=== PATIENT | male | born 1940 | race Caucasian/White ===

== ENCOUNTER 2017-10-27 19:06 | Emergency (ER) | END 2017-10-27 20:10 | disposition home or self-care (01) ==

== ENCOUNTER 2017-12-13 07:26 | Day surgery (SDC) | END 2017-12-13 11:32 | disposition home or self-care (01) ==

== ENCOUNTER 2018-05-31 22:10 | Emergency (ER) | END 2018-06-01 03:24 | disposition home or self-care (01) ==

== ENCOUNTER 2018-06-08 13:38 | Emergency (ER) | payer MEDICARE, MEDICAID ==
[~2018-06-08] VITALS: Wt 65.3 kg
[~2018-06-08 13:38] MED LIST: AMLO5TAB4 PO; ATEN50TA PO; BENA40TA56 PO; CALC667C PO; FOLI1CAP PO; RISP0.253 PO; SITA25TA3 PO; TERA5CAP3 PO
--- NOTE | 2018-06-08 15:07 | ERD ---
ER Documentation Chief Complaint Chief Complaint palpitation started today HPI 77-year-old male arrives to the emergency department with the paramedics from his dialysis center for evaluation of a tachycardia. According to the patient and the paramedics, patient received a full dialysis run today. After dialysis, he was tachycardic but asymptomatic. I have reviewed the commodity loan clerk pre-hospital care. Pre-hospital vital signs were reviewed. Pre-hospital diagnostic tests were reviewed. Upon arrival, patient reports no chest pain or shortness of breath, no fevers or chills. He states he feels well. He has no complaints at this time. ROS All systems reviewed and are negative except as per history of present illness. Medications Home Meds Reported Medications Folic Acid/Vitamin B Comp W-C (Nephrocaps Capsule) 1 Mg Capsule, 1 MG PO DAILY, CAP 12/13/17 Sitagliptin* (Januvia*) 25 Mg Tablet, 25 MG PO DAILY, #30 TAB 12/13/17 Calcium Acetate* (Calcium Acetate*) 667 Mg Capsule, 667 MG PO WITH MEALS, #30 CAP 12/13/17 Risperidone* (Risperidone*) 0.25 Mg Tablet, 0.25 MG PO DAILY, TAB 12/13/17 Terazosin Hcl* (Terazosin Hcl*) 5 Mg Capsule, 5 MG PO HS, CAP 12/13/17 Benazepril Hcl* (Benazepril Hcl*) 40 Mg Tablet, 40 MG PO DAILY, #30 TAB 12/13/17 Atenolol* (Atenolol*) 50 Mg Tablet, 50 MG PO BID, #60 TAB 12/13/17 Amlodipine Besylate* (Norvasc*) 5 Mg Tablet, 5 MG PO BID, TAB 12/13/17 Allergies Allergies: Coded Allergies: No Known Drug Allergy (Verified Allergy, Unknown, 12/13/17) PMhx/Soc History of Surgery: No Anesthesia Reaction: No Hx Neurological Disorder: No Hx Respiratory Disorders: No Hx Cardiac Disorders: Yes (HTN) Hx Psychiatric Problems: No Hx Miscellaneous Medical Probl: Yes (CKD, DM II) Hx Alcohol Use: No Hx Substance Use: No Hx Tobacco Use: No Smoking Status: Never smoker FmHx Noncontributory for chief complaint Physical Exam Vitals Vital Signs Date Temp Pulse Resp B/P (MAP) Pulse Ox O2 O2 Flow FiO2 Time Delivery Rate 06/08/18 88 18 146/80 99 Room Air 15:50 (102) 06/08/18 121 144/80 15:38 (101) 06/08/18 98.1 124 18 149/75 100 14:22 (99) Physical Exam GENERAL: The patient is well developed and appropriate for usual state of health in no apparent distress HEENT: Pupils equal, round, and reactive to light. EOMI. There is no scleral icterus. NECK: C-spine is soft and supple, there is no meningismus. There is no cervical lymphadenopathy. LUNGS: Clear to auscultation bilaterally. There are no rales, wheezes or rhonchi. HEART: Rapid, regular rate and rhythm, no murmurs, clicks, rubs or gallops.] ABDOMEN: Soft, non-tender, non-distended. There are bowel sounds in all four quadrants. No rebound or guarding. EXTREMITIES: There is no peripheral cyanosis or edema. No focal swelling or erythema. Dialysis graft is appreciated with a normal bruit and thrill. NEURO: The patient moves all four extremities with 5/5 strength. Cranial nerves II - XII are intact. Normal gait. Alert and oriented SKIN: There is no apparent rash or petechiae. HEME/LYMPHATIC: There is no evidence of excessive bruising or lymphedema. PSYCHIATRIC: The patient does not appear anxious or depressed. Result Diagram: 06/08/18 1432 06/08/18 1432 Results 24 hrs Laboratory Tests Test 06/08/18 14:32 White Blood Count 5.6 10^3/ul Red Blood Count 3.40 10^6/ul Hemoglobin 9.9 g/dl Hematocrit 29.9 % Mean Corpuscular Volume 87.9 fl Mean Corpuscular Hemoglobin 29.1 pg Mean Corpuscular Hemoglobin Concent 33.1 g/dl Red Cell Distribution Width 14.3 % Platelet Count 162 10^3/UL Mean Platelet Volume 9.1 fl Immature Granulocytes % 0.200 % Neutrophils % 78.4 % Lymphocytes % 4.9 % Monocytes % 12.4 % Eosinophils % 3.6 % Basophils % 0.5 % Nucleated Red Blood Cells % 0.0 /100WBC Immature Granulocytes # 0.010 10^3/ul Neutrophils # 4.4 10^3/ul Lymphocytes # 0.3 10^3/ul Monocytes # 0.7 10^3/ul Eosinophils # 0.2 10^3/ul Basophils # 0.0 10^3/ul Nucleated Red Blood Cells # 0.0 10^3/ul Sodium Level 138 mmol/L Potassium Level 3.7 mmol/L Chloride Level 96 mmol/L Carbon Dioxide Level 30 mmol/L Anion Gap 12 Blood Urea Nitrogen 29 mg/dl Creatinine 4.48 mg/dl Est Glomerular Filtrat Rate mL/min mL/min Glucose Level 158 mg/dl Calcium Level 9.3 mg/dl Total Bilirubin 0.1 mg/dl Direct Bilirubin 0.00 mg/dl Indirect Bilirubin 0.1 mg/dl Aspartate Amino Transf (AST/SGOT) 18 IU/L Alanine Aminotransferase (ALT/SGPT) 19 IU/L Alkaline Phosphatase 59 IU/L Troponin I 0.020 ng/ml Total Protein 6.4 g/dl Albumin 3.5 g/dl Globulin 2.90 g/dl Albumin/Globulin Ratio 1.20 Lipase 168 U/L Current Medications Medications Dose Sig/Regi Start Time Status Last (Trade) Ordered Route PRN Stop Time Admin Dose Reason Admin Diltiazem 30 mg ONCE ONCE 06/08/18 DC 06/08/18 HCl PO 15:30 06/08/18 15:36 (Cardizem) 15:31 Procedures/MDM Patient was taken to a room, seen and evaluated. Comfort measures were initiated. Diagnostic tests were ordered and reviewed. 3 LEAD RHYTHM STRIP: Sinus tachycardia versus junctional tachycardia EK lead EKG reviewed by myself: Supraventricular tachycardia at 128 bpm [Normal [place] and intervals] Nonspecific ST and T wave changes without ST elevation Impression: Nonspecific EKG RADIOLOGY: [reviewed with the radiologist] REEVALUATION: 1610: Patient remained asymptomatic and his heart rate went back to a normal sinus rhythm at 82 bpm. Repeat EKG demonstrated: Normal sinus rhythm LVH No ST elevation or depression Impression: Now in a normal sinus rhythm without obvious ischemic changes [employer]ISION [employer]KIN-year-old dialysis dependent patient presents with an asymptomatic tachycardia. Initial diagnostic tests no significant anemia, evidence of infection or significant electrolyte concerns. His tachycardia seems to be inherently cardiac related and likely an a flutter with a slow 2-1 block. At this time he is converted back to normal sinus rhythm and is remained asymptomatic with no signs of ischemia. He appears clinically well and seems appropriate for outpatient care. Departure Diagnosis: Primary Impression: Tachycardia Condition: Stable TAN EDMOND 3, 2019 15:07
[2018-06-08] MEDS ORDERED: DILTIAZEM 30 MG TAB PO ONE (15:30)
[2018-06-08 16:35] VITALS: BP 142/79; PULSE 89; RESP 18
== END 2018-06-08 17:02 | disposition home or self-care (01) ==
LOC: E/R 13:38
DX: R00.0 Tachycardia, unspecified (principal); I12.9 Hypertensive chronic kidney disease with stage 1 through stage 4 chronic kidney disease, or unspecified chronic kidney disease; N18.9 Chronic kidney disease, unspecified; E11.22 Type 2 diabetes mellitus with diabetic chronic kidney disease; Z79.84 Long term (current) use of oral hypoglycemic drugs; Z99.2 Dependence on renal dialysis
CPT/HCPCS: 71045; 80053; 83690; 84484; 85025; 93005

== ENCOUNTER 2018-10-29 19:38 | Emergency (ER) | payer MEDICARE, MEDICAID ==
[~2018-10-29] VITALS: Ht 167.6 cm; Wt 62.2 kg
[~2018-10-29 19:38] MED LIST changes: +APIX5TAB PO; -ATEN50TA PO; +CALC0.5C10 PO; +CARV12.579 PO; +CLON-379 PO; +FOLI0.8T2 PO; -FOLI1CAP PO; -SITA25TA3 PO; +SVL800C PO
[2018-10-29 19:47] VITALS: Ht 167.6 cm; Wt 62.2 kg
--- NOTE | 2018-10-29 21:19 | ERD ---
ER Documentation Chief Complaint Chief Complaint CP x 1 hour while at rest, hx: dialysis, HTN HPI This is a 78-year-old man brought in by family members for complaints of sharp nonexertional nonradiating chest pain today beginning early afternoon and posterior scalp contusion after mechanical fall while. Patient was given a walker and a wheelchair and was encouraged to use them but he does not like to use those so he suffered a mechanical fall today and struck the back of his head. The episode was witnessed he had no LOC and he was able to get up and ambulate immediately after without difficulty. He said no changes in mental status, no recent fevers or chills, no cough, no vomiting or diarrhea, no abdominal pain. He had full hemodialysis yesterday ROS All systems reviewed and are negative except as per history of present illness. Medications Home Meds Active Scripts Carvedilol* (Carvedilol*) 12.5 Mg Tablet, 12.5 MG PO BID for 30 Days, TAB Prov:KADI GONZALEZ MD 06/20/18 Apixaban* (Eliquis*) 5 Mg Tablet, 2.5 MG PO BID for 30 Days, TAB Prov:KADI GONZALEZ MD 06/20/18 Reported Medications Folic Acid/Vitamin B Comp W-C (Renal Multivitamin Tablet) 0.8 Mg Tablet, 0.8 MG PO DAILY, TAB 06/15/18 Clonidine Hcl* (Clonidine Hcl*) 0.1 Mg Tab, 0.1 MG PO BID, TAB 06/15/18 Risperidone* (Risperidone*) 0.25 Mg Tablet, 0.25 MG PO DAILY, TAB 06/15/18 Sevelamer Hcl* (Renagel*) 800 Mg Tablet, 800 MG PO WITH MEALS, TAB 06/15/18 Calcitriol* (Calcitriol*) 0.5 Mcg Capsule, 0.5 MCG PO DAILY, CAP 06/15/18 Calcium Acetate* (Calcium Acetate*) 667 Mg Capsule, 667 MG PO WITH MEALS, #30 CAP 12/13/17 Terazosin Hcl* (Terazosin Hcl*) 5 Mg Capsule, 5 MG PO HS, CAP 12/13/17 Benazepril Hcl* (Benazepril Hcl*) 40 Mg Tablet, 40 MG PO DAILY, #30 TAB 12/13/17 Amlodipine Besylate* (Norvasc*) 5 Mg Tablet, 5 MG PO BID, TAB 12/13/17 Allergies Allergies: Coded Allergies: No Known Drug Allergy (Verified Allergy, Unknown, 06/15/18) PMhx/Soc Atrial fibrillation, CHF with LVEF of 40%, history of non-STEMI, 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, hypertension, history of pericardial effusion, dementia, anemia History of Surgery: Yes (right upper arm shunt) Anesthesia Reaction: No Hx Neurological Disorder: No Hx Respiratory Disorders: Yes Hx Cardiac Disorders: Yes (htn, cad) Hx Psychiatric Problems: Yes (PSYCHOSIS) Hx Miscellaneous Medical Probl: Yes (ESRD , ON HD , DM , HTN ) Hx Alcohol Use: No Hx Substance Use: No Hx Tobacco Use: No Smoking Status: Never smoker Physical Exam Vitals Vital Signs Date Temp Pulse Resp B/P (MAP) Pulse Ox O2 O2 Flow FiO2 Time Delivery Rate 10/29/18 59 18 185/64 98 Room Air 20:05 (104) 10/29/18 96.1 63 16 197/81 94 19:47 (119) Physical Exam Const: No acute distress, afebrile HEENT: Mild posterior scalp contusion, no cervical spine tenderness or deformity Resp: Clear to auscultation bilaterally Cardio: Regular rate and rhythm, no murmurs Abd: Soft, non tender, non distended. Skin: No petechiae or rashes. Mild soft tissue contusion to the posterior scalp no hematoma or ecchymosis, no lacerations or abrasions noted Back: No midline or flank tenderness. No ecchymosis or contusions noted Neur: Awake and alert x1, moving all extremities, no focal deficits or facial asymmetry, pupils equal round reactive to light Psych: Normal Mood and Affect Result Diagram: 10/29/18203410/29/182034 Results 24 hrs Laboratory Tests Test 10/29/18 20:35 White Blood Count 6.2 10^3/ul Red Blood Count 3.45 10^6/ul Hemoglobin 9.1 g/dl Hematocrit 29.3 % Mean Corpuscular Volume 84.9 fl Mean Corpuscular Hemoglobin 26.4 pg Mean Corpuscular Hemoglobin Concent 31.1 g/dl Red Cell Distribution Width 18.8 % Platelet Count 141 10^3/UL Mean Platelet Volume 10.2 fl Immature Granulocytes % 0.500 % Neutrophils % 78.2 % Lymphocytes % 6.2 % Monocytes % 12.8 % Eosinophils % 1.8 % Basophils % 0.5 % Nucleated Red Blood Cells % 0.0 /100WBC Immature Granulocytes # 0.030 10^3/ul Neutrophils # 4.8 10^3/ul Lymphocytes # 0.4 10^3/ul Monocytes # 0.8 10^3/ul Eosinophils # 0.1 10^3/ul Basophils # 0.0 10^3/ul Nucleated Red Blood Cells # 0.0 10^3/ul Sodium Level 134 mmol/L Potassium Level 4.5 mmol/L Chloride Level 92 mmol/L Carbon Dioxide Level 30 mmol/L Anion Gap 12 Blood Urea Nitrogen 50 mg/dl Creatinine 5.44 mg/dl Est Glomerular Filtrat Rate mL/min mL/min Glucose Level 157 mg/dl Calcium Level 10.5 mg/dl Total Bilirubin 0.6 mg/dl Direct Bilirubin 0.00 mg/dl Indirect Bilirubin 0.6 mg/dl Aspartate Amino Transf (AST/SGOT) 28 IU/L Alanine Aminotransferase (ALT/SGPT) 24 IU/L Alkaline Phosphatase 52 IU/L Troponin I 0.022 ng/ml Total Protein 6.9 g/dl Albumin 3.7 g/dl Globulin 3.20 g/dl Albumin/Globulin Ratio 1.15 Lipase 129 U/L Current Medications Medications Dose Sig/Regi Start Time Status Last (Trade) Ordered Route PRN Stop Time Admin Dose Reason Admin Ketorolac 15 mg ONCE STAT 10/29/18 DC 10/29/18 Tromethamine IV 21:24 22:03 (Toradol) 10/29/18 21:25 Procedures/MDM IV line was established patient was placed on quality assurance monitor chassis rhythm strip revealed a sinus rhythm at about 60 bpm with upright P and T waves. Patient was afebrile EKG performed, read by me reveals a normal sinus rhythm at 63 bpm, normal axis, right ventricular conduction delay QRS duration 110 ms, no concerning ST elevations or depressions noted. One AP view of the chest performed, read by me reveals no acute infiltrates, no rmal mediastinum, sharp costophrenic and cardiac borders, no air under the diaphragm. Otherwise unremarkable chest x-ray. CT scan of the head was negative for acute bleed mass or shift. Troponin was negative, CBC within normal limits, electrolytes unremarkable Differential diagnoses considered, included but not limited to acute coronary syndrome, pulmonary embolism, aortic dissection, abdominal aortic aneurysm, sepsis, stroke, meningitis, encephalitis, pneumonia, appendicitis, cholecystitis, bowel obstruction, pyelonephritis, nephrolithiasis, cystitis, as well as metabolic, hematologic, and electrolyte abnormalities. As well as abscess, cellulitis, fractures, and dislocations. Patient feels much better at this time, and vital signs are normal, symptoms have improved. I did give strict instructions to return to the ED if symptoms continue or worsen, patient will otherwise follow-up with primary care physician. Patient understood instructions and agreed to plan. Disclaimer: Inadvertent spelling and grammatical errors are likely due to EHR/dictation software use and do not reflect on the overall quality of patient care. Also, please note that the electronic time recorded on this note does not necessarily reflect the actual time of the patient encounter. Departure Diagnosis: Primary Impression: Chest pain Chest pain type: unspecified Qualified Codes: R07.9 - Chest pain, unspecified Additional Impressions: Scalp contusion Encounter type: initial encounter Qualified Codes: S00.03XA - Contusion of scalp, initial encounter Dementia Dementia type: unspecified type Dementia behavioral disturbance: with behavioral disturbance Qualified Codes: F03.91 - Unspecified dementia with behavioral disturbance End stage kidney disease Condition: CARMELLA Farfan MD October 29, 2018 21:19
[2018-10-29] MEDS ORDERED: KETOROLAC 15 MG INJ IV STA (21:24)
[2018-10-29 22:45] VITALS: BP 164/60; PULSE 58; RESP 14
== END 2018-10-29 23:12 | disposition home or self-care (01) ==
LOC: E/R 19:38
DX: R07.9 Chest pain, unspecified (principal); S00.03XA Contusion of scalp, initial encounter; F03.91 Unspecified dementia, unspecified severity, with behavioral disturbance; N18.6 End stage renal disease; I50.9 Heart failure, unspecified; I13.2 Hypertensive heart and chronic kidney disease with heart failure and with stage 5 chronic kidney disease, or end stage renal disease; I25.10 Atherosclerotic heart disease of native coronary artery without angina pectoris; E11.22 Type 2 diabetes mellitus with diabetic chronic kidney disease; W18.39XA Other fall on same level, initial encounter; Y92.9 Unspecified place or not applicable; Z99.2 Dependence on renal dialysis; Z79.01 Long term (current) use of anticoagulants
CPT/HCPCS: 36415; 70450; 71045; 80053; 83690; 84484; 85025; 96374; 99285; J1885

== ENCOUNTER 2018-10-31 17:01 | Inpatient (IN) | payer MEDICARE, OTHER ==
[~2018-10-31] VITALS: Wt 63.1 kg
--- NOTE | 2018-10-31 18:09 | ERD ---
ER Documentation Chief Complaint Chief Complaint confused, seen here last tuesday, more confused today, very weak HPI The patient is a 78-year-old male, presenting to the ER because he has been confused for the last 4 days, fell 2 days ago and was seen in the ER, had a normal CT scan of the brain. He fell again yesterday and become more confused today according to the family. He does not have any fever, headache, neck pain, chest pain, dyspnea, abdominal pain, vomiting, dizzy, diarrhea. He sustained superficial bilateral wrist injury when he fell 2 days ago. He is unable to provide any history, the history is is obtained from the family and the medical record Medical history: History of CVA, chronic kidney disease, hypertension, hemodialysis on Tuesday and Tuesday, paroxysmal atrial fibrillation, history of CHF Past surgical history: Right upper extremity AV fistula ROS All systems reviewed and are negative except as per history of present illness. Medications Home Meds Active Scripts Carvedilol* (Carvedilol*) 12.5 Mg Tablet, 12.5 MG PO BID for 30 Days, TAB Prov:KADI GONZALEZ MD 06/20/18 Apixaban* (Eliquis*) 5 Mg Tablet, 2.5 MG PO BID for 30 Days, TAB Prov:KADI GONZALEZ MD 06/20/18 Reported Medications Folic Acid/Vitamin B Comp W-C (Renal Multivitamin Tablet) 0.8 Mg Tablet, 0.8 MG PO DAILY, TAB 06/15/18 Clonidine Hcl* (Clonidine Hcl*) 0.1 Mg Tab, 0.1 MG PO BID, TAB 06/15/18 Risperidone* (Risperidone*) 0.25 Mg Tablet, 0.25 MG PO DAILY, TAB 06/15/18 Sevelamer Hcl* (Renagel*) 800 Mg Tablet, 800 MG PO WITH MEALS, TAB 06/15/18 Calcitriol* (Calcitriol*) 0.5 Mcg Capsule, 0.5 MCG PO DAILY, CAP 06/15/18 Calcium Acetate* (Calcium Acetate*) 667 Mg Capsule, 667 MG PO WITH MEALS, #30 CAP 12/13/17 Terazosin Hcl* (Terazosin Hcl*) 5 Mg Capsule, 5 MG PO HS, CAP 12/13/17 Benazepril Hcl* (Benazepril Hcl*) 40 Mg Tablet, 40 MG PO DAILY, #30 TAB 12/13/17 Amlodipine Besylate* (Norvasc*) 5 Mg Tablet, 5 MG PO BID, TAB 12/13/17 Allergies Allergies: Coded Allergies: No Known Drug Allergy (Verified Allergy, Unknown, 06/15/18) PMhx/Soc History of Surgery: Yes (right upper arm shunt) Anesthesia Reaction: No Hx Neurological Disorder: No Hx Respiratory Disorders: No Hx Cardiac Disorders: No (htn, cad) Hx Psychiatric Problems: Yes (PSYCHOSIS) Hx Miscellaneous Medical Probl: Yes (ESRD , ON HD (T, TH, SAT)) Hx Alcohol Use: No Hx Substance Use: No Hx Tobacco Use: No Physical Exam Vitals Vital Signs Date Temp Pulse Resp B/P (MAP) Pulse Ox O2 O2 Flow FiO2 Time Delivery Rate 11/01/18 83 16 110/95 99 Room Air 00:16 (100) 10/31/18 24 143/48 99 Room Air 22:39 (79) 10/31/18 79 18 172/97 98 Room Air 22:00 (122) 10/31/18 74 19 189/74 Room Air 19:30 (112) 10/31/18 97.7 62 18 176/74 99 17:09 (108) Physical Exam Const: No acute distress. Head: Atraumatic. Eyes: Normal Conjunctiva. ENT: Normal External Ears, Nose and Mouth. Neck: Full range of motion. No meningismus. Resp: Clear to auscultation bilaterally. Cardio: Regular rate and rhythm. Abd: Soft, non distended, normal bowel sounds, non tender. Skin: Scattered ecchymosis and superficial abrasion and abrasion on bilateral wrist/hand Back: No midline or flank tenderness. small hematoma in upper back Ext: No cyanosis, or edema. Neur: Awake and alert. No focal deficit. Limited exam due to his condition Psych: Unable to perform due to his condition Result Diagram: 10/31/18204310/31/181905 Results 24 hrs Laboratory Tests Test 10/31/18 18:20 10/31/18 19:06 10/31/18 19:13 10/31/18 19:28 Bedside Glucose 141 mg/dL 138 mg/dL Prothrombin Time 16.0 Sec Prothrombin Time 1.3 Ratio INR International 1.27 Normalized Ratio Activated 24.2 Sec Partial Thromboplas t Time Sodium Level 135 mmol/L Potassium Level 3.8 mmol/L Chloride Level 94 mmol/L Carbon Dioxide 30 mmol/L Level Anion Gap 11 Blood Urea Nitrogen 30 mg/dl Creatinine 3.78 mg/dl Est Glomerular mL/min Filtrat Rate mL/min Glucose Level 136 mg/dl Calcium Level 9.0 mg/dl Total Bilirubin 0.9 mg/dl Direct Bilirubin 0.00 mg/dl Indirect Bilirubin 0.9 mg/dl Aspartate Amino 25 IU/L Transf (AST/SGOT) Alanine 20 IU/L Aminotransferase (A LT/SGPT) Alkaline 66 IU/L Phosphatase Ammonia < 9 umol/l Troponin I 0.017 ng/ml Total Protein 7.0 g/dl Albumin 3.8 g/dl Globulin 3.20 g/dl Albumin/Globulin 1.18 Ratio POC Venous Lactate 1.0 mmol/L Test 10/31/18 20:44 10/31/18 21:29 10/31/18 23:36 White Blood Count 5.6 10^3/ul Red Blood Count 2.88 10^6/ul Hemoglobin 7.8 g/dl Hematocrit 24.1 % Mean Corpuscular 83.7 fl Volume Mean Corpuscular 27.1 pg Hemoglobin Mean Corpuscular 32.4 g/dl Hemoglobin Concent Red Cell 18.9 % Distribution Width Platelet Count 105 10^3/UL Mean Platelet 8.4 fl Volume Immature 0.200 % Granulocytes % Neutrophils % 81.7 % Lymphocytes % 3.9 % Monocytes % 12.9 % Eosinophils % 0.9 % Basophils % 0.4 % Nucleated Red Blood 0.0 /100WBC Cells % Immature 0.010 10^3/ul Granulocytes # Neutrophils # 4.6 10^3/ul Lymphocytes # 0.2 10^3/ul Monocytes # 0.7 10^3/ul Eosinophils # 0.1 10^3/ul Basophils # 0.0 10^3/ul Nucleated Red Blood 0.0 10^3/ul Cells # Lactic Acid Level 0.7 mmol/L 1.0 mmol/L Current Medications Medications Dose Sig/Regi Start Time Status Last (Trade) Ordered Route PRN Stop Time Admin Dose Reason Admin Hydralazine 10 mg ONCE ONCE 10/31/18 DC 10/31/18 HCl IV 21:30 21:55 (Apresoline) 10/31/18 21:31 Sodium 1,000 ml @ [id number] IV 10/31/18 Chloride 60 mls/hr 21:26 Ondansetron 4 mg Q6H PRN 10/31/18 HCl (Zofran IV NAUSEA 21:30 Inj) AND/OR VOMITING Albuterol 2.5 mg Q2H RESP 10/31/18 (Proventil THERAPY PRN 21:30 0.083% (Neb)) NEB SHORTNESS OF BREATH 650 mg Q6H PRN 10/31/18 Acetaminophen PO PAIN 21:30 (Tylenol LEVEL 1-3 OR Liquid) FEVER 40 mg DAILY@06 11/01/18 Pantoprazole IV 06:00 (Protonix Iv) Hydralazine 10 mg Q4H PRN 10/31/18 HCl IV ELEVATED 22:00 (Apresoline) BLOOD PRESSURE Amlodipine 5 mg BID PO 10/31/18 Besylate 22:00 (Norvasc) Benazepril 40 mg DAILY PO 11/01/18 HCl 09:00 (Lotensin) Carvedilol 12.5 mg BID PO 10/31/18 (Coreg) 22:00 55.625 ml ONCE ONCE 10/31/18 DC 10/31/18 Desmopressin @ 111.25 IVPB 22:00 22:45 Acetate 22.5 mls/hr 10/31/18 22:29 mcg/ Sodium Chloride Procedures/[place] [id number] Radiology Main Line: [phone] DIAGNOSTIC IMAGING REPORT Patient: CARMELLA ELAINE : 1940 Age: 78 Sex: M MR #: [id number] DOS: 10/31/18 1833 Ordering MD: COLETTE JOHNSON MD Location: E/R Room/Bed: PROCEDURE: CT Brain without contrast. CLINICAL INDICATION: Altered mental status. TECHNIQUE: A CT of the brain without contrast was performed utilizing axial s ections from the skull base through the vertex. The patient was scanned without intravenous contrast enhancement. Sagittal and coronal reformatted images were obtained using the data from the axial images. Total exam DLP is 634.23 mGy-cm. CTDIvol is 38.01 mGy. One or more of the following dose reduction techniques were used: Automated exposure control, adjustment of the mA and/or kV according to patient size, use of iterative reconstruction technique. DICOM images are available. COMPARISON: CT scan of the brain dated 10/29/2018. FINDINGS: There is normal chin-white matter differentiation. There is enlargement of the ventricles and subarachnoid spaces consistent with atrophy. There is decreased attenuation of the periventricular white matter consistent with microangiopathic ischemic change. There is a new acute right subdural hematoma overlying the inferior frontal and temporal regions measuring up to 1.3 cm in thickness and 9 cm in AP dimension. There is mild mass effect with midline shift measuring approximately 2 mm. The left subdural hygroma is unchanged. Acute hemorrhage is noted in the quadrigeminal plate cistern extending superior to the posterior to the pineal gland in a region measuring 1.5 x 1.4 cm. There is no other intracranial hemorrhage or space-occupying lesion. There are vascular calcifications consistent with atherosclerosis. There is no skull fracture or lytic lesion. IMPRESSION: 1. Atrophy. 2. Microangiopathic ischemic change. 3. Atherosclerosis. 4. New acute right subdural hematoma overlying the inferior frontal and temporal regions with mild mass effect and midline shift measuring approximately 2 mm. 5. Acute hemorrhage in the quadrigeminal plate cistern extending superiorly, posterior to the pineal gland. 6. Otherwise unremarkable noncontrast CT scan of the brain. Call report: A call report of the findings was made to Dr. Johnson on 10/31/2018 at 2110 hours. RPTAT: QQ .Paramjit Knight MD, MD Date Time Electronically viewed and signed by .Paramjit Knight MD, on 10/31/2018 21:14 .R/ CC: COLETTE JOHNSON MD [id number] [place] [address] Radiology Main Line: [phone] DIAGNOSTIC IMAGING REPORT Patient: CARMELLA ELAINE : 1940 Age: 78 Sex: M MR #: [id number] DOS: 10/31/181832 Ordering MD: COLETTE JOHNSON MD Location: E/R Room/Bed: PROCEDURE: CT Cervical Spine without contrast. CLINICAL INDICATION: Trauma due to a fall. Neck pain. TECHNIQUE: Helical axial sections were obtained through the cervical spine without intravenous contrast enhancement. Sagittal and coronal reformatted images were accomplished using the data from the axial images. Total exam DLP is 531.27 mGy-cm. CTDIvol is 22.26 mGy. One or more of the following dose reduction techniques were used: Automated exposure control, adjustment of the mA and/or kV according to patient size, use of iterative reconstruction technique. DICOM images are available. COMPARISON: No prior studies are available for comparison. FINDINGS: There is normal stature and alignment of the vertebrae. There is no fracture. There are degenerative changes with hypertrophy of the facet joints on the right side at C4-5 and C5-6 and on the left side at C3-4 C4-5. There is right-sided foraminal stenosis at C4-5. There is no lytic or blastic lesion. The paravertebral soft tissues are normal. IMPRESSION: 1. Degenerative changes as described above. 2. No fracture or malalignment. 3. Otherwise unremarkable CT scan of the cervical spine. RPTAT: QQ .Paramjit Knight MD, MD Date Time Electronically viewed and signed by .Paramjit Knight MD, MD on 10/31/2018 21:17 .R/ CC: COLETTE JOHNSON MD [id number] [place] [address] Radiology Main Line: [phone] DIAGNOSTIC IMAGING REPORT Patient: CARMELLA ELAINE : 1940 Age: 78 Sex: M MR #: [id number] DOS: 10/31/181832 Ordering MD: COLETTE JOHNSON MD Location: E/R Room/Bed: PROCEDURE: XR Chest. CLINICAL INDICATION: Sepsis TECHNIQUE: Portable AP view of the chest was obtained. COMPARISON: CR CHEST 10/28/2015; CR PORT CHEST 06/09/2015; FINDINGS: Bibasilar pulmonary opacities, right greater than left, with small to moderate pleural effusion. No evidence of pneumothorax. Skin folds over the left chest. Stable cardiomegaly. Calcified atherosclerosis of the thoracic aorta. Vascular stent over the left axilla. IMPRESSION: Bibasilar pulmonary opacities, right greater than left, with small to moderate right pleural effusion. Findings are concerning for aspiration or pneumonia in the setting of reported sepsis. Cardiomegaly with calcified atherosclerosis of the thoracic aorta. RPTAT: HRGF Physician Raya Date Time Electronically viewed and signed by Isabella Lewis Physician on 10/31/2018 19:39 RF/ CC: COLETTE JOHNSON MD [id number] [place] [address] Radiology Main Line: [phone] DIAGNOSTIC IMAGING REPORT Patient: CARMELLA ELAINE : 1940 Age: 78 Sex: M MR #: [id number] DOS: 10/31/18 1833 Ordering MD: COLETTE JOHNSON MD Location: E/R Room/Bed: PROCEDURE: CT thoracic spine without contrast. CLINICAL INDICATION: Trauma due to a fall. Back pain. TECHNIQUE: Helical axial sections were obtained through the thoracic spine without intravenous contrast enhancement. Sagittal and coronal reformatted images were accomplished using the data from the axial images. Total exam DLP is 1010.59 mGy-cm. CTDIvol is 23.38 mGy. One or more of the following dose reduction techniques were used: Automated exposure control, adjustment of the mA and/or kV according to patient size, use of iterative reconstruction technique. DICOM images are available. COMPARISON: No prior studies are available for comparison. FINDINGS: There is normal stature and alignment of the vertebrae. There is no fracture. The disk height is normal. There are small osteophytes throughout. There is no lytic or blastic lesion. Vascular calcifications are present consistent with atherosclerosis. There is a moderate right pleural effusion and adjacent atelectatic lung. The heart is enlarged. IMPRESSION: 1. Mild degenerative change. 2. No fracture or malalignment. 3. Atherosclerosis. 4. Moderate right pleural effusion and adjacent atelectatic lung. 5. Cardiomegaly. 6. Otherwise unremarkable CT scan of the thoracic spine. RPTAT: QQ .Paramjit Knight MD, MD Date Time Electronically viewed and signed by .Paramjit Knight MD, MD on 10/31/2018 21:22 .R/ CC: COLETTE JOHNSON MD [id number] EKG: Read by emergency physician Rate/Rhythm: Normal Sinus Rhythm 71 beats/min QRS, ST, T-waves: No ST elevation, no T inversion, RSR' V1, artifacts Impression: Abnormal EKG Consultation: I discussed the patient with the on-call neurosurgeon Dr. Obrien at 9:50 PM, who recommended 1 platelet pheresis and DDAVP 0.3 mcg/kg IV and accepted the consult MEDICAL MAKING DECISION: The patient is a 78-year-old male, presenting with acute subdural hematoma, acute subarachnoid hemorrhage. He was treated with plateletpheresis and DDAVP as recommended by neurosurgeon The differential diagnoses considered include but are not limited to subarachnoid hemorrhage, occult trauma, CVA, meningitis, encephalitis, hypertension, tension, migraine, cluster, narcotic withdrawal, cervical spine disease. Critical Care: Time: 35 minutes excluding all billable procedures. Treatments/Evaluations: Close monitoring and treatment of unstable vital signs, cardiorespiratory, and neurologic status, while maintaining tight balance of fluid, respiratory, and cardiac interventions. Departure Diagnosis: Primary Impression: Subdural hematoma Additional Impressions: Subarachnoid hematoma Anemia Thrombocytopenia Condition: Critical Comments I discussed the findings with the patient. I discussed the patient with Dr Maier at 10 p , who was made aware of the lab, the treatment, the patient condition. The patient is admitted to ICU Disclaimer: Inadvertent spelling and grammatical errors are likely due to EHR/dictation software use and do not reflect on the overall quality of patient care. Also, please note that the electronic time recorded on this note does not necessarily reflect the actual time of the patient encounter. COLETTE JOHNSON MD October 31, 2018 18:09
[2018-10-31] MEDS: SOD CHLORIDE 0.9% 1,000 ML IV SCH (21:26)
[2018-10-31] MEDS ORDERED: ONDANSETRON 4 MG INJ IV PRN (21:30)
[2018-10-31] MEDS ORDERED: hydrALAzine 20 MG INJ IV ONE (21:30)
[2018-10-31] MEDS ORDERED: ACETAMINOPHEN 650MG/20.3ML CUP PO PRN (21:30)
[2018-10-31] MEDS ORDERED: DESMOPRESSIN 22.5 MCG in SOD CHLORIDE 0.9% 50 ML IVPB ONE (22:00)
--- NOTE | 2018-10-31 22:12 | HP ---
Date/Time of Note Date/Time of Note DATE: 10/31/18 TIME: 22:10 Assessment/Plan VTE Prophylaxis SCD applied (from Nsg): Yes Pharmacological prophylaxis: NA/contraindicated Pharm contraindication: low risk/ambulating Lines/Catheters IV Catheter Type (from Nrsg): Saline Lock Assessment/Plan Hospital Course This is a 77-year-old male being admitted to the telemetry floor for: #1 Acute right subdural hematoma: CT the brain shows: New acute right subdural hematoma overlying the inferior frontal and temporal regions with mild mass effect and midline shift measuring approximately 2 mm. Acute hemorrhage in the quadrigeminal plate cistern extending superiorly, posterior to the pineal gland. We will keep the patient n.p.o. except meds, elevate the head of the bed. Blood pressure control with systolic less than 160. DDAVP and platelets were ordered by the neurosurgeon . Repeat CT of the brain without contrast in the a.m. holding Eliquis. We will check CBC, CMP. Monitor platelet count as well as PT/INR PTT #2 end-stage renal disease: Currently not volume overloaded., avoid nephrotoxic agents, avoid NSAIDs. HD Tuesday. Resume home medications. consult nephro dr. hilliard. #3 Diabetes mellitus: check a1c, iss #4 atrial fibrillation: Currently rate controlled we will hold Eliquis given patient's bleeding. #5 hypertension: Resume patient's home medications #6 DVT GI prophylaxis: SCDs, Protonix Further treatment strategy will be implemented as per the clinical course greater than 45 mins of critical care time was spent on the care and management of this patient. Result Diagram: 10/31/18204310/31/18 1906 Results 24hrs Laboratory Tests Test 10/31/18 18:20 10/31/18 19:06 10/31/18 19:13 10/31/18 19:28 Bedside Glucose 141 138 Prothrombin Time 16.0 H Prothrombin Time 1.3 Ratio INR International 1.27 Normalized Ratio Activated 24.2 Partial Thromboplast Time Sodium Level 135 Potassium Level 3.8 Chloride Level 94 L Carbon Dioxide Level 30 Anion Gap 11 Blood Urea Nitrogen 30 #H Creatinine 3.78 #H Est Glomerular Filtrat Rate mL/min Glucose Level 136 Calcium Level 9.0 Total Bilirubin 0.9 Direct Bilirubin 0.00 Indirect Bilirubin 0.9 Aspartate Amino 25 Transf (AST/SGOT) Alanine 20 Aminotransferase (AL T/SGPT) Alkaline Phosphatase 66 Ammonia < 9 L Troponin I 0.017 Total Protein 7.0 Albumin 3.8 Globulin 3.20 Albumin/Globulin 1.18 Ratio POC Venous Lactate 1.0 Test 10/31/18 20:44 White Blood Count 5.6 Red Blood Count 2.88 L Hemoglobin 7.8 L Hematocrit 24.1 L Mean Corpuscular 83.7 Volume Mean Corpuscular 27.1 L Hemoglobin Mean Corpuscular 32.4 Hemoglobin Concent Red Cell 18.9 H Distribution Width Platelet Count 105 #L Mean Platelet Volume 8.4 Immature 0.200 Granulocytes % Neutrophils % 81.7 H Lymphocytes % 3.9 L Monocytes % 12.9 H Eosinophils % 0.9 Basophils % 0.4 Nucleated Red Blood 0.0 Cells % Immature 0.010 Granulocytes # Neutrophils # 4.6 Lymphocytes # 0.2 L Monocytes # 0.7 Eosinophils # 0.1 Basophils # 0.0 Nucleated Red Blood 0.0 Cells # HPI/ROS Admit Date/Time Admit Date/Time Hx of Present Illness Chief complaint: Confused, fall 2 days ago Long history was obtained from the ED physician documentation as well as partially from the patient. The patient is a 78-year-old male, with a past medical history of end-stage renal disease, atrial fibrillation on Eliquis who presented to the ER because he has been confused for the last 4 days, fell 2 days ago. He was seen in the emergency department approximately 2 days ago and had an CT scan done at that time which was negative. He then fell again yesterday and become more confused today according to the family. He does not have any fever, headache, neck pain, chest pain, dyspnea, abdominal pain, vomiting, dizzy, diarrhea. He sustained superficial bilateral wrist injury when he fell 2 days ago. Allergies: NKDA Medications: See AUG ROS Const: As per HPI Eyes : No pain discharge or redness or change in visual acuity ENT: No pain, sore throat, congestion, congestion, dysphagia or discharge Respiratory: No shortness of breath, cough, sputum, wheezing, or pleuritic pain Cardiovascular: No chest pain, palpitation, PND, or edema GI : no change in appetite, abdominal pain, nausea, vomiting, diarrhea, constipation, or change in the color his stool Genitourinary: No dysuria, hematuria, flank pain , discharge or CVA tenderness Musculoskeletal: No joint pain, back pain, neck pain, restricted range of motion in neck or joints Skin: No rash, bruising or hives Neuro: As per HPI Endocrine: No polyuria, polydipsia, temperature intolerance Psych: No hallucination, depression, anxiety or suicidal ideation PMH/Family/Social Past Medical History End-stage renal disease on hemodialysis Tuesday, diabetes lawrence itus, hypertension Medications Current Medications Sodium Chloride 1,000 ml @ 60 mls/hr [id number] IV ; Start 10/31/18 at 21:26 Ondansetron HCl (Zofran Inj) 4 mg Q6H PRN IV NAUSEA AND/OR VOMITING; Start 10/31/18 at 21:30 Albuterol (Proventil 0.083% (Neb)) 2.5 mg Q2H RESP THERAPY PRN NEB SHORTNESS OF BREATH; Start 10/31/18 at 21:30 Acetaminophen (Tylenol Liquid) 650 mg Q6H PRN PO PAIN LEVEL 1-3 OR FEVER; Start 10/31/18 at 21:30 Pantoprazole (Protonix Iv) 40 mg DAILY@06 IV ; Start 11/01/18 at 06:00 Hydralazine HCl (Apresoline) 10 mg Q4H PRN IV ELEVATED BLOOD PRESSURE; Start 10/31/18 at 22:00 Amlodipine Besylate (Norvasc) 5 mg BID PO ; Start 10/31/18 at 22:00 Benazepril HCl (Lotensin) 40 mg DAILY PO ; Start 11/01/18 at 09:00 Carvedilol (Coreg) 12.5 mg BID PO ; Start 10/31/18 at 22:00 Desmopressin Acetate 22.5 mcg/ Sodium Chloride 55.625 ml @ 111.25 mls/hr ONCE ONCE IVPB ; Start 10/31/18 at 22:00; Stop 10/31/18 at 22:29 Coded Allergies: No Known Drug Allergy (Verified Allergy, Unknown, 06/15/18) Past Surgical History Right AV fistula Past Surgical Hx: other Family History Significant Family History: no pertinent family hx Social History Alcohol Use: none Smoking Status: Never smoker Drug Use: none Exam/Review of Systems Vital Signs Vitals Vital Signs Date Temp Pulse Resp B/P (MAP) Pulse Ox O2 O2 Flow FiO2 Time Delivery Rate 10/31/18 97.7 62 18 176/74 99 17:09 (108) Exam Exam General: Patient is well-developed well-nourished The patient is alert oriented -3 lying comfortably in bed. HEENT: Atraumatic, normocephalic. The pupils are equal, round and reactive. Extraocular motor are intact Neck: Supple with full range of motion. No rigidity or meningismus Chest: Nontender Lungs: Clear to auscultation bilaterally no crackles rales or wheezing Heart: Normal S1-S2, Regular rhythm and rate. No murmur, S3, or S4 Abdomen: Soft , nontender, nondistended , bowel sounds are present. No guarding no rebound tenderness , No masses or organomegaly. No costovertebral temporal angle mass Extremities: Normal to inspection, no edema no cyanosis Neurologic: Normal mental status, speech normal, cranial nerves II through XII are intact, motor and sensory are intact, no focal weakness Additional Comments PROCEDURE: CT Brain without contrast. CLINICAL INDICATION: Altered mental status. TECHNIQUE: A CT of the brain without contrast was performed utilizing axial sections from the skull base through the vertex. The patient was scanned without intravenous contrast enhancement. Sagittal and coronal reformatted images were obtained using the data from the axial images. Total exam DLP is 634.23 mGy-cm. CTDIvol is 38.01 mGy. One or more of the following dose reduction techniques were used: Automated exposure control, adjustment of the mA and/or kV according to patient size, use of iterative reconstruction technique. DICOM images are available. COMPARISON: CT scan of the brain dated 10/29/2018. FINDINGS: There is normal chin-white matter differentiation. There is enlargement of the ventricles and subarachnoid spaces consistent with atrophy. There is decreased attenuation of the periventricular white matter consistent with microangiopathic ischemic change. There is a new acute right subdural hematoma overlying the inferior frontal and temporal regions measuring up to 1.3 cm in thickness and 9 cm in AP dimension. There is mild mass effect with midline shift measuring approximately 2 mm. The left subdural hygroma is unchanged. Acute hemorrhage is noted in the quadrigeminal plate cistern extending superior to the posterior to the pineal gland in a region measuring 1.5 x 1.4 cm. There is no other intracranial hemorrhage or space-occupying lesion. There are vascular calcifications consistent with atherosclerosis. There is no skull fracture or lytic lesion. IMPRESSION: 1. Atrophy. 2. Microangiopathic ischemic change. 3. Atherosclerosis. 4. New acute right subdural hematoma overlying the inferior frontal and temporal regions with mild mass effect and midline shift measuring approximately 2 mm. 5. Acute hemorrhage in the quadrigeminal plate cistern extending superiorly, posterior to the pineal gland. 6. Otherwise unremarkable noncontrast CT scan of the brain. Call report: A call report of the findings was made to Dr. Johnson on 10/31/2018 at 2110 hours. RPTAT: QQ .Paramjit Knight MD, MD Date Time Electronically viewed and signed by .Paramjit Knight MD, MD on 10/31/2018 21:14 .R/ CC: COLETTE JOHNSON MD [id number] PROCEDURE: CT Cervical Spine without contrast. CLINICAL INDICATION: Trauma due to a fall. Neck pain. TECHNIQUE: Helical axial sections were obtained through the cervical spine wi thout intravenous contrast enhancement. Sagittal and coronal reformatted images were accomplished using the data from the axial images. Total exam DLP is 531.27 mGy-cm. CTDIvol is 22.26 mGy. One or more of the following dose reduction techniques were used: Automated exposure control, adjustment of the mA and/or kV according to patient size, use of iterative reconstruction technique. DICOM imag es are available. COMPARISON: No prior studies are available for comparison. FINDINGS: There is normal stature and alignment of the vertebrae. There is no fracture. There are degenerative changes with hypertrophy of the facet joints on the right side at C4-5 and C5-6 and on the left side at C3-4 C4-5. There is right-sided foraminal stenosis at C4-5. There is no lytic or blastic lesion. The paravertebral soft tissues are normal. IMPRESSION: 1. Degenerative changes as described above. 2. No fracture or malalignment. 3. Otherwise unremarkable CT scan of the cervical spine. RPTAT: QQ .Paramjit Knight MD, MD Date Time Electronically viewed and signed by .Paramjit Knight MD, MD on 10/31/2018 21:17 .R/ CC: COLETTE JOHNSON MD [id number] PROCEDURE: CT thoracic spine without contrast. CLINICAL INDICATION: Trauma due to a fall. Back pain. TECHNIQUE: Helical axial sections were obtained through the thoracic spine without intravenous contrast enhancement. Sagittal and coronal reformatted images were accomplished using the data from the axial images. Total exam DLP is 1010.59 mGy-cm. CTDIvol is 23.38 mGy. One or more of the following dose reduction techniques were used: Automated exposure control, adjustment of the mA and/or kV according to patient size, use of iterative reconstruction technique. DICOM images are available. COMPARISON: No prior studies are available for comparison. FINDINGS: There is normal stature and alignment of the vertebrae. There is no fracture. The disk height is normal. There are small osteophytes throughout. There is no lytic or blastic lesion. Vascular calcifications are present consistent with atherosclerosis. There is a moderate right pleural effusion and adjacent atelectatic lung. The heart is enlarged. IMPRESSION: 1. Mild degenerative change. 2. No fracture or malalignment. 3. Atherosclerosis. 4. Moderate right pleural effusion and adjacent atelectatic lung. 5. Cardiomegaly. 6. Otherwise unremarkable CT scan of the thoracic spine. RPTAT: QQ .Paramjit Knight MD, MD Date Time Electronically viewed and signed by .Paramjit Knight MD, MD on 10/31/2018 21:22 .R/ CC: COLETTE JOHNSON MD [id number] PROCEDURE: XR Chest. CLINICAL INDICATION: Sepsis TECHNIQUE: Portable AP view of the chest was obtained. COMPARISON: CR CHEST 10/28/2015; CR PORT CHEST 06/09/2015; FINDINGS: Bibasilar pulmonary opacities, right greater than left, with small to moderate pleural effusion. No evidence of pneumothorax. Skin folds over the left chest. Stable cardiomegaly. Calcified atherosclerosis of the thoracic aorta. Vascular stent over the left axilla. IMPRESSION: Bibasilar pulmonary opacities, right greater than left, with small to moderate right pleural effusion. Findings are concerning for aspiration or pneumonia in the setting of reported sepsis. Cardiomegaly with calcified atherosclerosis of the thoracic aorta. RPTAT: HRGF Physician Raya Date Time Electronically viewed and signed by Isabella Lewis Physician on 10/31/2018 19:39 RF/ CC: COLETTE JOHNSON MD [id number] THIEN LUCIO October 31, 2018 22:11
[2018-11-01] VITALS (31 sets, daily range): BP systolic 89–154; BP diastolic 7–124; PULSE 69–82; RESP 15–24
[2018-11-01] MEDS: ALBUTEROL 0.083% (NEB) 2.5 MG/3 ML AMP NEB PRN (05:54)
[2018-11-01] MEDS: hydrALAzine 20 MG INJ IV PRN (05:56)
[2018-11-01] MEDS ORDERED: PANTOPRAZOLE 40 MG INJ IV SCH (06:00)
[2018-11-01] MEDS: CALCIUM ACETATE 667 MG CAP PO SCH ×3 (08:00→17:59)
[2018-11-01] MEDS ORDERED: SEVELAMER 800 MG TAB PO SCH (08:00)
[2018-11-01] MEDS: MULTIVIT/CA CARB/B CMPLX/FA TAB PO SCH (09:00)
[2018-11-01] MEDS: BENAZEPRIL 40 MG TAB PO SCH (09:00)
--- NOTE | 2018-11-01 09:00 | CONS ---
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 Platelets given (1 unit) and DDAVP given in ER. PT mildly elevated and patient has thrombocytopenia (105K). Also anemic with Hgb 7. Pattern of ICH is consistent with stated history of falls, however left quadrigeminal cistern blood merits further investigation. Will check MRI. Surgical intervention is likely to be necessary at some time, however given borderline coagulopathy and recent anti-platelet medication, it would be best to defer surgery for a week if patient will tolerate doing so. We will get follow up imaging studies and if hematoma unstable/ enlarging surgery may be contemplated sooner. In the meantime his laboratory abnormalities may hopefully be worked up. Thank you. Consultation Date/Type/Reason Admit Date/Time Date of Consultation: November 01, 2018 Type of Consult neurosurgery Reason for Consultation right mixed density subdural hematoma s/p fall Date/Time of Note DATE: 11/01/18 TIME: 08:50 Hx of Present Illness 78 year old male with history of fall (reportedly two days ago) brought to ER by family for confusion. CT shows 1) right acute on chronic SDH with minimal MLS and mild mass effect. Maximal thickness ~12mm. 2) left quadrigeminal cistern ICH c/w tSAH. Patient is confused/ disorientated but has no lateralizing deficits. No family is available to provide additional history and the patient is not capable of relating his history himself. patient confused and cannot provide history Past Medical History patient confused and cannot provide history Home Meds Active Scripts Carvedilol* (Carvedilol*) 12.5 Mg Tablet, 12.5 MG PO BID for 30 Days, TAB Prov:KADI GONZALEZ MD 06/20/18 Apixaban* (Eliquis*) 5 Mg Tablet, 2.5 MG PO BID for 30 Days, TAB Prov:KADI GONZALEZ MD 06/20/18 Reported Medications Folic Acid/Vitamin B Comp W-C (Renal Multivitamin Tablet) 0.8 Mg Tablet, 0.8 MG PO DAILY, TAB 06/15/18 Clonidine Hcl* (Clonidine Hcl*) 0.1 Mg Tab, 0.1 MG PO BID, TAB 06/15/18 Risperidone* (Risperidone*) 0.25 Mg Tablet, 0.25 MG PO DAILY, TAB 06/15/18 Sevelamer Hcl* (Renagel*) 800 Mg Tablet, 800 MG PO WITH MEALS, TAB 06/15/18 Calcitriol* (Calcitriol*) 0.5 Mcg Capsule, 0.5 MCG PO DAILY, CAP 06/15/18 Calcium Acetate* (Calcium Acetate*) 667 Mg Capsule, 667 MG PO WITH MEALS, #30 CAP 12/13/17 Terazosin Hcl* (Terazosin Hcl*) 5 Mg Capsule, 5 MG PO HS, CAP 12/13/17 Benazepril Hcl* (Benazepril Hcl*) 40 Mg Tablet, 40 MG PO DAILY, #30 TAB 12/13/17 Amlodipine Besylate* (Norvasc*) 5 Mg Tablet, 5 MG PO BID, TAB 12/13/17 Medications Current Medications Sodium Chloride 1,000 ml @ 60 mls/hr [id number] IV Last administered on 10/31/18at 21:26; Admin Dose 60 MLS/HR; Start 10/31/18 at 21:26 Ondansetron HCl (Zofran Inj) 4 mg Q6H PRN IV NAUSEA AND/OR VOMITING; Start 10/31/18 at 21:30 Albuterol (Proventil 0.083% (Neb)) 2.5 mg Q2H RESP THERAPY PRN NEB SHORTNESS OF BREATH Last administered on 11/01/18at 05:54; Admin Dose 2.5 MG; Start 10/31/18 at 21:30 Acetaminophen (Tylenol Liquid) 650 mg Q6H PRN PO PAIN LEVEL 1-3 OR FEVER; Start 10/31/18 at 21:30 Pantoprazole (Protonix Iv) 40 mg DAILY@06 IV ; Start 11/01/18 at 06:00 Hydralazine HCl (Apresoline) 10 mg Q4H PRN IV ELEVATED BLOOD PRESSURE Last administered on 11/01/18at 05:56; Admin Dose 10 MG; Start 10/31/18 at 22:00 Amlodipine Besylate (Norvasc) 5 mg BID PO ; Start 10/31/18 at 22:00 Benazepril HCl (Lotensin) 40 mg DAILY PO ; Start 11/01/18 at 09:00 Carvedilol (Coreg) 12.5 mg BID PO ; Start 10/31/18 at 22:00 Calcium Acetate (Phoslo) 667 mg WITH MEALS PO ; Start 11/01/18 at 08:00 Multivit/Ca Carb/ B Cmplx/FA/Prenat (Sharron-Ashley) 1 tab DAILY PO ; Start 11/01/18 at 09:00 Sevelamer HCl (Renagel) 800 mg WITH MEALS PO ; Start 11/01/18 at 08:00 Allergies: Coded Allergies: No Known Drug Allergy (Verified Allergy, Unknown, 06/15/18) Past Surgical History patient confused and cannot provide history Past Surgical Hx: other Social History patient confused and cannot provide history Smoking Status: Never smoker Exam/Review of Systems Exam Vitals Vital Signs Date Temp Pulse Resp B/P (MAP) Pulse Ox O2 O2 Flow FiO2 Time Delivery Rate 11/01/18 98 Nasal 4.0 08:10 Cannula 11/01/18 98.8 07:20 11/01/18 85 20 145/98 07:19 (114) Exam Awake, ayes open, follows commands, and tracks Answers simple questions appropriately yes/ no, denies headache, states name is not oriented to place or time, however moves all extremities 10/08 denies anaesthesia/ hypoesthesia cranial nerve exam: EOMI, PERRL, Face= TML palate symmetric Results Result Diagram: 10/31/18204310/31/18 1906 Results 24hrs Laboratory Tests Test 10/31/18 18:20 10/31/18 19:06 10/31/18 19:13 10/31/18 19:28 Bedside Glucose 141 138 Prothrombin Time 16.0 H Prothrombin Time 1.3 Ratio INR International 1.27 Normalized Ratio Activated 24.2 Partial Thromboplast Time Sodium Level 135 Potassium Level 3.8 Chloride Level 94 L Carbon Dioxide Level 30 Anion Gap 11 Blood Urea Nitrogen 30 #H Creatinine 3.78 #H Est Glomerular Filtrat Rate mL/min Glucose Level 136 Calcium Level 9.0 Total Bilirubin 0.9 Direct Bilirubin 0.00 Indirect Bilirubin 0.9 Aspartate Amino 25 Transf (AST/SGOT) Alanine 20 Aminotransferase (AL T/SGPT) Alkaline Phosphatase 66 Ammonia < 9 L Troponin I 0.017 Total Protein 7.0 Albumin 3.8 Globulin 3.20 Albumin/Globulin 1.18 Ratio POC Venous Lactate 1.0 Test 10/31/18 20:44 10/31/18 21:29 10/31/18 23:36 White Blood Count 5.6 Red Blood Count 2.88 L Hemoglobin 7.8 L Hematocrit 24.1 L Mean Corpuscular 83.7 Volume Mean Corpuscular 27.1 L Hemoglobin Mean Corpuscular 32.4 Hemoglobin Concent Red Cell 18.9 H Distribution Width Platelet Count 105 #L Mean Platelet Volume 8.4 Immature 0.200 Granulocytes % Neutrophils % 81.7 H Lymphocytes % 3.9 L Monocytes % 12.9 H Eosinophils % 0.9 Basophils % 0.4 Nucleated Red Blood 0.0 Cells % Immature 0.010 Granulocytes # Neutrophils # 4.6 Lymphocytes # 0.2 L Monocytes # 0.7 Eosinophils # 0.1 Basophils # 0.0 Nucleated Red Blood 0.0 Cells # Lactic Acid Level 0.7 1.0 Medications Medication Current Medications Sodium Chloride 1,000 ml @ 60 mls/hr [id number] IV Last administered on 10/31/18at 21:26; Admin Dose 60 MLS/HR; Start 10/31/18 at 21:26 Ondansetron HCl (Zofran Inj) 4 mg Q6H PRN IV NAUSEA AND/OR VOMITING; Start 10/31/18 at 21:30 Albuterol (Proventil 0.083% (Neb)) 2.5 mg Q2H RESP THERAPY PRN NEB SHORTNESS OF BREATH Last administered on 11/01/18at 05:54; Admin Dose 2.5 MG; Start 10/31/18 at 21:30 Acetaminophen (Tylenol Liquid) 650 mg Q6H PRN PO PAIN LEVEL 1-3 OR FEVER; Start 10/31/18 at 21:30 Pantoprazole (Protonix Iv) 40 mg DAILY@06 IV ; Start 11/01/18 at 06:00 Hydralazine HCl (Apresoline) 10 mg Q4H PRN IV ELEVATED BLOOD PRESSURE Last administered on 11/01/18at 05:56; Admin Dose 10 MG; Start 10/31/18 at 22:00 Amlodipine Besylate (Norvasc) 5 mg BID PO ; Start 10/31/18 at 22:00 Benazepril HCl (Lotensin) 40 mg DAILY PO ; Start 11/01/18 at 09:00 Carvedilol (Coreg) 12.5 mg BID PO ; Start 10/31/18 at 22:00 Calcium Acetate (Phoslo) 667 mg WITH MEALS PO ; Start 11/01/18 at 08:00 Multivit/Ca Carb/ B Cmplx/FA/Prenat (Sharron-Ashley) 1 tab DAILY PO ; Start 11/01/18 at 09:00 Sevelamer HCl (Renagel) 800 mg WITH MEALS PO ; Start 11/01/18 at 08:00 KELLIE JJ MD November 01, 2018 09:00
[2018-11-01] MEDS: INSULIN ASPART [NOVOLOG] 3 ML PEN SC SCH ×3 (13:00→21:35)
--- NOTE | 2018-11-01 14:08 | PN ---
Date/Time of Note Date/Time of Note DATE: 11/01/18 TIME: 14:03 Assessment/Plan VTE Prophylaxis SCD applied (from Nsg): Yes Pharmacological prophylaxis: NA/contraindicated Pharm contraindication: bleeding Lines/Catheters IV Catheter Type (from Nrsg): Saline Lock Assessment/Plan Assessment/Plan 77 yo man with ESRD on HD admitted after fall with acute right subdural hematoma and subarachnoid hemorrhage. # Acute right subdural hematoma: - Cleared by speech therapy for puree diet. - Keep head of bed elevated - SBP <160 - Hold eliquis. - Dr. Garrett following. May need surgery in a week. # end-stage renal disease: - HD Tuesday. Resume home medications - Dr. Stockton following. # Diabetes mellitus - Insulin sliding scale. # atrial fibrillation, paroxysmal. - Currently in normal sinus. - will hold Eliquis given patient's bleeding. # hypertension: Resume patient's home medications # DVT GI prophylaxis: SCDs, Protonix Further treatment strategy will be implemented as per the clinical course greater than 45 mins of critical care time was spent on the care and management of this patient. Result Diagram: 11/01/1890111/01/18901 Subjective 24 Hr Interval Summary Free Text/Dictation No acute overnight events. Patient awake and alert. Still slightly hypoxic, on 4L nasal cannula. Exam/Review of Systems Exam Vitals Vital Signs Date Temp Pulse Resp B/P (MAP) Pulse Ox O2 O2 Flow FiO2 Time Delivery Rate 11/01/18 78 09:03 11/01/18 98 Nasal 4.0 08:10 Cannula 11/01/18 98.8 07:20 11/01/18 20 145/98 07:19 (114) Exam General: Patient is well-developed well-nourished HEENT: Atraumatic, normocephalic. The pupils are equal, round and reactive. Extraocular motor are intact Neck: Supple with full range of motion. No rigidity or meningismus Chest: Nontender Lungs: Clear to auscultation bilaterally no crackles rales or wheezing Heart: Normal S1-S2, Regular rhythm and rate. No murmur, S3, or S4 Abdomen: Soft , nontender, nondistended , bowel sounds are present. No guarding no rebound tenderness , No masses or organomegaly. No costovertebral temporal angle mass Extremities: Normal to inspection, no edema no cyanosis Neurologic: Normal mental status, speech normal. Oriented to self. Disoriented to location, year, month, and day. Results Results 24hrs Laboratory Tests Test 10/31/18 18:20 10/31/18 19:06 10/31/18 19:13 10/31/18 19:28 Bedside Glucose 141 138 Prothrombin Time 16.0 H Prothrombin Time 1.3 Ratio INR International 1.27 Normalized Ratio Activated 24.2 Partial Thromboplast Time Sodium Level 135 Potassium Level 3.8 Chloride Level 94 L Carbon Dioxide Level 30 Anion Gap 11 Blood Urea Nitrogen 30 #H Creatinine 3.78 #H Est Glomerular Filtrat Rate mL/min Glucose Level 136 Calcium Level 9.0 Total Bilirubin 0.9 Direct Bilirubin 0.00 Indirect Bilirubin 0.9 Aspartate Amino 25 Transf (AST/SGOT) Alanine 20 Aminotransferase (AL T/SGPT) Alkaline Phosphatase 66 Ammonia < 9 L Troponin I 0.017 Total Protein 7.0 Albumin 3.8 Globulin 3.20 Albumin/Globulin 1.18 Ratio POC Venous Lactate 1.0 Test 10/31/18 20:44 10/31/18 21:29 10/31/18 23:36 11/01/18 09:02 White Blood Count 5.6 6.1 Red Blood Count 2.88 L 2.76 L Hemoglobin 7.8 L 7.5 L Hematocrit 24.1 L 23.8 L Mean Corpuscular 83.7 86.2 Volume Mean Corpuscular 27.1 L 27.2 L Hemoglobin Mean Corpuscular 32.4 31.5 L Hemoglobin Concent Red Cell 18.9 H 19.7 H Distribution Width Platelet Count 105 #L 109 L Mean Platelet Volume 8.4 8.7 Immature 0.200 0.300 Granulocytes % Neutrophils % 81.7 H 86.0 H Lymphocytes % 3.9 L 3.3 L Monocytes % 12.9 H 9.7 Eosinophils % 0.9 0.5 Basophils % 0.4 0.2 Nucleated Red Blood 0.0 0.0 Cells % Immature 0.010 0.020 Granulocytes # Neutrophils # 4.6 5.3 Lymphocytes # 0.2 L 0.2 L Monocytes # 0.7 0.6 Eosinophils # 0.1 0.0 Basophils # 0.0 0.0 Nucleated Red Blood 0.0 0.0 Cells # Lactic Acid Level 0.7 1.0 Sodium Level 135 Potassium Level 4.1 Chloride Level 97 Carbon Dioxide Level 28 Anion Gap 10 Blood Urea Nitrogen 33 H Creatinine 4.74 H Est Glomerular Filtrat Rate mL/min Glucose Level 127 Calcium Level 9.3 Total Bilirubin 0.9 Direct Bilirubin 0.00 Indirect Bilirubin 0.9 Aspartate Amino 25 Transf (AST/SGOT) Alanine 22 Aminotransferase (AL T/SGPT) Alkaline Phosphatase 65 Total Protein 7.0 Albumin 3.7 Globulin 3.30 H Albumin/Globulin 1.12 Ratio Medications Medication Current Medications Sodium Chloride 1,000 ml @ 60 mls/hr [id number] IV Last administered on 10/31/18at 21:26; Admin Dose 60 MLS/HR; Start 10/31/18 at 21:26 Ondansetron HCl (Zofran Inj) 4 mg Q6H PRN IV NAUSEA AND/OR VOMITING; Start 10/31/18 at 21:30 Albuterol (Proventil 0.083% (Neb)) 2.5 mg Q2H RESP THERAPY PRN NEB SHORTNESS OF BREATH Last administered on 11/01/18at 05:54; Admin Dose 2.5 MG; Start 10/31/18 at 21:30 Acetaminophen (Tylenol Liquid) 650 mg Q6H PRN PO PAIN LEVEL 1-3 OR FEVER; Start 10/31/18 at 21:30 Pantoprazole (Protonix Iv) 40 mg DAILY@06 IV ; Start 11/01/18 at 06:00 Hydralazine HCl (Apresoline) 10 mg Q4H PRN IV ELEVATED BLOOD PRESSURE Last administered on 11/01/18at 05:56; Admin Dose 10 MG; Start 10/31/18 at 22:00 Amlodipine Besylate (Norvasc) 5 mg BID PO ; Start 10/31/18 at 22:00 Benazepril HCl (Lotensin) 40 mg DAILY PO ; Start 11/01/18 at 09:00 Carvedilol (Coreg) 12.5 mg BID PO ; Start 10/31/18 at 22:00 Calcium Acetate (Phoslo) 667 mg WITH MEALS PO ; Start 11/01/18 at 08:00 Multivit/Ca Carb/ B Cmplx/FA/Prenat (Sharron-Ashley) 1 tab DAILY PO ; Start 11/01/18 at 09:00 Diagnostic Test (Pha) (Accu-Chek) XX ; Start 11/02/18 at 02:00 Insulin Aspart (Novolog Insulin Pen) NOVOLOG *MILD* ALGORI... Q4 SC ; Start 11/01/18 at 13:00 Sevelamer Carbonate (Renvela) 800 mg WITH MEALS PO ; Start 11/01/18 at 17:35 CORBIN TAY MD November 01, 2018 14:08
--- NOTE | 2018-11-01 17:09 | CONS ---
DATE OF ADMISSION: 10/31/2018 DATE OF CONSULTATION: 11/01/2018 TYPE OF CONSULTATION: Nephrology. REASON FOR CONSULTATION: End-stage renal disease. HISTORY OF PRESENT ILLNESS: This is a 78-year-old male with a past medical history of end-stage kishore l disease, history of AFib, history of hypertension, history of anemia, who presents to [facility] for confusion in the last 4 days. The patient was seen 2 days ago in the emergency r oom, had a CT scan of the brain which was negative. The patient according family was more confused. As a result, he came back to the emergency room. Upon arrival, the patient had repeat CT scan which showed evidence of new acute right subdural hematoma with 2 mm midline shift. The patient was evalu ated by neurosurgery with no plan for intervention and admitted to the intensive care unit for [facility]. In terms of patient's renal history, the patient is currently confused, unable to give adequate histo ry. The patient is on dialysis currently on Tuesday, and Tuesday. Last hemodialysis was . The patient's primary coater helper is unknown. I attempted to contact family and left a m essage. The patient's access is AV fistula. No reports of any hemoptysis, hematemesis or hematochez ia. PAST MEDICAL HISTORY: History of end-stage renal disease, history of anemia, history of hypertension . PAST SURGICAL HISTORY: Status post AV fistula. FAMILY HISTORY: No family history of kidney disease. SOCIAL HISTORY: Does not drink, smoke or do drugs. MEDICATIONS: Have been reviewed. REVIEW OF SYSTEMS: A 14-point review of systems conducted. Pertinent positives stated in HPI, other brennan negative. PHYSICAL EXAMINATION: VITAL SIGNS: Blood pressure is 145/98, respiratory rate 20, pulse 85, temperature 98.6. HEENT: Head is normocephalic. NECK: Supple. HEART: Regular rate. LUNGS: Show diminished breath sounds at the base. ABDOMEN: Soft, nontender to palpation without rebound or guarding. EXTREMITIES: Negative for clubbing, cyanosis. No edema. DERMATOLOGIC: No rashes. MUSCULOSKELETAL: No joint effusions. NEUROLOGIC: Limited exam due to lack of patient cooperation. LABORATORY DATA: Have been reviewed. ASSESSMENT AND PLAN: This is a 78-year-old male who presents with: 1. End-stage renal disease. The patient is on dialysis Tuesday, , Tuesday. Last hemodialy sis was reported to be Tuesday. Plan is for hemodialysis tomorrow if clinically stable. 2. Access. The patient has AV fistula. Continue local access care. 3. Hypertension. Continue current blood pressure regimen. 4. Anemia. Monitor hemoglobin and hematocrit levels. We will give Epogen as needed. 5. Mineral bone disorder. Monitor calcium and phosphorus level. 6. Subdural hematoma. Continue to monitor closely. Continue . Follow up repeat CT scan. Fol low up with neurosurgery. Hold anticoagulation. Monitor blood pressures closely. 7. Diabetes. Continue current insulin regimen. 8. Paroxysmal atrial fibrillation. Continue current medical management. 9. Gastrointestinal and deep venous thrombosis. Thank you, Dr. Lucio, for this very interesting consult. It will be a pleasure to follow patient w jeremias meneses throughout the hospital course. Dictated By: TYLER KIM DO NR/NTS Conf#: [id number] DID#: [id number] CC: CORBIN TAY MD; THIEN LUCIO MD;*EndCC*
[2018-11-01] MEDS ORDERED: SEVELAMER CARBONATE 800 MG TABLET PO SCH (17:35)
[2018-11-01] MEDS: SEVELAMER CARBONATE 0.8 GM PKT PO SCH (19:16)
[2018-11-01] MEDS: SOD CHLORIDE 0.9% 1,000 ML IV SCH (21:36)
[2018-11-01] MEDS ORDERED: LORAZEPAM 2 MG INJ IV ONE (22:00)
[2018-11-02] VITALS (57 sets, daily range): BP systolic 59–188; BP diastolic 48–127; PULSE 73–99; RESP 17–29
[2018-11-02] MEDS: INSULIN ASPART [NOVOLOG] 3 ML PEN SC SCH ×6 (01:13→20:48)
[2018-11-02] MEDS: ACCU-CHEK XX SCH (02:00)
[2018-11-02] MEDS: hydrALAzine 20 MG INJ IV PRN ×2 (02:32→05:38)
[2018-11-02] MEDS: CALCIUM ACETATE 667 MG CAP PO SCH ×3 (08:30→17:35)
[2018-11-02] MEDS: SEVELAMER CARBONATE 0.8 GM PKT PO SCH ×3 (08:30→17:35)
[2018-11-02] MEDS: AMLODIPINE 5 MG TAB PO SCH ×2 (08:35→21:00)
[2018-11-02] MEDS: BENAZEPRIL 40 MG TAB PO SCH (08:35)
[2018-11-02] MEDS: MULTIVIT/CA CARB/B CMPLX/FA TAB PO SCH (08:35)
--- NOTE | 2018-11-02 09:02 | PN ---
DATE: 11/02/2018 SUBJECTIVE: The patient remains confused. No other events noted. No hemoptysis, hematemesis or hem atochezia. OBJECTIVE: VITAL SIGNS: Blood pressure is 95/80, respirations 29, pulse 86, temperature 98.6. HEENT: Head is normocephalic. NECK: Supple. HEART: Regular rate. LUNGS: Show diminished breath sounds at the base. ABDOMEN: Soft, nontender to palpation without rebound or guarding. EXTREMITIES: Negative for clubbing, cyanosis, no edema. DERMATOLOGIC: No rashes. MUSCULOSKELETAL: No joint effusion. NEUROLOGIC: No change in exam. MEDICATIONS: Reviewed. LABORATORY DATA: Reviewed. ASSESSMENT AND PLAN: 1. End-stage renal disease. Plan is for hemodialysis today. We will dialyze for 3 hours 2k bath, c alcium 2.5. We will use low blood flow rates to minimize hemodynamic fluctuations. 2. Access. The patient has AV fistula. Continue local access care. 3. Hypertension. Continue current blood pressure regimen. Continue ultrafiltration with dialysis. 4. Anemia. Continue to monitor hemoglobin and hematocrit levels. We will continue Epogen. 5. Mineral bone disorder. Monitor calcium and phosphorus levels. 6. Subdural hematoma. Continue to monitor. Follow up repeat CT scans. Follow up with neurosurgery . 7. Diabetes. Continue current insulin regimen. 8. Paroxysmal atrial fibrillation. Continue medical management. 9. Gastrointestinal and deep vein thrombosis prophylaxis. Dictated By: TYLER KIM DO NR/NTS Conf#: [id number] DID#: [id number] CC: THIEN LUCIO MD; CORBIN TAY MD;*EndCC*
--- NOTE | 2018-11-02 09:39 | PN ---
Date/Time of Note Date/Time of Note DATE: 11/02/18 TIME: 09:34 Assessment/Plan VTE Prophylaxis Risk score (from Ns)>0 risk: 4 SCD applied (from Ns): Yes Pharmacological prophylaxis: NA/contraindicated Pharm contraindication: bleeding Lines/Catheters IV [facility]from [facility] Saline Lock Urinary Cath still in place: No (DIALYSIS PT.) Assessment/Plan Assessment/Plan 77 yo man with ESRD on HD admitted after fall with acute right subdural hematoma and subarachnoid hemorrhage. # Acute right subdural hematoma: - Cleared by speech therapy for puree diet. - Keep head of bed elevated - SBP <160 - Hold eliquis. - Dr. Garrett following. May need surgery in a week. - Unfortunately patient has severe decline in mental status after getting benzos last night. Will repeat CT head, cannot rule out worsening bleed. # end-stage renal disease: - HD Tuesday. Resume home medications - Dr. Stockton following. # Diabetes mellitus - Insulin sliding scale. # atrial fibrillation, paroxysmal. - Currently in normal sinus. - will hold Eliquis given patient's bleeding. # hypertension: Resume patient's home medications # DVT GI prophylaxis: SCDs, Protonix greater than 45 mins of critical care time was spent on the care and management of this patient. Result Diagram: 11/02/18 0434 11/02/18 0434 Subjective 24 Hr Interval Summary Free Text/Dictation Patient taken for MRI last night, required Ativan for sedation, and they still could not complete the study. This morning the patient still sedated, unresponsive, just moaning and with spontaneous movement of right hand. Exam/Review of Systems Exam Vitals Vital Signs Date Temp Pulse Resp B/P (MAP) Pulse Ox O2 O2 Flow FiO2 Time Delivery Rate 11/02/18 87 29 95/80 (85) 92 Nasal 07:00 Cannula 11/02/18 97.4 04:00 11/02/18 4.0 03:54 Intake and Output 11/01/18 11/01/18 11/02/18 1515:00 23:00 07:00 IntakeIntake Total 30 ml BalanceBalance 30 ml Exam General: Patient is well-developed well-nourished HEENT: Atraumatic, normocephalic. The pupils are equal, round and reactive. Extraocular motor are intact Neck: Supple with full range of motion. No rigidity or meningismus Chest: Nontender Lungs: Clear to auscultation bilaterally no crackles rales or wheezing Heart: Normal S1-S2, Regular rhythm and rate. No murmur, S3, or S4 Abdomen: Soft , nontender, nondistended , bowel sounds are present. No guarding no rebound tenderness , No masses or organomegaly. No costovertebral temporal angle mass Extremities: Normal to inspection, no edema no cyanosis Neurologic: Minimally responsive. Moaning. Moving R arm spontaneously and local izes pain with it. Not opening eyes to pain or command. Results Results 24hrs Laboratory Tests Test 11/01/18 17:06 11/01/18 21:30 11/02/18 01:10 11/02/18 04:34 Bedside Glucose 150 154 141 White Blood Count 8.2 # Red Blood Count 2.68 L Hemoglobin 7.2 L Hematocrit 23.2 L Mean Corpuscular 86.6 Volume Mean Corpuscular 26.9 L Hemoglobin Mean Corpuscular 31.0 L Hemoglobin Concen t Red Cell 19.7 H Distribution Width Platelet Count 127 L Mean Platelet 10.0 Volume Immature 0.600 H Granulocytes % Neutrophils % 86.7 H Lymphocytes % 1.6 L Monocytes % 11.0 Eosinophils % 0.0 Basophils % 0.1 Nucleated Red 0.0 Blood Cells % Immature 0.050 H Granulocytes # Neutrophils # 7.1 Lymphocytes # 0.1 L Monocytes # 0.9 Eosinophils # 0.0 Basophils # 0.0 Nucleated Red 0.0 Blood Cells # Prothrombin Time 17.9 H Prothrombin Time 1.4 Ratio INR International 1.47 Normalized Ratio Activated 33.7 Partial Thrombopl ast Time Sodium Level 137 Potassium Level 4.5 Chloride Level 97 Carbon Dioxide 25 Level Anion Gap 15 H Blood Urea 46 #H Nitrogen Creatinine 5.59 H Est Glomerular Filtrat Rate mL/min Glucose Level 90 Calcium Level 10.0 Total Bilirubin 1.0 Direct Bilirubin 0.00 Indirect 1.0 Bilirubin Aspartate Amino 33 Transf (AST/SGOT) Alanine 18 Aminotransferase (ALT/SGPT) Alkaline 65 Phosphatase Total Protein 7.2 Albumin 3.9 Globulin 3.30 H Albumin/Globulin 1.18 Ratio Hepatitis B NEGATIVE Surface Antigen Test 11/02/18 05:02 11/02/18 05:24 11/02/18 08:28 Bedside Glucose 93 101 Lab Scanned BLOOD TRANSFUSIO Report N Medications Medication Current Medications Sodium Chloride 1,000 ml @ 60 mls/hr [id number] IV Last administered on 11/01/18at 21:36; Admin Dose 60 MLS/HR; Start 10/31/18 at 21:26 Ondansetron HCl (Zofran Inj) 4 mg Q6H PRN IV NAUSEA AND/OR VOMITING; Start 10/31/18 at 21:30 Albuterol (Proventil 0.083% (Neb)) 2.5 mg Q2H RESP THERAPY PRN NEB SHORTNESS OF BREATH Last administered on 11/01/18at 05:54; Admin Dose 2.5 MG; Start 10/31/18 at 21:30 Acetaminophen (Tylenol Liquid) 650 mg Q6H PRN PO PAIN LEVEL 1-3 OR FEVER; S tart 10/31/18 at 21:30 Hydralazine HCl (Apresoline) 10 mg Q4H PRN IV ELEVATED BLOOD PRESSURE Last ad ministered on 11/02/18at 05:38; Admin Dose 10 MG; Start 10/31/18 at 22:00 Amlodipine Besylate (Norvasc) 5 mg BID PO ; Start 10/31/18 at 22:00 Benazepril HCl (Lotensin) 40 mg DAILY PO ; Start 11/01/18 at 09:00 Carvedilol (Coreg) 12.5 mg BID PO ; Start 10/31/18 at 22:00 Calcium Acetate (Phoslo) 667 mg WITH MEALS PO Last administered on 11/01/18at 17:59; Admin Dose 667 MG; Start 11/01/18 at 08:00 Multivit/Ca Carb/ B Cmplx/FA/Prenat (Sharron-Ashley) 1 tab DAILY PO ; Start 11/01/18 at 09:00 Diagnostic Test (Pha) (Accu-Chek) 1 ea 02 XX ; Start 11/02/18 at 02:00 Insulin Aspart (Novolog Insulin Pen) NOVOLOG *MILD* ALGORI... Q4 SC Last administered on 11/02/18at 01:13; Admin Dose 1 UNIT; Start 11/01/18 at 13:00 Sevelamer Carbonate (Renvela) 0.8 gm WITH MEALS PO Last administered on 11/01/18at 19:16; Admin Dose 0.8 GM; Start 11/01/18 at 18:00 Epoetin Virgil-epbx (Retacrit (Non-Esrd)) 10,000 unit TuThSa@1700 SC ; Start 11/02/18 at 17:00 Famotidine (Pepcid Iv) 20 mg DAILY IV ; Start 11/03/18 at 09:00 CORBIN TAY MD November 02, 2018 09:39
--- NOTE | 2018-11-02 14:27 | CONS ---
Assessment/Plan Assessment/Plan Assessment/Plan (Daily) 1. End-stage renal disease. HD today , will continue p ton TTS schedule . We will use low blood flow rates to minimize hemodynamic fluctuations. 2. Access. The patient has AV fistula. Continue local access care. 3. Hypertension. Continue current blood pressure regimen. Continue ultrafiltration with dialysis. 4. Anemia. Continue to monitor hemoglobin and hematocrit levels. We will continue Epogen. 5. Mineral bone disorder. Monitor calcium and phosphorus levels. 6. Subdural hematoma. Continue to monitor. Follow up repeat CT scans. Follow up with neurosurgery. 7. Diabetes. Continue current insulin regimen. 8. Paroxysmal atrial fibrillation. Continue medical management. 9. Gastrointestinal and deep vein thrombosis prophylaxis. Consultation Date/Type/Reason Admit Date/Time October 31, 2018 at 21:18 Initial Consult Date 11/01/18 Date/Time of Note DATE: 11/02/18 TIME: 14:27 24 HR Interval Summary Free Text/Dictation pt remains confused , Bp stable, Plan for HD Exam/Review of Systems Exam Vitals Vital Signs Date Temp Pulse Resp B/P (MAP) Pulse Ox O2 O2 Flow FiO2 Time Delivery Rate 11/02/18 91 12:00 11/02/18 25 165/103 97 Nasal 4.0 11:00 (123) Cannula 11/02/18 98.2 08:30 Intake and Output 11/01/18 11/01/18 11/02/18 1515:00 23:00 07:00 IntakeIntake Total 30 ml BalanceBalance 30 ml Results Result Diagram: 11/02/18 0434 11/02/18 0434 Results 24hrs Laboratory Tests Test 11/01/18 17:06 11/01/18 21:30 11/02/18 01:10 11/02/18 04:34 Bedside Glucose 150 154 141 White Blood Count 8.2 # Red Blood Count 2.68 L Hemoglobin 7.2 L Hematocrit 23.2 L Mean Corpuscular 86.6 Volume Mean Corpuscular 26.9 L Hemoglobin Mean Corpuscular 31.0 L Hemoglobin Concen t Red Cell 19.7 H Distribution Width Platelet Count 127 L Mean Platelet 10.0 Volume Immature 0.600 H Granulocytes % Neutrophils % 86.7 H Lymphocytes % 1.6 L Monocytes % 11.0 Eosinophils % 0.0 Basophils % 0.1 Nucleated Red 0.0 Blood Cells % Immature 0.050 H Granulocytes # Neutrophils # 7.1 Lymphocytes # 0.1 L Monocytes # 0.9 Eosinophils # 0.0 Basophils # 0.0 Nucleated Red 0.0 Blood Cells # Prothrombin Time 17.9 H Prothrombin Time 1.4 Ratio INR International 1.47 Normalized Ratio Activated 33.7 Partial Thrombopl ast Time Sodium Level 137 Potassium Level 4.5 Chloride Level 97 Carbon Dioxide 25 Level Anion Gap 15 H Blood Urea 46 #H Nitrogen Creatinine 5.59 H Est Glomerular Filtrat Rate mL/min Glucose Level 90 Calcium Level 10.0 Total Bilirubin 1.0 Direct Bilirubin 0.00 Indirect 1.0 Bilirubin Aspartate Amino 33 Transf (AST/SGOT) Alanine 18 Aminotransferase (ALT/SGPT) Alkaline 65 Phosphatase Total Protein 7.2 Albumin 3.9 Globulin 3.30 H Albumin/Globulin 1.18 Ratio Hepatitis B NEGATIVE Surface Antigen Test 11/02/18 05:02 11/02/18 05:24 11/02/18 08:28 11/02/18 13:59 Bedside Glucose 93 101 120 Lab Scanned BLOOD TRANSFUSIO Report N Medications Medication Current Medications Ondansetron HCl (Zofran Inj) 4 mg Q6H PRN IV NAUSEA AND/OR VOMITING; Start 10/31/18 at 21:30 Albuterol (Proventil 0.083% (Neb)) 2.5 mg Q2H RESP THERAPY PRN NEB SHORTNESS OF BREATH Last administered on 11/01/18at 05:54; Admin Dose 2.5 MG; Start 10/31/18 at 21:30 Acetaminophen (Tylenol Liquid) 650 mg Q6H PRN PO PAIN LEVEL 1-3 OR FEVER; Start 10/31/18 at 21:30 Hydralazine HCl (Apresoline) 10 mg Q4H PRN IV ELEVATED BLOOD PRESSURE Last administered on 11/02/18at 05:38; Admin Dose 10 MG; Start 10/31/18 at 22:00 Amlodipine Besylate (Norvasc) 5 mg BID PO ; Start 10/31/18 at 22:00 Benazepril HCl (Lotensin) 40 mg DAILY PO Last administered on 11/02/18at 08:35; Admin Dose 40 MG; Start 11/01/18 at 09:00 Carvedilol (Coreg) 12.5 mg BID PO ; Start 10/31/18 at 22:00 Calcium Acetate (Phoslo) 667 mg WITH MEALS PO Last administered on 11/01/18at 17:59; Admin Dose 667 MG; Start 11/01/18 at 08:00 Multivit/Ca Carb/ B Cmplx/FA/Prenat (Sharron-Ashley) 1 tab DAILY PO ; Start 11/01/18 at 09:00 Diagnostic Test (Pha) (Accu-Chek) 1 ea 02 XX ; Start 11/02/18 at 02:00 Insulin Aspart (Novolog Insulin Pen) NOVOLOG *MILD* ALGORI... Q4 SC Last administered on 11/02/18at 01:13; Admin Dose 1 UNIT; Start 11/01/18 at 13:00 Sevelamer Carbonate (Renvela) 0.8 gm WITH MEALS PO Last administered on 11/01/18at 19:16; Admin Dose 0.8 GM; Start 11/01/18 at 18:00 Epoetin Virgil-epbx (Retacrit (Non-Esrd)) 10,000 unit TuThSa@1700 SC ; Start 11/02/18 at 17:00 Famotidine (Pepcid Iv) 20 mg DAILY IV ; Start 11/03/18 at 09:00 SAUD CHANDLER MD November 02, 2018 14:27
[2018-11-02] MEDS ORDERED: GLUCAGON 1 MG INJ IM PRN (17:00)
[2018-11-02] MEDS ORDERED: DEXTROSE 50% 50 ML SYRINGE IV PRN ×2 (17:00)
[2018-11-02] MEDS ORDERED: GLUCOSE GEL 15 GRAM TUBE BUCCAL PRN (17:00)
[2018-11-02] MEDS ORDERED: GLUCOSE GEL 15 GRAM TUBE PO PRN ×2 (17:00)
[2018-11-02] MEDS ORDERED: EPOETIN ALFA-EPBX (NON-ESRD 10,000 UNIT/ML VIAL SC SCH (17:00)
[2018-11-03] VITALS (30 sets, daily range): BP systolic 123–166; BP diastolic 53–108; PULSE 89–106; RESP 15–30
[2018-11-03] MEDS: INSULIN ASPART [NOVOLOG] 3 ML PEN SC SCH ×6 (00:58→20:18)
[2018-11-03] MEDS: hydrALAzine 20 MG INJ IV PRN (01:04)
[2018-11-03] MEDS: ACCU-CHEK XX SCH (02:00)
[2018-11-03] MEDS: AMLODIPINE 5 MG TAB PO SCH ×2 (07:33→20:19)
[2018-11-03] MEDS: CALCIUM ACETATE 667 MG CAP PO SCH ×3 (07:33→16:46)
[2018-11-03] MEDS: SEVELAMER CARBONATE 0.8 GM PKT PO SCH ×3 (07:33→16:46)
[2018-11-03] MEDS: BENAZEPRIL 40 MG TAB PO SCH (07:33)
[2018-11-03] MEDS: MULTIVIT/CA CARB/B CMPLX/FA TAB PO SCH (07:34)
--- NOTE | 2018-11-03 08:24 | CONS ---
Assessment/Plan Assessment/Plan Assessment/Plan (Daily) 1. End-stage renal disease. HD ordered for tomorrow with 1 U PRBC tomorrow , pt regular schedule for HD is TTS 2. Access. The patient has AV fistula. Continue local access care. 3. Hypertension. Continue current blood pressure regimen. Continue ultrafiltration with dialysis. 4. Anemia of ESRD, Hb dropped to 6.8 with Possible SDH- will give one unit PRBC today and 1 unit PRBC tomorrow with HD . 5. Mineral bone disorder. Monitor calcium and phosphorus levels. 6. Subdural hematoma. Continue to monitor. Follow up repeat CT scans. Follow up with neurosurgery. 7. Diabetes. Continue current insulin regimen. 8. Paroxysmal atrial fibrillation. Continue medical management. 9. Gastrointestinal and deep vein thrombosis prophylaxis. Consultation Date/Type/Reason Admit Date/Time October 31, 2018 at 21:18 Initial Consult Date 11/01/18 Date/Time of Note DATE: 11/03/18 TIME: 08:24 24 HR Interval Summary Free Text/Dictation Hb dropped to 6.8- pt remains confused, lethargic, Bp stable, plan for HD tomorrow Exam/Review of Systems Exam Vitals Vital Signs Date Temp Pulse Resp B/P (MAP) Pulse Ox O2 O2 Flow FiO2 Time Delivery Rate 11/03/18 Nasal 3.0 07:46 Cannula 11/03/18 96 28 133/79 95 07:00 (97) 11/03/18 98.4 04:00 Intake and Output 11/02/18 11/02/18 11/03/18 1515:00 23:00 07:00 OutputOutput Total 200 ml 1400 ml BalanceBalance -200 ml -1400 ml Constitutional: other (confused lethargic, moderate distress ) Head: normocephalic ENMT: nl external ears & nose Neck: supple Respiratory: crackles/rales, diminished breath sounds Cardiovascular: regular rate and rhythm, nl pulses Gastrointestinal: soft, non-tender, other (non distended ) Musculoskeletal: nl extremities to inspection Extremities: normal pulses Neurological: other (confused, uncooperative for neuro exam ) Skin: nl turgor Results Result Diagram: 11/03/18 0634 11/03/18 0528 Results 24hrs Laboratory Tests Test 11/02/18 08:28 11/02/18 13:59 11/02/18 17:01 11/02/18 20:47 Bedside Glucose 101 120 111 96 Test 11/03/18 00:51 11/03/18 02:12 11/03/18 04:37 11/03/18 05:02 Bedside Glucose 90 90 93 Prothrombin Time 17.2 H Prothrombin Time 1.3 Ratio INR International 1.39 Normalized Ratio Activated 23.4 Partial Thromboplast Time Test 11/03/18 05:28 11/03/18 06:34 White Blood Count 10.7 # 10.5 Red Blood Count 2.57 L 2.58 L Hemoglobin 6.8 *L 6.8 *L Hematocrit 22.3 L 22.4 L Mean Corpuscular 86.8 86.8 Volume Mean Corpuscular 26.5 L 26.4 L Hemoglobin Mean Corpuscular 30.5 L 30.4 L Hemoglobin Concent Red Cell 20.9 H 21.0 H Distribution Width Platelet Count 125 L 106 L Mean Platelet Volume 9.6 9.8 Immature 0.900 H 0.900 H Granulocytes % Neutrophils % 88.5 H 87.8 H Lymphocytes % 1.9 L 2.0 L Monocytes % 8.6 9.2 Eosinophils % 0.0 0.0 Basophils % 0.1 0.1 Nucleated Red Blood 0.0 0.0 Cells % Immature 0.100 H 0.090 H Granulocytes # Neutrophils # 9.5 H 9.2 H Lymphocytes # 0.2 L 0.2 L Monocytes # 0.9 1.0 H Eosinophils # 0.0 0.0 Basophils # 0.0 0.0 Nucleated Red Blood 0.0 0.0 Cells # Sodium Level 141 Potassium Level 4.3 Chloride Level 100 Carbon Dioxide Level 25 Anion Gap 16 H Blood Urea Nitrogen 33 #H Creatinine 4.32 #H Est Glomerular Filtrat Rate mL/min Glucose Level 91 Calcium Level 9.9 Total Bilirubin 1.4 H Direct Bilirubin 0.00 Indirect Bilirubin 1.4 H Aspartate Amino 29 Transf (AST/SGOT) Alanine 31 Aminotransferase (AL T/SGPT) Alkaline Phosphatase 58 Total Protein 7.2 Albumin 3.8 Globulin 3.40 H Albumin/Globulin 1.11 Ratio Medications Medication Current Medications Ondansetron HCl (Zofran Inj) 4 mg Q6H PRN IV NAUSEA AND/OR VOMITING; Start 10/31/18 at 21:30 Albuterol (Proventil 0.083% (Neb)) 2.5 mg Q2H RESP THERAPY PRN NEB SHORTNESS OF BREATH Last administered on 11/01/18at 05:54; Admin Dose 2.5 MG; Start 10/31/18 at 21:30 Acetaminophen (Tylenol Liquid) 650 mg Q6H PRN PO PAIN LEVEL 1-3 OR FEVER; Start 10/31/18 at 21:30 Hydralazine HCl (Apresoline) 10 mg Q4H PRN IV ELEVATED BLOOD PRESSURE Last administered on 11/03/18at 01:04; Admin Dose 10 MG; Start 10/31/18 at 22:00 Amlodipine Besylate (Norvasc) 5 mg BID PO ; Start 10/31/18 at 22:00 Benazepril HCl (Lotensin) 40 mg DAILY PO Last administered on 11/02/18at 08:35; Admin Dose 40 MG; Start 11/01/18 at 09:00 Carvedilol (Coreg) 12.5 mg BID PO ; Start 10/31/18 at 22:00 Calcium Acetate (Phoslo) 667 mg WITH MEALS PO Last administered on 11/01/18at 17:59; Admin Dose 667 MG; Start 11/01/18 at 08:00 Multivit/Ca Carb/ B Cmplx/FA/Prenat (Sharron-Ashley) 1 tab DAILY PO ; Start 11/01/18 at 09:00 Diagnostic Test (Pha) (Accu-Chek) 1 ea 02 XX ; Start 11/02/18 at 02:00 Insulin Aspart (Novolog Insulin Pen) NOVOLOG *MILD* ALGORI... Q4 SC Last administered on 11/02/18at 01:13; Admin Dose 1 UNIT; Start 11/01/18 at 13:00 Sevelamer Carbonate (Renvela) 0.8 gm WITH MEALS PO Last administered on 11/01/18at 19:16; Admin Dose 0.8 GM; Start 11/01/18 at 18:00 Epoetin Virgil-epbx (Retacrit (Non-Esrd)) 10,000 unit TuThSa@1700 SC Last administered on 11/02/18at 18:54; Admin Dose 10,000 UNIT; Start 11/02/18 at 17:00 Famotidine (Pepcid Iv) 20 mg DAILY IV ; Start 11/03/18 at 09:00 Miscellaneous Information 1 ea NOTE XX ; Start 11/02/18 at 17:00 Glucose (Glutose) 15 gm Q15M PRN PO DECREASED GLUCOSE; Start 11/02/18 at 17:00 Glucose (Glutose) 22.5 gm Q15M PRN PO DECREASED GLUCOSE; Start 11/02/18 at 17:00 Dextrose (D50w Syringe) 25 ml Q15M PRN IV DECREASED GLUCOSE; Start 11/02/18 at 17:00 Dextrose (D50w Syringe) 50 ml Q15M PRN IV DECREASED GLUCOSE; Start 11/02/18 at 17:00 Glucagon (Glucagen) 1 mg Q15M PRN IM DECREASED GLUCOSE; Start 11/02/18 at 17:00 Glucose (Glutose) 15 gm Q15M PRN BUCCAL DECREASED GLUCOSE; Start 11/02/18 at 17:00 SAUD CHANDLER MD November 03, 2018 08:24
[2018-11-03] MEDS ORDERED: SOD CHLORIDE 0.9% 250 ML IV* ONE (08:28)
[2018-11-03] MEDS ORDERED: FUROSEMIDE 40 MG INJ IV SCH (08:30)
[2018-11-03] MEDS ORDERED: ALBUMIN HUMAN 25% 100 ML IV PRN (08:30)
[2018-11-03] MEDS ORDERED: ACETAMINOPHEN 325 MG TAB PO SCH (08:30)
[2018-11-03] MEDS ORDERED: DIPHENHYDRAMINE 50 MG INJ IV SCH (08:30)
[2018-11-03] MEDS ORDERED: SODIUM CHLORIDE 0.9% 1L BAG IV PRN (08:30)
[2018-11-03] MEDS: FAMOTIDINE 20 MG INJ IV SCH (08:46)
[2018-11-03] MEDS ORDERED: EPOETIN ALFA-EPBX (ESRD) 3,000 UNIT/ML VIAL SC ONE (09:30)
--- NOTE | 2018-11-03 10:20 | CONS ---
Consultation Date/Type/Reason Admit Date/Time October 31, 2018 at 21:18 Initial Consult Date 11/01/18 Type of Consult neurosurgery Date/Time of Note DATE: 11/03/18 TIME: 10:18 24 HR Interval Summary Free Text/Dictation Stable right mixed density SDH, will need evacuation ext wek (after eliquis wears off). His exam is stable: confused but non-focal. I prefer he stay in ICU until surgery, but telemetry with a sitter would also be OK. Exam/Review of Systems Exam Vitals Vital Signs Date Temp Pulse Resp B/P (MAP) Pulse Ox O2 O2 Flow FiO2 Time Delivery Rate 11/03/18 98.3 94 23 154/59 92 Nasal 3.0 08:00 (90) Cannula Intake and Output 11/02/18 11/02/18 11/03/18 1515:00 23:00 07:00 OutputOutput Total 200 ml 1400 ml BalanceBalance -200 ml -1400 ml Results Result Diagram: 11/03/18 0634 11/03/18 0528 Results 24hrs Laboratory Tests Test 11/02/18 13:59 11/02/18 17:01 11/02/18 20:47 11/03/18 00:51 Bedside Glucose 120 111 96 90 Test 11/03/18 02:12 11/03/18 04:37 11/03/18 05:02 11/03/18 05:28 Bedside Glucose 90 93 Prothrombin Time 17.2 H Prothrombin Time 1.3 Ratio INR International 1.39 Normalized Ratio Activated 23.4 Partial Thromboplast Time White Blood Count 10.7 # Red Blood Count 2.57 L Hemoglobin 6.8 *L Hematocrit 22.3 L Mean Corpuscular 86.8 Volume Mean Corpuscular 26.5 L Hemoglobin Mean Corpuscular 30.5 L Hemoglobin Concent Red Cell 20.9 H Distribution Width Platelet Count 125 L Mean Platelet Volume 9.6 Immature 0.900 H Granulocytes % Neutrophils % 88.5 H Segmented 90 H Neutrophils % (Manual) Lymphocytes % 1.9 L Lymphocytes % 2 L (Manual) Monocytes % 8.6 Monocytes % (Manual) 7 Eosinophils % 0.0 Eosinophils % 1 (Manual) Basophils % 0.1 Nucleated Red Blood 0.0 Cells % Immature 0.100 H Granulocytes # Neutrophils # 9.5 H Lymphocytes (Manual) 0.2 L Lymphocytes # 0.2 L Monocytes # 0.9 Monocytes # (Manual) 0.7 Eosinophils # 0.0 Basophils # 0.0 Nucleated Red Blood 0.0 Cells # Platelet Estimate DECREASED Polychromasia 2+ Poikilocytosis 1+ Anisocytosis 1+ Macrocytosis 1+ Sodium Level 141 Potassium Level 4.3 Chloride Level 100 Carbon Dioxide Level 25 Anion Gap 16 H Blood Urea Nitrogen 33 #H Creatinine 4.32 #H Est Glomerular Filtrat Rate mL/min Glucose Level 91 Calcium Level 9.9 Total Bilirubin 1.4 H Direct Bilirubin 0.00 Indirect Bilirubin 1.4 H Aspartate Amino 29 Transf (AST/SGOT) Alanine 31 Aminotransferase (AL T/SGPT) Alkaline Phosphatase 58 Total Protein 7.2 Albumin 3.8 Globulin 3.40 H Albumin/Globulin 1.11 Ratio Test 11/03/18 06:34 11/03/18 08:52 White Blood Count 10.5 Red Blood Count 2.58 L Hemoglobin 6.8 *L Hematocrit 22.4 L Mean Corpuscular 86.8 Volume Mean Corpuscular 26.4 L Hemoglobin Mean Corpuscular 30.4 L Hemoglobin Concent Red Cell 21.0 H Distribution Width Platelet Count 106 L Mean Platelet Volume 9.8 Immature 0.900 H Granulocytes % Neutrophils % 87.8 H Lymphocytes % 2.0 L Monocytes % 9.2 Eosinophils % 0.0 Basophils % 0.1 Nucleated Red Blood 0.0 Cells % Immature 0.090 H Granulocytes # Neutrophils # 9.2 H Lymphocytes # 0.2 L Monocytes # 1.0 H Eosinophils # 0.0 Basophils # 0.0 Nucleated Red Blood 0.0 Cells # Bedside Glucose 101 Medications Medication Current Medications Ondansetron HCl (Zofran Inj) 4 mg Q6H PRN IV NAUSEA AND/OR VOMITING; Start 10/31/18 at 21:30 Albuterol (Proventil 0.083% (Neb)) 2.5 mg Q2H RESP THERAPY PRN NEB SHORTNESS OF BREATH Last administered on 11/01/18at 05:54; Admin Dose 2.5 MG; Start 10/31/18 at 21:30 Acetaminophen (Tylenol Liquid) 650 mg Q6H PRN PO PAIN LEVEL 1-3 OR FEVER; Start 10/31/18 at 21:30 Hydralazine HCl (Apresoline) 10 mg Q4H PRN IV ELEVATED BLOOD PRESSURE Last administered on 11/03/18at 01:04; Admin Dose 10 MG; Start 10/31/18 at 22:00 Amlodipine Besylate (Norvasc) 5 mg BID PO ; Start 10/31/18 at 22:00 Benazepril HCl (Lotensin) 40 mg DAILY PO Last administered on 11/02/18at 08:35; Admin Dose 40 MG; Start 11/01/18 at 09:00 Carvedilol (Coreg) 12.5 mg BID PO ; Start 10/31/18 at 22:00 Calcium Acetate (Phoslo) 667 mg WITH MEALS PO Last administered on 11/01/18at 17:59; Admin Dose 667 MG; Start 11/01/18 at 08:00 Multivit/Ca Carb/ B Cmplx/FA/Prenat (Sharron-Ashley) 1 tab DAILY PO ; Start 11/01/18 at 09:00 Diagnostic Test (Pha) (Accu-Chek) 1 ea 02 XX ; Start 11/02/18 at 02:00 Insulin Aspart (Novolog Insulin Pen) NOVOLOG *MILD* ALGORI... Q4 SC Last administered on 11/02/18at 01:13; Admin Dose 1 UNIT; Start 11/01/18 at 13:00 Sevelamer Carbonate (Renvela) 0.8 gm WITH MEALS PO Last administered on 11/01/18at 19:16; Admin Dose 0.8 GM; Start 11/01/18 at 18:00 Epoetin Virgil-epbx (Retacrit (Non-Esrd)) 10,000 unit TuThSa@1700 SC Last administered on 11/02/18at 18:54; Admin Dose 10,000 UNIT; Start 11/02/18 at 17:00 Famotidine (Pepcid Iv) 20 mg DAILY IV Last administered on 11/03/18at 08:46; Admin Dose 20 MG; Start 11/03/18 at 09:00 Miscellaneous Information 1 ea NOTE XX ; Start 11/02/18 at 17:00 Glucose (Glutose) 15 gm Q15M PRN PO DECREASED GLUCOSE; Start 11/02/18 at 17:00 Glucose (Glutose) 22.5 gm Q15M PRN PO DECREASED GLUCOSE; Start 11/02/18 at 17:00 Dextrose (D50w Syringe) 25 ml Q15M PRN IV DECREASED GLUCOSE; Start 11/02/18 at 17:00 Dextrose (D50w Syringe) 50 ml Q15M PRN IV DECREASED GLUCOSE; Start 11/02/18 at 17:00 Glucagon (Glucagen) 1 mg Q15M PRN IM DECREASED GLUCOSE; Start 11/02/18 at 17:00 Glucose (Glutose) 15 gm Q15M PRN BUCCAL DECREASED GLUCOSE; Start 11/02/18 at 17:00 Albumin Human 100 ml @ 100 mls/hr WITH DIALYSIS PRN IV SBP <90 DURING DIALYSIS; Start 11/03/18 at 08:30 Sodium Chloride (NS) -To prime the dialy... DIRECTED FOR HD PRN IV HD; Start 11/03/18 at 08:30 Epoetin Virgil-epbx (Retacrit (Esrd)) 6,000 unit TuThSa@1700 SC ; Start 11/04/18 at 17:00 Furosemide (Lasix) 20 mg ONCE IV ; Start 11/03/18 at 08:30; Stop 11/04/18 at 08:29 Diphenhydramine HCl (Benadryl) 25 mg ONCE IV Last administered on 11/03/18at 09:13; Admin Dose 25 MG; Start 11/03/18 at 08:30; Stop 11/04/18 at 08:29 KELLIE JJ MD November 03, 2018 10:20
--- NOTE | 2018-11-03 14:49 | PN ---
Date/Time of Note Date/Time of Note DATE: 11/03/18 TIME: 14:45 Assessment/Plan VTE Prophylaxis Risk score (from Ns)>0 risk: 7 SCD applied (from Ns): Yes Pharmacological prophylaxis: NA/contraindicated Pharm contraindication: bleeding Lines/Catheters IV Catheter Type (from Nrsg): Peripheral IV Urinary Cath still in place: No (HD pt) Assessment/Plan Hospital Course 77 yo man with ESRD on HD admitted after fall with acute right subdural hematoma and subarachnoid hemorrhage. # Acute right subdural hematoma: - Cleared by speech therapy for puree diet. - Keep head of bed elevated - SBP <160 - Hold eliquis. - Dr. Obrien following, plan is for evacuation next week once Eliquis wears off, neurosurgery prefers to keep the patient in the ICU for now - Unfortunately patient had severe decline in mental status after getting benzos, repeat CT head was done and showed a stable bleed # end-stage renal disease: - HD Tuesday. Resume home medications -HD per renal # Diabetes mellitus - Insulin sliding scale. # atrial fibrillation, paroxysmal. - Currently in normal sinus. - will hold Eliquis given patient's bleeding. # hypertension: Resume patient's home medications # DVT GI prophylaxis: SCDs, Protonix Result Diagram: 11/03/18 1407 11/03/18 0528 Results 24hrs Laboratory Tests Test 11/02/18 17:01 11/02/18 20:47 11/03/18 00:51 11/03/18 02:12 Bedside Glucose 111 96 90 90 Test 11/03/18 04:37 11/03/18 05:02 11/03/18 05:28 11/03/18 06:34 Prothrombin Time 17.2 H Prothrombin Time 1.3 Ratio INR International 1.39 Normalized Ratio Activated 23.4 Partial Thromboplast Time Bedside Glucose 93 White Blood Count 10.7 # 10.5 Red Blood Count 2.57 L 2.58 L Hemoglobin 6.8 *L 6.8 *L Hematocrit 22.3 L 22.4 L Mean Corpuscular 86.8 86.8 Volume Mean Corpuscular 26.5 L 26.4 L Hemoglobin Mean Corpuscular 30.5 L 30.4 L Hemoglobin Concent Red Cell 20.9 H 21.0 H Distribution Width Platelet Count 125 L 106 L Mean Platelet Volume 9.6 9.8 Immature 0.900 H 0.900 H Granulocytes % Neutrophils % 88.5 H 87.8 H Segmented 90 H Neutrophils % (Manual) Lymphocytes % 1.9 L 2.0 L Lymphocytes % 2 L (Manual) Monocytes % 8.6 9.2 Monocytes % (Manual) 7 Eosinophils % 0.0 0.0 Eosinophils % 1 (Manual) Basophils % 0.1 0.1 Nucleated Red Blood 0.0 0.0 Cells % Immature 0.100 H 0.090 H Granulocytes # Neutrophils # 9.5 H 9.2 H Lymphocytes (Manual) 0.2 L Lymphocytes # 0.2 L 0.2 L Monocytes # 0.9 1.0 H Monocytes # (Manual) 0.7 Eosinophils # 0.0 0.0 Basophils # 0.0 0.0 Nucleated Red Blood 0.0 0.0 Cells # Platelet Estimate DECREASED Polychromasia 2+ Poikilocytosis 1+ Anisocytosis 1+ Macrocytosis 1+ Sodium Level 141 Potassium Level 4.3 Chloride Level 100 Carbon Dioxide Level 25 Anion Gap 16 H Blood Urea Nitrogen 33 #H Creatinine 4.32 #H Est Glomerular Filtrat Rate mL/min Glucose Level 91 Calcium Level 9.9 Total Bilirubin 1.4 H Direct Bilirubin 0.00 Indirect Bilirubin 1.4 H Aspartate Amino 29 Transf (AST/SGOT) Alanine 31 Aminotransferase (AL T/SGPT) Alkaline Phosphatase 58 Total Protein 7.2 Albumin 3.8 Globulin 3.40 H Albumin/Globulin 1.11 Ratio Test 11/03/18 08:52 11/03/18 12:44 11/03/18 14:07 Bedside Glucose 101 114 White Blood Count 10.9 H Red Blood Count 2.94 L Hemoglobin 7.9 L Hematocrit 25.5 L Mean Corpuscular 86.7 Volume Mean Corpuscular 26.9 L Hemoglobin Mean Corpuscular 31.0 L Hemoglobin Concent Red Cell 19.7 H Distribution Width Platelet Count 105 L Mean Platelet Volume 9.8 Immature 0.800 H Granulocytes % Neutrophils % 87.9 H Lymphocytes % 1.6 L Monocytes % 9.6 Eosinophils % 0.0 Basophils % 0.1 Nucleated Red Blood 0.0 Cells % Immature 0.090 H Granulocytes # Neutrophils # 9.5 H Lymphocytes # 0.2 L Monocytes # 1.0 H Eosinophils # 0.0 Basophils # 0.0 Nucleated Red Blood 0.0 Cells # Subjective 24 Hr Interval Summary Subjective hx not possible: pt non-verbal Exam/Review of Systems Exam Vitals Vital Signs Date Temp Pulse Resp B/P (MAP) Pulse Ox O2 O2 Flow FiO2 Time Delivery Rate 11/03/18 3.0 12:19 11/03/18 97.5 93 20 149/69 99 Nasal 12:00 (95) Cannula Intake and Output 11/02/18 11/02/18 11/03/18 1515:00 23:00 07:00 OutputOutput Total 200 ml 1400 ml BalanceBalance -200 ml -1400 ml Constitutional: non-verbal Respiratory: clear to auscultation Cardiovascular: regular rate and rhythm Gastrointestinal: soft; No distended Musculoskeletal: nl extremities to inspection Results Results 24hrs Laboratory Tests Test 11/02/18 17:01 11/02/18 20:47 11/03/18 00:51 11/03/18 02:12 Bedside Glucose 111 96 90 90 Test 11/03/18 04:37 11/03/18 05:02 11/03/18 05:28 11/03/18 06:34 Prothrombin Time 17.2 H Prothrombin Time 1.3 Ratio INR International 1.39 Normalized Ratio Activated 23.4 Partial Thromboplast Time Bedside Glucose 93 White Blood Count 10.7 # 10.5 Red Blood Count 2.57 L 2.58 L Hemoglobin 6.8 *L 6.8 *L Hematocrit 22.3 L 22.4 L Mean Corpuscular 86.8 86.8 Volume Mean Corpuscular 26.5 L 26.4 L Hemoglobin Mean Corpuscular 30.5 L 30.4 L Hemoglobin Concent Red Cell 20.9 H 21.0 H Distribution Width Platelet Count 125 L 106 L Mean Platelet Volume 9.6 9.8 Immature 0.900 H 0.900 H Granulocytes % Neutrophils % 88.5 H 87.8 H Segmented 90 H Neutrophils % (Manual) Lymphocytes % 1.9 L 2.0 L Lymphocytes % 2 L (Manual) Monocytes % 8.6 9.2 Monocytes % (Manual) 7 Eosinophils % 0.0 0.0 Eosinophils % 1 (Manual) Basophils % 0.1 0.1 Nucleated Red Blood 0.0 0.0 Cells % Immature 0.100 H 0.090 H Granulocytes # Neutrophils # 9.5 H 9.2 H Lymphocytes (Manual) 0.2 L Lymphocytes # 0.2 L 0.2 L Monocytes # 0.9 1.0 H Monocytes # (Manual) 0.7 Eosinophils # 0.0 0.0 Basophils # 0.0 0.0 Nucleated Red Blood 0.0 0.0 Cells # Platelet Estimate DECREASED Polychromasia 2+ Poikilocytosis 1+ Anisocytosis 1+ Macrocytosis 1+ Sodium Level 141 Potassium Level 4.3 Chloride Level 100 Carbon Dioxide Level 25 Anion Gap 16 H Blood Urea Nitrogen 33 #H Creatinine 4.32 #H Est Glomerular Filtrat Rate mL/min Glucose Level 91 Calcium Level 9.9 Total Bilirubin 1.4 H Direct Bilirubin 0.00 Indirect Bilirubin 1.4 H Aspartate Amino 29 Transf (AST/SGOT) Alanine 31 Aminotransferase (AL T/SGPT) Alkaline Phosphatase 58 Total Protein 7.2 Albumin 3.8 Globulin 3.40 H Albumin/Globulin 1.11 Ratio Test 11/03/18 08:52 11/03/18 12:44 11/03/18 14:07 Bedside Glucose 101 114 White Blood Count 10.9 H Red Blood Count 2.94 L Hemoglobin 7.9 L Hematocrit 25.5 L Mean Corpuscular 86.7 Volume Mean Corpuscular 26.9 L Hemoglobin Mean Corpuscular 31.0 L Hemoglobin Concent Red Cell 19.7 H Distribution Width Platelet Count 105 L Mean Platelet Volume 9.8 Immature 0.800 H Granulocytes % Neutrophils % 87.9 H Lymphocytes % 1.6 L Monocytes % 9.6 Eosinophils % 0.0 Basophils % 0.1 Nucleated Red Blood 0.0 Cells % Immature 0.090 H Granulocytes # Neutrophils # 9.5 H Lymphocytes # 0.2 L Monocytes # 1.0 H Eosinophils # 0.0 Basophils # 0.0 Nucleated Red Blood 0.0 Cells # Medications Medication Current Medications Ondansetron HCl (Zofran Inj) 4 mg Q6H PRN IV NAUSEA AND/OR VOMITING; Start 10/31/18 at 21:30 Albuterol (Proventil 0.083% (Neb)) 2.5 mg Q2H RESP THERAPY PRN NEB SHORTNESS OF BREATH Last administered on 11/01/18at 05:54; Admin Dose 2.5 MG; Start 10/31/18 at 21:30 Acetaminophen (Tylenol Liquid) 650 mg Q6H PRN PO PAIN LEVEL 1-3 OR FEVER; Start 10/31/18 at 21:30 Hydralazine HCl (Apresoline) 10 mg Q4H PRN IV ELEVATED BLOOD PRESSURE Last administered on 11/03/18at 01:04; Admin Dose 10 MG; Start 10/31/18 at 22:00 Amlodipine Besylate (Norvasc) 5 mg BID PO ; Start 10/31/18 at 22:00 Benazepril HCl (Lotensin) 40 mg DAILY PO Last administered on 11/02/18at 08:35; Admin Dose 40 MG; Start 11/01/18 at 09:00 Carvedilol (Coreg) 12.5 mg BID PO ; Start 10/31/18 at 22:00 Calcium Acetate (Phoslo) 667 mg WITH MEALS PO Last administered on 11/01/18at 17:59; Admin Dose 667 MG; Start 11/01/18 at 08:00 Multivit/Ca Carb/ B Cmplx/FA/Prenat (Sharron-Ashley) 1 tab DAILY PO ; Start 11/01/18 at 09:00 Diagnostic Test (Pha) (Accu-Chek) 1 ea 02 XX ; Start 11/02/18 at 02:00 Insulin Aspart (Novolog Insulin Pen) NOVOLOG *MILD* ALGORI... Q4 SC Last administered on 11/02/18at 01:13; Admin Dose 1 UNIT; Start 11/01/18 at 13:00 Sevelamer Carbonate (Renvela) 0.8 gm WITH MEALS PO Last administered on 11/01/18at 19:16; Admin Dose 0.8 GM; Start 11/01/18 at 18:00 Epoetin Virgil-epbx (Retacrit (Non-Esrd)) 10,000 unit TuThSa@1700 SC Last administered on 11/02/18at 18:54; Admin Dose 10,000 UNIT; Start 11/02/18 at 17:00 Famotidine (Pepcid Iv) 20 mg DAILY IV Last administered on 11/03/18at 08:46; Admin Dose 20 MG; Start 11/03/18 at 09:00 Miscellaneous Information 1 ea NOTE XX ; Start 11/02/18 at 17:00 Glucose (Glutose) 15 gm Q15M PRN PO DECREASED GLUCOSE; Start 11/02/18 at 17:00 Glucose (Glutose) 22.5 gm Q15M PRN PO DECREASED GLUCOSE; Start 11/02/18 at 17:00 Dextrose (D50w Syringe) 25 ml Q15M PRN IV DECREASED GLUCOSE; Start 11/02/18 at 17:00 Dextrose (D50w Syringe) 50 ml Q15M PRN IV DECREASED GLUCOSE; Start 11/02/18 at 17:00 Glucagon (Glucagen) 1 mg Q15M PRN IM DECREASED GLUCOSE; Start 11/02/18 at 17:00 Glucose (Glutose) 15 gm Q15M PRN BUCCAL DECREASED GLUCOSE; Start 11/02/18 at 17:00 Albumin Human 100 ml @ 100 mls/hr WITH DIALYSIS PRN IV SBP <90 DURING DIALYSIS; Start 11/03/18 at 08:30 Sodium Chloride (NS) -To prime the dialy... DIRECTED FOR HD PRN IV HD; Start 11/03/18 at 08:30 Epoetin Virgil-epbx (Retacrit (Esrd)) 6,000 unit TuThSa@1700 SC ; Start 11/04/18 at 17:00 Furosemide (Lasix) 20 mg ONCE IV Last administered on 11/03/18at 12:38; Admin Dose 20 MG; Start 11/03/18 at 08:30; Stop 11/04/18 at 08:29 Diphenhydramine HCl (Benadryl) 25 mg ONCE IV Last administered on 11/03/18at 09:13; Admin Dose 25 MG; Start 11/03/18 at 08:30; Stop 11/04/18 at 08:29 ZAK MARTÍNEZ November 03, 2018 14:49
[2018-11-04] VITALS (39 sets, daily range): BP systolic 93–159; BP diastolic 42–110; PULSE 87–119; RESP 17–35
[2018-11-04] MEDS: ALBUTEROL 0.083% (NEB) 2.5 MG/3 ML AMP NEB PRN (00:44)
[2018-11-04] MEDS: INSULIN ASPART [NOVOLOG] 3 ML PEN SC SCH ×6 (01:00→20:28)
[2018-11-04] MEDS: LEVETIRACETAM 500 MG (PMX) 100 ML IVPB SCH ×3 (01:38→20:24)
[2018-11-04] MEDS: ACCU-CHEK XX SCH (02:00)
[2018-11-04] MEDS: SEVELAMER CARBONATE 0.8 GM PKT PO SCH ×3 (08:08→18:13)
[2018-11-04] MEDS: CALCIUM ACETATE 667 MG CAP PO SCH ×3 (08:08→18:13)
[2018-11-04] MEDS: MULTIVIT/CA CARB/B CMPLX/FA TAB PO SCH (09:07)
[2018-11-04] MEDS: FAMOTIDINE 20 MG INJ IV SCH (09:13)
--- NOTE | 2018-11-04 09:47 | PN ---
Date/Time of Note Date/Time of Note DATE: 11/04/18 TIME: 09:41 Assessment/Plan VTE Prophylaxis [place] [facility] [place] risk: 8 [place] [facility] [place] Yes Pharmacological prophylaxis: NA/contraindicated Pharm contraindication: other (subdural hematoma ) Lines/Catheters IV Catheter Type (from [facility]): Peripheral IV Urinary Cath still in place: No (anuric ) Assessment/Plan Hospital Course Assessment and plan 1. Acute right subdural hematoma. - Patient seen by speech therapy. Continue diet per recommendations. - Maintain systolic blood pressure less than 160 - Neurosurgery and following. Off of Eliquis for now for tentative plan for evacuation of bleed - Monitor for improvement in neuro status. 2. End-stage renal disease. - Receives dialysis on Tuesday, , Tuesday. - Monitor electrolytes - Dialysis per plant tech. 3. Diabetes. - Continue insulin regimen. - Will adjust regimen as needed. 4. Atrial fibrillation, paroxysmal - Monitor on telemetry. - Eliquis on hold for recent brain bleed 5. Hypertension. - Continue antihypertensives. Will adjust as needed. Disposition and plan. Neurosurgeon following. Tentative plan for brain bleed evacuation. Will monitor in ICU for now. Discussed plan of care with Dr. Knutson Result Diagram: 11/04/187 11/04/18 0427 Results 24hrs Laboratory Tests Test 11/03/18 12:44 11/03/18 14:07 11/03/18 20:18 11/04/18 00:00 Bedside Glucose 114 106 White Blood 10.9 H Count Red Blood Count 2.94 L Hemoglobin 7.9 L Hematocrit 25.5 L Mean Corpuscular 86.7 Volume Mean Corpuscular 26.9 L Hemoglobin Mean Corpuscular 31.0 L Hemoglobin Sandi nt Red Cell 19.7 H Distribution Width Platelet Count 105 L Mean Platelet 9.8 Volume Immature 0.800 H Granulocytes % Neutrophils % 87.9 H Lymphocytes % 1.6 L Monocytes % 9.6 Eosinophils % 0.0 Basophils % 0.1 Nucleated Red 0.0 Blood Cells % Immature 0.090 H Granulocytes # Neutrophils # 9.5 H Lymphocytes # 0.2 L Monocytes # 1.0 H Eosinophils # 0.0 Basophils # 0.0 Nucleated Red 0.0 Blood Cells # Blood Gas Blood arterial Specimen Source Arterial Blood 11/04/2018 12:15: Date Drawn 32 AM Arterial Blood 7.464 H pH (Temp corrected) Arterial Blood 38.2 pCO2 (Temp correct) Arterial Blood 56.0 L pO2 (Temp corrected) Arterial Blood 26.8 H HCO3 Arterial Blood 2.9 Base Excess Arterial Blood 88.1 L Oxygen Saturatio n Rogerio Test ACCEPTAB Arterial Blood LB Gas Puncture Site Arterial 1.3 Blood Carboxyhem oglobin Arterial Blood 0.4 Methemoglobin Blood Gas A-a O2 178.0 H Differential Oxyhemoglobin 86.6 L Percent Blood Gas 37.0 Temperature Blood Gas Actual 24 Respiration Rate Blood Gas NASAL CANNULA Modality FiO2 39.0 Blood Gas L.ADELAIDA Notified Whom Blood Gas 11/04/2018 12:27: Notified Time 35 AM Test 11/04/18 01:38 11/04/18 04:27 11/04/18 05:00 11/04/18 05:17 Bedside Glucose 125 157 White Blood 11.0 H Count Red Blood Count 2.78 L Hemoglobin 7.4 L Hematocrit 24.0 L Mean Corpuscular 86.3 Volume Mean Corpuscular 26.6 L Hemoglobin Mean Corpuscular 30.8 L Hemoglobin Sandi nt Red Cell 19.9 H Distribution Width Platelet Count 105 L Mean Platelet 10.3 Volume Immature 0.600 H Granulocytes % Neutrophils % 84.3 H Lymphocytes % 2.4 L Monocytes % 12.5 H Eosinophils % 0.0 Basophils % 0.2 Nucleated Red 0.0 Blood Cells % Immature 0.070 H Granulocytes # Neutrophils # 9.3 H Lymphocytes # 0.3 L Monocytes # 1.4 H Eosinophils # 0.0 Basophils # 0.0 Nucleated Red 0.0 Blood Cells # Prothrombin Time 19.0 H Prothrombin Time 1.5 Ratio INR 1.58 International Normalized Ratio Activated 40.4 H Partial Thrombop last Time Sodium Level 140 Potassium Level 4.1 Chloride Level 100 Carbon Dioxide 27 Level Anion Gap 13 Blood Urea 58 H Nitrogen Creatinine 5.75 H Est Glomerular Filtrat Rate mL/min Glucose Level 134 # Calcium Level 9.8 Magnesium Level 2.2 Total Bilirubin 1.6 H Direct Bilirubin 0.00 Indirect 1.6 H Bilirubin Aspartate Amino 26 Transf (AST/SGOT ) Alanine 23 Aminotransferase (ALT/SGPT) Alkaline 49 Phosphatase Total Protein 6.5 Albumin 3.4 Globulin 3.10 Albumin/Globulin 1.09 Ratio Blood Gas Blood arterial Specimen Source Arterial Blood 11/04/2018 5:20:0 Date Drawn 0 AM Arterial Blood 7.511 H pH (Temp corrected) Arterial Blood 34.3 L pCO2 (Temp correct) Arterial Blood 108.8 H pO2 (Temp corrected) Arterial Blood 26.8 H HCO3 Arterial Blood 3.7 H Base Excess Arterial Blood 97.7 Oxygen Saturatio n Rogerio Test N/A Arterial Blood LB Gas Puncture Site Arterial 0.7 Blood Carboxyhem oglobin Arterial Blood 0.4 Methemoglobin Blood Gas A-a O2 281.3 H Differential Oxyhemoglobin 96.6 Percent Blood Gas 37.0 Temperature Blood Gas Actual 23 Respiration Rate Blood Gas HFNC Modality FiO2 60.0 Blood Gas MG Notified Whom Blood Gas 11/04/2018 5:32:0 Notified Time 0 AM Lab Scanned BLOOD TRANSFUSI Report ON Subjective 24 Hr Interval Summary Free Text/Dictation patient seen on hi-b[facility]. RN at bedside. No obvious signs of distressing at this time. Exam/Review of Systems Exam Vitals Vital Signs Date Temp Pulse Resp B/P (MAP) Pulse Ox O2 O2 Flow FiO2 Time Delivery Rate 11/04/18 98 08:00 11/04/18 22 144/60 98 High Flow 06:00 (88) 11/04/18 50 05:50 11/04/18 99.8 04:00 11/04/18 6.0 00:47 Intake and Output 11/03/18 11/03/18 11/04/18 1515:00 23:00 07:00 IntakeIntake Total 350 ml 270 ml 620 ml BalanceBalance 350 ml 270 ml 620 ml Constitutional: No alert, No oriented Head: normocephalic Respiratory: diminished breath sounds Cardiovascular: other (regular rate to tachycardic ) Gastrointestinal: soft, non-tender Neurological: No nl speech Skin: No rash or lesions Results Results 24hrs Laboratory Tests Test 11/03/18 12:44 11/03/18 14:07 11/03/18 20:18 11/04/18 00:00 Bedside Glucose 114 106 White Blood 10.9 H Count Red Blood Count 2.94 L Hemoglobin 7.9 L Hematocrit 25.5 L Mean Corpuscular 86.7 Volume Mean Corpuscular 26.9 L Hemoglobin Mean Corpuscular 31.0 L Hemoglobin Sandi nt Red Cell 19.7 H Distribution Width Platelet Count 105 L Mean Platelet 9.8 Volume Immature 0.800 H Granulocytes % Neutrophils % 87.9 H Lymphocytes % 1.6 L Monocytes % 9.6 Eosinophils % 0.0 Basophils % 0.1 Nucleated Red 0.0 Blood Cells % Immature 0.090 H Granulocytes # Neutrophils # 9.5 H Lymphocytes # 0.2 L Monocytes # 1.0 H Eosinophils # 0.0 Basophils # 0.0 Nucleated Red 0.0 Blood Cells # Blood Gas Blood arterial Specimen Source Arterial Blood 11/04/2018 12:15: Date Drawn 32 AM Arterial Blood 7.464 H pH (Temp corrected) Arterial Blood 38.2 pCO2 (Temp correct) Arterial Blood 56.0 L pO2 (Temp corrected) Arterial Blood 26.8 H HCO3 Arterial Blood 2.9 Base Excess Arterial Blood 88.1 L Oxygen Saturatio n Rogerio Test ACCEPTAB Arterial Blood LB Gas Puncture Site Arterial 1.3 Blood Carboxyhem oglobin Arterial Blood 0.4 Methemoglobin Blood Gas A-a O2 178.0 H Differential Oxyhemoglobin 86.6 L Percent Blood Gas 37.0 Temperature Blood Gas Actual 24 Respiration Rate Blood Gas NASAL CANNULA Modality FiO2 39.0 Blood Gas LLIBRADO Notified Whom Blood Gas 11/04/2018 12:27: Notified Time 35 AM Test 11/04/18 01:38 11/04/18 04:27 11/04/18 05:00 11/04/18 05:17 Bedside Glucose 125 157 White Blood 11.0 H Count Red Blood Count 2.78 L Hemoglobin 7.4 L Hematocrit 24.0 L Mean Corpuscular 86.3 Volume Mean Corpuscular 26.6 L Hemoglobin Mean Corpuscular 30.8 L Hemoglobin Sandi nt Red Cell 19.9 H Distribution Width Platelet Count 105 L Mean Platelet 10.3 Volume Immature 0.600 H Granulocytes % Neutrophils % 84.3 H Lymphocytes % 2.4 L Monocytes % 12.5 H Eosinophils % 0.0 Basophils % 0.2 Nucleated Red 0.0 Blood Cells % Immature 0.070 H Granulocytes # Neutrophils # 9.3 H Lymphocytes # 0.3 L Monocytes # 1.4 H Eosinophils # 0.0 Basophils # 0.0 Nucleated Red 0.0 Blood Cells # Prothrombin Time 19.0 H Prothrombin Time 1.5 Ratio INR 1.58 International Normalized Ratio Activated 40.4 H Partial Thrombop last Time Sodium Level 140 Potassium Level 4.1 Chloride Level 100 Carbon Dioxide 27 Level Anion Gap 13 Blood Urea 58 H Nitrogen Creatinine 5.75 H Est Glomerular Filtrat Rate mL/min Glucose Level 134 # Calcium Level 9.8 Magnesium Level 2.2 Total Bilirubin 1.6 H Direct Bilirubin 0.00 Indirect 1.6 H Bilirubin Aspartate Amino 26 Transf (AST/SGOT ) Alanine 23 Aminotransferase (ALT/SGPT) Alkaline 49 Phosphatase Total Protein 6.5 Albumin 3.4 Globulin 3.10 Albumin/Globulin 1.09 Ratio Blood Gas Blood arterial Specimen Source Arterial Blood 11/04/2018 5:20:0 Date Drawn 0 AM Arterial Blood 7.511 H pH (Temp corrected) Arterial Blood 34.3 L pCO2 (Temp correct) Arterial Blood 108.8 H pO2 (Temp corrected) Arterial Blood 26.8 H HCO3 Arterial Blood 3.7 H Base Excess Arterial Blood 97.7 Oxygen Saturatio n Rogerio Test N/A Arterial Blood LB Gas Puncture Site Arterial 0.7 Blood Carboxyhem oglobin Arterial Blood 0.4 Methemoglobin Blood Gas A-a O2 281.3 H Differential Oxyhemoglobin 96.6 Percent Blood Gas 37.0 Temperature Blood Gas Actual 23 Respiration Rate Blood Gas HFNC Modality FiO2 60.0 Blood Gas MG Notified Whom Blood Gas 11/04/2018 5:32:0 Notified Time 0 AM Lab Scanned BLOOD TRANSFUSI Report ON Medications Medication Current Medications Ondansetron HCl (Zofran Inj) 4 mg Q6H PRN IV NAUSEA AND/OR VOMITING; Start 10/31/18 at 21:30 Albuterol (Proventil 0.083% (Neb)) 2.5 mg Q2H RESP THERAPY PRN NEB SHORTNESS OF BREATH Last administered on 11/04/18at 00:44; Admin Dose 2.5 MG; Start 10/31/18 at 21:30 Acetaminophen (Tylenol Liquid) 650 mg Q6H PRN PO PAIN LEVEL 1-3 OR FEVER; Start 10/31/18 at 21:30 Hydralazine HCl (Apresoline) 10 mg Q4H PRN IV ELEVATED BLOOD PRESSURE Last administered on 11/03/18at 01:04; Admin Dose 10 MG; Start 10/31/18 at 22:00 Amlodipine Besylate (Norvasc) 5 mg BID PO Last administered on 11/03/18at 20:19; Admin Dose 5 MG; Start 10/31/18 at 22:00 Benazepril HCl (Lotensin) 40 mg DAILY PO Last administered on 11/02/18at 08:35; Admin Dose 40 MG; Start 11/01/18 at 09:00 Carvedilol (Coreg) 12.5 mg BID PO Last administered on 11/04/18 09:08; Admin Dose 12.5 MG; Start 10/31/18 at 22:00 Calcium Acetate (Phoslo) 667 mg WITH MEALS PO Last administered on 11/04/18at 08:08; Admin Dose 667 MG; Start 11/01/18 at 08:00 Multivit/Ca Carb/ B Cmplx/FA/Prenat (Sharron-Ashley) 1 tab DAILY PO Last administered on 11/04/18 09:07; Admin Dose 1 TAB; Start 11/01/18 at 09:00 Diagnostic Test (Pha) (Accu-Chek) 1 ea 02 XX ; Start 11/02/18 at 02:00 Insulin Aspart (Novolog Insulin Pen) NOVOLOG *MILD* ALGORI... Q4 SC Last ad ministered on 11/04/18at 05:07; Admin Dose 1 UNIT; Start 11/01/18 at 13:00 Sevelamer Carbonate (Renvela) 0.8 gm WITH MEALS PO Last administered on 11/04/18 08:08; Admin Dose 0.8 GM; Start 11/01/18 at 18:00 Epoetin Virgil-epbx (Retacrit (Non-Esrd)) 10,000 unit TuThSa@1700 SC Last administered on 11/02/18at 18:54; Admin Dose 10,000 UNIT; Start 11/02/18 at 17:00 Famotidine (Pepcid Iv) 20 mg DAILY IV Last administered on 11/04/18at 09:13; Admin Dose 20 MG; Start 11/03/18 at 09:00 Miscellaneous Information 1 ea NOTE XX ; Start 11/02/18 at 17:00 Glucose (Glutose) 15 gm Q15M PRN PO DECREASED GLUCOSE; Start 11/02/18 at 17:00 Glucose (Glutose) 22.5 gm Q15M PRN PO DECREASED GLUCOSE; Start 11/02/18 at 1 7:00 Dextrose (D50w Syringe) 25 ml Q15M PRN IV DECREASED GLUCOSE; Start 11/02/18 at 17:00 Dextrose (D50w Syringe) 50 ml Q15M PRN IV DECREASED GLUCOSE; Start 11/02/18 at 17:00 Glucagon (Glucagen) 1 mg Q15M PRN IM DECREASED GLUCOSE; Start 11/02/18 at 17:00 Glucose (Glutose) 15 gm Q15M PRN BUCCAL DECREASED GLUCOSE; Start 11/02/18 at 17:00 Albumin Human 100 ml @ 100 mls/hr WITH DIALYSIS PRN IV SBP <90 DURING DIALYSIS; Start 11/03/18 at 08:30 Sodium Chloride (NS) -To prime the dialy... DIRECTED FOR HD PRN IV HD; Start 11/03/18 at 08:30 Epoetin Virgil-epbx (Retacrit (Esrd)) 6,000 unit TuThSa@1700 SC ; Start 11/04/18 at 17:00 Levetiracetam 100 ml @ 400 mls/hr Q12 IVPB Last administered on 11/04/18at 09:08; Admin Dose 400 MLS/HR; Start 11/04/18 at 01:30 URSZULA VERGARA NP Nov 04, 2018 09:47
--- NOTE | 2018-11-04 13:03 | CONS ---
Assessment/Plan Assessment/Plan Assessment/Plan (Daily) 1. End-stage renal disease. HD ordered for tomorrow with 1 U PRBC tomorrow , pt regular schedule for HD is TTS 2. Access. The patient has AV fistula. Continue local access care. 3. Hypertension. Continue current blood pressure regimen. Continue ultrafiltration with dialysis. 4. Anemia of ESRD, - Hb trended up to 7.4 - Possible SDH - will got one unit PRBC yesterday and 1 unit PRBC today with HD . 5. Mineral bone disorder. Monitor calcium and phosphorus levels. 6. Subdural hematoma. Continue to monitor. Follow up repeat CT scans. Follow up with neurosurgery. 7. Diabetes. Continue current insulin regimen. 8. Paroxysmal atrial fibrillation. Continue medical management. 9. Gastrointestinal and deep vein thrombosis prophylaxis. Patien seen in collaboration with Dr Lila Verduzco. Dw staff Consultation Date/Type/Reason Admit Date/Time October 31, 2018 at 21:18 Initial Consult Date 11/01/18 Type of Consult NEPHROLOGY Reason for Consultation End-stage renal disease. Date/Time of Note DATE: 11/04/18 TIME: 12:59 24 HR Interval Summary Free Text/Dictation - remains comfortable on supplemental oxygen - Anemia of ESRD, Hb trended up to 7.4 ; got one unit PRBC yesterday and 1 uni t PRBC today with HD . - dw staff Subjective hx not possible: pt non-verbal Constitutional: requiring IVF, requiring O2 Exam/Review of Systems Exam Vitals Vital Signs Date Temp Pulse Resp B/P (MAP) Pulse Ox O2 O2 Flow FiO2 Time Delivery Rate 11/04/18 95 24 145/70 99 High Flow 10:00 (95) 11/04/18 99.2 08:00 11/04/18 50 05:50 11/04/18 6.0 00:47 Intake and Output 11/03/18 11/03/18 11/04/18 1515:00 23:00 07:00 IntakeIntake Total 350 ml 270 ml 620 ml BalanceBalance 350 ml 270 ml 620 ml Constitutional: non-verbal, frail Psych: nl mood/affect Eyes: nl sclera ENMT: nl external ears & nose Respiratory: diminished breath sounds Cardiovascular: nl pulses, other Gastrointestinal: soft Musculoskeletal: nl extremities to inspection Extremities: normal pulses Neurological: confused, lethargic Results Result Diagram: 11/04/18 0427 11/04/18 0427 Results 24hrs Laboratory Tests Test 11/03/18 14:07 11/03/18 20:18 11/04/18 00:00 11/04/18 01:38 White Blood 10.9 H Count Red Blood Count 2.94 L Hemoglobin 7.9 L Hematocrit 25.5 L Mean Corpuscular 86.7 Volume Mean Corpuscular 26.9 L Hemoglobin Mean Corpuscular 31.0 L Hemoglobin Sandi nt Red Cell 19.7 H Distribution Width Platelet Count 105 L Mean Platelet 9.8 Volume Immature 0.800 H Granulocytes % Neutrophils % 87.9 H Lymphocytes % 1.6 L Monocytes % 9.6 Eosinophils % 0.0 Basophils % 0.1 Nucleated Red 0.0 Blood Cells % Immature 0.090 H Granulocytes # Neutrophils # 9.5 H Lymphocytes # 0.2 L Monocytes # 1.0 H Eosinophils # 0.0 Basophils # 0.0 Nucleated Red 0.0 Blood Cells # Bedside Glucose 106 125 Blood Gas Blood arterial Specimen Source Arterial Blood 11/04/2018 12:15: Date Drawn 32 AM Arterial Blood 7.464 H pH (Temp corrected) Arterial Blood 38.2 pCO2 (Temp correct) Arterial Blood 56.0 L pO2 (Temp corrected) Arterial Blood 26.8 H HCO3 Arterial Blood 2.9 Base Excess Arterial Blood 88.1 L Oxygen Saturatio n Rogerio Test ACCEPTAB Arterial Blood LB Gas Puncture Site Arterial 1.3 Blood Carboxyhem oglobin Arterial Blood 0.4 Methemoglobin Blood Gas A-a O2 178.0 H Differential Oxyhemoglobin 86.6 L Percent Blood Gas 37.0 Temperature Blood Gas Actual 24 Respiration Rate Blood Gas NASAL CANNULA Modality FiO2 39.0 Blood Gas LLIBRADO Notified Whom Blood Gas 11/04/2018 12:27: Notified Time 35 AM Test 11/04/18 04:27 11/04/18 05:00 11/04/18 05:17 11/04/18 09:36 White Blood 11.0 H Count Red Blood Count 2.78 L Hemoglobin 7.4 L Hematocrit 24.0 L Mean Corpuscular 86.3 Volume Mean Corpuscular 26.6 L Hemoglobin Mean Corpuscular 30.8 L Hemoglobin Sandi nt Red Cell 19.9 H Distribution Width Platelet Count 105 L Mean Platelet 10.3 Volume Immature 0.600 H Granulocytes % Neutrophils % 84.3 H Lymphocytes % 2.4 L Monocytes % 12.5 H Eosinophils % 0.0 Basophils % 0.2 Nucleated Red 0.0 Blood Cells % Immature 0.070 H Granulocytes # Neutrophils # 9.3 H Lymphocytes # 0.3 L Monocytes # 1.4 H Eosinophils # 0.0 Basophils # 0.0 Nucleated Red 0.0 Blood Cells # Prothrombin Time 19.0 H Prothrombin Time 1.5 Ratio INR 1.58 International Normalized Ratio Activated 40.4 H Partial Thrombop last Time Sodium Level 140 Potassium Level 4.1 Chloride Level 100 Carbon Dioxide 27 Level Anion Gap 13 Blood Urea 58 H Nitrogen Creatinine 5.75 H Est Glomerular Filtrat Rate mL/min Glucose Level 134 # Calcium Level 9.8 Magnesium Level 2.2 Total Bilirubin 1.6 H Direct Bilirubin 0.00 Indirect 1.6 H Bilirubin Aspartate Amino 26 Transf (AST/SGOT ) Alanine 23 Aminotransferase (ALT/SGPT) Alkaline 49 Phosphatase Total Protein 6.5 Albumin 3.4 Globulin 3.10 Albumin/Globulin 1.09 Ratio Blood Gas Blood arterial Specimen Source Arterial Blood 11/04/2018 5:20:00 Date Drawn AM Arterial Blood 7.511 H pH (Temp corrected) Arterial Blood 34.3 L pCO2 (Temp correct) Arterial Blood 108.8 H pO2 (Temp corrected) Arterial Blood 26.8 H HCO3 Arterial Blood 3.7 H Base Excess Arterial Blood 97.7 Oxygen Saturatio n Rogerio Test N/A Arterial Blood LB Gas Puncture Site Arterial 0.7 Blood Carboxyhem oglobin Arterial Blood 0.4 Methemoglobin Blood Gas A-a O2 281.3 H Differential Oxyhemoglobin 96.6 Percent Blood Gas 37.0 Temperature Blood Gas Actual 23 Respiration Rate Blood Gas HFNC Modality FiO2 60.0 Blood Gas MG Notified Whom Blood Gas 11/04/2018 5:32:00 Notified Time AM Bedside Glucose 157 182 Lab Scanned BLOOD TRANSFUSI Report ON Medications Medication Current Medications Ondansetron HCl (Zofran Inj) 4 mg Q6H PRN IV NAUSEA AND/OR VOMITING; Start 10/31/18 at 21:30 Albuterol (Proventil 0.083% (Neb)) 2.5 mg Q2H RESP THERAPY PRN NEB SHORTNESS OF BREATH Last administered on 11/04/18at 00:44; Admin Dose 2.5 MG; Start 10/31/18 at 21:30 Acetaminophen (Tylenol Liquid) 650 mg Q6H PRN PO PAIN LEVEL 1-3 OR FEVER; Start 10/31/18 at 21:30 Hydralazine HCl (Apresoline) 10 mg Q4H PRN IV ELEVATED BLOOD PRESSURE Last administered on 11/03/18 01:04; Admin Dose 10 MG; Start 10/31/18 at 22:00 Amlodipine Besylate (Norvasc) 5 mg BID PO Last administered on 11/03/18 20:19; Admin Dose 5 MG; Start 10/31/18 at 22:00 Benazepril HCl (Lotensin) 40 mg DAILY PO Last administered on 11/02/18 08:35; Admin Dose 40 MG; Start 11/01/18 at 09:00 Carvedilol (Coreg) 12.5 mg BID PO Last administered on 11/04/18 09:08; Admin Dose 12.5 MG; Start 10/31/18 at 22:00 Calcium Acetate (Phoslo) 667 mg WITH MEALS PO Last administered on 11/04/18 12:22; Admin Dose 667 MG; Start 11/01/18 at 08:00 Multivit/Ca Carb/ B Cmplx/FA/Prenat (Sharron-Ashley) 1 tab DAILY PO Last administered on 11/04/18 09:07; Admin Dose 1 TAB; Start 11/01/18 at 09:00 Diagnostic Test (Pha) (Accu-Chek) 1 ea 02 XX ; Start 11/02/18 at 02:00 Insulin Aspart (Novolog Insulin Pen) NOVOLOG *MILD* ALGORI... Q4 SC Last administered on 11/04/18 09:42; Admin Dose 2 UNIT; Start 11/01/18 at 13:00 Sevelamer Carbonate (Renvela) 0.8 gm WITH MEALS PO Last administered on 11/04/18 12:22; Admin Dose 0.8 GM; Start 11/01/18 at 18:00 Epoetin Virgil-epbx (Retacrit (Non-Esrd)) 10,000 unit TuThSa@1700 SC Last administered on 11/02/18 18:54; Admin Dose 10,000 UNIT; Start 11/02/18 at 17:00 Famotidine (Pepcid Iv) 20 mg DAILY IV Last administered on 6/1/19at 09:13; Admin Dose 20 MG; Start 11/03/18 at 09:00 Miscellaneous Information 1 ea NOTE XX ; Start 11/02/18 at 17:00 Glucose (Glutose) 15 gm Q15M PRN PO DECREASED GLUCOSE; Start 11/02/18 at 17:00 Glucose (Glutose) 22.5 gm Q15M PRN PO DECREASED GLUCOSE; Start 11/02/18 at 17:00 Dextrose (D50w Syringe) 25 ml Q15M PRN IV DECREASED GLUCOSE; Start 11/02/18 at 17:00 Dextrose (D50w Syringe) 50 ml Q15M PRN IV DECREASED GLUCOSE; Start 11/02/18 at 17:00 Glucagon (Glucagen) 1 mg Q15M PRN IM DECREASED GLUCOSE; Start 11/02/18 at 17:00 Glucose (Glutose) 15 gm Q15M PRN BUCCAL DECREASED GLUCOSE; Start 11/02/18 at 17:00 Albumin Human 100 ml @ 100 mls/hr WITH DIALYSIS PRN IV SBP <90 DURING DIALYSIS; Start 11/03/18 at 08:30 Sodium Chloride (NS) -To prime the dialy... DIRECTED FOR HD PRN IV HD; Start 11/03/18 at 08:30 Epoetin Virgil-epbx (Retacrit (Esrd)) 6,000 unit TuThSa@1700 SC ; Start 11/04/18 at 17:00 Levetiracetam 100 ml @ 400 mls/hr Q12 IVPB Last administered on 11/04/18at 09:08; Admin Dose 400 MLS/HR; Start 11/04/18 at 01:30 ROBERT BURCH Nov 04, 2018 13:03
--- NOTE | 2018-11-04 17:33 | CONS ---
Assessment/Plan Assessment/Plan Assessment/Plan (Daily) IMP: 1. Hypoxemic Resp Failure--in a patient with a SDH who presented 4 days prior with AMS. Chest imaging notable for bilateral airspace opacities and effusions. Findings concerning for aspiration pneumonitis and co-existing volume overload. 2. ESRD on HD 3. SDH 4. P-Afib RECS: 1. Strict aspiration precautions 2. Maintain HOB > 30 3. HD with aggressive UF to keep 2-3 liters negative 4. Abx 5. Obtain cultures 6. ECHO 7. Titrate O2 as tolerated. Consultation Date/Type/Reason Admit Date/Time October 31, 2018 at 21:18 Date of Consultation: Nov 04, 2018 Type of Consult Pulm/CCM Date/Time of Note DATE: 11/04/18 TIME: 17:20 Hx of Present Illness Briefly, this is a 78-year-old man with a past medical history of end-stage renal disease on HD via AVF, paroxysmal AFib, hypertension, anemia, who presented 4 days ago to [facility] for confusion. Upon arrival, the patient had repeat CT scan which showed evidence of new acute right subdural hematoma with 2 mm midline shift. The patient was evaluated by neurosurgery with no plan for intervention and admitted to the intensive care unit for observation, allowing effects of Elloquis to wear off. His course in the ICU has been notable for hypoxemic respiratory insufficiency requiring high- flow NC. Subjective hx not possible: pt non-verbal Past Medical History as per [facility] Home Meds Active Scripts Carvedilol* (Carvedilol*) 12.5 Mg Tablet, 12.5 MG PO BID for 30 Days, TAB Prov:KADI GONZALEZ MD 06/20/18 Apixaban* (Eliquis*) 5 Mg Tablet, 2.5 MG PO BID for 30 Days, TAB Prov:KADI GONZALEZ MD 06/20/18 Reported Medications Folic Acid/Vitamin B Comp W-C (Renal Multivitamin Tablet) 0.8 Mg Tablet, 0.8 MG PO DAILY, TAB 06/15/18 Clonidine Hcl* (Clonidine Hcl*) 0.1 Mg Tab, 0.1 MG PO BID, TAB 06/15/18 Risperidone* (Risperidone*) 0.25 Mg Tablet, 0.25 MG PO DAILY, TAB 06/15/18 Sevelamer Hcl* (Renagel*) 800 Mg Tablet, 800 MG PO WITH MEALS, TAB 06/15/18 Calcitriol* (Calcitriol*) 0.5 Mcg Capsule, 0.5 MCG PO DAILY, CAP 06/15/18 Calcium Acetate* (Calcium Acetate*) 667 Mg Capsule, 667 MG PO WITH MEALS, #30 C AP 12/13/17 Terazosin Hcl* (Terazosin Hcl*) 5 Mg Capsule, 5 MG PO HS, CAP 12/13/17 Benazepril Hcl* (Benazepril Hcl*) 40 Mg Tablet, 40 MG PO DAILY, #30 TAB 12/13/17 Amlodipine Besylate* (Norvasc*) 5 Mg Tablet, 5 MG PO BID, TAB 12/13/17 Medications Current Medications Ondansetron HCl (Zofran Inj) 4 mg Q6H PRN IV NAUSEA AND/OR VOMITING; Start 10/31/18 at 21:30 Albuterol (Proventil 0.083% (Neb)) 2.5 mg Q2H RESP THERAPY PRN NEB SHORTNESS OF BREATH Last administered on 11/04/18at 00:44; Admin Dose 2.5 MG; Start 10/31/18 at 21:30 Acetaminophen (Tylenol Liquid) 650 mg Q6H PRN PO PAIN LEVEL 1-3 OR FEVER; Start 10/31/18 at 21:30 Hydralazine HCl (Apresoline) 10 mg Q4H PRN IV ELEVATED BLOOD PRESSURE Last administered on 11/03/18at 01:04; Admin Dose 10 MG; Start 10/31/18 at 22:00 Amlodipine Besylate (Norvasc) 5 mg BID PO Last administered on 11/03/18at 20:19; Admin Dose 5 MG; Start 10/31/18 at 22:00 Benazepril HCl (Lotensin) 40 mg DAILY PO Last administered on 11/02/18at 08:35; Admin Dose 40 MG; Start 11/01/18 at 09:00 Carvedilol (Coreg) 12.5 mg BID PO Last administered on 11/04/18at 09:08; Admin Dose 12.5 MG; Start 10/31/18 at 22:00 Calcium Acetate (Phoslo) 667 mg WITH MEALS PO Last administered on 11/04/18at 12:22; Admin Dose 667 MG; Start 11/01/18 at 08:00 Multivit/Ca Carb/ B Cmplx/FA/Prenat (Sharron-Ashley) 1 tab DAILY PO Last administered on 11/04/18at 09:07; Admin Dose 1 TAB; Start 11/01/18 at 09:00 Diagnostic Test (Pha) (Accu-Chek) 1 ea 02 XX ; Start 11/02/18 at 02:00 Insulin Aspart (Novolog Insulin Pen) NOVOLOG *MILD* ALGORI... Q4 SC Last administered on 11/04/18at 13:23; Admin Dose 1 UNIT; Start 11/01/18 at 13:00 Sevelamer Carbonate (Renvela) 0.8 gm WITH MEALS PO Last administered on 11/04/18at 12:22; Admin Dose 0.8 GM; Start 11/01/18 at 18:00 Famotidine (Pepcid Iv) 20 mg DAILY IV Last administered on 11/04/18at 09:13; Admin Dose 20 MG; Start 11/03/18 at 09:00 Miscellaneous Information 1 ea NOTE XX ; Start 11/02/18 at 17:00 Glucose (Glutose) 15 gm Q15M PRN PO DECREASED GLUCOSE; Start 11/02/18 at 17:00 Glucose (Glutose) 22.5 gm Q15M PRN PO DECREASED GLUCOSE; Start 11/02/18 at 17:00 Dextrose (D50w Syringe) 25 ml Q15M PRN IV DECREASED GLUCOSE; Start 11/02/18 at 17:00 Dextrose (D50w Syringe) 50 ml Q15M PRN IV DECREASED GLUCOSE; Start 11/02/18 at 17:00 Glucagon (Glucagen) 1 mg Q15M PRN IM DECREASED GLUCOSE; Start 11/02/18 at 17:00 Glucose (Glutose) 15 gm Q15M PRN BUCCAL DECREASED GLUCOSE; Start 11/02/18 at 17:00 Albumin Human 100 ml @ 100 mls/hr WITH DIALYSIS PRN IV SBP <90 DURING DIALYSIS; Start 11/03/18 at 08:30 Sodium Chloride (NS) -To prime the dialy... DIRECTED FOR HD PRN IV HD; Start 11/03/18 at 08:30 Epoetin Virgil-epbx (Retacrit (Esrd)) 6,000 unit TuThSa@1700 SC ; Start 11/04/18 at 17:00 Levetiracetam 100 ml @ 400 mls/hr Q12 IVPB Last administered on 11/04/18at 09:08; Admin Dose 400 MLS/HR; Start 11/04/18 at 01:30 Lorazepam (Ativan) 1 mg PRN PRN IV SEIZURES; Start 11/04/18 at 17:30; Status UNV Allergies: Coded Allergies: No Known Drug Allergy (Verified Allergy, Unknown, 06/15/18) Past Surgical History Past Surgical Hx: other Social History Alcohol Use: none Smoking Status: Never smoker Drug Use: none Exam/Review of Systems Exam Vitals Vital Signs Date Temp Pulse Resp B/P (MAP) Pulse Ox O2 O2 Flow FiO2 Time Delivery Rate 11/04/18 107 17:17 11/04/18 96 50 15:45 11/04/18 26 93/47 (62) 15:00 11/04/18 Nasal 14:40 Cannula 11/04/18 98.3 14:00 11/04/18 6.0 00:47 Intake and Output 11/03/18 11/03/18 11/04/18 1515:00 23:00 07:00 IntakeIntake Total 350 ml 270 ml 650 ml BalanceBalance 350 ml 270 ml 650 ml Constitutional: non-verbal Head: normocephalic, atraumatic Eyes: nl conjunctiva, EOMI, nl lids, nl sclera ENMT: nl external ears & nose, nl lips & teeth, mucosa pink and moist Neck: supple, non-tender Respiratory: crackles/rales, diminished breath sounds Cardiovascular: regular rate and rhythm, systolic murmur Gastrointestinal: soft, nl liver, spleen, non-tender Musculoskeletal: nl extremities to inspection Extremities: normal pulses Neurological: confused Results Result Diagram: 11/04/18 0427 11/04/18 0427 Results 24hrs Laboratory Tests Test 11/03/18 20:18 11/04/18 00:00 11/04/18 01:38 11/04/18 04:27 Bedside Glucose 106 125 Blood Gas Blood arterial Specimen Source Arterial Blood 11/04/2018 12:15:3 Date Drawn 2 AM Arterial Blood 7.464 H pH (Temp corrected) Arterial Blood 38.2 pCO2 (Temp correct) Arterial Blood 56.0 L pO2 (Temp corrected) Arterial Blood 26.8 H HCO3 Arterial Blood 2.9 Base Excess Arterial Blood 88.1 L Oxygen Saturatio n Rogerio Test ACCEPTAB Arterial Blood LB Gas Puncture Site Arterial 1.3 Blood Carboxyhem oglobin Arterial Blood 0.4 Methemoglobin Blood Gas A-a O2 178.0 H Differential Oxyhemoglobin 86.6 L Percent Blood Gas 37.0 Temperature Blood Gas Actual 24 Respiration Rate Blood Gas NASAL CANNULA Modality FiO2 39.0 Blood Gas L.SON Notified Whom Blood Gas 11/04/2018 12:27:3 Notified Time 5 AM White Blood 11.0 H Count Red Blood Count 2.78 L Hemoglobin 7.4 L Hematocrit 24.0 L Mean Corpuscular 86.3 Volume Mean Corpuscular 26.6 L Hemoglobin Mean Corpuscular 30.8 L Hemoglobin Sandi nt Red Cell 19.9 H Distribution Width Platelet Count 105 L Mean Platelet 10.3 Volume Immature 0.600 H Granulocytes % Neutrophils % 84.3 H Lymphocytes % 2.4 L Monocytes % 12.5 H Eosinophils % 0.0 Basophils % 0.2 Nucleated Red 0.0 Blood Cells % Immature 0.070 H Granulocytes # Neutrophils # 9.3 H Lymphocytes # 0.3 L Monocytes # 1.4 H Eosinophils # 0.0 Basophils # 0.0 Nucleated Red 0.0 Blood Cells # Prothrombin Time 19.0 H Prothrombin Time 1.5 Ratio INR 1.58 International Normalized Ratio Activated 40.4 H Partial Thrombop last Time Sodium Level 140 Potassium Level 4.1 Chloride Level 100 Carbon Dioxide 27 Level Anion Gap 13 Blood Urea 58 H Nitrogen Creatinine 5.75 H Est Glomerular Filtrat Rate mL/min Glucose Level 134 # Calcium Level 9.8 Magnesium Level 2.2 Total Bilirubin 1.6 H Direct Bilirubin 0.00 Indirect 1.6 H Bilirubin Aspartate Amino 26 Transf (AST/SGOT ) Alanine 23 Aminotransferase (ALT/SGPT) Alkaline 49 Phosphatase Total Protein 6.5 Albumin 3.4 Globulin 3.10 Albumin/Globulin 1.09 Ratio Test 11/04/18 05:00 11/04/18 05:17 11/04/18 09:36 11/04/18 13:10 Blood Gas Blood arterial Specimen Source Arterial Blood 11/04/2018 5:20:00 Date Drawn AM Arterial Blood 7.511 H pH (Temp corrected) Arterial Blood 34.3 L pCO2 (Temp correct) Arterial Blood 108.8 H pO2 (Temp corrected) Arterial Blood 26.8 H HCO3 Arterial Blood 3.7 H Base Excess Arterial Blood 97.7 Oxygen Saturatio n Rogerio Test N/A Arterial Blood LB Gas Puncture Site Arterial 0.7 Blood Carboxyhem oglobin Arterial Blood 0.4 Methemoglobin Blood Gas A-a O2 281.3 H Differential Oxyhemoglobin 96.6 Percent Blood Gas 37.0 Temperature Blood Gas Actual 23 Respiration Rate Blood Gas HFNC Modality FiO2 60.0 Blood Gas MG Notified Whom Blood Gas 11/04/2018 5:32:00 Notified Time AM Bedside Glucose 157 182 154 Lab Scanned BLOOD TRANSFUSIO Report N Medications Medication Current Medications Ondansetron HCl (Zofran Inj) 4 mg Q6H PRN IV NAUSEA AND/OR VOMITING; Start 10/31/18 at 21:30 Albuterol (Proventil 0.083% (Neb)) 2.5 mg Q2H RESP THERAPY PRN NEB SHORTNESS OF BREATH Last administered on 11/04/18at 00:44; Admin Dose 2.5 MG; Start 10/31/18 at 21:30 Acetaminophen (Tylenol Liquid) 650 mg Q6H PRN PO PAIN LEVEL 1-3 OR FEVER; Start 10/31/18 at 21:30 Hydralazine HCl (Apresoline) 10 mg Q4H PRN IV ELEVATED BLOOD PRESSURE Last administered on 11/03/18at 01:04; Admin Dose 10 MG; Start 10/31/18 at 22:00 Amlodipine Besylate (Norvasc) 5 mg BID PO Last administered on 11/03/18at 20:19; Admin Dose 5 MG; Start 10/31/18 at 22:00 Benazepril HCl (Lotensin) 40 mg DAILY PO Last administered on 11/02/18at 08:35; Admin Dose 40 MG; Start 11/01/18 at 09:00 Carvedilol (Coreg) 12.5 mg BID PO Last administered on 11/04/18at 09:08; Admin Dose 12.5 MG; Start 10/31/18 at 22:00 Calcium Acetate (Phoslo) 667 mg WITH MEALS PO Last administered on 11/04/18at 12:22; Admin Dose 667 MG; Start 11/01/18 at 08:00 Multivit/Ca Carb/ B Cmplx/FA/Prenat (Sharron-Ashley) 1 tab DAILY PO Last administered on 11/04/18at 09:07; Admin Dose 1 TAB; Start 11/01/18 at 09:00 Diagnostic Test (Pha) (Accu-Chek) 1 ea 02 XX ; Start 11/02/18 at 02:00 Insulin Aspart (Novolog Insulin Pen) NOVOLOG *MILD* ALGORI... Q4 SC Last administered on 11/04/18at 13:23; Admin Dose 1 UNIT; Start 11/01/18 at 13:00 Sevelamer Carbonate (Renvela) 0.8 gm WITH MEALS PO Last administered on 11/04/18at 12:22; Admin Dose 0.8 GM; Start 11/01/18 at 18:00 Famotidine (Pepcid Iv) 20 mg DAILY IV Last administered on 11/04/18at 09:13; Admin Dose 20 MG; Start 11/03/18 at 09:00 Miscellaneous Information 1 ea NOTE XX ; Start 11/02/18 at 17:00 Glucose (Glutose) 15 gm Q15M PRN PO DECREASED GLUCOSE; Start 11/02/18 at 17:00 Glucose (Glutose) 22.5 gm Q15M PRN PO DECREASED GLUCOSE; Start 11/02/18 at 17:00 Dextrose (D50w Syringe) 25 ml Q15M PRN IV DECREASED GLUCOSE; Start 11/02/18 at 17:00 Dextrose (D50w Syringe) 50 ml Q15M PRN IV DECREASED GLUCOSE; Start 11/02/18 at 17:00 Glucagon (Glucagen) 1 mg Q15M PRN IM DECREASED GLUCOSE; Start 11/02/18 at 17:00 Glucose (Glutose) 15 gm Q15M PRN BUCCAL DECREASED GLUCOSE; Start 11/02/18 at 17:00 Albumin Human 100 ml @ 100 mls/hr WITH DIALYSIS PRN IV SBP <90 DURING DIALYSIS; Start 11/03/18 at 08:30 Sodium Chloride (NS) -To prime the dialy... DIRECTED FOR HD PRN IV HD; Start 11/03/18 at 08:30 Epoetin Virgil-epbx (Retacrit (Esrd)) 6,000 unit TuThSa@1700 SC ; Start 11/04/18 at 17:00 Levetiracetam 100 ml @ 400 mls/hr Q12 IVPB Last administered on 11/04/18at 09: 08; Admin Dose 400 MLS/HR; Start 11/04/18 at 01:30 Lorazepam (Ativan) 1 mg PRN PRN IV SEIZURES; Start 11/04/18 at 17:30; Status UNV WHITNEY CATALAN MD Nov 04, 2018 17:33
[2018-11-04] MEDS ORDERED: LORAZEPAM 2 MG INJ IV PRN ×2 (17:39→20:19)
[2018-11-04] MEDS: BENAZEPRIL 40 MG TAB PO SCH (18:03)
[2018-11-04] MEDS: AMLODIPINE 5 MG TAB PO SCH ×2 (18:04→20:20)
[2018-11-04] MEDS: PIPER-TAZO 2.25 GM (PMX) 50 ML IVPB SCH (18:13)
[2018-11-04] MEDS: EPOETIN ALFA-EPBX (ESRD) 3,000 UNIT/ML VIAL SC SCH (18:32)
[2018-11-05] VITALS (24 sets, daily range): BP systolic 118–158; BP diastolic 47–87; PULSE 67–114; RESP 18–28
[2018-11-05] MEDS: PIPER-TAZO 2.25 GM (PMX) 50 ML IVPB SCH ×4 (00:32→22:13)
[2018-11-05] MEDS: INSULIN ASPART [NOVOLOG] 3 ML PEN SC SCH ×6 (00:48→20:33)
[2018-11-05] MEDS: ACCU-CHEK XX SCH (02:00)
--- NOTE | 2018-11-05 08:05 | CONS ---
Assessment/Plan Assessment/Plan Assessment/Plan (Daily) LUE swelling- will get venous dop[pler to r/o any DVT 1. End-stage renal disease. - HD yesterday- 2.7 L removed , pt regular schedule for HD is TTS 2. Access. The patient has AV fistula. Continue local access care. 3. Hypertension. Continue current blood pressure regimen. Continue ultrafil tration with dialysis. 4. Anemia of ESRD, - Hb trended up to 9.2 - Possible SDH - sp one unit PRBC yesterday with HD and 1 unit PRBC with HD day before yesterday 5. Mineral bone disorder. Monitor calcium and phosphorus levels. 6. Subdural hematoma. Continue to monitor. Follow up repeat CT scans. Follow up with neurosurgery. 7. Diabetes. Continue current insulin regimen. 8. Paroxysmal atrial fibrillation. Continue medical management. 9. Gastrointestinal and deep vein thrombosis prophylaxis. Patient seen in collaboration with Dr Lila Verduzco. Dw staff Consultation Date/Type/Reason Admit Date/Time October 31, 2018 at 21:18 Initial Consult Date 11/01/18 Type of Consult NEPHROLOGY Reason for Consultation - Anemia of ESRD, Date/Time of Note DATE: 11/05/18 TIME: 07:59 24 HR Interval Summary Free Text/Dictation - remains comfortable on supplemental oxygen- remains comfortable on supplemental oxygen -SP HD yesterday- 2.7 L removed - Plan for evacuation sx on Tuesday - no new events reported last night Hb trended up to 7.4 ; got one unit PRBC yesterday and 1 unit PRBC today with HD . - dw staff Subjective hx not possible: pt non-verbal, pt critical Constitutional: requiring O2 Exam/Review of Systems Exam Vitals Vital Signs Date Temp Pulse Resp B/P (MAP) Pulse Ox O2 O2 Flow FiO2 Time Delivery Rate 11/05/18 113 136/58 100 High Flow 06:00 (84) 11/05/18 26 05:00 11/05/18 98.9 04:00 11/05/18 40 00:42 11/04/18 6.0 00:47 Intake and Output 11/04/18 11/04/18 11/05/18 1515:00 23:00 07:00 IntakeIntake Total 515 ml 440 ml 100 ml OutputOutput Total 3500 ml BalanceBalance 515 ml -3060 ml 100 ml Constitutional: non-verbal, frail Psych: nl mood/affect Eyes: nl lids, nl sclera ENMT: nl external ears & nose Respiratory: diminished breath sounds Cardiovascular: nl pulses, other (s1s2) Gastrointestinal: soft Musculoskeletal: muscle weakness Extremities: edema Neurological: unresponsive Results Result Diagram: 11/05/18 0434 11/05/18 0434 Results 24hrs Laboratory Tests Test 11/04/18 09:36 11/04/18 13:10 11/04/18 18:00 11/04/18 20:18 Bedside Glucose 182 154 184 179 Test 11/05/18 00:45 11/05/18 04:34 11/05/18 04:51 11/05/18 05:00 Bedside Glucose 149 122 White Blood Count 11.6 H Red Blood Count 3.43 #L Hemoglobin 9.2 #L Hematocrit 29.4 #L Mean Corpuscular 85.7 Volume Mean Corpuscular 26.8 L Hemoglobin Mean Corpuscular 31.3 L Hemoglobin Concent Red Cell 18.6 H Distribution Width Platelet Count 106 L Mean Platelet 9.5 Volume Immature 0.800 H Granulocytes % Neutrophils % 84.9 H Lymphocytes % 2.8 L Monocytes % 11.3 H Eosinophils % 0.1 Basophils % 0.1 Nucleated Red 0.0 Blood Cells % Immature 0.090 H Granulocytes # Neutrophils # 9.9 H Lymphocytes # 0.3 L Monocytes # 1.3 H Eosinophils # 0.0 Basophils # 0.0 Nucleated Red 0.0 Blood Cells # Prothrombin Time 18.0 H Prothrombin Time 1.4 Ratio INR International 1.48 Normalized Ratio Activated 38.[address] Time Sodium Level 141 Potassium Level 4.3 Chloride Level 104 Carbon Dioxide 28 Level Anion Gap 9 Blood Urea 47 #H Nitrogen Creatinine 4.39 #H Est Glomerular Filtrat Rate mL/min Glucose Level 116 Lactic Acid Level 1.0 Calcium Level 10.0 Total Bilirubin 1.2 Direct Bilirubin 0.00 Indirect Bilirubin 1.2 H Aspartate Amino 21 Transf (AST/SGOT) Alanine 23 Aminotransferase ( ALT/SGPT) Alkaline 54 Phosphatase Total Protein 6.7 Albumin 3.5 Globulin 3.20 Albumin/Globulin 1.09 Ratio Blood Gas Specimen Blood arterial Source Arterial Blood 11/05/2018 5:20:23 Date Drawn AM Arterial Blood pH 7.428 (Temp corrected) Arterial Blood 36.0 pCO2 (Temp correct) Arterial Blood pO2 261.5 H (Temp corrected) Arterial Blood 23.3 HCO3 Arterial Blood -0.8 Base Excess Arterial Blood 99.6 Oxygen Saturation Rogerio Test N/A Arterial Blood Gas LB Puncture Site Arterial 0.7 Blood Carboxyhemog lobin Arterial Blood 0.4 Methemoglobin Blood Gas A-a O2 415.5 H Differential Oxyhemoglobin 98.5 Percent Blood Gas 37.0 Temperature Blood Gas Actual 24 Respiration Rate Blood Gas Modality HFNC FiO2 100.0 Blood Gas Notified MA Whom Blood Gas Notified 11/05/2018 5:47:12 Time AM Medications Medication Current Medications Ondansetron HCl (Zofran Inj) 4 mg Q6H PRN IV NAUSEA AND/OR VOMITING; Start 10/31/18 at 21:30 Albuterol (Proventil 0.083% (Neb)) 2.5 mg Q2H RESP THERAPY PRN NEB SHORTNESS OF BREATH Last administered on 11/04/18 00:44; Admin Dose 2.5 MG; Start 10/31/18 at 21:30 Acetaminophen (Tylenol Liquid) 650 mg Q6H PRN PO PAIN LEVEL 1-3 OR FEVER; Start 10/31/18 at 21:30 Hydralazine HCl (Apresoline) 10 mg Q4H PRN IV ELEVATED BLOOD PRESSURE Last administered on 11/03/18 01:04; Admin Dose 10 MG; Start 10/31/18 at 22:00 Amlodipine Besylate (Norvasc) 5 mg BID PO Last administered on 11/04/18 18:04; Admin Dose 5 MG; Start 10/31/18 at 22:00 Benazepril HCl (Lotensin) 40 mg DAILY PO Last administered on 11/04/18 18:03; Admin Dose 40 MG; Start 11/01/18 at 09:00 Carvedilol (Coreg) 12.5 mg BID PO Last administered on 11/04/18 20:26; Admin Dose 12.5 MG; Start 10/31/18 at 22:00 Calcium Acetate (Phoslo) 667 mg WITH MEALS PO Last administered on 11/04/18 18:13; Admin Dose 667 MG; Start 11/01/18 at 08:00 Multivit/Ca Carb/ B Cmplx/FA/Prenat (Sharron-Ashley) 1 tab DAILY PO Last administered on 6/1/19at 09:07; Admin Dose 1 TAB; Start 11/01/18 at 09:00 Diagnostic Test (Pha) (Accu-Chek) 1 ea 02 XX ; Start 11/02/18 at 02:00 Insulin Aspart (Novolog Insulin Pen) NOVOLOG *MILD* ALGORI... Q4 SC Last administered on 11/05/18at 00:48; Admin Dose 1 UNIT; Start 11/01/18 at 13:00 Sevelamer Carbonate (Renvela) 0.8 gm WITH MEALS PO Last administered on 11/04/18at 18:13; Admin Dose 0.8 GM; Start 11/01/18 at 18:00 Famotidine (Pepcid Iv) 20 mg DAILY IV Last administered on 11/04/18at 09:13; Admin Dose 20 MG; Start 11/03/18 at 09:00 Miscellaneous Information 1 ea NOTE XX ; Start 11/02/18 at 17:00 Glucose (Glutose) 15 gm Q15M PRN PO DECREASED GLUCOSE; Start 11/02/18 at 17:00 Glucose (Glutose) 22.5 gm Q15M PRN PO DECREASED GLUCOSE; Start 11/02/18 at 17:00 Dextrose (D50w Syringe) 25 ml Q15M PRN IV DECREASED GLUCOSE; Start 11/02/18 at 17:00 Dextrose (D50w Syringe) 50 ml Q15M PRN IV DECREASED GLUCOSE; Start 11/02/18 at 17:00 Glucagon (Glucagen) 1 mg Q15M PRN IM DECREASED GLUCOSE; Start 11/02/18 at 17:00 Glucose (Glutose) 15 gm Q15M PRN BUCCAL DECREASED GLUCOSE; Start 11/02/18 at 17:00 Albumin Human 100 ml @ 100 mls/hr WITH DIALYSIS PRN IV SBP <90 DURING DIALYSIS; Start 11/03/18 at 08:30 Sodium Chloride (NS) -To prime the dialy... DIRECTED FOR HD PRN IV HD; Start 11/03/18 at 08:30 Epoetin Virgil-epbx (Retacrit (Esrd)) 6,000 unit TuThSa@1700 SC Last administered on 11/04/18at 18:32; Admin Dose 6,000 UNIT; Start 11/04/18 at 17:00 Levetiracetam 100 ml @ 400 mls/hr Q12 IVPB Last administered on 11/04/18at 20:24; Admin Dose 400 MLS/HR; Start 11/04/18 at 01:30 Piperacillin Sod/ Tazobactam Sod 50 ml @ 200 mls/hr Q8 IVPB Last administered on 11/05/18at 05:34; Admin Dose 200 MLS/HR; Start 11/04/18 at 17:45 Lorazepam (Ativan) 1 mg Q5M PRN IV SEIZURES; Start 11/04/18 at 20:19 ROBERT BURCH Nov 05, 2018 08:05
--- NOTE | 2018-11-05 08:33 | PN ---
Date/Time of Note Date/Time of Note DATE: 11/05/18 TIME: 08:27 Assessment/Plan VTE Prophylaxis Risk score (from Ns)>0 risk: 7 SCD applied (from [facility] [place]): Yes Pharmacological prophylaxis: NA/contraindicated Pharm contraindication: other (subdural hematoma ) Lines/Catheters IV Catheter Type (from [facility]): Peripheral IV Urinary Cath still in place: No (anuric ) Assessment/Plan Hospital Course Assessment and plan 1. Acute right subdural hematoma. - Patient seen by speech therapy. - Maintain systolic blood pressure less than 160 - Neurosurgery and following. Off of Eliquis for now for tentative plan for evacuation of bleed - Monitor for improvement in neuro status. 2. End-stage renal disease. - Receives dialysis on Tuesday, , Tuesday. - Monitor electrolytes. Correct as needed - Dialysis per hardwood faller. 3. Diabetes. - Continue insulin regimen. - Will adjust regimen as needed. 4. Atrial fibrillation, paroxysmal - Monitor on telemetry. - Eliquis on hold for recent brain bleed 5. Hypertension. - Continue antihypertensives. Will adjust as needed. 6. Respiratory Failure - has increased pulmonary vascular congestion - pleural effusion per CXR - continue HD - livestock slaughterer was consulted - continue o2 - continue abx Disposition and plan. titrate o2 down as tolerated. Aspiration precautions.Breathing tx prn. continue HD.Monitor in ICU Discussed plan of care with Dr. Knutson Result Diagram: 11/05/18 0434 11/05/18 0434 Results 24hrs Laboratory Tests Test 11/04/18 09:36 11/04/18 13:10 11/04/18 18:00 11/04/18 20:18 Bedside Glucose 182 154 184 179 Test 11/05/18 00:45 11/05/18 04:34 11/05/18 04:51 11/05/18 05:00 Bedside Glucose 149 122 White Blood Count 11.6 H Red Blood Count 3.43 #L Hemoglobin 9.2 #L Hematocrit 29.4 #L Mean Corpuscular 85.7 Volume Mean Corpuscular 26.8 L Hemoglobin Mean Corpuscular 31.3 L Hemoglobin Concent Red Cell 18.6 H Distribution Width Platelet Count 106 L Mean Platelet 9.5 Volume Immature 0.800 H Granulocytes % Neutrophils % 84.9 H Lymphocytes % 2.8 L Monocytes % 11.3 H Eosinophils % 0.1 Basophils % 0.1 Nucleated Red 0.0 Blood Cells % Immature 0.090 H Granulocytes # Neutrophils # 9.9 H Lymphocytes # 0.3 L Monocytes # 1.3 H Eosinophils # 0.0 Basophils # 0.0 Nucleated Red 0.0 Blood Cells # Prothrombin Time 18.0 H Prothrombin Time 1.4 Ratio INR International 1.48 Normalized Ratio Activated 38.[address] Time Sodium Level 141 Potassium Level 4.3 Chloride Level 104 Carbon Dioxide 28 Level Anion Gap 9 Blood Urea 47 #H Nitrogen Creatinine 4.39 #H Est Glomerular Filtrat Rate mL/min Glucose Level 116 Lactic Acid Level 1.0 Calcium Level 10.0 Total Bilirubin 1.2 Direct Bilirubin 0.00 Indirect Bilirubin 1.2 H Aspartate Amino 21 Transf (AST/SGOT) Alanine 23 Aminotransferase ( ALT/SGPT) Alkaline 54 Phosphatase Total Protein 6.7 Albumin 3.5 Globulin 3.20 Albumin/Globulin 1.09 Ratio Blood Gas Specimen Blood arterial Source Arterial Blood 11/05/2018 5:20:23 Date Drawn AM Arterial Blood pH 7.428 (Temp corrected) Arterial Blood 36.0 pCO2 (Temp correct) Arterial Blood pO2 261.5 H (Temp corrected) Arterial Blood 23.3 HCO3 Arterial Blood -0.8 Base Excess Arterial Blood 99.6 Oxygen Saturation Rogerio Test N/A Arterial Blood Gas LB Puncture Site Arterial 0.7 Blood Carboxyhemog lobin Arterial Blood 0.4 Methemoglobin Blood Gas A-a O2 415.5 H Differential Oxyhemoglobin 98.5 Percent Blood Gas 37.0 Temperature Blood Gas Actual 24 Respiration Rate Blood Gas Modality HFNC FiO2 100.0 Blood Gas Notified LA Whom Blood Gas Notified 11/05/2018 5:47:12 Time AM Subjective 24 Hr Interval Summary Free Text/Dictation remains on mechanical ventilation. no s/s of distress. does withdraw to painful stimulus during visit. No purposeful response. Exam/Review of Systems Exam Vitals Vital Signs Date Temp Pulse Resp B/P (MAP) Pulse Ox O2 O2 Flow FiO2 Time Delivery Rate 11/05/18 113 136/58 100 High Flow 06:00 (84) 11/05/18 26 05:00 11/05/18 98.9 04:00 11/05/18 40 00:42 11/04/18 6.0 00:47 Intake and Output 611/04/18 11/05/18 1515:00 23:00 07:00 IntakeIntake Total 515 ml 440 ml 100 ml OutputOutput Total 3500 ml BalanceBalance 515 ml -3060 ml 100 ml Exam Constitutional: No alert, No oriented Head: normocephalic Respiratory: diminished breath sounds Cardiovascular: other (regular rate to tachycardic ) Gastrointestinal: soft, non-tender Neurological: No nl speech Skin: No rash, minimal swelling BLE Results Results 24hrs Laboratory Tests Test 11/04/18 09:36 11/04/18 13:10 11/04/18 18:00 11/04/18 20:18 Bedside Glucose 182 154 184 179 Test 11/05/18 00:45 11/05/18 04:34 11/05/18 04:51 11/05/18 05:00 Bedside Glucose 149 122 White Blood Count 11.6 H Red Blood Count 3.43 #L Hemoglobin 9.2 #L Hematocrit 29.4 #L Mean Corpuscular 85.7 Volume Mean Corpuscular 26.8 L Hemoglobin Mean Corpuscular 31.3 L Hemoglobin Concent Red Cell 18.6 H Distribution Width Platelet Count 106 L Mean Platelet 9.5 Volume Immature 0.800 H Granulocytes % Neutrophils % 84.9 H Lymphocytes % 2.8 L Monocytes % 11.3 H Eosinophils % 0.1 Basophils % 0.1 Nucleated Red 0.0 Blood Cells % Immature 0.090 H Granulocytes # Neutrophils # 9.9 H Lymphocytes # 0.3 L Monocytes # 1.3 H Eosinophils # 0.0 Basophils # 0.0 Nucleated Red 0.0 Blood Cells # Prothrombin Time 18.0 H Prothrombin Time 1.4 Ratio INR International 1.48 Normalized Ratio Activated 38.[address] Time Sodium Level 141 Potassium Level 4.3 Chloride Level 104 Carbon Dioxide 28 Level Anion Gap 9 Blood Urea 47 #H Nitrogen Creatinine 4.39 #H Est Glomerular Filtrat Rate mL/min Glucose Level 116 Lactic Acid Level 1.0 Calcium Level 10.0 Total Bilirubin 1.2 Direct Bilirubin 0.00 Indirect Bilirubin 1.2 H Aspartate Amino 21 Transf (AST/SGOT) Alanine 23 Aminotransferase ( ALT/SGPT) Alkaline 54 Phosphatase Total Protein 6.7 Albumin 3.5 Globulin 3.20 Albumin/Globulin 1.09 Ratio Blood Gas Specimen Blood arterial Source Arterial Blood 11/05/2018 5:20:23 Date Drawn AM Arterial Blood pH 7.428 (Temp corrected) Arterial Blood 36.0 pCO2 (Temp correct) Arterial Blood pO2 261.5 H (Temp corrected) Arterial Blood 23.3 HCO3 Arterial Blood -0.8 Base Excess Arterial Blood 99.6 Oxygen Saturation Rogerio Test N/A Arterial Blood Gas LB Puncture Site Arterial 0.7 Blood Carboxyhemog lobin Arterial Blood 0.4 Methemoglobin Blood Gas A-a O2 415.5 H Differential Oxyhemoglobin 98.5 Percent Blood Gas 37.0 Temperature Blood Gas Actual 24 Respiration Rate Blood Gas Modality HFNC FiO2 100.0 Blood Gas Notified MA Whom Blood Gas Notified 11/05/2018 5:47:12 Time AM Medications Medication Current Medications Ondansetron HCl (Zofran Inj) 4 mg Q6H PRN IV NAUSEA AND/OR VOMITING; Start 10/31/18 at 21:30 Albuterol (Proventil 0.083% (Neb)) 2.5 mg Q2H RESP THERAPY PRN NEB SHORTNESS OF BREATH Last administered on 11/04/18at 00:44; Admin Dose 2.5 MG; Start 10/31/18 at 21:30 Acetaminophen (Tylenol Liquid) 650 mg Q6H PRN PO PAIN LEVEL 1-3 OR FEVER; Start 10/31/18 at 21:30 Hydralazine HCl (Apresoline) 10 mg Q4H PRN IV ELEVATED BLOOD PRESSURE Last administered on 11/03/18 01:04; Admin Dose 10 MG; Start 10/31/18 at 22:00 Amlodipine Besylate (Norvasc) 5 mg BID PO Last administered on 11/04/18 18:04; Admin Dose 5 MG; Start 10/31/18 at 22:00 Benazepril HCl (Lotensin) 40 mg DAILY PO Last administered on 11/04/18 18:03; Admin Dose 40 MG; Start 11/01/18 at 09:00 Carvedilol (Coreg) 12.5 mg BID PO Last administered on 11/04/18 20:26; Admin Dose 12.5 MG; Start 10/31/18 at 22:00 Calcium Acetate (Phoslo) 667 mg WITH MEALS PO Last administered on 11/04/18 18:13; Admin Dose 667 MG; Start 11/01/18 at 08:00 Multivit/Ca Carb/ B Cmplx/FA/Prenat (Sharron-Ashley) 1 tab DAILY PO Last administered on 11/04/18at 09:07; Admin Dose 1 TAB; Start 11/01/18 at 09:00 Diagnostic Test (Pha) (Accu-Chek) 1 ea 02 XX ; Start 11/02/18 at 02:00 Insulin Aspart (Novolog Insulin Pen) NOVOLOG *MILD* ALGORI... Q4 SC Last administered on 11/05/18at 00:48; Admin Dose 1 UNIT; Start 11/01/18 at 13:00 Sevelamer Carbonate (Renvela) 0.8 gm WITH MEALS PO Last administered on 11/04/18at 18:13; Admin Dose 0.8 GM; Start 11/01/18 at 18:00 Famotidine (Pepcid Iv) 20 mg DAILY IV Last administered on 11/04/18at 09:13; Admin Dose 20 MG; Start 11/03/18 at 09:00 Miscellaneous Information 1 ea NOTE XX ; Start 11/02/18 at 17:00 Glucose (Glutose) 15 gm Q15M PRN PO DECREASED GLUCOSE; Start 11/02/18 at 17:00 Glucose (Glutose) 22.5 gm Q15M PRN PO DECREASED GLUCOSE; Start 11/02/18 at 17:00 Dextrose (D50w Syringe) 25 ml Q15M PRN IV DECREASED GLUCOSE; Start 11/02/18 at 17:00 Dextrose (D50w Syringe) 50 ml Q15M PRN IV DECREASED GLUCOSE; Start 11/02/18 at 17:00 Glucagon (Glucagen) 1 mg Q15M PRN IM DECREASED GLUCOSE; Start 11/02/18 at 17:00 Glucose (Glutose) 15 gm Q15M PRN BUCCAL DECREASED GLUCOSE; Start 11/02/18 at 17:00 Albumin Human 100 ml @ 100 mls/hr WITH DIALYSIS PRN IV SBP <90 DURING DIALYSIS; Start 11/03/18 at 08:30 Sodium Chloride (NS) -To prime the dialy... DIRECTED FOR HD PRN IV HD; Start 11/03/18 at 08:30 Epoetin Virgil-epbx (Retacrit (Esrd)) 6,000 unit TuThSa@1700 SC Last administered on 11/04/18at 18:32; Admin Dose 6,000 UNIT; Start 11/04/18 at 17:00 Levetiracetam 100 ml @ 400 mls/hr Q12 IVPB Last administered on 11/04/18at 20:24; Admin Dose 400 MLS/HR; Start 11/04/18 at 01:30 Piperacillin Sod/ Tazobactam Sod 50 ml @ 200 mls/hr Q8 IVPB Last administered on 11/05/18at 05:34; Admin Dose 200 MLS/HR; Start 11/04/18 at 17:45 Lorazepam (Ativan) 1 mg Q5M PRN IV SEIZURES; Start 11/04/18 at 20:19 URSZULA VERGARA NP Nov 05, 2018 08:33
--- NOTE | 2018-11-05 08:52 | CONSI ---
Assessment/Plan Assessment/Plan Assessment/Plan (Recall) 78 yo M w/ afib on eliquis, and other comorbidities...who presented with progressive following repeated falls. Head CT revealed a R convexity SDH (and scattered SAH and IVH), for which he is under the care of neurosurgery. He was noted to have a several clinical spells concerning for seizure in the days following admission, for which neurology is now consulted.. P: Agree w/ Keppra as ordered for seizure ppx for now Ativan iv prn prolonged seizure (> 5 min) or cluster Hemorrhage management per neurosurgery Limit sedating medications where possible Other management and supportive care per primary Will follow clinically Consultation Date/Type/Reason Admit Date/Time October 31, 2018 at 21:18 Type of Consult Neurology Reason for Consultation seizures Requesting Provider: URSZULA VERGARA NP Date/Time of Note DATE: 11/05/18 TIME: 08:46 Hx of Present Illness Patient is unable to contribute a Hx. It is elsewhere noted: Chief complaint: Confused, fall 2 days ago Long history was obtained from the ED physician documentation as well as partially from the patient. The patient is a 78-year-old male, with a past medical history of end-stage renal disease, atrial fibrillation on Eliquis who presented to the ER because he has been confused for the last 4 days, fell 2 days ago. He was seen in the emergency department approximately 2 days ago and had an CT scan done at that time which was negative. He then fell again yesterday and become more confused today according to the family. He does not have any fever, headache, neck pain, chest pain, dyspnea, abdominal pain, vomiting, dizzy, diarrhea. He sustained superficial bilateral wrist injury when he fell 2 days ago. Allergies: NKDA He had multiple seizures while admitted, for which neurology is consulted. Subjective hx not possible: pt non-verbal Objective Exam Vitals Vital Signs Date Temp Pulse Resp B/P (MAP) Pulse Ox O2 O2 Flow FiO2 Time Delivery Rate 11/05/18 113 136/58 100 High Flow 06:00 (84) 11/05/18 26 05:00 11/05/18 98.9 04:00 11/05/18 40 00:42 11/04/18 6.0 00:47 Intake and Output 11/04/18 11/04/18 11/05/18 1515:00 23:00 07:00 IntakeIntake Total 515 ml 440 ml 100 ml OutputOutput Total 3500 ml BalanceBalance 515 ml -3060 ml 100 ml Exam PE: Gen Appearance: No Apparent Distress HEENT: Normocephalic Cardiovascular: Tachycardic Abdomen: Soft Extremities: Dry NE: The patient was obtunded and nonverbal. Cranial nerve examination was limited by mental status. Pupils were slightly unequal (L > R) though reactive to light. There was no afferent pupillary defect. Funduscopic examination was limited. Face was grossly symmetric, w/ present corneal and cough reflexes. Tone was normal. Muscle bulk was normal. I did not see fasciculations. The patient opened his eyes and withdrew to noxious stimulation x 4. Coordination and gait testing was limited by mental status. Arm and leg reflexes were within normal limits and symmetric. Santana's sign was absent. Plantar responses were flexor. Results Result Diagram: 11/05/18 0434 11/05/18 0434 Results 24hrs Laboratory Tests Test 11/04/18 09:36 11/04/18 13:10 11/04/18 18:00 11/04/18 20:18 Bedside Glucose 182 154 184 179 Test 11/05/18 00:45 11/05/18 04:34 11/05/18 04:51 11/05/18 05:00 Bedside Glucose 149 122 White Blood Count 11.6 H Red Blood Count 3.43 #L Hemoglobin 9.2 #L Hematocrit 29.4 #L Mean Corpuscular 85.7 Volume Mean Corpuscular 26.8 L Hemoglobin Mean Corpuscular 31.3 L Hemoglobin Concent Red Cell 18.6 H Distribution Width Platelet Count 106 L Mean Platelet 9.5 Volume Immature 0.800 H Granulocytes % Neutrophils % 84.9 H Lymphocytes % 2.8 L Monocytes % 11.3 H Eosinophils % 0.1 Basophils % 0.1 Nucleated Red 0.0 Blood Cells % Immature 0.090 H Granulocytes # Neutrophils # 9.9 H Lymphocytes # 0.3 L Monocytes # 1.3 H Eosinophils # 0.0 Basophils # 0.0 Nucleated Red 0.0 Blood Cells # Prothrombin Time 18.0 H Prothrombin Time 1.4 Ratio INR International 1.48 Normalized Ratio Activated 38.[address] Time Sodium Level 141 Potassium Level 4.3 Chloride Level 104 Carbon Dioxide 28 Level Anion Gap 9 Blood Urea 47 #H Nitrogen Creatinine 4.39 #H Est Glomerular Filtrat Rate mL/min Glucose Level 116 Lactic Acid Level 1.0 Calcium Level 10.0 Total Bilirubin 1.2 Direct Bilirubin 0.00 Indirect Bilirubin 1.2 H Aspartate Amino 21 Transf (AST/SGOT) Alanine 23 Aminotransferase ( ALT/SGPT) Alkaline 54 Phosphatase Total Protein 6.7 Albumin 3.5 Globulin 3.20 Albumin/Globulin 1.09 Ratio Blood Gas Specimen Blood arterial Source Arterial Blood 11/05/2018 5:20:23 Date Drawn AM Arterial Blood pH 7.428 (Temp corrected) Arterial Blood 36.0 pCO2 (Temp correct) Arterial Blood pO2 261.5 H (Temp corrected) Arterial Blood 23.3 HCO3 Arterial Blood -0.8 Base Excess Arterial Blood 99.6 Oxygen Saturation Rogerio Test N/A Arterial Blood Gas LB Puncture Site Arterial 0.7 Blood Carboxyhemog lobin Arterial Blood 0.4 Methemoglobin Blood Gas A-a O2 415.5 H Differential Oxyhemoglobin 98.5 Percent Blood Gas 37.0 Temperature Blood Gas Actual 24 Respiration Rate Blood Gas Modality HFNC FiO2 100.0 Blood Gas Notified [place] Whom Blood Gas Notified 11/05/2018 5:47:12 Time AM Past Medical History reviewed Home Meds Active Scripts Carvedilol* (Carvedilol*) 12.5 Mg Tablet, 12.5 MG PO BID for 30 Days, TAB Prov:KADI GONZALEZ MD 06/20/18 Apixaban* (Eliquis*) 5 Mg Tablet, 2.5 MG PO BID for 30 Days, TAB Prov:KADI GONZALEZ MD 06/20/18 Reported Medications Folic Acid/Vitamin B Comp W-C (Renal Multivitamin Tablet) 0.8 Mg Tablet, 0.8 MG PO DAILY, TAB 06/15/18 Clonidine Hcl* (Clonidine Hcl*) 0.1 Mg Tab, 0.1 MG PO BID, TAB 06/15/18 Risperidone* (Risperidone*) 0.25 Mg Tablet, 0.25 MG PO DAILY, TAB 06/15/18 Sevelamer Hcl* (Renagel*) 800 Mg Tablet, 800 MG PO WITH MEALS, TAB 06/15/18 Calcitriol* (Calcitriol*) 0.5 Mcg Capsule, 0.5 MCG PO DAILY, CAP 06/15/18 Calcium Acetate* (Calcium Acetate*) 667 Mg Capsule, 667 MG PO WITH MEALS, #30 CAP 12/13/17 Terazosin Hcl* (Terazosin Hcl*) 5 Mg Capsule, 5 MG PO HS, CAP 12/13/17 Benazepril Hcl* (Benazepril Hcl*) 40 Mg Tablet, 40 MG PO DAILY, #30 TAB 12/13/17 Amlodipine Besylate* (Norvasc*) 5 Mg Tablet, 5 MG PO BID, TAB 12/13/17 Medications Current Medications Ondansetron HCl (Zofran Inj) 4 mg Q6H PRN IV NAUSEA AND/OR VOMITING; Start 10/31/18 at 21:30 Albuterol (Proventil 0.083% (Neb)) 2.5 mg Q2H RESP THERAPY PRN NEB SHORTNESS OF BREATH Last administered on 11/04/18at 00:44; Admin Dose 2.5 MG; Start 10/31/18 at 21:30 Acetaminophen (Tylenol Liquid) 650 mg Q6H PRN PO PAIN LEVEL 1-3 OR FEVER; Start 10/31/18 at 21:30 Hydralazine HCl (Apresoline) 10 mg Q4H PRN IV ELEVATED BLOOD PRESSURE Last administered on 11/03/18at 01:04; Admin Dose 10 MG; Start 10/31/18 at 22:00 Amlodipine Besylate (Norvasc) 5 mg BID PO Last administered on 11/04/18at 18:04; Admin Dose 5 MG; Start 10/31/18 at 22:00 Benazepril HCl (Lotensin) 40 mg DAILY PO Last administered on 11/04/18at 18:03; Admin Dose 40 MG; Start 11/01/18 at 09:00 Carvedilol (Coreg) 12.5 mg BID PO Last administered on 11/04/18at 20:26; Admin Dose 12.5 MG; Start 10/31/18 at 22:00 Calcium Acetate (Phoslo) 667 mg WITH MEALS PO Last administered on 11/04/18at 18:13; Admin Dose 667 MG; Start 11/01/18 at 08:00 Multivit/Ca Carb/ B Cmplx/FA/Prenat (Sharron-Ashley) 1 tab DAILY PO Last administered on 11/04/18at 09:07; Admin Dose 1 TAB; Start 11/01/18 at 09:00 Diagnostic Test (Pha) (Accu-Chek) 1 ea 02 XX ; Start 11/02/18 at 02:00 Insulin Aspart (Novolog Insulin Pen) NOVOLOG *MILD* ALGORI... Q4 SC Last administered on 11/05/18at 00:48; Admin Dose 1 UNIT; Start 11/01/18 at 13:00 Sevelamer Carbonate (Renvela) 0.8 gm WITH MEALS PO Last administered on 11/04/18at 18:13; Admin Dose 0.8 GM; Start 11/01/18 at 18:00 Famotidine (Pepcid Iv) 20 mg DAILY IV Last administered on 11/04/18at 09:13; Admin Dose 20 MG; Start 11/03/18 at 09:00 Miscellaneous Information 1 ea NOTE XX ; Start 11/02/18 at 17:00 Glucose (Glutose) 15 gm Q15M PRN PO DECREASED GLUCOSE; Start 11/02/18 at 17:00 Glucose (Glutose) 22.5 gm Q15M PRN PO DECREASED GLUCOSE; Start 11/02/18 at 17:00 Dextrose (D50w Syringe) 25 ml Q15M PRN IV DECREASED GLUCOSE; Start 11/02/18 at 17:00 Dextrose (D50w Syringe) 50 ml Q15M PRN IV DECREASED GLUCOSE; Start 11/02/18 at 17:00 Glucagon (Glucagen) 1 mg Q15M PRN IM DECREASED GLUCOSE; Start 11/02/18 at 17:00 Glucose (Glutose) 15 gm Q15M PRN BUCCAL DECREASED GLUCOSE; Start 11/02/18 at 17:00 Albumin Human 100 ml @ 100 mls/hr WITH DIALYSIS PRN IV SBP <90 DURING DIALYSI S; Start 11/03/18 at 08:30 Sodium Chloride (NS) -To prime the dialy... DIRECTED FOR HD PRN IV HD; Start 11/03/18 at 08:30 Epoetin Virgil-epbx (Retacrit (Esrd)) 6,000 unit TuThSa@1700 SC Last administered on 11/04/18at 18:32; Admin Dose 6,000 UNIT; Start 11/04/18 at 17:00 Levetiracetam 100 ml @ 400 mls/hr Q12 IVPB Last administered on 11/04/18at 20:24; Admin Dose 400 MLS/HR; Start 11/04/18 at 01:30 Piperacillin Sod/ Tazobactam Sod 50 ml @ 200 mls/hr Q8 IVPB Last administered on 11/05/18at 05:34; Admin Dose 200 MLS/HR; Start 11/04/18 at 17:45 Lorazepam (Ativan) 1 mg Q5M PRN IV SEIZURES; Start 11/04/18 at 20:19 Allergies: Coded Allergies: No Known Drug Allergy (Verified Allergy, Unknown, 06/15/18) Past Surgical History Past Surgical Hx: other Social History Alcohol Use: none Smoking Status: Never smoker Drug Use: none VALDEMAR VIEIRA Nov 05, 2018 08:52
[2018-11-05] MEDS: AMLODIPINE 5 MG TAB PO SCH ×2 (09:35→20:10)
[2018-11-05] MEDS: MULTIVIT/CA CARB/B CMPLX/FA TAB PO SCH (09:36)
[2018-11-05] MEDS: BENAZEPRIL 40 MG TAB PO SCH (09:36)
[2018-11-05] MEDS: SEVELAMER CARBONATE 0.8 GM PKT PO SCH ×3 (09:36→17:39)
[2018-11-05] MEDS: CALCIUM ACETATE 667 MG CAP PO SCH ×3 (09:37→17:39)
[2018-11-05] MEDS: LEVETIRACETAM 500 MG (PMX) 100 ML IVPB SCH ×2 (09:37→20:10)
[2018-11-05] MEDS: FAMOTIDINE 20 MG INJ IV SCH (09:55)
--- NOTE | 2018-11-05 15:45 | CONS ---
Consult Date/Type/Reason Admit Date/Time October 31, 2018 at 21:18 Initial Consult Date 11/04/18 Type of Consultation: Pulm/CCM Requesting Provider: URSZULA VERGARA NP Date/Time of Note DATE: 11/05/18 TIME: 15:42 Subjective Events noted. Possible seizure. No lethargic. On high-flow. Objective Vitals Vital Signs Date Temp Pulse Resp B/P (MAP) Pulse Ox O2 O2 Flow FiO2 Time Delivery Rate 11/05/18 94 18 127/87 100 13:00 (100) 11/05/18 98.0 12:00 11/05/18 30 10:20 11/05/18 High Flow 07:00 11/04/18 6.0 00:47 Intake and Output 11/04/18 11/04/18 11/05/18 1515:00 23:00 07:00 IntakeIntake Total 515 ml 440 ml 100 ml OutputOutput Total 3500 ml BalanceBalance 515 ml -3060 ml 100 ml Exam HEENT: Neck supple; no JVD; no LAD CVS: RRR, S1 and S2 CHEST: Clear ABD: Soft, NT, + BS EXT: No c/c/e NEURO: Somnolent. Difficult to examine. Results/Medications Result Diagram: 11/05/18 0434 11/05/18 0434 Results 24 hrs Laboratory Tests Test 11/04/18 18:00 11/04/18 20:18 11/05/18 00:45 11/05/18 04:34 Bedside Glucose 184 179 149 White Blood Count 11.6 H Red Blood Count 3.43 #L Hemoglobin 9.2 #L Hematocrit 29.4 #L Mean Corpuscular 85.7 Volume Mean Corpuscular 26.8 L Hemoglobin Mean Corpuscular 31.3 L Hemoglobin Concent Red Cell 18.6 H Distribution Width Platelet Count 106 L Mean Platelet 9.5 Volume Immature 0.800 H Granulocytes % Neutrophils % 84.9 H Lymphocytes % 2.8 L Monocytes % 11.3 H Eosinophils % 0.1 Basophils % 0.1 Nucleated Red 0.0 Blood Cells % Immature 0.090 H Granulocytes # Neutrophils # 9.9 H Lymphocytes # 0.3 L Monocytes # 1.3 H Eosinophils # 0.0 Basophils # 0.0 Nucleated Red 0.0 Blood Cells # Prothrombin Time 18.0 H Prothrombin Time 1.4 Ratio INR International 1.48 Normalized Ratio Activated 38.[address] Time Sodium Level 141 Potassium Level 4.3 Chloride Level 104 Carbon Dioxide 28 Level Anion Gap 9 Blood Urea 47 #H Nitrogen Creatinine 4.39 #H Est Glomerular Filtrat Rate mL/min Glucose Level 116 Lactic Acid Level 1.0 Calcium Level 10.0 Total Bilirubin 1.2 Direct Bilirubin 0.00 Indirect Bilirubin 1.2 H Aspartate Amino 21 Transf (AST/SGOT) Alanine 23 Aminotransferase ( ALT/SGPT) Alkaline 54 Phosphatase Total Protein 6.7 Albumin 3.5 Globulin 3.20 Albumin/Globulin 1.09 Ratio Test 11/05/18 04:51 11/05/18 05:00 11/05/18 09:41 11/05/18 13:05 Bedside Glucose 122 112 146 Blood Gas Specimen Blood arterial Source Arterial Blood 11/05/2018 5:20:23 Date Drawn AM Arterial Blood pH 7.428 (Temp corrected) Arterial Blood 36.0 pCO2 (Temp correct) Arterial Blood pO2 261.5 H (Temp corrected) Arterial Blood 23.3 HCO3 Arterial Blood -0.8 Base Excess Arterial Blood 99.6 Oxygen Saturation Rogerio Test N/A Arterial Blood Gas LB Puncture Site Arterial 0.7 Blood Carboxyhemog lobin Arterial Blood 0.4 Methemoglobin Blood Gas A-a O2 415.5 H Differential Oxyhemoglobin 98.5 Percent Blood Gas 37.0 Temperature Blood Gas Actual 24 Respiration Rate Blood Gas Modality HFNC FiO2 100.0 Blood Gas Notified [place] Whom Blood Gas Notified 11/05/2018 5:47:12 Time AM Home Meds Active Scripts Carvedilol* (Carvedilol*) 12.5 Mg Tablet, 12.5 MG PO BID for 30 Days, TAB Prov:KADI GONZALEZ MD 06/20/18 Apixaban* (Eliquis*) 5 Mg Tablet, 2.5 MG PO BID for 30 Days, TAB Prov:KADI GONZALEZ MD 06/20/18 Reported Medications Folic Acid/Vitamin B Comp W-C (Renal Multivitamin Tablet) 0.8 Mg Tablet, 0.8 MG PO DAILY, TAB 06/15/18 Clonidine Hcl* (Clonidine Hcl*) 0.1 Mg Tab, 0.1 MG PO BID, TAB 06/15/18 Risperidone* (Risperidone*) 0.25 Mg Tablet, 0.25 MG PO DAILY, TAB 06/15/18 Sevelamer Hcl* (Renagel*) 800 Mg Tablet, 800 MG PO WITH MEALS, TAB 06/15/18 Calcitriol* (Calcitriol*) 0.5 Mcg Capsule, 0.5 MCG PO DAILY, CAP 06/15/18 Calcium Acetate* (Calcium Acetate*) 667 Mg Capsule, 667 MG PO WITH MEALS, #30 CAP 12/13/17 Terazosin Hcl* (Terazosin Hcl*) 5 Mg Capsule, 5 MG PO HS, CAP 12/13/17 Benazepril Hcl* (Benazepril Hcl*) 40 Mg Tablet, 40 MG PO DAILY, #30 TAB 12/13/17 Amlodipine Besylate* (Norvasc*) 5 Mg Tablet, 5 MG PO BID, TAB 12/13/17 Medications Current Medications Ondansetron HCl (Zofran Inj) 4 mg Q6H PRN IV NAUSEA AND/OR VOMITING; Start 10/31/18 at 21:30 Albuterol (Proventil 0.083% (Neb)) 2.5 mg Q2H RESP THERAPY PRN NEB SHORTNESS OF BREATH Last administered on 11/04/18at 00:44; Admin Dose 2.5 MG; Start 10/31/18 at 21:30 Acetaminophen (Tylenol Liquid) 650 mg Q6H PRN PO PAIN LEVEL 1-3 OR FEVER; Start 10/31/18 at 21:30 Hydralazine HCl (Apresoline) 10 mg Q4H PRN IV ELEVATED BLOOD PRESSURE Last administered on 11/03/18at 01:04; Admin Dose 10 MG; Start 10/31/18 at 22:00 Amlodipine Besylate (Norvasc) 5 mg BID PO Last administered on 11/05/18at 09:35; Admin Dose 5 MG; Start 10/31/18 at 22:00 Benazepril HCl (Lotensin) 40 mg DAILY PO Last administered on 11/05/18 09:36; Admin Dose 40 MG; Start 11/01/18 at 09:00 Carvedilol (Coreg) 12.5 mg BID PO Last administered on 11/05/18 09:36; Admin Dose 12.5 MG; Start 10/31/18 at 22:00 Calcium Acetate (Phoslo) 667 mg WITH MEALS PO Last administered on 11/05/18at 13:06; Admin Dose 667 MG; Start 11/01/18 at 08:00 Multivit/Ca Carb/ B Cmplx/FA/Prenat (Sharron-Ashley) 1 tab DAILY PO Last administered on 11/05/18at 09:36; Admin Dose 1 TAB; Start 11/01/18 at 09:00 Diagnostic Test (Pha) (Accu-Chek) 1 ea 02 XX ; Start 11/02/18 at 02:00 Insulin Aspart (Novolog Insulin Pen) NOVOLOG *MILD* ALGORI... Q4 SC Last administered on 11/05/18at 13:15; Admin Dose 1 UNIT; Start 11/01/18 at 13:00 Sevelamer Carbonate (Renvela) 0.8 gm WITH MEALS PO Last administered on 11/05/18 13:06; Admin Dose 0.8 GM; Start 11/01/18 at 18:00 Famotidine (Pepcid Iv) 20 mg DAILY IV Last administered on 11/05/18at 09:55; Admin Dose 20 MG; Start 11/03/18 at 09:00 Miscellaneous Information 1 ea NOTE XX ; Start 11/02/18 at 17:00 Glucose (Glutose) 15 gm Q15M PRN PO DECREASED GLUCOSE; Start 11/02/18 at 17:00 Glucose (Glutose) 22.5 gm Q15M PRN PO DECREASED GLUCOSE; Start 11/02/18 at 17:00 Dextrose (D50w Syringe) 25 ml Q15M PRN IV DECREASED GLUCOSE; Start 11/02/18 at 17:00 Dextrose (D50w Syringe) 50 ml Q15M PRN IV DECREASED GLUCOSE; Start 11/02/18 at 17:00 Glucagon (Glucagen) 1 mg Q15M PRN IM DECREASED GLUCOSE; Start 11/02/18 at 17:00 Glucose (Glutose) 15 gm Q15M PRN BUCCAL DECREASED GLUCOSE; Start 11/02/18 at 17:00 Albumin Human 100 ml @ 100 mls/hr WITH DIALYSIS PRN IV SBP <90 DURING DIALYSIS; Start 11/03/18 at 08:30 Sodium Chloride (NS) -To prime the dialy... DIRECTED FOR HD PRN IV HD; Start 11/03/18 at 08:30 Epoetin Virgil-epbx (Retacrit (Esrd)) 6,000 unit TuThSa@1700 SC Last administered on 11/04/18at 18:32; Admin Dose 6,000 UNIT; Start 11/04/18 at 17:00 Levetiracetam 100 ml @ 400 mls/hr Q12 IVPB Last administered on 11/05/18at 09:37; Admin Dose 400 MLS/HR; Start 11/04/18 at 01:30 Piperacillin Sod/ Tazobactam Sod 50 ml @ 200 mls/hr Q8 IVPB Last administered on 11/05/18at 13:37; Admin Dose 200 MLS/HR; Start 11/04/18 at 17:45 Lorazepam (Ativan) 1 mg Q5M PRN IV SEIZURES; Start 11/04/18 at 20:19 Assessment/Plan Assessment/Plan (Daily) IMP: 1. Hypoxemic Resp Failure--in a patient with a SDH who presented 5 days prior with AMS. Chest imaging notable for bilateral airspace opacities and effusions. Findings concerning for aspiration pneumonitis and co-existing volume overload. 2. ESRD on HD 3. SDH 4. P-Afib RECS: 1. Strict aspiration precautions 2. Maintain HOB > 30 3. Continue intermittent HD with aggressive UF to keep 2-3 liters negative 4. Abx--de-escalate 5. F/U cultures 6. ECHO 7. Titrate O2 as tolerated. 8. To OR in am 40 min cc time WHITNEY CATALAN MD Nov 05, 2018 15:45
[2018-11-06] VITALS (43 sets, daily range): BP systolic 93–164; BP diastolic 35–63; PULSE 59–91; RESP 11–25
[2018-11-06] MEDS: INSULIN ASPART [NOVOLOG] 3 ML PEN SC SCH ×6 (00:44→21:15)
[2018-11-06] MEDS: ACCU-CHEK XX SCH (01:49)
[2018-11-06] MEDS: PIPER-TAZO 2.25 GM (PMX) 50 ML IVPB SCH ×3 (06:23→22:37)
[2018-11-06] MEDS ORDERED: BACITRACIN 50000 UNITS INJ ONE (07:05)
[2018-11-06] MEDS ORDERED: POLYMYXIN B 500000 UNIT INJ ONE (07:08)
[2018-11-06] MEDS ORDERED: GELATIN SIZE 100 SPONGE ONE (07:08)
[2018-11-06] MEDS ORDERED: THROMBIN 5000 UNIT VIAL ONE (07:08)
[2018-11-06] MEDS ORDERED: LIDOCAINE 1%/EPI (1:100,000) (MDV) 20 ML ONE (07:09)
[2018-11-06] MEDS: CALCIUM ACETATE 667 MG CAP PO SCH ×3 (07:35→17:35)
[2018-11-06] MEDS: SEVELAMER CARBONATE 0.8 GM PKT PO SCH ×3 (07:35→17:35)
--- NOTE | 2018-11-06 07:38 | PREAC ---
Date/Time of Note Date/Time of Note DATE: 11/06/18 TIME: 07:34 Anesthesia Eval and Record Evaluation Time Pre-Procedure Interview DATE: 11/06/18 TIME: 07:34 Age 78 Sex male NPO: 8 hrs Preoperative diagnosis Subdural hematoma Planned procedure Craniotomy and burhole placement Past Medical History Past Medical History: Includes Pulm: COPD Neuro: CVA Surgery & Anesthesia Issues No known issue Meds Anticoagulation: No Beta Nahun within 24 hr: No Reason Beta Nahun not given: Pt. not on B-Nahun Active Scripts Carvedilol* (Carvedilol*) 12.5 Mg Tablet, 12.5 MG PO BID for 30 Days, TAB Prov:KADI GONZALEZ MD 06/20/18 Apixaban* (Eliquis*) 5 Mg Tablet, 2.5 MG PO BID for 30 Days, TAB Prov:KADI GONZALEZ MD 06/20/18 Reported Medications Folic Acid/Vitamin B Comp W-C (Renal Multivitamin Tablet) 0.8 Mg Tablet, 0.8 MG PO DAILY, TAB 06/15/18 Clonidine Hcl* (Clonidine Hcl*) 0.1 Mg Tab, 0.1 MG PO BID, TAB 06/15/18 Risperidone* (Risperidone*) 0.25 Mg Tablet, 0.25 MG PO DAILY, TAB 06/15/18 Sevelamer Hcl* (Renagel*) 800 Mg Tablet, 800 MG PO WITH MEALS, TAB 06/15/18 Calcitriol* (Calcitriol*) 0.5 Mcg Capsule, 0.5 MCG PO DAILY, CAP 06/15/18 Calcium Acetate* (Calcium Acetate*) 667 Mg Capsule, 667 MG PO WITH MEALS, #30 CAP 12/13/17 Terazosin Hcl* (Terazosin Hcl*) 5 Mg Capsule, 5 MG PO HS, CAP 12/13/17 Benazepril Hcl* (Benazepril Hcl*) 40 Mg Tablet, 40 MG PO DAILY, #30 TAB 12/13/17 Amlodipine Besylate* (Norvasc*) 5 Mg Tablet, 5 MG PO BID, TAB 12/13/17 Current Medications Ondansetron HCl (Zofran Inj) 4 mg Q6H PRN IV NAUSEA AND/OR VOMITING; Start 10/31/18 at 21:30 Albuterol (Proventil 0.083% (Neb)) 2.5 mg Q2H RESP THERAPY PRN NEB SHORTNESS OF BREATH Last administered on 11/04/18 00:44; Admin Dose 2.5 MG; Start 10/31/18 at 21:30 Acetaminophen (Tylenol Liquid) 650 mg Q6H PRN PO PAIN LEVEL 1-3 OR FEVER; Start 10/31/18 at 21:30 Hydralazine HCl (Apresoline) 10 mg Q4H PRN IV ELEVATED BLOOD PRESSURE Last administered on 11/03/18 01:04; Admin Dose 10 MG; Start 10/31/18 at 22:00 Amlodipine Besylate (Norvasc) 5 mg BID PO Last administered on 11/05/18 20:10; Admin Dose 5 MG; Start 10/31/18 at 22:00 Benazepril HCl (Lotensin) 40 mg DAILY PO Last administered on 11/05/18 09:36; Admin Dose 40 MG; Start 11/01/18 at 09:00 Carvedilol (Coreg) 12.5 mg BID PO Last administered on 11/05/18 20:10; Admin Dose 12.5 MG; Start 10/31/18 at 22:00 Calcium Acetate (Phoslo) 667 mg WITH MEALS PO Last administered on 11/05/18 17:39; Admin Dose 667 MG; Start 11/01/18 at 08:00 Multivit/Ca Carb/ B Cmplx/FA/Prenat (Sharron-Ashley) 1 tab DAILY PO Last administered on 11/05/18 09:36; Admin Dose 1 TAB; Start 11/01/18 at 09:00 Diagnostic Test (Pha) (Accu-Chek) 1 ea 02 XX ; Start 11/02/18 at 02:00 Insulin Aspart (Novolog Insulin Pen) NOVOLOG *MILD* ALGORI... Q4 SC Last administered on 11/06/18 05:34; Admin Dose 1 UNIT; Start 11/01/18 at 13:00 Sevelamer Carbonate (Renvela) 0.8 gm WITH MEALS PO Last administered on 11/05/18 17:39; Admin Dose 0.8 GM; Start 11/01/18 at 18:00 Famotidine (Pepcid Iv) 20 mg DAILY IV Last administered on 11/05/18 09:55; Admin Dose 20 MG; Start 11/03/18 at 09:00 Miscellaneous Information 1 ea NOTE XX ; Start 11/02/18 at 17:00 Glucose (Glutose) 15 gm Q15M PRN PO DECREASED GLUCOSE; Start 11/02/18 at 17:00 Glucose (Glutose) 22.5 gm Q15M PRN PO DECREASED GLUCOSE; Start 11/02/18 at 17:00 Dextrose (D50w Syringe) 25 ml Q15M PRN IV DECREASED GLUCOSE; Start 11/02/18 at 17:00 Dextrose (D50w Syringe) 50 ml Q15M PRN IV DECREASED GLUCOSE; Start 11/02/18 at 17:00 Glucagon (Glucagen) 1 mg Q15M PRN IM DECREASED GLUCOSE; Start 11/02/18 at 17:00 Glucose (Glutose) 15 gm Q15M PRN BUCCAL DECREASED GLUCOSE; Start 11/02/18 at 17:00 Albumin Human 100 ml @ 100 mls/hr WITH DIALYSIS PRN IV SBP <90 DURING DIALYSIS; Start 11/03/18 at 08:30 Sodium Chloride (NS) -To prime the dialy... DIRECTED FOR HD PRN IV HD; Start 11/03/18 at 08:30 Epoetin Virgil-epbx (Retacrit (Esrd)) 6,000 unit TuThSa@1700 SC Last administered on 11/04/18at 18:32; Admin Dose 6,000 UNIT; Start 11/04/18 at 17:00 Levetiracetam 100 ml @ 400 mls/hr Q12 IVPB Last administered on 11/05/18at 20:10; Admin Dose 400 MLS/HR; Start 11/04/18 at 01:30 Piperacillin Sod/ Tazobactam Sod 50 ml @ 200 mls/hr Q8 IVPB Last administered on 11/06/18at 06:23; Admin Dose 200 MLS/HR; Start 11/04/18 at 17:45 Lorazepam (Ativan) 1 mg Q5M PRN IV SEIZURES; Start 11/04/18 at 20:19 Meds reviewed: Yes Allergies Coded Allergies: No Known Drug Allergy (Verified Allergy, Unknown, 06/15/18) Allergies Reviewed: Yes Labs/Studies Labs Reviewed: Reviewed by anesthesiologist Result Diagram: 11/06/18 0443 11/06/18 0443 Laboratory Tests 11/06/18 04:43 test: N/A Studies: ECG Pre-procedure Exam Last vitals Vital Signs Date Temp Pulse Resp B/P (MAP) Pulse Ox O2 O2 Flow FiO2 Time Delivery Rate 11/06/18 100 35 07:28 11/06/18 88 21 136/49 High Flow 06:00 (78) Nasal Cannula 11/06/18 98.3 04:00 11/04/18 6.0 00:47 Airway: Adequate mouth opening, Adequate thyromental dist Mallampati: Mallampati II Teeth: Normal Lung: Normal Heart: Normal ASA Physical Status ASA physical status: 4 Emergency: None Planned Anesthetic General/MAC: ETT Planned Pain Management Parenteral pain med Pre-operative Attestations Prior to commencing anesthesia and surgery, the patient was re-evaluated, there was verification of: *The patient's identity *The results of appropriate recent lab work and preoperative vital signs *The above evaluation not changing prior to induction *Anesthetic plan, risk benefits, alternative and complications discussed with patient/family; questions answered; patient/family understands, accepts and wishes to proceed. MIREILLE DIAL MD Nov 06, 2018 07:38
[2018-11-06] MEDS ORDERED: MIDAZOLAM 1 MG/ML 2 ML INJ ONE (08:02)
[2018-11-06] MEDS: LEVETIRACETAM 500 MG (PMX) 100 ML IVPB SCH ×2 (08:19→21:04)
[2018-11-06] MEDS: FAMOTIDINE 20 MG INJ IV SCH (08:19)
[2018-11-06] MEDS: AMLODIPINE 5 MG TAB PO SCH ×2 (09:00→21:05)
[2018-11-06] MEDS ORDERED: SEVOFLURANE 15 MIN ONE (09:00)
[2018-11-06] MEDS: MULTIVIT/CA CARB/B CMPLX/FA TAB PO SCH (09:00)
[2018-11-06] MEDS: BENAZEPRIL 40 MG TAB PO SCH (09:00)
--- NOTE | 2018-11-06 09:46 | CONS ---
Consult Date/Type/Reason Admit Date/Time October 31, 2018 at 21:18 Initial Consult Date 11/04/18 Type of Consult Pulmonary Requesting Provider: URSZULA VERGARA NP Date/Time of Note DATE: 11/06/18 TIME: 09:44 Subjective Remains somnolent this morning. Pending OR. Chest x-ray shows moderate to large right pleural effusion. Objective Vital Signs Date Temp Pulse Resp B/P (MAP) Pulse Ox O2 O2 Flow FiO2 Time Delivery Rate 11/06/18 90 08:00 11/06/18 100 35 07:28 11/06/18 21 136/49 High Flow 06:00 (78) Nasal Cannula 11/06/18 98.3 04:00 11/04/18 6.0 00:47 Intake and Output 11/05/18 11/05/18 11/06/18 1515:00 23:00 07:00 IntakeIntake Total 330 ml 580 ml 0 ml OutputOutput Total 0 ml 0 ml 0 ml BalanceBalance 330 ml 580 ml 0 ml Exam GENERAL: Elderly gentleman nasal cannula O2 VITAL SIGNS: per chart NECK: Supple. No JVD or lymphadenopathy. CARDIAC EXAM: S1, S2. No added sounds or murmurs. CHEST: Diminished air entry right base greater than left ABDOMEN: Soft, nontender. No guarding or rebound. EXTREMITIES: No cyanosis, clubbing or edema. NEUROLOGIC: Generalized weakness. Vent Setting Fraction of Inspired Oxygen pe: 35 Results/Medications Result Diagram: 11/06/18 0443 11/06/18 0443 Results 24 hrs Laboratory Tests Test 11/05/18 13:05 11/05/18 17:38 11/05/18 20:27 11/06/18 00:42 Bedside Glucose 146 170 184 195 Test 11/06/18 04:43 11/06/18 05:00 11/06/18 05:32 11/06/18 08:20 White Blood Count 9.4 Red Blood Count 3.52 L Hemoglobin 9.4 L Hematocrit 30.0 L Mean Corpuscular 85.2 Volume Mean Corpuscular 26.7 L Hemoglobin Mean Corpuscular 31.3 L Hemoglobin Concent Red Cell 18.0 H Distribution Width Platelet Count 119 L Mean Platelet 9.8 Volume Immature 0.600 H Granulocytes % Neutrophils % 83.3 H Lymphocytes % 3.3 L Monocytes % 11.7 H Eosinophils % 0.9 Basophils % 0.2 Nucleated Red 0.0 Blood Cells % Immature 0.060 H Granulocytes # Neutrophils # 7.8 H Lymphocytes # 0.3 L Monocytes # 1.1 H Eosinophils # 0.1 Basophils # 0.0 Nucleated Red 0.0 Blood Cells # Prothrombin Time 17.8 H Prothrombin Time 1.4 Ratio INR International 1.46 Normalized Ratio Activated 27.[address] Time Sodium Level 140 Potassium Level 4.5 Chloride Level 104 Carbon Dioxide 26 Level Anion Gap 10 Blood Urea 76 H Nitrogen Creatinine 5.64 H Est Glomerular Filtrat Rate mL/min Glucose Level 162 Lactic Acid Level 0.8 Calcium Level 10.3 H Total Bilirubin 1.0 Direct Bilirubin 0.00 Indirect Bilirubin 1.0 Aspartate Amino 16 Transf (AST/SGOT) Alanine 32 Aminotransferase ( ALT/SGPT) Alkaline 49 Phosphatase Total Protein 6.3 Albumin 3.1 L Globulin 3.20 Albumin/Globulin 0.96 Ratio Blood Gas Specimen Blood arterial Source Arterial Blood 11/06/2018 4:30:26 Date Drawn AM Arterial Blood pH 7.438 (Temp corrected) Arterial Blood 36.8 pCO2 (Temp correct) Arterial Blood pO2 90.1 H (Temp corrected) Arterial Blood 24.3 HCO3 Arterial Blood 0.4 Base Excess Arterial Blood 97.2 Oxygen Saturation Rogerio Test N/A Arterial Blood Gas LB Puncture Site Arterial 1.3 Blood Carboxyhemog lobin Arterial Blood 0.3 Methemoglobin Blood Gas A-a O2 116.7 H Differential Oxyhemoglobin 95.6 Percent Blood Gas 37.0 Temperature Blood Gas Actual 20 Respiration Rate Blood Gas Modality HFNC FiO2 35.0 Blood Gas Notified [place] Whom Blood Gas Notified 11/06/2018 4:44:29 Time AM Bedside Glucose 164 138 Medications Current Medications Ondansetron HCl (Zofran Inj) 4 mg Q6H PRN IV NAUSEA AND/OR VOMITING; Start 10/31/18 at 21:30 Albuterol (Proventil 0.083% (Neb)) 2.5 mg Q2H RESP THERAPY PRN NEB SHORTNESS OF BREATH Last administered on 11/04/18at 00:44; Admin Dose 2.5 MG; Start 10/31/18 at 21:30 Acetaminophen (Tylenol Liquid) 650 mg Q6H PRN PO PAIN LEVEL 1-3 OR FEVER; Start 10/31/18 at 21:30 Hydralazine HCl (Apresoline) 10 mg Q4H PRN IV ELEVATED BLOOD PRESSURE Last administered on 11/03/18 01:04; Admin Dose 10 MG; Start 10/31/18 at 22:00 Amlodipine Besylate (Norvasc) 5 mg BID PO Last administered on 11/05/18 20:10; Admin Dose 5 MG; Start 10/31/18 at 22:00 Benazepril HCl (Lotensin) 40 mg DAILY PO Last administered on 11/05/18 09:36; Admin Dose 40 MG; Start 11/01/18 at 09:00 Carvedilol (Coreg) 12.5 mg BID PO Last administered on 11/05/18 20:10; Admin Dose 12.5 MG; Start 10/31/18 at 22:00 Calcium Acetate (Phoslo) 667 mg WITH MEALS PO Last administered on 11/05/18 17:39; Admin Dose 667 MG; Start 11/01/18 at 08:00 Multivit/Ca Carb/ B Cmplx/FA/Prenat (Sharron-Ashley) 1 tab DAILY PO Last administered on 11/05/18 09:36; Admin Dose 1 TAB; Start 11/01/18 at 09:00 Diagnostic Test (Pha) (Accu-Chek) 1 ea 02 XX ; Start 11/02/18 at 02:00 Insulin Aspart (Novolog Insulin Pen) NOVOLOG *MILD* ALGORI... Q4 SC Last administered on 11/06/18 05:34; Admin Dose 1 UNIT; Start 11/01/18 at 13:00 Sevelamer Carbonate (Renvela) 0.8 gm WITH MEALS PO Last administered on 11/05/18 17:39; Admin Dose 0.8 GM; Start 11/01/18 at 18:00 Famotidine (Pepcid Iv) 20 mg DAILY IV Last administered on 11/06/18 08:19; Admin Dose 20 MG; Start 11/03/18 at 09:00 Miscellaneous Information 1 ea NOTE XX ; Start 11/02/18 at 17:00 Glucose (Glutose) 15 gm Q15M PRN PO DECREASED GLUCOSE; Start 11/02/18 at 17:00 Glucose (Glutose) 22.5 gm Q15M PRN PO DECREASED GLUCOSE; Start 11/02/18 at 17:00 Dextrose (D50w Syringe) 25 ml Q15M PRN IV DECREASED GLUCOSE; Start 11/02/18 at 17:00 Dextrose (D50w Syringe) 50 ml Q15M PRN IV DECREASED GLUCOSE; Start 11/02/18 at 17:00 Glucagon (Glucagen) 1 mg Q15M PRN IM DECREASED GLUCOSE; Start 11/02/18 at 17:00 Glucose (Glutose) 15 gm Q15M PRN BUCCAL DECREASED GLUCOSE; Start 11/02/18 at 17:00 Albumin Human 100 ml @ 100 mls/hr WITH DIALYSIS PRN IV SBP <90 DURING DIALYSIS; Start 11/03/18 at 08:30 Epoetin Virgil-epbx (Retacrit (Esrd)) 6,000 unit TuThSa@1700 SC Last administered on 11/04/18at 18:32; Admin Dose 6,000 UNIT; Start 11/04/18 at 17:00 Levetiracetam 100 ml @ 400 mls/hr Q12 IVPB Last administered on 11/06/18at 08:19; Admin Dose 400 MLS/HR; Start 11/04/18 at 01:30 Piperacillin Sod/ Tazobactam Sod 50 ml @ 200 mls/hr Q8 IVPB Last administered on 11/06/18at 06:23; Admin Dose 200 MLS/HR; Start 11/04/18 at 17:45 Lorazepam (Ativan) 1 mg Q5M PRN IV SEIZURES; Start 11/04/18 at 20:19 Assessment/Plan Hospital Course (Demo Recall) MP: 1. Hypoxemic Resp Failure--in a patient with a SDH who presented 6 days prior with AMS. Chest imaging notable for bilateral airspace opacities and effusions. Findings concerning for aspiration pneumonitis and co-existing volume overload. 2. ESRD on HD 3. SDH, with now seizures and change in mentation 4. P-Afib RECS: 1. Strict aspiration precautions 2. Maintain HOB > 30 3. Continue intermittent HD with aggressive UF to keep 2-3 liters negative 4. Abx--de-escalate 5. Patient to go to the OR today. 6. Anticipate patient require mechanical ventilation postoperatively will likely need right thoracentesis also. Long discussion with family at bedside explained that patient will likely require mechanical ventilation for several days prior to attempts to extubate. Critical care time 40 minutes. REYES ROLON MD, [facility] Nov 06, 2018 09:46
[2018-11-06] MEDS ORDERED: HUMAN PROTHROMBIN COMPLX IV STA (10:09)
[2018-11-06] MEDS ORDERED: EVAC CONTAINER IV STA (10:09)
[2018-11-06] MEDS ORDERED: HUMAN PROTHROMBIN COMPLX(PCC) 1,500 UNITS in EVAC CONTAINER 1 BOTTLE IV ONE (10:30)
[2018-11-06] MEDS ORDERED: BACITRACIN/POLYMYXIN 28.35 GM OINT TOP ONE (11:56)
[2018-11-06] MEDS ORDERED: ETOMIDATE 20 MG INJ ONE (11:59)
[2018-11-06] MEDS ORDERED: DEXAMETHASONE 4 MG/ML 5 ML INJ ONE (11:59)
[2018-11-06] MEDS ORDERED: ROCURONIUM 50 MG INJ ONE (11:59)
[2018-11-06] MEDS ORDERED: CEFAZOLIN 1 GM INJ ONE (11:59)
[2018-11-06] MEDS ORDERED: LIDOCAINE 2% (SDV) 5 ML INJ ONE (11:59)
--- NOTE | 2018-11-06 12:05 | SIPON ---
Date/Time of Note Date/Time of Note DATE: 11/06/18 TIME: 12:04 Operative Report Preoperative Diagnosis SDH Postoperative Diagnosis hanna Operation/Procedure Performed right subdural craniotomy for evacuation of subdural hematoma Surgeon see signature line instructional assistant Dave Summers MD Anesthesia: general Estimated blood loss: minimal Transfusion Required none Specimen none Grafts/Implants none Complications none KELLIE JJ MD Nov 06, 2018 12:05
--- NOTE | 2018-11-06 12:29 | PAC ---
Date/Time of Note Date/Time of Note DATE: 11/06/18 TIME: 12:27 Post-Anesthesia Notes Post-Anesthesia Note Last documented vital signs Vital Signs Date Temp Pulse Resp B/P (MAP) Pulse Ox O2 O2 Flow FiO2 Time Delivery Rate 11/06/18 20 127/51 100 Mask 6.0 09:00 (76) 11/06/18 98.5 91 08:00 11/06/18 35 07:28 Activity: WNL Respiratory function: Other (on Vent ) Cardiovascular function: WNL Mental status: Other (kept intubated and sedated) Pain reasonably controlled: Yes Hydration appropriate: Yes Nausea/Vomiting absent: Yes Comments BP:110/52, P:68, Spo2:100%, T:98,8 MIREILLE DIAL MD Nov 06, 2018 12:29
[2018-11-06] MEDS ORDERED: MIDAZOLAM 1 MG/ML 2 ML INJ IV PRN (12:30)
[2018-11-06] MEDS ORDERED: morphine 2 MG INJ IV PRN (12:30)
[2018-11-06] MEDS ORDERED: FENTAnyl 50 MCG/ML VIAL IV PRN ×2 (12:30)
[2018-11-06] MEDS ORDERED: LORAZEPAM 2 MG INJ IV PRN (12:30)
[2018-11-06] MEDS ORDERED: DIPHENHYDRAMINE 50 MG INJ IV PRN (12:30)
--- NOTE | 2018-11-06 12:41 | PN ---
Date/Time of Note Date/Time of Note DATE: 11/06/18 TIME: 12:35 Assessment/Plan VTE Prophylaxis Risk score (from Ns)>0 risk: 7 SCD applied (from Ns): Yes Pharmacological prophylaxis: NA/contraindicated Pharm contraindication: other (sdh) Lines/Catheters IV C[facility]ter Type (from [facility]): Peripheral IV Urinary Cath still in place: No Assessment/Plan Hospital Course 78 yo M with a history of fall a few days prior to presentation who was brought in for confusion and is currently managed as follows: 1. Acute right subdural hematoma -Status post craniotomy and bur hole placement 11/06/18 2. Severe anemia, likely acute on chronic, exacerbated by acute blood loss from #1 -Patient received 2 units of packed red cells upon arrival, hemoglobin has been stable since off anticoagulation and antiplatelet 3. Altered mentation/acute encephalopathy secondary to #1 4. End-stage renal disease on hemodialysis Tuesday, , Tuesday 5. Diabetes mellitus 6. Paroxysmal atrial fibrillation 7. Hypertension 8. Resp failure now vent dependent -CXR also showing R sided effusion 9. Aspiration pneumonitis 10. New-onset seizure secondary to #1 10. Chronic thrombocytopenia rule out iron deficiency, rule out thrombocytopenia associated with end-stage renal disease -Status post 1 unit of platelet transfusion upon arrival - 12. Recurrent falls status post recent fall 2 days ago Plan: -Appreciate neurosurgical input and management of this patient, appreciate all the consultants -Continue ICU monitoring and vent weaning -Patient plan for thoracentesis as soon as is stable, appreciate pulmonary input -Continue to hold all anticoagulants on hold antiplatelets for now until cleared by neurosurgery -Continue routine ICU monitoring and care -Plan to commence feeds as soon as possible depending on how patient does -Continue anti-biotics, hypoglycemics as indicated -Further interventions per clinical course -Critical care time greater than half an hour Result Diagram: 11/06/18 0443 11/06/18 0443 Results 24hrs Laboratory Tests Test 11/05/18 13:05 11/05/18 17:38 11/05/18 20:27 11/06/18 00:42 Bedside Glucose 146 170 184 195 Test 11/06/18 04:43 11/06/18 04:45 11/06/18 05:00 11/06/18 05:32 White Blood Count 9.4 Red Blood Count 3.52 L Hemoglobin 9.4 L Hematocrit 30.0 L Mean Corpuscular 85.2 Volume Mean Corpuscular 26.7 L Hemoglobin Mean Corpuscular 31.3 L Hemoglobin Concent Red Cell 18.0 H Distribution Width Platelet Count 119 L Mean Platelet 9.8 Volume Immature 0.600 H Granulocytes % Neutrophils % 83.3 H Lymphocytes % 3.3 L Monocytes % 11.7 H Eosinophils % 0.9 Basophils % 0.2 Nucleated Red 0.0 Blood Cells % Immature 0.060 H Granulocytes # Neutrophils # 7.8 H Lymphocytes # 0.3 L Monocytes # 1.1 H Eosinophils # 0.1 Basophils # 0.0 Nucleated Red 0.0 Blood Cells # Prothrombin Time 17.8 H Prothrombin Time 1.4 Ratio INR International 1.46 Normalized Ratio Activated 27.[address] Time Sodium Level 140 Potassium Level 4.5 Chloride Level 104 Carbon Dioxide 26 Level Anion Gap 10 Blood Urea 76 H Nitrogen Creatinine 5.64 H Est Glomerular Filtrat Rate mL/min Glucose Level 162 Lactic Acid Level 0.8 Calcium Level 10.3 H Total Bilirubin 1.0 0.8 Direct Bilirubin 0.00 0.00 Indirect Bilirubin 1.0 0.8 Aspartate Amino 16 15 Transf (AST/SGOT) Alanine 32 26 Aminotransferase ( ALT/SGPT) Alkaline 49 47 Phosphatase Total Protein 6.3 6.3 Albumin 3.1 L 3.1 L Globulin 3.20 Albumin/Globulin 0.96 Ratio Blood Gas Specimen Blood arterial Source Arterial Blood 11/06/2018 4:30:26 Date Drawn AM Arterial Blood pH 7.438 (Temp corrected) Arterial Blood 36.8 pCO2 (Temp correct) Arterial Blood pO2 90.1 H (Temp corrected) Arterial Blood 24.3 HCO3 Arterial Blood 0.4 Base Excess Arterial Blood 97.2 Oxygen Saturation Rogerio Test N/A Arterial Blood Gas LB Puncture Site Arterial 1.3 Blood Carboxyhemog lobin Arterial Blood 0.3 Methemoglobin Blood Gas A-a O2 116.7 H Differential Oxyhemoglobin 95.6 Percent Blood Gas 37.0 Temperature Blood Gas Actual 20 Respiration Rate Blood Gas Modality HFNC FiO2 35.0 Blood Gas Notified MA Whom Blood Gas Notified 11/06/2018 4:44:29 Time AM Bedside Glucose 164 Test 11/06/18 08:20 Bedside Glucose 138 Subjective 24 Hr Interval Summary Free Text/Dictation post op craniotomy, intubated Exam/Review of Systems Exam Vitals Vital Signs Date Temp Pulse Resp B/P (MAP) Pulse Ox O2 O2 Flow FiO2 Time Delivery Rate 11/06/18 59 12:27 11/06/18 20 127/51 100 Mask 6.0 09:00 (76) 11/06/18 98.5 08:00 11/06/18 35 07:28 Intake and Output 11/05/18 11/05/18 11/06/18 1515:00 23:00 07:00 IntakeIntake Total 330 ml 580 ml 550 ml OutputOutput Total 0 ml 0 ml 150 ml BalanceBalance 330 ml 580 ml 400 ml Exam Constitutional: sleeping, comfortably intubated Head: dressing, drains Respiratory: clear, diminished Cardiovascular: regular rate and rhythm Gastrointestinal: S/ NT / ND / +BS Extremities: no edema, good radial pulses Results Results 24hrs Laboratory Tests Test 11/05/18 13:05 11/05/18 17:38 11/05/18 20:27 11/06/18 00:42 Bedside Glucose 146 170 184 195 Test 11/06/18 04:43 11/06/18 04:45 11/06/18 05:00 11/06/18 05:32 White Blood Count 9.4 Red Blood Count 3.52 L Hemoglobin 9.4 L Hematocrit 30.0 L Mean Corpuscular 85.2 Volume Mean Corpuscular 26.7 L Hemoglobin Mean Corpuscular 31.3 L Hemoglobin Concent Red Cell 18.0 H Distribution Width Platelet Count 119 L Mean Platelet 9.8 Volume Immature 0.600 H Granulocytes % Neutrophils % 83.3 H Lymphocytes % 3.3 L Monocytes % 11.7 H Eosinophils % 0.9 Basophils % 0.2 Nucleated Red 0.0 Blood Cells % Immature 0.060 H Granulocytes # Neutrophils # 7.8 H Lymphocytes # 0.3 L Monocytes # 1.1 H Eosinophils # 0.1 Basophils # 0.0 Nucleated Red 0.0 Blood Cells # Prothrombin Time 17.8 H Prothrombin Time 1.4 Ratio INR International 1.46 Normalized Ratio Activated 27.[address] Time Sodium Level 140 Potassium Level 4.5 Chloride Level 104 Carbon Dioxide 26 Level Anion Gap 10 Blood Urea 76 H Nitrogen Creatinine 5.64 H Est Glomerular Filtrat Rate mL/min Glucose Level 162 Lactic Acid Level 0.8 Calcium Level 10.3 H Total Bilirubin 1.0 0.8 Direct Bilirubin 0.00 0.00 Indirect Bilirubin 1.0 0.8 Aspartate Amino 16 15 Transf (AST/SGOT) Alanine 32 26 Aminotransferase ( ALT/SGPT) Alkaline 49 47 Phosphatase Total Protein 6.3 6.3 Albumin 3.1 L 3.1 L Globulin 3.20 Albumin/Globulin 0.96 Ratio Blood Gas Specimen Blood arterial Source Arterial Blood 11/06/2018 4:30:26 Date Drawn AM Arterial Blood pH 7.438 (Temp corrected) Arterial Blood 36.8 pCO2 (Temp correct) Arterial Blood pO2 90.1 H (Temp corrected) Arterial Blood 24.3 HCO3 Arterial Blood 0.4 Base Excess Arterial Blood 97.2 Oxygen Saturation Rogerio Test N/A Arterial Blood Gas LB Puncture Site Arterial 1.3 Blood Carboxyhemog lobin Arterial Blood 0.3 Methemoglobin Blood Gas A-a O2 116.7 H Differential Oxyhemoglobin 95.6 Percent Blood Gas 37.0 Temperature Blood Gas Actual 20 Respiration Rate Blood Gas Modality HFNC FiO2 35.0 Blood Gas Notified SD Whom Blood Gas Notified 11/06/2018 4:44:29 Time AM Bedside Glucose 164 Test 11/06/18 08:20 Bedside Glucose 138 Medications Medication Current Medications Ondansetron HCl (Zofran Inj) 4 mg Q6H PRN IV NAUSEA AND/OR VOMITING; Start 10/31/18 at 21:30 Albuterol (Proventil 0.083% (Neb)) 2.5 mg Q2H RESP THERAPY PRN NEB SHORTNESS OF BREATH Last administered on 11/04/18at 00:44; Admin Dose 2.5 MG; Start 10/31/18 at 21:30 Acetaminophen (Tylenol Liquid) 650 mg Q6H PRN PO PAIN LEVEL 1-3 OR FEVER; Start 10/31/18 at 21:30 Hydralazine HCl (Apresoline) 10 mg Q4H PRN IV ELEVATED BLOOD PRESSURE Last administered on 11/03/18at 01:04; Admin Dose 10 MG; Start 10/31/18 at 22:00 Amlodipine Besylate (Norvasc) 5 mg BID PO Last administered on 11/05/18 20:10; Admin Dose 5 MG; Start 10/31/18 at 22:00 Benazepril HCl (Lotensin) 40 mg DAILY PO Last administered on 11/05/18at 09:36; Admin Dose 40 MG; Start 11/01/18 at 09:00 Carvedilol (Coreg) 12.5 mg BID PO Last administered on 11/05/18at 20:10; Admin Dose 12.5 MG; Start 10/31/18 at 22:00 Calcium Acetate (Phoslo) 667 mg WITH MEALS PO Last administered on 11/05/18 17:39; Admin Dose 667 MG; Start 11/01/18 at 08:00 Multivit/Ca Carb/ B Cmplx/FA/Prenat (Sharron-Ashley) 1 tab DAILY PO Last adminis tered on 11/05/18 09:36; Admin Dose 1 TAB; Start 11/01/18 at 09:00 Diagnostic Test (Pha) (Accu-Chek) 1 ea 02 XX ; Start 11/02/18 at 02:00 Insulin Aspart (Novolog Insulin Pen) NOVOLOG *MILD* ALGORI... Q4 SC Last administered on 11/06/18 05:34; Admin Dose 1 UNIT; Start 11/01/18 at 13:00 Sevelamer Carbonate (Renvela) 0.8 gm WITH MEALS PO Last administered on 11/05/18 17:39; Admin Dose 0.8 GM; Start 11/01/18 at 18:00 Famotidine (Pepcid Iv) 20 mg DAILY IV Last administered on 11/06/18 08:19; Admi n Dose 20 MG; Start 11/03/18 at 09:00 Miscellaneous Information 1 ea NOTE XX ; Start 11/02/18 at 17:00 Glucose (Glutose) 15 gm Q15M PRN PO DECREASED GLUCOSE; Start 11/02/18 at 17:00 Glucose (Glutose) 22.5 gm Q15M PRN PO DECREASED GLUCOSE; Start 11/02/18 at 17:00 Dextrose (D50w Syringe) 25 ml Q15M PRN IV DECREASED GLUCOSE; Start 11/02/18 at 17:00 Dextrose (D50w Syringe) 50 ml Q15M PRN IV DECREASED GLUCOSE; Start 11/02/18 at 17:00 Glucagon (Glucagen) 1 mg Q15M PRN IM DECREASED GLUCOSE; Start 11/02/18 at 17:00 Glucose (Glutose) 15 gm Q15M PRN BUCCAL DECREASED GLUCOSE; Start 11/02/18 at 17:00 Albumin Human 100 ml @ 100 mls/hr WITH DIALYSIS PRN IV SBP <90 DURING DIALYSIS; Start 11/03/18 at 08:30 Epoetin Virgil-epbx (Retacrit (Esrd)) 6,000 unit TuThSa@1700 SC Last administered on 11/04/18at 18:32; Admin Dose 6,000 UNIT; Start 11/04/18 at 17:00 Levetiracetam 100 ml @ 400 mls/hr Q12 IVPB Last administered on 11/06/18at 08:19; Admin Dose 400 MLS/HR; Start 11/04/18 at 01:30 Piperacillin Sod/ Tazobactam Sod 50 ml @ 200 mls/hr Q8 IVPB Last administered on 11/06/18at 06:23; Admin Dose 200 MLS/HR; Start 11/04/18 at 17:45 Lorazepam (Ativan) 1 mg Q5M PRN IV SEIZURES; Start 11/04/18 at 20:19 Morphine Sulfate (morphine) 2 mg PACU PRN IV PAIN LEVEL 1-3; Start 11/06/18 at 12:30; Status UNV Fentanyl (Sublimaze) 25 mcg PACU ORDER PRN IV MILD PAIN 1-3; Start 11/06/18 at 12:30; Status UNV Fentanyl (Sublimaze) 50 mcg PACU ORDER PRN IV MOD PAIN 4-6; Start 11/06/18 at 12:30; Status UNV Diphenhydramine HCl (Benadryl) 25 mg PACU ORDER PRN IV .PRURITUS; Start 11/06/18 at 12:30; Status UNV Lorazepam (Ativan) 1 mg PACU ORDER PRN IV .ANXIETY; Start 11/06/18 at 12:30; Status UNV Midazolam HCl (Versed) 0.5 mg PACU ORDER PRN IV .ANXIETY; Start 11/06/18 at 12:30; Status UNV GERMAIN VASQUES Nov 06, 2018 12:41
[2018-11-06] MEDS ORDERED: hydrALAzine 20 MG INJ IV PRN (13:30)
--- NOTE | 2018-11-06 14:05 | CONS ---
Assessment/Plan Assessment/Plan Assessment/Plan (Daily) 1. End-stage renal disease on HD - HD ordered for Tuesday , regular schedule for HD is TTS , AVF for HD access . 3. Hypertension. Continue current blood pressure regimen. Continue ultrafiltr ation with dialysis. 4. Anemia of ESRD, s/p 2 unit PRBC tansfusion during this admission 5. Mineral bone disorder. Monitor calcium and phosphorus levels. 6. Subdural hematoma. follow up CT scan showed stable hematorma 7. Diabetes. Continue current insulin regimen. 8. Paroxysmal atrial fibrillation. Continue medical management. 9. Gastrointestinal and deep vein thrombosis prophylaxis. Consultation Date/Type/Reason Admit Date/Time October 31, 2018 at 21:18 Initial Consult Date 11/01/18 Requesting Provider: URSZULA VERGARA NP Date/Time of Note DATE: 11/06/18 TIME: 14:05 Exam/Review of Systems Exam Vitals Vital Signs Date Temp Pulse Resp B/P (MAP) Pulse Ox O2 O2 Flow FiO2 Time Delivery Rate 11/06/18 59 12 100 50 12:28 11/06/18 127/51 Mask 6.0 09:00 (76) 11/06/18 98.5 08:00 Intake and Output 11/05/18 11/05/18 11/06/18 1515:00 23:00 07:00 IntakeIntake Total 330 ml 580 ml 550 ml OutputOutput Total 0 ml 0 ml 150 ml BalanceBalance 330 ml 580 ml 400 ml Exam Constitutional: other (confused lethargic, moderate distress ) Respiratory: crackles/rales, diminished breath sounds Cardiovascular: regular rate and rhythm, nl pulses Gastrointestinal: soft, non-tender, other (non distended ) Musculoskeletal: nl extremities to inspection Extremities: normal pulses Neurological: other (confused, uncooperative for neuro exam ) Results Result Diagram: 11/06/18 0443 11/06/18 0443 Results 24hrs Laboratory Tests Test 11/05/18 17:38 11/05/18 20:27 11/06/18 00:42 11/06/18 04:43 Bedside Glucose 170 184 195 White Blood Count 9.4 Red Blood Count 3.52 L Hemoglobin 9.4 L Hematocrit 30.0 L Mean Corpuscular 85.2 Volume Mean Corpuscular 26.7 L Hemoglobin Mean Corpuscular 31.3 L Hemoglobin Concent Red Cell 18.0 H Distribution Width Platelet Count 119 L Mean Platelet 9.8 Volume Immature 0.600 H Granulocytes % Neutrophils % 83.3 H Lymphocytes % 3.3 L Monocytes % 11.7 H Eosinophils % 0.9 Basophils % 0.2 Nucleated Red 0.0 Blood Cells % Immature 0.060 H Granulocytes # Neutrophils # 7.8 H Lymphocytes # 0.3 L Monocytes # 1.1 H Eosinophils # 0.1 Basophils # 0.0 Nucleated Red 0.0 Blood Cells # Prothrombin Time 17.8 H Prothrombin Time 1.4 Ratio INR International 1.46 Normalized Ratio Activated 27.[address] Time Sodium Level 140 Potassium Level 4.5 Chloride Level 104 Carbon Dioxide 26 Level Anion Gap 10 Blood Urea 76 H Nitrogen Creatinine 5.64 H Est Glomerular Filtrat Rate mL/min Glucose Level 162 Lactic Acid Level 0.8 Calcium Level 10.3 H Total Bilirubin 1.0 Direct Bilirubin 0.00 Indirect Bilirubin 1.0 Aspartate Amino 16 Transf (AST/SGOT) Alanine 32 Aminotransferase ( ALT/SGPT) Alkaline 49 Phosphatase Total Protein 6.3 Albumin 3.1 L Globulin 3.20 Albumin/Globulin 0.96 Ratio Test 11/06/18 04:45 11/06/18 05:00 11/06/18 05:32 11/06/18 08:20 Total Bilirubin 0.8 Direct Bilirubin 0.00 Indirect Bilirubin 0.8 Aspartate Amino 15 Transf (AST/SGOT) Alanine 26 Aminotransferase ( ALT/SGPT) Alkaline 47 Phosphatase Total Protein 6.3 Albumin 3.1 L Blood Gas Specimen Blood arterial Source Arterial Blood 11/06/2018 4:30:26 Date Drawn AM Arterial Blood pH 7.438 (Temp corrected) Arterial Blood 36.8 pCO2 (Temp correct) Arterial Blood pO2 90.1 H (Temp corrected) Arterial Blood 24.3 HCO3 Arterial Blood 0.4 Base Excess Arterial Blood 97.2 Oxygen Saturation Rogerio Test N/A Arterial Blood Gas LB Puncture Site Arterial 1.3 Blood Carboxyhemog lobin Arterial Blood 0.3 Methemoglobin Blood Gas A-a O2 116.7 H Differential Oxyhemoglobin 95.6 Percent Blood Gas 37.0 Temperature Blood Gas Actual 20 Respiration Rate Blood Gas Modality HFNC FiO2 35.0 Blood Gas Notified ID Whom Blood Gas Notified 11/06/2018 4:44:29 Time AM Bedside Glucose 164 138 Test 11/06/18 13:19 Bedside Glucose 170 Medications Medication Current Medications Ondansetron HCl (Zofran Inj) 4 mg Q6H PRN IV NAUSEA AND/OR VOMITING; Start 10/31/18 at 21:30 Albuterol (Proventil 0.083% (Neb)) 2.5 mg Q2H RESP THERAPY PRN NEB SHORTNESS OF BREATH Last administered on 11/04/18 00:44; Admin Dose 2.5 MG; Start 10/31/18 at 21:30 Acetaminophen (Tylenol Liquid) 650 mg Q6H PRN PO PAIN LEVEL 1-3 OR FEVER; Start 10/31/18 at 21:30 Hydralazine HCl (Apresoline) 10 mg Q4H PRN IV ELEVATED BLOOD PRESSURE Last administered on 11/03/18 01:04; Admin Dose 10 MG; Start 10/31/18 at 22:00 Amlodipine Besylate (Norvasc) 5 mg BID PO Last administered on 11/05/18 20:10; Admin Dose 5 MG; Start 10/31/18 at 22:00 Benazepril HCl (Lotensin) 40 mg DAILY PO Last administered on 11/05/18 09:36; Admin Dose 40 MG; Start 11/01/18 at 09:00 Carvedilol (Coreg) 12.5 mg BID PO Last administered on 11/05/18 20:10; Admin Dose 12.5 MG; Start 10/31/18 at 22:00 Calcium Acetate (Phoslo) 667 mg WITH MEALS PO Last administered on 11/05/18 17:39; Admin Dose 667 MG; Start 11/01/18 at 08:00 Multivit/Ca Carb/ B Cmplx/FA/Prenat (Sharron-Ashley) 1 tab DAILY PO Last administered on 11/05/18 09:36; Admin Dose 1 TAB; Start 11/01/18 at 09:00 Diagnostic Test (Pha) (Accu-Chek) 1 ea 02 XX ; Start 11/02/18 at 02:00 Insulin Aspart (Novolog Insulin Pen) NOVOLOG *MILD* ALGORI... Q4 SC Last administered on 11/06/18 13:24; Admin Dose 1 UNIT; Start 11/01/18 at 13:00 Sevelamer Carbonate (Renvela) 0.8 gm WITH MEALS PO Last administered on 6/2/19at 17:39; Admin Dose 0.8 GM; Start 11/01/18 at 18:00 Famotidine (Pepcid Iv) 20 mg DAILY IV Last administered on 11/06/18at 08:19; Admin Dose 20 MG; Start 11/03/18 at 09:00 Miscellaneous Information 1 ea NOTE XX ; Start 11/02/18 at 17:00 Glucose (Glutose) 15 gm Q15M PRN PO DECREASED GLUCOSE; Start 11/02/18 at 17:00 Glucose (Glutose) 22.5 gm Q15M PRN PO DECREASED GLUCOSE; Start 11/02/18 at 17:00 Dextrose (D50w Syringe) 25 ml Q15M PRN IV DECREASED GLUCOSE; Start 11/02/18 at 17:00 Dextrose (D50w Syringe) 50 ml Q15M PRN IV DECREASED GLUCOSE; Start 11/02/18 at 17:00 Glucagon (Glucagen) 1 mg Q15M PRN IM DECREASED GLUCOSE; Start 11/02/18 at 17:00 Glucose (Glutose) 15 gm Q15M PRN BUCCAL DECREASED GLUCOSE; Start 11/02/18 at 17:00 Albumin Human 100 ml @ 100 mls/hr WITH DIALYSIS PRN IV SBP <90 DURING DIALYSIS; Start 11/03/18 at 08:30 Epoetin Virgil-epbx (Retacrit (Esrd)) 6,000 unit TuThSa@1700 SC Last administered on 11/04/18at 18:32; Admin Dose 6,000 UNIT; Start 11/04/18 at 17:00 Levetiracetam 100 ml @ 400 mls/hr Q12 IVPB Last administered on 11/06/18at 08:19; Admin Dose 400 MLS/HR; Start 11/04/18 at 01:30 Piperacillin Sod/ Tazobactam Sod 50 ml @ 200 mls/hr Q8 IVPB Last administered on 11/06/18at 06:23; Admin Dose 200 MLS/HR; Start 11/04/18 at 17:45 Lorazepam (Ativan) 1 mg Q5M PRN IV SEIZURES; Start 11/04/18 at 20:19 Morphine Sulfate (morphine) 2 mg PACU PRN IV PAIN LEVEL 1-3; Start 11/06/18 at 12:30; Stop 11/06/18 at 20:00 Fentanyl (Sublimaze) 25 mcg PACU ORDER PRN IV MILD PAIN 1-3 Last administered on 11/06/18at 13:23; Admin Dose 25 MCG; Start 11/06/18 at 12:30; Stop 11/06/18 at 20:00 Fentanyl (Sublimaze) 50 mcg PACU ORDER PRN IV MOD PAIN 4-6; Start 11/06/18 at 12:30; Stop 11/06/18 at 20:00 Diphenhydramine HCl (Benadryl) 25 mg PACU ORDER PRN IV .PRURITUS; Start 11/06/18 at 12:30; Stop 11/06/18 at 20:00 Lorazepam (Ativan) 1 mg PACU ORDER PRN IV .ANXIETY; Start 11/06/18 at 12:30; Stop 11/06/18 at 20:00 Midazolam HCl (Versed) 0.5 mg PACU ORDER PRN IV .ANXIETY; Start 11/06/18 at 12:30; Stop 11/06/18 at 20:00 Morphine Sulfate (morphine) 2 mg Q4H PRN IV SEVERE PAIN LEVEL 7-10; Start 11/06/18 at 13:30 Hydralazine HCl (Apresoline) 10 mg Q6H PRN IV For SBP >160; Start 11/06/18 at 13:30 SAUD CHANDLER MD Nov 06, 2018 14:05
--- NOTE | 2018-11-06 14:38 | CONS ---
Assessment/Plan Assessment/Plan Assessment/Plan (Recall) 78 yo M w/ afib on eliquis, and other comorbidities...who presented with progressive following repeated falls. Head CT revealed a R convexity SDH (and scattered SAH and IVH), for which he is under the care of neurosurgery. He was noted to have a several clinical spells concerning for seizure in the days following admission, for which neurology is now consulted.. P: Agree w/ Keppra as ordered for seizure ppx for now Ativan iv prn prolonged seizure (> 5 min) or cluster Hemorrhage management per neurosurgery Limit sedating medications where possible Other management and supportive care per primary Will follow clinically Consultation Date/Type/Reason Admit Date/Time October 31, 2018 at 21:18 Type of Consult Neurology Reason for Consultation seizures Requesting Provider: URSZULA VERGARA NP Date/Time of Note DATE: 11/06/18 TIME: 14:38 24 HR Interval Summary Free Text/Dictation Continues critical care. S/p EVD placement. Subjective hx not possible: pt non-verbal, pt critical Exam/Review of Systems Exam Vitals Vital Signs Date Temp Pulse Resp B/P (MAP) Pulse Ox O2 O2 Flow FiO2 Time Delivery Rate 11/06/18 59 12 100 50 12:28 11/06/18 127/51 Mask 6.0 09:00 (76) 11/06/18 98.5 08:00 Intake and Output 11/05/18 11/05/18 11/06/18 1515:00 23:00 07:00 IntakeIntake Total 330 ml 580 ml 50 ml OutputOutput Total 0 ml 0 ml 0 ml BalanceBalance 330 ml 580 ml 50 ml Exam PE: Gen Appearance: No Apparent Distress HEENT: Normocephalic Cardiovascular: Regular rate Abdomen: Soft Extremities: Dry NE: The patient was sedated and nonverbal. Cranial nerve examination was limited by mental status. Pupils were slightly unequal (L > R) though reactive to light. There was no afferent pupillary defect. Funduscopic examination was limited. Face was grossly symmetric, w/ present corneal and cough reflexes. Tone was normal. Muscle bulk was normal. I did not see fasciculations. The patient withdrew his LLE to noxious stimulation. Coordination and gait testing was limited by mental status. Arm and leg reflexes were within normal limits and symmetric. Santana's sign was absent. Plantar responses were flexor. Results Result Diagram: 11/06/18 0443 11/06/18 0443 Results 24hrs Laboratory Tests Test 11/05/18 17:38 11/05/18 20:27 11/06/18 00:42 11/06/18 04:43 Bedside Glucose 170 184 195 White Blood Count 9.4 Red Blood Count 3.52 L Hemoglobin 9.4 L Hematocrit 30.0 L Mean Corpuscular 85.2 Volume Mean Corpuscular 26.7 L Hemoglobin Mean Corpuscular 31.3 L Hemoglobin Concent Red Cell 18.0 H Distribution Width Platelet Count 119 L Mean Platelet 9.8 Volume Immature 0.600 H Granulocytes % Neutrophils % 83.3 H Lymphocytes % 3.3 L Monocytes % 11.7 H Eosinophils % 0.9 Basophils % 0.2 Nucleated Red 0.0 Blood Cells % Immature 0.060 H Granulocytes # Neutrophils # 7.8 H Lymphocytes # 0.3 L Monocytes # 1.1 H Eosinophils # 0.1 Basophils # 0.0 Nucleated Red 0.0 Blood Cells # Prothrombin Time 17.8 H Prothrombin Time 1.4 Ratio INR International 1.46 Normalized Ratio Activated 27.[address] Time Sodium Level 140 Potassium Level 4.5 Chloride Level 104 Carbon Dioxide 26 Level Anion Gap 10 Blood Urea 76 H Nitrogen Creatinine 5.64 H Est Glomerular Filtrat Rate mL/min Glucose Level 162 Lactic Acid Level 0.8 Calcium Level 10.3 H Total Bilirubin 1.0 Direct Bilirubin 0.00 Indirect Bilirubin 1.0 Aspartate Amino 16 Transf (AST/SGOT) Alanine 32 Aminotransferase ( ALT/SGPT) Alkaline 49 Phosphatase Total Protein 6.3 Albumin 3.1 L Globulin 3.20 Albumin/Globulin 0.96 Ratio Test 11/06/18 04:45 11/06/18 05:00 11/06/18 05:32 11/06/18 08:20 Total Bilirubin 0.8 Direct Bilirubin 0.00 Indirect Bilirubin 0.8 Aspartate Amino 15 Transf (AST/SGOT) Alanine 26 Aminotransferase ( ALT/SGPT) Alkaline 47 Phosphatase Total Protein 6.3 Albumin 3.1 L Blood Gas Specimen Blood arterial Source Arterial Blood 11/06/2018 4:30:26 Date Drawn AM Arterial Blood pH 7.438 (Temp corrected) Arterial Blood 36.8 pCO2 (Temp correct) Arterial Blood pO2 90.1 H (Temp corrected) Arterial Blood 24.3 HCO3 Arterial Blood 0.4 Base Excess Arterial Blood 97.2 Oxygen Saturation Rogerio Test N/A Arterial Blood Gas LB Puncture Site Arterial 1.3 Blood Carboxyhemog lobin Arterial Blood 0.3 Methemoglobin Blood Gas A-a O2 116.7 H Differential Oxyhemoglobin 95.6 Percent Blood Gas 37.0 Temperature Blood Gas Actual 20 Respiration Rate Blood Gas Modality HFNC FiO2 35.0 Blood Gas Notified MA Whom Blood Gas Notified 11/06/2018 4:44:29 Time AM Bedside Glucose 164 138 Test 11/06/18 13:19 Bedside Glucose 170 Medications Medication Current Medications Ondansetron HCl (Zofran Inj) 4 mg Q6H PRN IV NAUSEA AND/OR VOMITING; Start 10/31/18 at 21:30 Albuterol (Proventil 0.083% (Neb)) 2.5 mg Q2H RESP THERAPY PRN NEB SHORTNESS OF BREATH Last administered on 11/04/18at 00:44; Admin Dose 2.5 MG; Start 10/31/18 at 21:30 Acetaminophen (Tylenol Liquid) 650 mg Q6H PRN PO PAIN LEVEL 1-3 OR FEVER; Start 10/31/18 at 21:30 Hydralazine HCl (Apresoline) 10 mg Q4H PRN IV ELEVATED BLOOD PRESSURE Last administered on 11/03/18at 01:04; Admin Dose 10 MG; Start 10/31/18 at 22:00 Amlodipine Besylate (Norvasc) 5 mg BID PO Last administered on 11/05/18at 20:10; Admin Dose 5 MG; Start 10/31/18 at 22:00 Benazepril HCl (Lotensin) 40 mg DAILY PO Last administered on 11/05/18at 09:36; Admin Dose 40 MG; Start 11/01/18 at 09:00 Carvedilol (Coreg) 12.5 mg BID PO Last administered on 11/05/18 20:10; Admin Dose 12.5 MG; Start 10/31/18 at 22:00 Calcium Acetate (Phoslo) 667 mg WITH MEALS PO Last administered on 11/05/18 17:39; Admin Dose 667 MG; Start 11/01/18 at 08:00 Multivit/Ca Carb/ B Cmplx/FA/Prenat (Sharron-Ashley) 1 tab DAILY PO Last administered on 11/05/18at 09:36; Admin Dose 1 TAB; Start 11/01/18 at 09:00 Diagnostic Test (Pha) (Accu-Chek) 1 ea 02 XX ; Start 11/02/18 at 02:00 Insulin Aspart (Novolog Insulin Pen) NOVOLOG *MILD* ALGORI... Q4 SC Last administered on 11/06/18at 13:24; Admin Dose 1 UNIT; Start 11/01/18 at 13:00 Sevelamer Carbonate (Renvela) 0.8 gm WITH MEALS PO Last administered on 11/05/18at 17:39; Admin Dose 0.8 GM; Start 11/01/18 at 18:00 Famotidine (Pepcid Iv) 20 mg DAILY IV Last administered on 11/06/18at 08:19; Admin Dose 20 MG; Start 11/03/18 at 09:00 Miscellaneous Information 1 ea NOTE XX ; Start 11/02/18 at 17:00 Glucose (Glutose) 15 gm Q15M PRN PO DECREASED GLUCOSE; Start 11/02/18 at 17:00 Glucose (Glutose) 22.5 gm Q15M PRN PO DECREASED GLUCOSE; Start 11/02/18 at 17:00 Dextrose (D50w Syringe) 25 ml Q15M PRN IV DECREASED GLUCOSE; Start 11/02/18 at 17:00 Dextrose (D50w Syringe) 50 ml Q15M PRN IV DECREASED GLUCOSE; Start 11/02/18 at 17:00 Glucagon (Glucagen) 1 mg Q15M PRN IM DECREASED GLUCOSE; Start 11/02/18 at 17:00 Glucose (Glutose) 15 gm Q15M PRN BUCCAL DECREASED GLUCOSE; Start 11/02/18 at 17:00 Albumin Human 100 ml @ 100 mls/hr WITH DIALYSIS PRN IV SBP <90 DURING DIALYSIS; Start 11/03/18 at 08:30 Epoetin Virgil-epbx (Retacrit (Esrd)) 6,000 unit TuThSa@1700 SC Last administered on 11/04/18at 18:32; Admin Dose 6,000 UNIT; Start 11/04/18 at 17:00 Levetiracetam 100 ml @ 400 mls/hr Q12 IVPB Last administered on 11/06/18at 08:19; Admin Dose 400 MLS/HR; Start 11/04/18 at 01:30 Piperacillin Sod/ Tazobactam Sod 50 ml @ 200 mls/hr Q8 IVPB Last administered on 11/06/18at 06:23; Admin Dose 200 MLS/HR; Start 11/04/18 at 17:45 Lorazepam (Ativan) 1 mg Q5M PRN IV SEIZURES; Start 11/04/18 at 20:19 Morphine Sulfate (morphine) 2 mg PACU PRN IV PAIN LEVEL 1-3; Start 11/06/18 at 12:30; Stop 11/06/18 at 20:00 Fentanyl (Sublimaze) 25 mcg PACU ORDER PRN IV MILD PAIN 1-3 Last administered on 11/06/18at 13:23; Admin Dose 25 MCG; Start 11/06/18 at 12:30; Stop 11/06/18 at 20:00 Fentanyl (Sublimaze) 50 mcg PACU ORDER PRN IV MOD PAIN 4-6; Start 11/06/18 at 12:30; Stop 11/06/18 at 20:00 Diphenhydramine HCl (Benadryl) 25 mg PACU ORDER PRN IV .PRURITUS; Start 11/06/18 at 12:30; Stop 11/06/18 at 20:00 Lorazepam (Ativan) 1 mg PACU ORDER PRN IV .ANXIETY; Start 11/06/18 at 12:30; Stop 11/06/18 at 20:00 Midazolam HCl (Versed) 0.5 mg PACU ORDER PRN IV .ANXIETY; Start 11/06/18 at 12:30; Stop 11/06/18 at 20:00 Morphine Sulfate (morphine) 2 mg Q4H PRN IV SEVERE PAIN LEVEL 7-10; Start 11/06/18 at 13:30 Hydralazine HCl (Apresoline) 10 mg Q6H PRN IV For SBP >160; Start 11/06/18 at 13:30 FLORENTIN COLUNGA NP Nov 06, 2018 14:38
--- NOTE | 2018-11-06 15:03 | RADRPT ---
Echocardiogram Report Patient Name: CARMELLA ELAINEPatient ID: [id number] : 1940 (78y 4m)Study Date: 11/01/2018 10:55:01 AM Gender: MAccession #: [id number] Tech: Pretty Mensah RDCS Location: 118 Ref.Physician: THIEN LUCIO Height(Cm): BSA: Weight(Kg): Quality: AdequateOrder Physician: THIEN LUCIO Account #: Procedures: Echocardiographic Report: Transthoracic echocardiogram with complete 2D, M-Mode, and doppler examination. Indications: Hx of pericardial Effusion. Measurements: 2D/M Mode Doppler Measurement Value Normal Range Measurement Value Normal Range LVIDd 2D 4.6 [ 4.2 - 5.8 ] cm AV Peak Eugenio 1.5 [ 100.0 - 170.0 ] cm/sec LVIDs 2D 2.7 [ 2.5 - 4.0 ] cm AV Peak PG 10.0 [ 2.0 - 9.0 ] mmHg LVPWd 2D 1.2 [ 0.6 - 1.0 ] cm LVOT Peak Eugenio 1.0 [ 70.0 - 110.0 ] cm/sec IVSd 2D 1.3 [ 0.6 - 1.0 ] cm LVOT Peak PG 4.0 [ 2.0 - 6.0 ] mmHg AoR Diam 2D 2.9 [ 2.6 - 3.4 ] cm MV E Peak Eugenio 1.3 [ 60.0 - 130.0 ] cm/sec EDV 2D 96.8 [ 62.0 - 150.0 ] ml MV A Peak Eugenio 1.2 [ 100.0 - 120.0 ] cm/sec ESV 2D 26.8 [ 21.0 - 61.0 ] ml MV E/A 1.1 [ 0.8 - 1.5 ] ratio EF 2D 72.3 [ 52.0 - 72.0 ] percent MV Decel Time 120 [ 104 - 258 ] msec LA Dimen 2D 4.3 [ 3.0 - 4.0 ] cm Lat E` Eugenio 0.1 [ 10.0 - 15.0 ] cm/sec Lateral E/E` 22.8 [ 1.0 - 2.0 ] ratio MV E/A 1.1 [ 0.8 - 1.5 ] ratio TR Peak Eugenio 3.2 [ 100.0 - 280.0 ] cm/sec TR Peak PG 42.0 mmHg RVSP 50.0 [ 10.0 - 36.0 ] mmHg RA Pressure 8.0 mmHg Findings: Left Ventricle: Normal left ventricular systolic function. Normal left ventricular cavity size. Mild concentric left ventricular hypertrophy. Ejection fraction is visually estimated at 55-60 %. Tissue Doppler/Mitral Doppler indices are consistent with impaired relaxation (Stage I diastolic dysfunction). Right Ventricle: Normal right ventricular size. Normal right ventricular systolic function. Left Atrium: There is moderate enlargement of left atrium. Right Atrium: There is moderate enlargement of right atrium. Atrial Septum: Atrial septum color Doppler interrogation consistent with a PFO vs small ASD. Mitral Valve: Mild mitral leaflet calcification. Moderate mitral annular calcification. Mild mitral valve regurgitation. Aortic Valve: Aortic sclerosis without significant stenosis. Aortic cusps appear moderately calcified. Trace to mild aortic valve regurgitation. Tricuspid Valve: Normal appearance of the tricuspid valve. The estimated Peak RVSP is 45 mmHg. There is mild tricuspid regurgitation. Pulmonic Valve: Normal pulmonic valve appearance. There is trace pulmonic regurgitation. Pericardium: Normal pericardium with no significant pericardial effusion. Pleural effusion seen. Aorta: Normal aortic root. IVC: Normal size and normal respiratory collapse consistent with normal right atrial pressure. Conclusions: Normal left ventricular systolic function. Normal left ventricular cavity size. Mild concentric left ventricular hypertrophy. Ejection fraction is visually estimated at 55-60 %. Tissue Doppler/Mitral Doppler indices are consistent with impaired relaxation (Stage I diastolic dysfunction). Aortic sclerosis without significant stenosis. Aortic cusps appear moderately calcified. Trace to mild aortic valve regurgitation. Atrial septum color Doppler interrogation consistent with a PFO vs small ASD. There is moderate enlargement of left atrium.There is moderate enlargement of right atrium. Normal appearance of the tricuspid valve. The estimated Peak RVSP is 45 mmHg. There is mild tricuspid regurgitation. Normal size and normal respiratory collapse consistent with normal right atrial pressure. Electronically Signed By: Arden Chew 2018-11-06 15:03:13 PDT
--- NOTE | 2018-11-06 15:26 | CONS ---
Assessment/Plan Assessment/Plan Hospital Course (Demo Recall) Traumatic SDH: in setting of Eliquis. 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 Now both resolved and normal EF Paroxysmal atrial flutter/fibrillation: CHADSVASC 5 and was on Eliquis outpt but now s/p fall with ICH as above so on hold Aspiration PNA Pleural effusion Thrombocytopenia Anemia: ?from ICH. s/p 2 units ESRD on HD HTN -hold anticoagulation/antiplatelets -coreg 12.5 mg BID -amlodipine 5mg BID -benazepril 40mg -antibiotics Consultation Date/Type/Reason Admit Date/Time October 31, 2018 at 21:18 Date of Consultation: Nov 06, 2018 Type of Consult Cardiology Reason for Consultation Clinic patient. Anticoagulation management Requesting Provider: GERMAIN VASQUES Date/Time of Note DATE: 11/06/18 TIME: 15:15 Hx of Present Illness 78 yo M well known to me from clinic with a h/o paroxysmal afib/flutter on Eliquis, recent perimyocarditis 06/2018 with EF 40% and moderate pericardial effusion both of which resolved with therapy as outpt, HTN, ESRD on HD, who had a mechanical fall and was initially seen in the ER 10/[address] Then he had worsening confusion and was seen in the ER again with CT showing SDH. He was admitted to the ICU and is now s/p cuong hole evacuation today. He remains intubated post op. No family at bedside at this time unable to obtain Past Medical History per HPI Home Meds Active Scripts Carvedilol* (Carvedilol*) 12.5 Mg Tablet, 12.5 MG PO BID for 30 Days, TAB Prov:KADI GONZALEZ MD 06/20/18 Apixaban* (Eliquis*) 5 Mg Tablet, 2.5 MG PO BID for 30 Days, TAB Prov:KADI GONZALEZ MD 06/20/18 Reported Medications Folic Acid/Vitamin B Comp W-C (Renal Multivitamin Tablet) 0.8 Mg Tablet, 0.8 MG PO DAILY, TAB 06/15/18 Clonidine Hcl* (Clonidine Hcl*) 0.1 Mg Tab, 0.1 MG PO BID, TAB 06/15/18 Risperidone* (Risperidone*) 0.25 Mg Tablet, 0.25 MG PO DAILY, TAB 06/15/18 Sevelamer Hcl* (Renagel*) 800 Mg Tablet, 800 MG PO WITH MEALS, TAB 06/15/18 Calcitriol* (Calcitriol*) 0.5 Mcg Capsule, 0.5 MCG PO DAILY, CAP 06/15/18 Calcium Acetate* (Calcium Acetate*) 667 Mg Capsule, 667 MG PO WITH MEALS, #30 CAP 12/13/17 Terazosin Hcl* (Terazosin Hcl*) 5 Mg Capsule, 5 MG PO HS, CAP 12/13/17 Benazepril Hcl* (Benazepril Hcl*) 40 Mg Tablet, 40 MG PO DAILY, #30 TAB 12/13/17 Amlodipine Besylate* (Norvasc*) 5 Mg Tablet, 5 MG PO BID, TAB 12/13/17 Medications Current Medications Ondansetron HCl (Zofran Inj) 4 mg Q6H PRN IV NAUSEA AND/OR VOMITING; Start 10/31/18 at 21:30 Albuterol (Proventil 0.083% (Neb)) 2.5 mg Q2H RESP THERAPY PRN NEB SHORTNESS OF BREATH Last administered on 11/04/18at 00:44; Admin Dose 2.5 MG; Start 10/31/18 at 21:30 Acetaminophen (Tylenol Liquid) 650 mg Q6H PRN PO PAIN LEVEL 1-3 OR FEVER; Start 10/31/18 at 21:30 Hydralazine HCl (Apresoline) 10 mg Q4H PRN IV ELEVATED BLOOD PRESSURE Last administered on 11/03/18at 01:04; Admin Dose 10 MG; Start 10/31/18 at 22:00 Amlodipine Besylate (Norvasc) 5 mg BID PO Last administered on 11/05/18at 20:10; Admin Dose 5 MG; Start 10/31/18 at 22:00 Benazepril HCl (Lotensin) 40 mg DAILY PO Last administered on 11/05/18at 09:36; Admin Dose 40 MG; Start 11/01/18 at 09:00 Carvedilol (Coreg) 12.5 mg BID PO Last administered on 11/05/18at 20:10; Admin Dose 12.5 MG; Start 10/31/18 at 22:00 Calcium Acetate (Phoslo) 667 mg WITH MEALS PO Last administered on 11/05/18at 17:39; Admin Dose 667 MG; Start 11/01/18 at 08:00 Multivit/Ca Carb/ B Cmplx/FA/Prenat (Sharron-Ashley) 1 tab DAILY PO Last administered on 11/05/18at 09:36; Admin Dose 1 TAB; Start 11/01/18 at 09:00 Diagnostic Test (Pha) (Accu-Chek) 1 ea 02 XX ; Start 11/02/18 at 02:00 Insulin Aspart (Novolog Insulin Pen) NOVOLOG *MILD* ALGORI... Q4 SC Last administered on 11/06/18at 13:24; Admin Dose 1 UNIT; Start 11/01/18 at 13:00 Sevelamer Carbonate (Renvela) 0.8 gm WITH MEALS PO Last administered on 11/05/18at 17:39; Admin Dose 0.8 GM; Start 11/01/18 at 18:00 Famotidine (Pepcid Iv) 20 mg DAILY IV Last administered on 11/06/18at 08:19; Admin Dose 20 MG; Start 11/03/18 at 09:00 Miscellaneous Information 1 ea NOTE XX ; Start 11/02/18 at 17:00 Glucose (Glutose) 15 gm Q15M PRN PO DECREASED GLUCOSE; Start 11/02/18 at 17:00 Glucose (Glutose) 22.5 gm Q15M PRN PO DECREASED GLUCOSE; Start 11/02/18 at 17:00 Dextrose (D50w Syringe) 25 ml Q15M PRN IV DECREASED GLUCOSE; Start 11/02/18 at 17:00 Dextrose (D50w Syringe) 50 ml Q15M PRN IV DECREASED GLUCOSE; Start 11/02/18 at 17:00 Glucagon (Glucagen) 1 mg Q15M PRN IM DECREASED GLUCOSE; Start 11/02/18 at 17:00 Glucose (Glutose) 15 gm Q15M PRN BUCCAL DECREASED GLUCOSE; Start 11/02/18 at 17:00 Albumin Human 100 ml @ 100 mls/hr WITH DIALYSIS PRN IV SBP <90 DURING DIALYSIS; Start 11/03/18 at 08:30 Epoetin Virgil-epbx (Retacrit (Esrd)) 6,000 unit TuThSa@1700 SC Last administered on 11/04/18at 18:32; Admin Dose 6,000 UNIT; Start 11/04/18 at 17:00 Levetiracetam 100 ml @ 400 mls/hr Q12 IVPB Last administered on 11/06/18at 08:19; Admin Dose 400 MLS/HR; Start 11/04/18 at 01:30 Piperacillin Sod/ Tazobactam Sod 50 ml @ 200 mls/hr Q8 IVPB Last administered on 11/06/18at 14:55; Admin Dose 200 MLS/HR; Start 11/04/18 at 17:45 Lorazepam (Ativan) 1 mg Q5M PRN IV SEIZURES; Start 11/04/18 at 20:19 Morphine Sulfate (morphine) 2 mg PACU PRN IV PAIN LEVEL 1-3; Start 11/06/18 at 12:30; Stop 11/06/18 at 20:00 Fentanyl (Sublimaze) 25 mcg PACU ORDER PRN IV MILD PAIN 1-3 Last administered on 11/06/18at 13:23; Admin Dose 25 MCG; Start 11/06/18 at 12:30; Stop 11/06/18 at 20:00 Fentanyl (Sublimaze) 50 mcg PACU ORDER PRN IV MOD PAIN 4-6; Start 11/06/18 at 12:30; Stop 11/06/18 at 20:00 Diphenhydramine HCl (Benadryl) 25 mg PACU ORDER PRN IV .PRURITUS; Start 11/06/18 at 12:30; Stop 11/06/18 at 20:00 Lorazepam (Ativan) 1 mg PACU ORDER PRN IV .ANXIETY; Start 11/06/18 at 12:30; Stop 11/06/18 at 20:00 Midazolam HCl (Versed) 0.5 mg PACU ORDER PRN IV .ANXIETY; Start 11/06/18 at 12:30; Stop 11/06/18 at 20:00 Morphine Sulfate (morphine) 2 mg Q4H PRN IV SEVERE PAIN LEVEL 7-10; Start 11/06/18 at 13:30 Hydralazine HCl (Apresoline) 10 mg Q6H PRN IV For SBP >160; Start 11/06/18 at 13:30 Allergies: Coded Allergies: No Known Drug Allergy (Verified Allergy, Unknown, 06/15/18) Past Surgical History Past Surgical Hx: other Social History Alcohol Use: none Smoking Status: Never smoker Drug Use: none Exam/Review of Systems Vital Signs Vitals Vital Signs Date Temp Pulse Resp B/P (MAP) Pulse Ox O2 O2 Flow FiO2 Time Delivery Rate 11/06/18 61 11 150/44 100 Mechanical 13:15 (79) Ventilator 11/06/18 50 12:28 11/06/18 97.5 12:22 11/06/18 6.0 09:00 Intake and Output 11/05/18 11/05/18 11/06/18 1515:00 23:00 07:00 IntakeIntake Total 330 ml 580 ml 50 ml OutputOutput Total 0 ml 0 ml 0 ml BalanceBalance 330 ml 580 ml 50 ml Exam Constitutional: No alert, No oriented ENMT: intubated Neck: supple; No jvd Respiratory: diminished breath sounds; No clear to auscultation Cardiovascular: regular rate and rhythm; No edema, No systolic murmur Gastrointestinal: soft, non-tender; No distended Extremities: normal pulses; No edema Neurological: No nl mental status, No nl speech Labs Result Diagram: 11/06/18 0443 11/06/18 0443 Results 24hrs Laboratory Tests Test 11/05/18 17:38 11/05/18 20:27 11/06/18 00:42 11/06/18 04:43 Bedside Glucose 170 184 195 White Blood Count 9.4 Red Blood Count 3.52 L Hemoglobin 9.4 L Hematocrit 30.0 L Mean Corpuscular 85.2 Volume Mean Corpuscular 26.7 L Hemoglobin Mean Corpuscular 31.3 L Hemoglobin Concent Red Cell 18.0 H Distribution Width Platelet Count 119 L Mean Platelet 9.8 Volume Immature 0.600 H Granulocytes % Neutrophils % 83.3 H Lymphocytes % 3.3 L Monocytes % 11.7 H Eosinophils % 0.9 Basophils % 0.2 Nucleated Red 0.0 Blood Cells % Immature 0.060 H Granulocytes # Neutrophils # 7.8 H Lymphocytes # 0.3 L Monocytes # 1.1 H Eosinophils # 0.1 Basophils # 0.0 Nucleated Red 0.0 Blood Cells # Prothrombin Time 17.8 H Prothrombin Time 1.4 Ratio INR International 1.46 Normalized Ratio Activated 27.[address] Time Sodium Level 140 Potassium Level 4.5 Chloride Level 104 Carbon Dioxide 26 Level Anion Gap 10 Blood Urea 76 H Nitrogen Creatinine 5.64 H Est Glomerular Filtrat Rate mL/min Glucose Level 162 Lactic Acid Level 0.8 Calcium Level 10.3 H Total Bilirubin 1.0 Direct Bilirubin 0.00 Indirect Bilirubin 1.0 Aspartate Amino 16 Transf (AST/SGOT) Alanine 32 Aminotransferase ( ALT/SGPT) Alkaline 49 Phosphatase Total Protein 6.3 Albumin 3.1 L Globulin 3.20 Albumin/Globulin 0.96 Ratio Test 11/06/18 04:45 11/06/18 05:00 11/06/18 05:32 11/06/18 08:20 Total Bilirubin 0.8 Direct Bilirubin 0.00 Indirect Bilirubin 0.8 Aspartate Amino 15 Transf (AST/SGOT) Alanine 26 Aminotransferase ( ALT/SGPT) Alkaline 47 Phosphatase Total Protein 6.3 Albumin 3.1 L Blood Gas Specimen Blood arterial Source Arterial Blood 11/06/2018 4:30:26 Date Drawn AM Arterial Blood pH 7.438 (Temp corrected) Arterial Blood 36.8 pCO2 (Temp correct) Arterial Blood pO2 90.1 H (Temp corrected) Arterial Blood 24.3 HCO3 Arterial Blood 0.4 Base Excess Arterial Blood 97.2 Oxygen Saturation Rogerio Test N/A Arterial Blood Gas LB Puncture Site Arterial 1.3 Blood Carboxyhemog lobin Arterial Blood 0.3 Methemoglobin Blood Gas A-a O2 116.7 H Differential Oxyhemoglobin 95.6 Percent Blood Gas 37.0 Temperature Blood Gas Actual 20 Respiration Rate Blood Gas Modality HFNC FiO2 35.0 Blood Gas Notified NM Whom Blood Gas Notified 11/06/2018 4:44:29 Time AM Bedside Glucose 164 138 Test 11/06/18 13:19 Bedside Glucose 170 Medications Medications Current Medications Ondansetron HCl (Zofran Inj) 4 mg Q6H PRN IV NAUSEA AND/OR VOMITING; Start 10/31/18 at 21:30 Albuterol (Proventil 0.083% (Neb)) 2.5 mg Q2H RESP THERAPY PRN NEB SHORTNESS OF BREATH Last administered on 11/04/18at 00:44; Admin Dose 2.5 MG; Start 10/31/18 at 21:30 Acetaminophen (Tylenol Liquid) 650 mg Q6H PRN PO PAIN LEVEL 1-3 OR FEVER; Start 10/31/18 at 21:30 Hydralazine HCl (Apresoline) 10 mg Q4H PRN IV ELEVATED BLOOD PRESSURE Last administered on 11/03/18 01:04; Admin Dose 10 MG; Start 10/31/18 at 22:00 Amlodipine Besylate (Norvasc) 5 mg BID PO Last administered on 11/05/18 20:10; Admin Dose 5 MG; Start 10/31/18 at 22:00 Benazepril HCl (Lotensin) 40 mg DAILY PO Last administered on 11/05/18 09:36; Admin Dose 40 MG; Start 11/01/18 at 09:00 Carvedilol (Coreg) 12.5 mg BID PO Last administered on 11/05/18 20:10; Admin Dose 12.5 MG; Start 10/31/18 at 22:00 Calcium Acetate (Phoslo) 667 mg WITH MEALS PO Last administered on 11/05/18 17:39; Admin Dose 667 MG; Start 11/01/18 at 08:00 Multivit/Ca Carb/ B Cmplx/FA/Prenat (Sharron-Ashley) 1 tab DAILY PO Last administered on 11/05/18 09:36; Admin Dose 1 TAB; Start 11/01/18 at 09:00 Diagnostic Test (Pha) (Accu-Chek) 1 ea 02 XX ; Start 11/02/18 at 02:00 Insulin Aspart (Novolog Insulin Pen) NOVOLOG *MILD* ALGORI... Q4 SC Last administered on 11/06/18 13:24; Admin Dose 1 UNIT; Start 11/01/18 at 13:00 Sevelamer Carbonate (Renvela) 0.8 gm WITH MEALS PO Last administered on 11/05/18 17:39; Admin Dose 0.8 GM; Start 11/01/18 at 18:00 Famotidine (Pepcid Iv) 20 mg DAILY IV Last administered on 11/06/18 08:19; Admin Dose 20 MG; Start 11/03/18 at 09:00 Miscellaneous Information 1 ea NOTE XX ; Start 11/02/18 at 17:00 Glucose (Glutose) 15 gm Q15M PRN PO DECREASED GLUCOSE; Start 11/02/18 at 17:00 Glucose (Glutose) 22.5 gm Q15M PRN PO DECREASED GLUCOSE; Start 11/02/18 at 17:00 Dextrose (D50w Syringe) 25 ml Q15M PRN IV DECREASED GLUCOSE; Start 11/02/18 at 17:00 Dextrose (D50w Syringe) 50 ml Q15M PRN IV DECREASED GLUCOSE; Start 11/02/18 at 17:00 Glucagon (Glucagen) 1 mg Q15M PRN IM DECREASED GLUCOSE; Start 11/02/18 at 17:00 Glucose (Glutose) 15 gm Q15M PRN BUCCAL DECREASED GLUCOSE; Start 11/02/18 at 17:00 Albumin Human 100 ml @ 100 mls/hr WITH DIALYSIS PRN IV SBP <90 DURING DIALYSIS; Start 11/03/18 at 08:30 Epoetin Virgil-epbx (Retacrit (Esrd)) 6,000 unit TuThSa@1700 SC Last administered on 11/04/18at 18:32; Admin Dose 6,000 UNIT; Start 11/04/18 at 17:00 Levetiracetam 100 ml @ 400 mls/hr Q12 IVPB Last administered on 11/06/18at 08:19; Admin Dose 400 MLS/HR; Start 11/04/18 at 01:30 Piperacillin Sod/ Tazobactam Sod 50 ml @ 200 mls/hr Q8 IVPB Last administered on 11/06/18at 14:55; Admin Dose 200 MLS/HR; Start 11/04/18 at 17:45 Lorazepam (Ativan) 1 mg Q5M PRN IV SEIZURES; Start 11/04/18 at 20:19 Morphine Sulfate (morphine) 2 mg PACU PRN IV PAIN LEVEL 1-3; Start 11/06/18 at 12:30; Stop 11/06/18 at 20:00 Fentanyl (Sublimaze) 25 mcg PACU ORDER PRN IV MILD PAIN 1-3 Last administered on 11/06/18at 13:23; Admin Dose 25 MCG; Start 11/06/18 at 12:30; Stop 11/06/18 at 20:00 Fentanyl (Sublimaze) 50 mcg PACU ORDER PRN IV MOD PAIN 4-6; Start 11/06/18 at 12:30; Stop 11/06/18 at 20:00 Diphenhydramine HCl (Benadryl) 25 mg PACU ORDER PRN IV .PRURITUS; Start 11/06/18 at 12:30; Stop 11/06/18 at 20:00 Lorazepam (Ativan) 1 mg PACU ORDER PRN IV .ANXIETY; Start 11/06/18 at 12:30; Stop 11/06/18 at 20:00 Midazolam HCl (Versed) 0.5 mg PACU ORDER PRN IV .ANXIETY; Start 11/06/18 at 12:30; Stop 11/06/18 at 20:00 Morphine Sulfate (morphine) 2 mg Q4H PRN IV SEVERE PAIN LEVEL 7-10; Start 11/06/18 at 13:30 Hydralazine HCl (Apresoline) 10 mg Q6H PRN IV For SBP >160; Start 11/06/18 at 13:30 WAYNE CARUSO Nov 06, 2018 15:25
--- NOTE | 2018-11-06 17:31 | RADRPT ---
Vent Rate: 111 bpm RR Interval: 540 msec TX Interval: 199 msec QRS Duration: 99 msec QT Interval: 330 msec QTC Interval: 449 msec P-R-T [place]: -33 - -35 - 85 degrees Sinus tachycardia with first degree AV block Left ventricular hypertrophy...multiple voltage criteria Nonspecific T abnormalities, lateral leads...T <-0.10mV, I aVL V5 V6 Electronically Signed By: Rey Garibay
[2018-11-07] VITALS (79 sets, daily range): BP systolic 112–180; BP diastolic 40–74; PULSE 64–94; RESP 10–21
[2018-11-07] MEDS: INSULIN ASPART [NOVOLOG] 3 ML PEN SC SCH ×6 (01:09→21:16)
[2018-11-07] MEDS: ACCU-CHEK XX SCH (02:00)
[2018-11-07] MEDS: PIPER-TAZO 2.25 GM (PMX) 50 ML IVPB SCH ×3 (05:19→22:23)
--- NOTE | 2018-11-07 08:53 | CONS ---
Assessment/Plan Assessment/Plan Assessment/Plan (Daily) 1. End-stage renal disease on HD - s/p HD today 2 L removed , BP remained stable during HD , pt regular schedule for HD is TTS , AVF for HD access . 3. Hypertension. Continue current blood pressure regimen. Continue ultrafiltration with dialysis. 3. subdural hematoma, S/p Craniotomy and burhole placement by dr. Shrestha on 10/06/18- Post op care as per Neurosurgery, Drainage tube in place 4. Post op pulmonary insufficiency INtubated on ventilator 4. Anemia of ESRD, s/p 2 unit PRBC tansfusion during this admission 5. Mineral bone disorder. Monitor calcium and phosphorus levels. 6. Subdural hematoma. follow up CT scan showed stable hematorma 7. Diabetes. Continue current insulin regimen. 8. Paroxysmal atrial fibrillation. Continue medical management. 9. Gastrointestinal and deep vein thrombosis prophylaxis. Consultation Date/Type/Reason Admit Date/Time October 31, 2018 at 21:18 Initial Consult Date 11/01/18 Requesting Provider: GERMAIN VASQUES Date/Time of Note DATE: 11/07/18 TIME: 08:53 Exam/Review of Systems Exam Vitals Vital Signs Date Temp Pulse Resp B/P (MAP) Pulse Ox O2 O2 Flow FiO2 Time Delivery Rate 11/07/18 76 16 143/50 100 06:30 (81) 11/07/18 30 06:14 11/07/18 Mechanical 06:00 Ventilator 11/07/18 97.6 04:00 11/06/18 6.0 09:00 Intake and Output 11/06/18 11/06/18 11/07/18 1515:00 23:00 07:00 IntakeIntake Total 720 ml 390 ml 100 ml OutputOutput Total 150 ml 195 ml 127 ml BalanceBalance 570 ml 195 ml -27 ml Results Result Diagram: 11/07/18 0455 11/07/18 0455 Results 24hrs Laboratory Tests Test 11/06/18 13:19 11/06/18 17:28 11/06/18 21:06 11/07/18 01:03 Bedside Glucose 170 181 182 169 Test 11/07/18 04:55 11/07/18 05:10 11/07/18 05:17 11/07/18 07:00 White Blood 7.5 # Count Red Blood Count 3.61 L Hemoglobin 9.6 L Hematocrit 30.6 L Mean Corpuscular 84.8 Volume Mean Corpuscular 26.6 L Hemoglobin Mean Corpuscular 31.4 L Hemoglobin Sandi nt Red Cell 17.4 H Distribution Width Platelet Count 128 L Mean Platelet 9.6 Volume Immature 0.700 H Granulocytes % Neutrophils % 93.8 H Lymphocytes % 1.5 L Monocytes % 3.9 Eosinophils % 0.0 Basophils % 0.1 Nucleated Red 0.0 Blood Cells % Immature 0.050 H Granulocytes # Neutrophils # 7.1 Lymphocytes # 0.1 L Monocytes # 0.3 Eosinophils # 0.0 Basophils # 0.0 Nucleated Red 0.0 Blood Cells # Sodium Level 141 Potassium Level 4.7 Chloride Level 106 Carbon Dioxide 21 Level Anion Gap 14 H Blood Urea 87 H Nitrogen Creatinine 6.68 H Est Glomerular Filtrat Rate mL/min Glucose Level 174 Calcium Level 10.1 Phosphorus Level 5.3 H Magnesium Level 2.2 Iron Level 16 L Total Iron 144 L Binding Capacity Percent Iron 11 L Saturation Lab Scanned BLOOD TRANSFUSIO Report N Bedside Glucose 193 Blood Gas Blood arterial Specimen Source Arterial Blood 11/07/2018 7:55:46 Date Drawn AM Arterial Blood 7.419 pH (Temp corrected) Arterial Blood 31.3 L pCO2 (Temp correct) Arterial Blood 132.6 H pO2 (Temp corrected) Arterial Blood 19.8 L HCO3 Arterial Blood -3.9 L Base Excess Arterial Blood 98.7 Oxygen Saturatio n Rogerio Test N/A Arterial Blood A-Line Gas Puncture Site Arterial 0.8 Blood Carboxyhem oglobin Arterial Blood 0.4 Methemoglobin Blood Gas A-a O2 44.5 H Differential Oxyhemoglobin 97.5 Percent Blood Gas 37.0 Temperature Blood Gas 8.0 Respiration Rate Blood Gas Actual 16 Respiration Rate Blood Gas VENT - AC Modality FiO2 30.0 Blood Gas Tidal 500.0 Volume Blood Gas Low 5.0 PEEP Setting Blood Gas TM Notified Whom Blood Gas 11/07/2018 8:14:36 Notified Time AM Medications Medication Current Medications Ondansetron HCl (Zofran Inj) 4 mg Q6H PRN IV NAUSEA AND/OR VOMITING; Start 10/31/18 at 21:30 Albuterol (Proventil 0.083% (Neb)) 2.5 mg Q2H RESP THERAPY PRN NEB SHORTNESS OF BREATH Last administered on 11/04/18at 00:44; Admin Dose 2.5 MG; Start 10/31/18 at 21:30 Acetaminophen (Tylenol Liquid) 650 mg Q6H PRN PO PAIN LEVEL 1-3 OR FEVER; Start 10/31/18 at 21:30 Hydralazine HCl (Apresoline) 10 mg Q4H PRN IV ELEVATED BLOOD PRESSURE Last administered on 11/03/18 01:04; Admin Dose 10 MG; Start 10/31/18 at 22:00 Amlodipine Besylate (Norvasc) 5 mg BID PO Last administered on 11/06/18 21:05; Admin Dose 5 MG; Start 10/31/18 at 22:00 Benazepril HCl (Lotensin) 40 mg DAILY PO Last administered on 11/05/18 09:36; Admin Dose 40 MG; Start 11/01/18 at 09:00 Carvedilol (Coreg) 12.5 mg BID PO Last administered on 11/06/18 21:05; Admin Dose 12.5 MG; Start 10/31/18 at 22:00 Calcium Acetate (Phoslo) 667 mg WITH MEALS PO Last administered on 11/05/18 17:39; Admin Dose 667 MG; Start 11/01/18 at 08:00 Multivit/Ca Carb/ B Cmplx/FA/Prenat (Sharron-Ashley) 1 tab DAILY PO Last administered on 11/05/18 09:36; Admin Dose 1 TAB; Start 11/01/18 at 09:00 Diagnostic Test (Pha) (Accu-Chek) 1 ea 02 XX ; Start 11/02/18 at 02:00 Insulin Aspart (Novolog Insulin Pen) NOVOLOG *MILD* ALGORI... Q4 SC Last administered on 11/07/18 05:23; Admin Dose 2 UNIT; Start 11/01/18 at 13:00 Sevelamer Carbonate (Renvela) 0.8 gm WITH MEALS PO Last administered on 11/05/18 17:39; Admin Dose 0.8 GM; Start 11/01/18 at 18:00 Famotidine (Pepcid Iv) 20 mg DAILY IV Last administered on 11/06/18 08:19; Admin Dose 20 MG; Start 11/03/18 at 09:00 Miscellaneous Information 1 ea NOTE XX ; Start 11/02/18 at 17:00 Glucose (Glutose) 15 gm Q15M PRN PO DECREASED GLUCOSE; Start 11/02/18 at 17:00 Glucose (Glutose) 22.5 gm Q15M PRN PO DECREASED GLUCOSE; Start 11/02/18 at 17:00 Dextrose (D50w Syringe) 25 ml Q15M PRN IV DECREASED GLUCOSE; Start 11/02/18 at 17:00 Dextrose (D50w Syringe) 50 ml Q15M PRN IV DECREASED GLUCOSE; Start 11/02/18 at 17:00 Glucagon (Glucagen) 1 mg Q15M PRN IM DECREASED GLUCOSE; Start 11/02/18 at 17:00 Glucose (Glutose) 15 gm Q15M PRN BUCCAL DECREASED GLUCOSE; Start 11/02/18 at 17:00 Albumin Human 100 ml @ 100 mls/hr WITH DIALYSIS PRN IV SBP <90 DURING DIALYSIS; Start 11/03/18 at 08:30 Epoetin Virgil-epbx (Retacrit (Esrd)) 6,000 unit TuThSa@1700 SC Last administered on 11/04/18at 18:32; Admin Dose 6,000 UNIT; Start 11/04/18 at 17:00 Levetiracetam 100 ml @ 400 mls/hr Q12 IVPB Last administered on 11/06/18at 21:04; Admin Dose 400 MLS/HR; Start 11/04/18 at 01:30 Piperacillin Sod/ Tazobactam Sod 50 ml @ 200 mls/hr Q8 IVPB Last administered on 11/07/18at 05:19; Admin Dose 200 MLS/HR; Start 11/04/18 at 17:45 Lorazepam (Ativan) 1 mg Q5M PRN IV SEIZURES; Start 11/04/18 at 20:19 Morphine Sulfate (morphine) 2 mg Q4H PRN IV SEVERE PAIN LEVEL 7-10; Start 11/06/18 at 13:30 Hydralazine HCl (Apresoline) 10 mg Q6H PRN IV For SBP >160 Last administered on 11/06/18at 15:48; Admin Dose 10 MG; Start 11/06/18 at 13:30 SAUD CHANDLER MD Nov 07, 2018 08:53
[2018-11-07] MEDS: LEVETIRACETAM 500 MG (PMX) 100 ML IVPB SCH ×2 (09:13→20:43)
[2018-11-07] MEDS: AMLODIPINE 5 MG TAB PO SCH ×2 (09:18→20:43)
[2018-11-07] MEDS: SEVELAMER CARBONATE 0.8 GM PKT PO SCH ×3 (09:18→18:18)
[2018-11-07] MEDS: BENAZEPRIL 40 MG TAB PO SCH (09:18)
[2018-11-07] MEDS: MULTIVIT/CA CARB/B CMPLX/FA TAB PO SCH (09:18)
[2018-11-07] MEDS: CALCIUM ACETATE 667 MG CAP PO SCH ×3 (09:18→18:18)
[2018-11-07] MEDS: FAMOTIDINE 20 MG INJ IV SCH (09:24)
--- NOTE | 2018-11-07 10:54 | CONS ---
Consult Date/Type/Reason Admit Date/Time October 31, 2018 at 21:18 Initial Consult Date 11/04/18 Type of Consult Pulmonary Requesting Provider: GERMAIN VASQUES Date/Time of Note DATE: 11/07/18 TIME: 10:52 Subjective Patient and evacuation of subdural hematoma with ventriculostomy placed yesterday. Continues mechanical ventilation is more alert this morning with no evidence of respiratory distress. Objective Vital Signs Date Temp Pulse Resp B/P (MAP) Pulse Ox O2 O2 Flow FiO2 Time Delivery Rate 11/07/18 79 16 150/55 100 09:30 (86) 11/07/18 Mechanical 09:00 Ventilator 11/07/18 98.1 08:00 11/07/18 30 06:14 11/06/18 6.0 09:00 Intake and Output 11/06/18 11/06/18 11/07/18 1515:00 23:00 07:00 IntakeIntake Total 720 ml 390 ml 100 ml OutputOutput Total 150 ml 195 ml 127 ml BalanceBalance 570 ml 195 ml -27 ml Exam GENERAL: Elderly gentleman orally intubated with ventriculostomy in place. VITAL SIGNS: per chart NECK: Supple. No JVD or lymphadenopathy. CARDIAC EXAM: S1, S2. No added sounds or murmurs. CHEST: Diminished air entry right base greater than left ABDOMEN: Soft, nontender. No guarding or rebound. EXTREMITIES: No cyanosis, clubbing or edema. NEUROLOGIC: Generalized weakness. Vent Setting Ventilator Support Mode: AC Fraction of Inspired Oxygen pe: 30 Positive End Expiratory Pressu: 5.0 Results/Medications Result Diagram: 11/07/18 0455 11/07/18 0455 Results 24 hrs Laboratory Tests Test 11/06/18 13:19 11/06/18 17:28 11/06/18 21:06 11/07/18 01:03 Bedside Glucose 170 181 182 169 Test 11/07/18 04:55 11/07/18 05:10 11/07/18 05:17 11/07/18 07:00 White Blood 7.5 # Count Red Blood Count 3.61 L Hemoglobin 9.6 L Hematocrit 30.6 L Mean Corpuscular 84.8 Volume Mean Corpuscular 26.6 L Hemoglobin Mean Corpuscular 31.4 L Hemoglobin Sandi nt Red Cell 17.4 H Distribution Width Platelet Count 128 L Mean Platelet 9.6 Volume Immature 0.700 H Granulocytes % Neutrophils % 93.8 H Lymphocytes % 1.5 L Monocytes % 3.9 Eosinophils % 0.0 Basophils % 0.1 Nucleated Red 0.0 Blood Cells % Immature 0.050 H Granulocytes # Neutrophils # 7.1 Lymphocytes # 0.1 L Monocytes # 0.3 Eosinophils # 0.0 Basophils # 0.0 Nucleated Red 0.0 Blood Cells # Sodium Level 141 Potassium Level 4.7 Chloride Level 106 Carbon Dioxide 21 Level Anion Gap 14 H Blood Urea 87 H Nitrogen Creatinine 6.68 H Est Glomerular Filtrat Rate mL/min Glucose Level 174 Calcium Level 10.1 Phosphorus Level 5.3 H Magnesium Level 2.2 Iron Level 16 L Total Iron 144 L Binding Capacity Percent Iron 11 L Saturation Lab Scanned BLOOD TRANSFUSIO Report N Bedside Glucose 193 Blood Gas Blood arterial Specimen Source Arterial Blood 11/07/2018 7:55:46 Date Drawn AM Arterial Blood 7.419 pH (Temp corrected) Arterial Blood 31.3 L pCO2 (Temp correct) Arterial Blood 132.6 H pO2 (Temp corrected) Arterial Blood 19.8 L HCO3 Arterial Blood -3.9 L Base Excess Arterial Blood 98.7 Oxygen Saturatio n Rogerio Test N/A Arterial Blood A-Line Gas Puncture Site Arterial 0.8 Blood Carboxyhem oglobin Arterial Blood 0.4 Methemoglobin Blood Gas A-a O2 44.5 H Differential Oxyhemoglobin 97.5 Percent Blood Gas 37.0 Temperature Blood Gas 8.0 Respiration Rate Blood Gas Actual 16 Respiration Rate Blood Gas VENT - AC Modality FiO2 30.0 Blood Gas Tidal 500.0 Volume Blood Gas Low 5.0 PEEP Setting Blood Gas TM Notified Whom Blood Gas 11/07/2018 8:14:36 Notified Time AM Test 11/07/18 09:05 Bedside Glucose 161 Medications Current Medications Ondansetron HCl (Zofran Inj) 4 mg Q6H PRN IV NAUSEA AND/OR VOMITING; Start 10/31/18 at 21:30 Albuterol (Proventil 0.083% (Neb)) 2.5 mg Q2H RESP THERAPY PRN NEB SHORTNESS OF BREATH Last administered on 11/04/18at 00:44; Admin Dose 2.5 MG; Start 10/31/18 at 21:30 Acetaminophen (Tylenol Liquid) 650 mg Q6H PRN PO PAIN LEVEL 1-3 OR FEVER; Start 10/31/18 at 21:30 Hydralazine HCl (Apresoline) 10 mg Q4H PRN IV ELEVATED BLOOD PRESSURE Last administered on 11/03/18 01:04; Admin Dose 10 MG; Start 10/31/18 at 22:00 Amlodipine Besylate (Norvasc) 5 mg BID PO Last administered on 11/07/18 09:18; Admin Dose 5 MG; Start 10/31/18 at 22:00 Benazepril HCl (Lotensin) 40 mg DAILY PO Last administered on 11/07/18 09:18; Admin Dose 40 MG; Start 11/01/18 at 09:00 Carvedilol (Coreg) 12.5 mg BID PO Last administered on 11/07/18 09:17; Admin Dose 12.5 MG; Start 10/31/18 at 22:00 Calcium Acetate (Phoslo) 667 mg WITH MEALS PO Last administered on 11/07/18 09:18; Admin Dose 667 MG; Start 11/01/18 at 08:00 Multivit/Ca Carb/ B Cmplx/FA/Prenat (Sharron-Ashley) 1 tab DAILY PO Last administered on 11/07/18 09:18; Admin Dose 1 TAB; Start 11/01/18 at 09:00 Diagnostic Test (Pha) (Accu-Chek) 1 ea 02 XX ; Start 11/02/18 at 02:00 Insulin Aspart (Novolog Insulin Pen) NOVOLOG *MILD* ALGORI... Q4 SC Last administered on 11/07/18 09:12; Admin Dose 1 UNIT; Start 11/01/18 at 13:00 Sevelamer Carbonate (Renvela) 0.8 gm WITH MEALS PO Last administered on 11/07/18 09:18; Admin Dose 0.8 GM; Start 11/01/18 at 18:00 Famotidine (Pepcid Iv) 20 mg DAILY IV Last administered on 11/07/18 09:24; Admin Dose 20 MG; Start 11/03/18 at 09:00 Miscellaneous Information 1 ea NOTE XX ; Start 11/02/18 at 17:00 Glucose (Glutose) 15 gm Q15M PRN PO DECREASED GLUCOSE; Start 11/02/18 at 17:00 Glucose (Glutose) 22.5 gm Q15M PRN PO DECREASED GLUCOSE; Start 11/02/18 at 17:00 Dextrose (D50w Syringe) 25 ml Q15M PRN IV DECREASED GLUCOSE; Start 11/02/18 at 17:00 Dextrose (D50w Syringe) 50 ml Q15M PRN IV DECREASED GLUCOSE; Start 11/02/18 at 17:00 Glucagon (Glucagen) 1 mg Q15M PRN IM DECREASED GLUCOSE; Start 11/02/18 at 17:00 Glucose (Glutose) 15 gm Q15M PRN BUCCAL DECREASED GLUCOSE; Start 11/02/18 at 17:00 Albumin Human 100 ml @ 100 mls/hr WITH DIALYSIS PRN IV SBP <90 DURING DIALYSIS; Start 11/03/18 at 08:30 Epoetin Virgil-epbx (Retacrit (Esrd)) 6,000 unit TuThSa@1700 SC Last administered on 11/04/18at 18:32; Admin Dose 6,000 UNIT; Start 11/04/18 at 17:00 Levetiracetam 100 ml @ 400 mls/hr Q12 IVPB Last administered on 11/07/18at 09:13 ; Admin Dose 400 MLS/HR; Start 11/04/18 at 01:30 Piperacillin Sod/ Tazobactam Sod 50 ml @ 200 mls/hr Q8 IVPB Last administered on 11/07/18at 05:19; Admin Dose 200 MLS/HR; Start 11/04/18 at 17:45 Lorazepam (Ativan) 1 mg Q5M PRN IV SEIZURES; Start 11/04/18 at 20:19 Morphine Sulfate (morphine) 2 mg Q4H PRN IV SEVERE PAIN LEVEL 7-10; Start 11/06/18 at 13:30 Hydralazine HCl (Apresoline) 10 mg Q6H PRN IV For SBP >160 Last administered on 11/06/18at 15:48; Admin Dose 10 MG; Start 11/06/18 at 13:30 Ferric Sodium Gluconate Complex 125 mg/Sodium Chloride 110 ml @ 110 mls/hr DAILY@1300 IVPB ; Start 11/07/18 at 13:00; Stop 11/11/18 at 13:59 Assessment/Plan Hospital Course (Demo Recall) MP: 1. Hypoxemic Resp Failure--in a patient with a SDH who presented 6 days prior with AMS. Chest imaging notable for bilateral airspace opacities and effusions. Findings concerning for aspiration pneumonitis and co-existing volume overload. 2. ESRD on HD 3. SDH, with now seizures and change in mentation, status post evacuation and ventriculostomy placement 4. P-Afib, previously on anticoagulation RECS: 1. Continue mechanical ventilation 2. Thoracentesis right pleural effusion 3. Continue neurosurgical recommendations with ventriculostomy drainage 4. Check procalcitonin de-escalate antibiotics if possible 5. Continue hemodialysis as tolerated Critical care time 40 minutes. REYES ROLON MD, [facility] Nov 07, 2018 10:54
[2018-11-07] MEDS: SOD FERRIC GLUC COMPLX 125 MG in SOD CHLORIDE 0.9% 100 ML IVPB SCH (12:05)
[2018-11-07] MEDS: morphine 2 MG INJ IV PRN ×2 (12:36→16:31)
--- NOTE | 2018-11-07 13:45 | PN ---
DATE: 11/07/2018 SUBJECTIVE: The patient remains off any form of pressors of sedation, but remains intubated. The patient however will open his eyes, does not track or follow commands but is able to move his extremities with left-sided hemiparesis. Nurses are concerned of possible multiple PACs versus bigeminy. OBJECTIVE: VITAL SIGNS: Temperature 98.1, pulse 79, respirations 18, blood pressure 150/55, saturations 100% on mechanical ventilator at FiO2 of 30%. GENERAL: Eyes are open. There is random movement of his pupils without purposeful tracking. The patient is able to follow commands. NEUROLOGIC: There is evidence of left-sided hemiparesis. HEENT: Otherwise, pupils remain unequal and reactive though the left larger than the right. He continues to have a drain draining the left frontotemporal, is still having good output. Surgical myrna are clean and dry with large frontotemporal incision extending on the right side posteriorly. CHEST: With faint air entry with ventilator support without crackles or wheezes. CARDIOVASCULAR: The patient is sinus on the monitor. S1, S2. No murmurs. ABDOMEN: Soft, does not seem tender. The patient with hypoactive bowel sounds. EXTREMITIES: There is no lower extremity edema. LABORATORY VALUES: Today, WBC count 7.5, which is normal, hemoglobin is 9.6 and platelet count is still low but better than prior at 128. Chemistry: His profile was consistent with iron deficiency. Phosphorus is 5.3. BUN and creatinine are consistent with chronic renal insufficiency. IMAGING STUDIES: The patient had a CT scan done postoperatively yesterday that showed postsurgical changes with subdural drain, pneumocephalus and stable appearance to all what is left of the subdural hematoma. Chest x-ray this morning showed moderate to large right-sided effusion that has been stable. ASSESSMENT: A 78-year-old male with history of fall 2 days prior to presentation, who was brought in for confusion and is managed as follows: 1. Acute encephalopathy secondary to acute subdural hematoma on the right side. - The patient is status post craniotomy and bur hole and drain placement in 11/06/2018. - The patient remains monitored in intensive care unit. - The patient is now with residual left-sided hemiparesis. 2. Severe anemia, likely acute on chronic, exacerbated by acute blood loss from #1. - Status post 2 units of packed red cells upon arrival. Hemoglobin has been stable since. The patient remains off anticoagulation and antiplatelet therapy. 3. End-stage renal disease on hemodialysis Tuesday, and Tuesday. 4. Iron deficiency contributing to anemia. Commence iron replacement. 5. Diabetes mellitus. The patient is to be started on tube feeds today and we will plan to resume hypoglycemics as indicated. 6. Paroxysmal atrial fibrillation, off anticoagulation. The patient remains at sinus rhythm, but evidence of multiple premature atrial contractions. 7. Hypertension: Now with good control. 8. Acute respiratory failure, ventilator dependent. Chest x-ray is showing right-sided effusion. The plan is for paracentesis after which we will begin ventilator weaning. 9. Aspiration pneumonitis on antibiotics. 10. New onset seizures secondary to #1, now controlled with antiepileptic drugs. 11. Chronic thrombocytopenia also likely related to iron deficiency with complaints of end-stage renal disease related thrombocytopenia. - The patient required 1 unit of platelet transfusion on arrival. The patient's levels are improving now, though still low. 12. Chronic debility with history of recurrent falls, status post recent fall that began this process. - The patient will likely require nursing facility placement and will be discharged if he does well. DISPOSITION: Continue ICU monitoring. The patient is planned for thoracentesis today. The patient also continues to have significant output from subdural drain. Mentation also is not quite improved. The patient will be started on tube feeds and further interventions depend on clinical course. We will continue ICU close monitoring and medical management. Care time today has been greater than 40 minutes. DID#: [id number] CC: WHITNEY CATALAN MD; THIEN LUCIO MD;*EndCC* MTDD
--- NOTE | 2018-11-07 14:22 | CONS ---
Assessment/Plan Assessment/Plan Assessment/Plan (Recall) 78 yo M w/ afib on eliquis, and other comorbidities...who presented with progressive following repeated falls. Head CT revealed a R convexity SDH (and scattered SAH and IVH), for which he is under the care of neurosurgery. He was noted to have several clinical spells concerning for seizure in the days following admission, for which neurology is now consulted.. P: Agree w/ Keppra as ordered for seizure ppx for now Ativan iv prn prolonged seizure (> 5 min) or cluster Hemorrhage management per neurosurgery Limit sedating medications where possible Other management and supportive care per primary Will follow clinically Consultation Date/Type/Reason Admit Date/Time October 31, 2018 at 21:18 Type of Consult Neurology Reason for Consultation seizures Requesting Provider: GERMAIN VASQUES Date/Time of Note DATE: 11/07/18 TIME: 14:22 24 HR Interval Summary Free Text/Dictation Continues critical care. Awaiting thoracentesis. Exam/Review of Systems Exam Vitals Vital Signs Date Temp Pulse Resp B/P (MAP) Pulse Ox O2 O2 Flow FiO2 Time Delivery Rate 11/07/18 97.6 75 16 152/55 100 Mechanical 12:00 (87) Ventilator 11/07/18 30 06:14 11/06/18 6.0 09:00 Intake and Output 11/06/18 11/06/18 11/07/18 1515:00 23:00 07:00 IntakeIntake Total 720 ml 390 ml 100 ml OutputOutput Total 150 ml 195 ml 127 ml BalanceBalance 570 ml 195 ml -27 ml Exam PE: Gen Appearance: No Apparent Distress HEENT: Normocephalic Cardiovascular: Regular rate Abdomen: Soft Extremities: Dry NE: The patient was awake, though nonverbal. Able to track. Unable to follow any commands. Cranial nerve examination was limited by mental status. Pupils were slightly unequal (L > R) though reactive to light. There was no afferent pupillary defect. Funduscopic examination was limited. Face was grossly symmetric, w/ present corneal and cough reflexes. Tone was normal. Muscle bulk was normal. I did not see fasciculations. The patient had spontaneous movement of all extremities. Coordination and gait testing was limited by mental status. Arm and leg reflexes were within normal limits and symmetric. Santana's sign was absent. Plantar responses were flexor. Results Result Diagram: 11/07/18 0455 11/07/18 0455 Results 24hrs Laboratory Tests Test 11/06/18 17:28 11/06/18 21:06 11/07/18 01:03 11/07/18 04:55 Bedside Glucose 181 182 169 White Blood 7.5 # Count Red Blood Count 3.61 L Hemoglobin 9.6 L Hematocrit 30.6 L Mean Corpuscular 84.8 Volume Mean Corpuscular 26.6 L Hemoglobin Mean Corpuscular 31.4 L Hemoglobin Sandi nt Red Cell 17.4 H Distribution Width Platelet Count 128 L Mean Platelet 9.6 Volume Immature 0.700 H Granulocytes % Neutrophils % 93.8 H Lymphocytes % 1.5 L Monocytes % 3.9 Eosinophils % 0.0 Basophils % 0.1 Nucleated Red 0.0 Blood Cells % Immature 0.050 H Granulocytes # Neutrophils # 7.1 Lymphocytes # 0.1 L Monocytes # 0.3 Eosinophils # 0.0 Basophils # 0.0 Nucleated Red 0.0 Blood Cells # Sodium Level 141 Potassium Level 4.7 Chloride Level 106 Carbon Dioxide 21 Level Anion Gap 14 H Blood Urea 87 H Nitrogen Creatinine 6.68 H Est Glomerular Filtrat Rate mL/min Glucose Level 174 Calcium Level 10.1 Phosphorus Level 5.3 H Magnesium Level 2.2 Iron Level 16 L Total Iron 144 L Binding Capacity Percent Iron 11 L Saturation Test 11/07/18 05:10 11/07/18 05:17 11/07/18 07:00 11/07/18 09:05 Lab Scanned BLOOD TRANSFUSIO Report N Bedside Glucose 193 161 Blood Gas Blood arterial Specimen Source Arterial Blood 11/07/2018 7:55:46 Date Drawn AM Arterial Blood 7.419 pH (Temp corrected) Arterial Blood 31.3 L pCO2 (Temp correct) Arterial Blood 132.6 H pO2 (Temp corrected) Arterial Blood 19.8 L HCO3 Arterial Blood -3.9 L Base Excess Arterial Blood 98.7 Oxygen Saturatio n Rogerio Test N/A Arterial Blood A-Line Gas Puncture Site Arterial 0.8 Blood Carboxyhem oglobin Arterial Blood 0.4 Methemoglobin Blood Gas A-a O2 44.5 H Differential Oxyhemoglobin 97.5 Percent Blood Gas 37.0 Temperature Blood Gas 8.0 Respiration Rate Blood Gas Actual 16 Respiration Rate Blood Gas VENT - AC Modality FiO2 30.0 Blood Gas Tidal 500.0 Volume Blood Gas Low 5.0 PEEP Setting Blood Gas TM Notified Whom Blood Gas 11/07/2018 8:14:36 Notified Time AM Test 11/07/18 12:04 Bedside Glucose 171 Medications Medication Current Medications Ondansetron HCl (Zofran Inj) 4 mg Q6H PRN IV NAUSEA AND/OR VOMITING; Start 10/31/18 at 21:30 Albuterol (Proventil 0.083% (Neb)) 2.5 mg Q2H RESP THERAPY PRN NEB SHORTNESS OF BREATH Last administered on 11/04/18 00:44; Admin Dose 2.5 MG; Start 10/31/18 at 21:30 Acetaminophen (Tylenol Liquid) 650 mg Q6H PRN PO PAIN LEVEL 1-3 OR FEVER; Start 10/31/18 at 21:30 Hydralazine HCl (Apresoline) 10 mg Q4H PRN IV ELEVATED BLOOD PRESSURE Last administered on 11/03/18 01:04; Admin Dose 10 MG; Start 10/31/18 at 22:00 Amlodipine Besylate (Norvasc) 5 mg BID PO Last administered on 11/07/18 09:18; Admin Dose 5 MG; Start 10/31/18 at 22:00 Benazepril HCl (Lotensin) 40 mg DAILY PO Last administered on 11/07/18 09:18; Admin Dose 40 MG; Start 11/01/18 at 09:00 Carvedilol (Coreg) 12.5 mg BID PO Last administered on 11/07/18 09:17; Admin Dose 12.5 MG; Start 10/31/18 at 22:00 Calcium Acetate (Phoslo) 667 mg WITH MEALS PO Last administered on 11/07/18 12:06; Admin Dose 667 MG; Start 11/01/18 at 08:00 Multivit/Ca Carb/ B Cmplx/FA/Prenat (Sharron-Ashley) 1 tab DAILY PO Last administered on 11/07/18 09:18; Admin Dose 1 TAB; Start 11/01/18 at 09:00 Diagnostic Test (Pha) (Accu-Chek) 1 ea 02 XX ; Start 11/02/18 at 02:00 Insulin Aspart (Novolog Insulin Pen) NOVOLOG *MILD* ALGORI... Q4 SC Last administered on 6/4/19at 12:20; Admin Dose 1 UNIT; Start 11/01/18 at 13:00 Sevelamer Carbonate (Renvela) 0.8 gm WITH MEALS PO Last administered on 11/07/18 12:06; Admin Dose 0.8 GM; Start 11/01/18 at 18:00 Famotidine (Pepcid Iv) 20 mg DAILY IV Last administered on 11/07/18 09:24; Admin Dose 20 MG; Start 11/03/18 at 09:00 Miscellaneous Information 1 ea NOTE XX ; Start 11/02/18 at 17:00 Glucose (Glutose) 15 gm Q15M PRN PO DECREASED GLUCOSE; Start 11/02/18 at 17:00 Glucose (Glutose) 22.5 gm Q15M PRN PO DECREASED GLUCOSE; Start 11/02/18 at 17:00 Dextrose (D50w Syringe) 25 ml Q15M PRN IV DECREASED GLUCOSE; Start 11/02/18 at 17:00 Dextrose (D50w Syringe) 50 ml Q15M PRN IV DECREASED GLUCOSE; Start 11/02/18 at 17:00 Glucagon (Glucagen) 1 mg Q15M PRN IM DECREASED GLUCOSE; Start 11/02/18 at 17:00 Glucose (Glutose) 15 gm Q15M PRN BUCCAL DECREASED GLUCOSE; Start 11/02/18 at 17:00 Albumin Human 100 ml @ 100 mls/hr WITH DIALYSIS PRN IV SBP <90 DURING DIALYSIS; Start 11/03/18 at 08:30 Epoetin Virgil-epbx (Retacrit (Esrd)) 6,000 unit TuThSa@1700 SC Last administered on 11/04/18at 18:32; Admin Dose 6,000 UNIT; Start 11/04/18 at 17:00 Levetiracetam 100 ml @ 400 mls/hr Q12 IVPB Last administered on 11/07/18 09:13; Admin Dose 400 MLS/HR; Start 11/04/18 at 01:30 Piperacillin Sod/ Tazobactam Sod 50 ml @ 200 mls/hr Q8 IVPB Last administered on 11/07/18at 14:01; Admin Dose 200 MLS/HR; Start 11/04/18 at 17:45 Lorazepam (Ativan) 1 mg Q5M PRN IV SEIZURES; Start 11/04/18 at 20:19 Morphine Sulfate (morphine) 2 mg Q4H PRN IV SEVERE PAIN LEVEL 7-10 Last administered on 11/07/18at 12:36; Admin Dose 2 MG; Start 11/06/18 at 13:30 Hydralazine HCl (Apresoline) 10 mg Q6H PRN IV For SBP >160 Last administered on 11/06/18at 15:48; Admin Dose 10 MG; Start 11/06/18 at 13:30 Ferric Sodium Gluconate Complex 125 mg/Sodium Chloride 110 ml @ 110 mls/hr DA KIT@1300 IVPB Last administered on 11/07/18at 12:05; Admin Dose 110 MLS/HR; Start 11/07/18 at 13:00; Stop 11/11/18 at 13:59 FLORENTIN COLUNGA NP Nov 07, 2018 14:22 VALDEMAR VIEIRA Nov 07, 2018 19:47
[2018-11-07] MEDS ORDERED: LIDOCAINE 1% (MPF) 5 ML VIAL ONE (14:26)
--- NOTE | 2018-11-07 15:59 | QN ---
Documentation Comment POD # [address] shows significant evacuation with right frontal and subfrontal residual hematoma. Plan is to continue drainage and re-image in the am. KELLIE JJ MD Nov 07, 2018 15:59
[2018-11-07] MEDS ORDERED: FENTAnyl (DRIP) 1000 mcg/100mL 100 ML IV SCH (18:00)
[2018-11-07] MEDS ORDERED: MIDAZOLAM (DRIP) 50 mg/50 mL 50 ML IV SCH (18:00)
--- NOTE | 2018-11-07 19:38 | CONS ---
Assessment/Plan Assessment/Plan Hospital Course (Demo Recall) Traumatic SDH: in setting of Eliquis. 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 Now both resolved and normal EF Paroxysmal atrial flutter/fibrillation: CHADSVASC 5 and was on Eliquis outpt but now s/p fall with ICH as above so on hold Aspiration PNA Pleural effusion: s/p thora 11/07 Thrombocytopenia Anemia: ?from ICH. s/p 2 units ESRD on HD HTN -start home clonidine 0.1mg BID -hold anticoagulation/antiplatelets -coreg 12.5 mg BID -amlodipine 5mg BID -benazepril 40mg -antibiotics Consultation Date/Type/Reason Admit Date/Time October 31, 2018 at 21:18 Initial Consult Date 11/06/18 Type of Consult Cardiology Requesting Provider: GERMAIN VASQUES Date/Time of Note DATE: 11/07/18 TIME: 19:36 24 HR Interval Summary Free Text/Dictation Responding neurologically. s/o right thora. Exam/Review of Systems Vital Signs Vitals Vital Signs Date Temp Pulse Resp B/P (MAP) Pulse Ox O2 O2 Flow FiO2 Time Delivery Rate 11/07/18 85 19:10 11/07/18 16 153/58 100 18:30 (89) 11/07/18 Mechanical 18:00 Ventilator 11/07/18 97.4 16:00 11/07/18 30 06:14 11/06/18 6.0 09:00 Intake and Output 11/06/18 11/06/18 11/07/18 1515:00 23:00 07:00 IntakeIntake Total 720 ml 390 ml 100 ml OutputOutput Total 150 ml 195 ml 127 ml BalanceBalance 570 ml 195 ml -27 ml Exam Constitutional: No alert ENMT: intubated Neck: supple; No jvd Respiratory: diminished breath sounds; No clear to auscultation Cardiovascular: regular rate and rhythm; No edema Gastrointestinal: soft; No distended Neurological: No nl mental status, No nl speech Labs Result Diagram: 11/07/18 0455 11/07/18 0455 Results 24hrs Laboratory Tests Test 11/06/18 21:06 11/07/18 01:03 11/07/18 04:55 11/07/18 05:10 Bedside Glucose 182 169 White Blood 7.5 # Count Red Blood Count 3.61 L Hemoglobin 9.6 L Hematocrit 30.6 L Mean Corpuscular 84.8 Volume Mean Corpuscular 26.6 L Hemoglobin Mean Corpuscular 31.4 L Hemoglobin Sandi nt Red Cell 17.4 H Distribution Width Platelet Count 128 L Mean Platelet 9.6 Volume Immature 0.700 H Granulocytes % Neutrophils % 93.8 H Lymphocytes % 1.5 L Monocytes % 3.9 Eosinophils % 0.0 Basophils % 0.1 Nucleated Red 0.0 Blood Cells % Immature 0.050 H Granulocytes # Neutrophils # 7.1 Lymphocytes # 0.1 L Monocytes # 0.3 Eosinophils # 0.0 Basophils # 0.0 Nucleated Red 0.0 Blood Cells # Sodium Level 141 Potassium Level 4.7 Chloride Level 106 Carbon Dioxide 21 Level Anion Gap 14 H Blood Urea 87 H Nitrogen Creatinine 6.68 H Est Glomerular Filtrat Rate mL/min Glucose Level 174 Calcium Level 10.1 Phosphorus Level 5.3 H Magnesium Level 2.2 Iron Level 16 L Total Iron 144 L Binding Capacity Percent Iron 11 L Saturation Lab Scanned BLOOD TRANSFUSIO Report N Test 11/07/18 05:17 11/07/18 07:00 11/07/18 09:05 11/07/18 12:04 Bedside Glucose 193 161 171 Blood Gas Blood arterial Specimen Source Arterial Blood 11/07/2018 7:55:46 Date Drawn AM Arterial Blood 7.419 pH (Temp corrected) Arterial Blood 31.3 L pCO2 (Temp correct) Arterial Blood 132.6 H pO2 (Temp corrected) Arterial Blood 19.8 L HCO3 Arterial Blood -3.9 L Base Excess Arterial Blood 98.7 Oxygen Saturatio n Rogerio Test N/A Arterial Blood A-Line Gas Puncture Site Arterial 0.8 Blood Carboxyhem oglobin Arterial Blood 0.4 Methemoglobin Blood Gas A-a O2 44.5 H Differential Oxyhemoglobin 97.5 Percent Blood Gas 37.0 Temperature Blood Gas 8.0 Respiration Rate Blood Gas Actual 16 Respiration Rate Blood Gas VENT - AC Modality FiO2 30.0 Blood Gas Tidal 500.0 Volume Blood Gas Low 5.0 PEEP Setting Blood Gas TM Notified Whom Blood Gas 11/07/2018 8:14:36 Notified Time AM Test 11/07/18 17:38 Bedside Glucose 158 Medications Medications Current Medications Ondansetron HCl (Zofran Inj) 4 mg Q6H PRN IV NAUSEA AND/OR VOMITING; Start 10/31/18 at 21:30 Albuterol (Proventil 0.083% (Neb)) 2.5 mg Q2H RESP THERAPY PRN NEB SHORTNESS OF BREATH Last administered on 11/04/18 00:44; Admin Dose 2.5 MG; Start 10/31/18 at 21:30 Acetaminophen (Tylenol Liquid) 650 mg Q6H PRN PO PAIN LEVEL 1-3 OR FEVER Last administered on 11/07/18 15:40; Admin Dose 650 MG; Start 10/31/18 at 21:30 Hydralazine HCl (Apresoline) 10 mg Q4H PRN IV ELEVATED BLOOD PRESSURE Last administered on 11/03/18 01:04; Admin Dose 10 MG; Start 10/31/18 at 22:00 Amlodipine Besylate (Norvasc) 5 mg BID PO Last administered on 11/07/18 09:18; Admin Dose 5 MG; Start 10/31/18 at 22:00 Benazepril HCl (Lotensin) 40 mg DAILY PO Last administered on 11/07/18 09:18; Admin Dose 40 MG; Start 11/01/18 at 09:00 Calcium Acetate (Phoslo) 667 mg WITH MEALS PO Last administered on 11/07/18 18:18; Admin Dose 667 MG; Start 11/01/18 at 08:00 Multivit/Ca Carb/ B Cmplx/FA/Prenat (Sharron-Ashley) 1 tab DAILY PO Last admi nistered on 11/07/18 09:18; Admin Dose 1 TAB; Start 11/01/18 at 09:00 Diagnostic Test (Pha) (Accu-Chek) 1 ea 02 XX ; Start 11/02/18 at 02:00 Insulin Aspart (Novolog Insulin Pen) NOVOLOG *MILD* ALGORI... Q4 SC Last administered on 11/07/18 17:43; Admin Dose 1 UNIT; Start 11/01/18 at 13:00 Sevelamer Carbonate (Renvela) 0.8 gm WITH MEALS PO Last administered on 11/07/18 18:18; Admin Dose 0.8 GM; Start 11/01/18 at 18:00 Famotidine (Pepcid Iv) 20 mg DAILY IV Last administered on 11/07/18at 09:24; A dmin Dose 20 MG; Start 11/03/18 at 09:00 Miscellaneous Information 1 ea NOTE XX ; Start 11/02/18 at 17:00 Glucose (Glutose) 15 gm Q15M PRN PO DECREASED GLUCOSE; Start 11/02/18 at 17:00 Glucose (Glutose) 22.5 gm Q15M PRN PO DECREASED GLUCOSE; Start 11/02/18 at 17:00 Dextrose (D50w Syringe) 25 ml Q15M PRN IV DECREASED GLUCOSE; Start 11/02/18 at 17:00 Dextrose (D50w Syringe) 50 ml Q15M PRN IV DECREASED GLUCOSE; Start 11/02/18 at 17:00 Glucagon (Glucagen) 1 mg Q15M PRN IM DECREASED GLUCOSE; Start 11/02/18 at 17:00 Glucose (Glutose) 15 gm Q15M PRN BUCCAL DECREASED GLUCOSE; Start 11/02/18 at 1 7:00 Albumin Human 100 ml @ 100 mls/hr WITH DIALYSIS PRN IV SBP <90 DURING DIALYSIS; Start 11/03/18 at 08:30 Epoetin Virgil-epbx (Retacrit (Esrd)) 6,000 unit TuThSa@1700 SC Last administered on 11/04/18at 18:32; Admin Dose 6,000 UNIT; Start 11/04/18 at 17:00 Levetiracetam 100 ml @ 400 mls/hr Q12 IVPB Last administered on 11/07/18at 09:13; Admin Dose 400 MLS/HR; Start 11/04/18 at 01:30 Piperacillin Sod/ Tazobactam Sod 50 ml @ 200 mls/hr Q8 IVPB Last administered on 11/07/18at 14:01; Admin Dose 200 MLS/HR; Start 11/04/18 at 17:45 Lorazepam (Ativan) 1 mg Q5M PRN IV SEIZURES; Start 11/04/18 at 20:19 Morphine Sulfate (morphine) 2 mg Q4H PRN IV SEVERE PAIN LEVEL 7-10 Last administered on 11/07/18at 16:31; Admin Dose 2 MG; Start 11/06/18 at 13:30 Hydralazine HCl (Apresoline) 10 mg Q6H PRN IV For SBP >160 Last administered on 11/06/18at 15:48; Admin Dose 10 MG; Start 11/06/18 at 13:30 Ferric Sodium Gluconate Complex 125 mg/Sodium Chloride 110 ml @ 110 mls/hr DAILY@1300 IVPB Last administered on 11/07/18at 12:05; Admin Dose 110 MLS/HR; Start 11/07/18 at 13:00; Stop 11/11/18 at 13:59 Midazolam HCl 50 ml @ 1 mls/hr TITRATE IV Last administered on 11/07/18at 18:20; Admin Dose 1 MLS/HR; Start 11/07/18 at 18:00 Fentanyl 100 ml @ 2.5 mls/hr TITRATE IV Last administered on 11/07/18at 18:21; Admin Dose 2.5 MLS/HR; Start 11/07/18 at 18:00 Carvedilol (Coreg) 25 mg BID PO ; Start 11/07/18 at 21:00; Status UNWAYNE DENISE Nov 07, 2018 19:38
[2018-11-07] MEDS: EPOETIN ALFA-EPBX (ESRD) 3,000 UNIT/ML VIAL SC SCH (20:43)
[2018-11-08] VITALS (87 sets, daily range): BP systolic 111–160; BP diastolic 38–59; PULSE 61–82; RESP 8–22
[2018-11-08] MEDS: ACCU-CHEK XX SCH (01:47)
[2018-11-08] MEDS: INSULIN ASPART [NOVOLOG] 3 ML PEN SC SCH ×6 (01:50→20:38)
[2018-11-08] MEDS: PIPER-TAZO 2.25 GM (PMX) 50 ML IVPB SCH ×3 (06:07→22:56)
--- NOTE | 2018-11-08 08:53 | CONS ---
Consult Date/Type/Reason Admit Date/Time October 31, 2018 at 21:18 Initial Consult Date 11/04/18 Type of Consult Pulmonary Requesting Provider: GERMAIN VASQUES Date/Time of Note DATE: 11/08/18 TIME: 08:51 Subjective Patient appears somnolent this morning continues mechanical ventilation low-dose sedation. Currently hemodynamically stable ventriculostomy still draining. Objective Vital Signs Date Temp Pulse Resp B/P (MAP) Pulse Ox O2 O2 Flow FiO2 Time Delivery Rate 11/08/18 62 11 143/45 100 06:45 (77) 11/08/18 30 05:10 11/08/18 98.1 04:00 11/07/18 Mechanical 18:00 Ventilator 11/06/18 6.0 09:00 Intake and Output 11/07/18 11/07/18 11/08/18 1515:00 23:00 07:00 IntakeIntake Total 315 ml 914.0 ml 329.5 ml OutputOutput Total 20 ml 2660 ml 110 ml BalanceBalance 295 ml -1746.0 ml 219.5 ml Exam GENERAL: Elderly gentleman orally intubated with ventriculostomy in place. VITAL SIGNS: per chart NECK: Supple. No JVD or lymphadenopathy. CARDIAC EXAM: S1, S2. No added sounds or murmurs. CHEST: Diminished air entry right base greater than left ABDOMEN: Soft, nontender. No guarding or rebound. EXTREMITIES: No cyanosis, clubbing or edema. NEUROLOGIC: Generalized weakness. Vent Setting Ventilator Support Mode: AC Fraction of Inspired Oxygen pe: 30 Positive End Expiratory Pressu: 5.0 Results/Medications Result Diagram: 11/08/18 0420 11/08/18 0420 Results 24 hrs Laboratory Tests Test 11/07/18 09:05 11/07/18 12:04 11/07/18 17:38 11/07/18 20:41 Bedside Glucose 161 171 158 148 Test 11/08/18 01:43 11/08/18 04:20 11/08/18 05:16 Bedside Glucose 195 176 White Blood Count 9.3 # Red Blood Count 3.34 L Hemoglobin 8.8 L Hematocrit 28.8 L Mean Corpuscular Volume 86.2 Mean Corpuscular 26.3 L Hemoglobin Mean Corpuscular 30.6 L Hemoglobin Concent Red Cell Distribution 17.6 H Width Platelet Count 152 Mean Platelet Volume 9.8 Immature Granulocytes % 0.400 Neutrophils % 82.3 H Lymphocytes % 3.2 L Monocytes % 13.9 H Eosinophils % 0.1 Basophils % 0.1 Nucleated Red Blood 0.0 Cells % Immature Granulocytes # 0.040 H Neutrophils # 7.6 H Lymphocytes # 0.3 L Monocytes # 1.3 H Eosinophils # 0.0 Basophils # 0.0 Nucleated Red Blood 0.0 Cells # Sodium Level 140 Potassium Level 3.9 Chloride Level 103 Carbon Dioxide Level 28 Anion Gap 9 # Blood Urea Nitrogen 53 #H Creatinine 4.44 #H Est Glomerular Filtrat Rate mL/min Glucose Level 161 Calcium Level 9.3 Procalcitonin 0.54 H Medications Current Medications Ondansetron HCl (Zofran Inj) 4 mg Q6H PRN IV NAUSEA AND/OR VOMITING; Start 10/31/18 at 21:30 Albuterol (Proventil 0.083% (Neb)) 2.5 mg Q2H RESP THERAPY PRN NEB SHORTNESS OF BREATH Last administered on 11/04/18 00:44; Admin Dose 2.5 MG; Start 10/31/18 at 21:30 Acetaminophen (Tylenol Liquid) 650 mg Q6H PRN PO PAIN LEVEL 1-3 OR FEVER Last administered on 11/07/18 15:40; Admin Dose 650 MG; Start 10/31/18 at 21:30 Hydralazine HCl (Apresoline) 10 mg Q4H PRN IV ELEVATED BLOOD PRESSURE Last administered on 11/03/18 01:04; Admin Dose 10 MG; Start 10/31/18 at 22:00 Amlodipine Besylate (Norvasc) 5 mg BID PO Last administered on 11/07/18 20:43; Admin Dose 5 MG; Start 10/31/18 at 22:00 Benazepril HCl (Lotensin) 40 mg DAILY PO Last administered on 11/07/18 09:18; Admin Dose 40 MG; Start 11/01/18 at 09:00 Calcium Acetate (Phoslo) 667 mg WITH MEALS PO Last administered on 11/07/18 18:18; Admin Dose 667 MG; Start 11/01/18 at 08:00 Multivit/Ca Carb/ B Cmplx/FA/Prenat (Sharron-Ashley) 1 tab DAILY PO Last administe red on 11/07/18 09:18; Admin Dose 1 TAB; Start 11/01/18 at 09:00 Diagnostic Test (Pha) (Accu-Chek) 1 ea 02 XX Last administered on 11/08/18at 01:47; Admin Dose 1 EA; Start 11/02/18 at 02:00 Insulin Aspart (Novolog Insulin Pen) NOVOLOG *MILD* ALGORI... Q4 SC Last administered on 11/08/18 05:19; Admin Dose 1 UNIT; Start 11/01/18 at 13:00 Sevelamer Carbonate (Renvela) 0.8 gm WITH MEALS PO Last administered on 11/07/18 18:18; Admin Dose 0.8 GM; Start 11/01/18 at 18:00 Famotidine (Pepcid Iv) 20 mg DAILY IV Last administered on 11/07/18 09:24; Admin Dose 20 MG; Start 11/03/18 at 09:00 Miscellaneous Information 1 ea NOTE XX ; Start 11/02/18 at 17:00 Glucose (Glutose) 15 gm Q15M PRN PO DECREASED GLUCOSE; Start 11/02/18 at 17:00 Glucose (Glutose) 22.5 gm Q15M PRN PO DECREASED GLUCOSE; Start 11/02/18 at 17:00 Dextrose (D50w Syringe) 25 ml Q15M PRN IV DECREASED GLUCOSE; Start 11/02/18 at 17:00 Dextrose (D50w Syringe) 50 ml Q15M PRN IV DECREASED GLUCOSE; Start 11/02/18 at 17:00 Glucagon (Glucagen) 1 mg Q15M PRN IM DECREASED GLUCOSE; Start 11/02/18 at 17:00 Glucose (Glutose) 15 gm Q15M PRN BUCCAL DECREASED GLUCOSE; Start 11/02/18 at 17:00 Albumin Human 100 ml @ 100 mls/hr WITH DIALYSIS PRN IV SBP <90 DURING DIALYSIS; Start 11/03/18 at 08:30 Epoetin Virgil-epbx (Retacrit (Esrd)) 6,000 unit TuThSa@1700 SC Last administered on 11/07/18 20:43; Admin Dose 6,000 UNIT; Start 11/04/18 at 17:00 Levetiracetam 100 ml @ 400 mls/hr Q12 IVPB Last administered on 11/07/18 20:43; Admin Dose 400 MLS/HR; Start 11/04/18 at 01:30 Piperacillin Sod/ Tazobactam Sod 50 ml @ 200 mls/hr Q8 IVPB Last administered on 11/08/18 06:07; Admin Dose 200 MLS/HR; Start 11/04/18 at 17:45 Lorazepam (Ativan) 1 mg Q5M PRN IV SEIZURES; Start 11/04/18 at 20:19 Morphine Sulfate (morphine) 2 mg Q4H PRN IV SEVERE PAIN LEVEL 7-10 Last administered on 11/07/18 16:31; Admin Dose 2 MG; Start 11/06/18 at 13:30 Hydralazine HCl (Apresoline) 10 mg Q6H PRN IV For SBP >160 Last administered on 11/06/18 15:48; Admin Dose 10 MG; Start 11/06/18 at 13:30 Ferric Sodium Gluconate Complex 125 mg/Sodium Chloride 110 ml @ 110 mls/hr DAILY@1300 IVPB Last administered on 11/07/18 12:05; Admin Dose 110 MLS/HR; Start 11/07/18 at 13:00; Stop 11/11/18 at 13:59 Midazolam HCl 50 ml @ 1 mls/hr TITRATE IV Last administered on 11/07/18 18:20; Admin Dose 1 MLS/HR; Start 11/07/18 at 18:00 Fentanyl 100 ml @ 2.5 mls/hr TITRATE IV Last administered on 11/07/18 18:21; Admin Dose 2.5 MLS/HR; Start 11/07/18 at 18:00 Carvedilol (Coreg) 12.5 mg BID PO Last administered on 11/07/18 20:45; Admin Dose 12.5 MG; Start 11/07/18 at 21:00 Clonidine (Catapres) 0.1 mg BID PO Last administered on 11/07/18 20:44; Admin Dose 0.1 MG; Start 11/07/18 at 21:00 Assessment/Plan Hospital Course (Demo Recall) MP: 1. Hypoxemic Resp Failure--in a patient with a SDH who presented 6 days prior with AMS. Chest imaging notable for bilateral airspace opacities and effusions. Findings concerning for aspiration pneumonitis and co-existing volume overload. 2. ESRD on HD 3. SDH, with now seizures and change in mentation, status post evacuation and ventriculostomy placement 4. P-Afib, previously on anticoagulation RECS: 1. Continue mechanical ventilation not currently stable for extubation given altered mentation. 2. Status post thoracentesis right pleural effusion chest x-ray shows residual pleural effusion. 3. Continue neurosurgical recommendations with ventriculostomy drainage 4. Elevated procalcitonin consistent with infectious process. Continue antibiotics. 5. Continue hemodialysis as tolerated Critical care time 40 minutes. REYES ROLON MD, [facility] Nov 08, 2018 08:53
[2018-11-08] MEDS: SEVELAMER CARBONATE 0.8 GM PKT PO SCH ×3 (08:56→17:35)
[2018-11-08] MEDS: MULTIVIT/CA CARB/B CMPLX/FA TAB PO SCH (08:56)
[2018-11-08] MEDS: AMLODIPINE 5 MG TAB PO SCH ×2 (08:58→20:37)
--- NOTE | 2018-11-08 09:00 | QN ---
Documentation Comment Sedated on versed and fentanyl. Intubated. No further seizure activity. Cannot reliably assess neurologic exam due to sedation, but pupils are equal and reactive. Subdural drain is to gravity and is draining 5-20cc/hour. CT for today pending. Given residual blood on last CT, will continue drainage another 24 hours. Ideally the patient should be weaned off all sedation and ventilatory support (ie wean to extubate) as soon as possible, unless precluded by pulmonary pathology. In the meantime it might be preferable to change the sedation over to something like propofol that is more compatible with neurologic assessment and ventilatory wean (it will be hard to extubate him on versed and fentanyl gtt). Thanks. KELLIE JJ MD Nov 08, 2018 09:00
[2018-11-08] MEDS: LEVETIRACETAM 500 MG (PMX) 100 ML IVPB SCH ×2 (09:01→20:38)
[2018-11-08] MEDS: CALCIUM ACETATE 667 MG CAP PO SCH ×3 (09:02→17:35)
[2018-11-08] MEDS: BENAZEPRIL 40 MG TAB PO SCH (09:50)
--- NOTE | 2018-11-08 10:02 | CONS ---
Assessment/Plan Assessment/Plan Assessment/Plan (Daily) 1. End-stage renal disease on HD - HD ordered for Tomorrow , pt regular schedule for HD is TTS , AVF for HD access . 3. Hypertension. Continue current blood pressure regimen. Continue ultrafi ltration with dialysis. 3. subdural hematoma, S/p Craniotomy and burhole placement by dr. Shrestha on 10/06/18- Post op care as per Neurosurgery, Drainage tube in place , MRI brain ordered for today 4. Post op pulmonary insufficiency INtubated on ventilator 4. Anemia of ESRD, s/p 2 unit PRBC tansfusion during this admission 5. Mineral bone disorder. Monitor calcium and phosphorus levels. 6. Subdural hematoma. follow up CT scan showed stable hematorma 7. Diabetes. Continue current insulin regimen. 8. Paroxysmal atrial fibrillation. Continue medical management. 9. Gastrointestinal and deep vein thrombosis prophylaxis. Consultation Date/Type/Reason Admit Date/Time October 31, 2018 at 21:18 Initial Consult Date 11/01/18 Requesting Provider: GERMAIN VASQUES Date/Time of Note DATE: 11/08/18 TIME: 10:02 Exam/Review of Systems Exam Vitals Vital Signs Date Temp Pulse Resp B/P (MAP) Pulse Ox O2 O2 Flow FiO2 Time Delivery Rate 11/08/18 64 11 137/43 100 09:00 (74) 11/08/18 96.7 08:00 11/08/18 30 05:10 11/07/18 Mechanical 18:00 Ventilator 11/06/18 6.0 09:00 Intake and Output 11/07/18 11/07/18 11/08/18 1515:00 23:00 07:00 IntakeIntake Total 315 ml 914.0 ml 329.5 ml OutputOutput Total 20 ml 2660 ml 110 ml BalanceBalance 295 ml -1746.0 ml 219.5 ml Exam GENERAL: orally intubated with ventriculostomy in place. NECK: Supple. no JVD HEART: S1 S2 RRR , no murmur CHEST: Diminished air entry right base greater than left ABDOMEN: Soft, nontender. No guarding or rebound. EXTREMITIES: No cyanosis, clubbing or edema. NEUROLOGIC: unable to assess due to clinical condition Results Result Diagram: 11/08/18 04211/08/18 0420 Results 24hrs Laboratory Tests Test 11/07/18 12:04 11/07/18 17:38 11/07/18 20:41 11/08/18 01:43 Bedside Glucose 171 158 148 195 Test 11/08/18 04:20 11/08/18 05:16 White Blood Count 9.3 # Red Blood Count 3.34 L Hemoglobin 8.8 L Hematocrit 28.8 L Mean Corpuscular Volume 86.2 Mean Corpuscular 26.3 L Hemoglobin Mean Corpuscular 30.6 L Hemoglobin Concent Red Cell Distribution 17.6 H Width Platelet Count 152 Mean Platelet Volume 9.8 Immature Granulocytes % 0.400 Neutrophils % 82.3 H Lymphocytes % 3.2 L Monocytes % 13.9 H Eosinophils % 0.1 Basophils % 0.1 Nucleated Red Blood 0.0 Cells % Immature Granulocytes # 0.040 H Neutrophils # 7.6 H Lymphocytes # 0.3 L Monocytes # 1.3 H Eosinophils # 0.0 Basophils # 0.0 Nucleated Red Blood 0.0 Cells # Sodium Level 140 Potassium Level 3.9 Chloride Level 103 Carbon Dioxide Level 28 Anion Gap 9 # Blood Urea Nitrogen 53 #H Creatinine 4.44 #H Est Glomerular Filtrat Rate mL/min Glucose Level 161 Calcium Level 9.3 Procalcitonin 0.54 H Bedside Glucose 176 Medications Medication Current Medications Ondansetron HCl (Zofran Inj) 4 mg Q6H PRN IV NAUSEA AND/OR VOMITING; Start 10/31/18 at 21:30 Albuterol (Proventil 0.083% (Neb)) 2.5 mg Q2H RESP THERAPY PRN NEB SHORTNESS OF BREATH Last administered on 11/04/18at 00:44; Admin Dose 2.5 MG; Start 10/31/18 at 21:30 Acetaminophen (Tylenol Liquid) 650 mg Q6H PRN PO PAIN LEVEL 1-3 OR FEVER Last administered on 11/07/18at 15:40; Admin Dose 650 MG; Start 10/31/18 at 21:30 Hydralazine HCl (Apresoline) 10 mg Q4H PRN IV ELEVATED BLOOD PRESSURE Last administered on 11/03/18at 01:04; Admin Dose 10 MG; Start 10/31/18 at 22:00 Amlodipine Besylate (Norvasc) 5 mg BID PO Last administered on 11/08/18at 08:58; Admin Dose 5 MG; Start 10/31/18 at 22:00 Benazepril HCl (Lotensin) 40 mg DAILY PO Last administered on 11/08/18 09:50; Admin Dose 40 MG; Start 11/01/18 at 09:00 Calcium Acetate (Phoslo) 667 mg WITH MEALS PO Last administered on 11/08/18 09:02; Admin Dose 667 MG; Start 11/01/18 at 08:00 Multivit/Ca Carb/ B Cmplx/FA/Prenat (Sharron-Ashley) 1 tab DAILY PO Last administered on 11/08/18 08:56; Admin Dose 1 TAB; Start 11/01/18 at 09:00 Diagnostic Test (Pha) (Accu-Chek) 1 ea 02 XX Last administered on 11/08/18 01:47; Admin Dose 1 EA; Start 11/02/18 at 02:00 Insulin Aspart (Novolog Insulin Pen) NOVOLOG *MILD* ALGORI... Q4 SC Last administered on 11/08/18 09:53; Admin Dose 3 UNIT; Start 11/01/18 at 13:00 Sevelamer Carbonate (Renvela) 0.8 gm WITH MEALS PO Last administered on 11/08/18 08:56; Admin Dose 0.8 GM; Start 11/01/18 at 18:00 Famotidine (Pepcid Iv) 20 mg DAILY IV Last administered on 11/07/18 09:24; Admin Dose 20 MG; Start 11/03/18 at 09:00 Miscellaneous Information 1 ea NOTE XX ; Start 11/02/18 at 17:00 Glucose (Glutose) 15 gm Q15M PRN PO DECREASED GLUCOSE; Start 11/02/18 at 17:00 Glucose (Glutose) 22.5 gm Q15M PRN PO DECREASED GLUCOSE; Start 11/02/18 at 17:00 Dextrose (D50w Syringe) 25 ml Q15M PRN IV DECREASED GLUCOSE; Start 11/02/18 at 17:00 Dextrose (D50w Syringe) 50 ml Q15M PRN IV DECREASED GLUCOSE; Start 11/02/18 at 17:00 Glucagon (Glucagen) 1 mg Q15M PRN IM DECREASED GLUCOSE; Start 11/02/18 at 17:00 Glucose (Glutose) 15 gm Q15M PRN BUCCAL DECREASED GLUCOSE; Start 11/02/18 at 17:00 Albumin Human 100 ml @ 100 mls/hr WITH DIALYSIS PRN IV SBP <90 DURING DIALYSIS; Start 11/03/18 at 08:30 Epoetin Virgil-epbx (Retacrit (Esrd)) 6,000 unit TuThSa@1700 SC Last administered on 11/07/18 20:43; Admin Dose 6,000 UNIT; Start 11/04/18 at 17:00 Levetiracetam 100 ml @ 400 mls/hr Q12 IVPB Last administered on 11/08/18 09:01; Admin Dose 400 MLS/HR; Start 11/04/18 at 01:30 Piperacillin Sod/ Tazobactam Sod 50 ml @ 200 mls/hr Q8 IVPB Last administered on 11/08/18 06:07; Admin Dose 200 MLS/HR; Start 11/04/18 at 17:45 Lorazepam (Ativan) 1 mg Q5M PRN IV SEIZURES; Start 11/04/18 at 20:19 Morphine Sulfate (morphine) 2 mg Q4H PRN IV SEVERE PAIN LEVEL 7-10 Last administered on 11/07/18 16:31; Admin Dose 2 MG; Start 11/06/18 at 13:30 Hydralazine HCl (Apresoline) 10 mg Q6H PRN IV For SBP >160 Last administered on 11/06/18 15:48; Admin Dose 10 MG; Start 11/06/18 at 13:30 Ferric Sodium Gluconate Complex 125 mg/Sodium Chloride 110 ml @ 110 mls/hr DAILY@1300 IVPB Last administered on 11/07/18 12:05; Admin Dose 110 MLS/HR; Start 11/07/18 at 13:00; Stop 11/11/18 at 13:59 Midazolam HCl 50 ml @ 1 mls/hr TITRATE IV Last administered on 11/07/18 18:20; Admin Dose 1 MLS/HR; Start 11/07/18 at 18:00 Fentanyl 100 ml @ 2.5 mls/hr TITRATE IV Last administered on 11/07/18 18:21; Admin Dose 2.5 MLS/HR; Start 11/07/18 at 18:00 Carvedilol (Coreg) 12.5 mg BID PO Last administered on 6/5/19at 09:00; Admin Dose 12.5 MG; Start 11/07/18 at 21:00 Clonidine (Catapres) 0.1 mg BID PO Last administered on 11/08/18at 09:49; Admin Dose 0.1 MG; Start 11/07/18 at 21:00 SAUD CHANDLER MD Nov 08, 2018 10:02
[2018-11-08] MEDS: FAMOTIDINE 20 MG INJ IV SCH (10:23)
--- NOTE | 2018-11-08 14:55 | CONS ---
Assessment/Plan Assessment/Plan Assessment/Plan (Recall) 78 yo M w/ afib on eliquis, and other comorbidities...who presented with progressive following repeated falls. Head CT revealed a R convexity SDH (and scattered SAH and IVH), for which he is under the care of neurosurgery. He was noted to have several clinical spells concerning for seizure in the days following admission, for which neurology is now consulted.. P: Agree w/ Keppra as ordered for seizure ppx for now Ativan iv prn prolonged seizure (> 5 min) or cluster Hemorrhage management per neurosurgery Limit sedating medications where possible Other management and supportive care per primary Will follow clinically Consultation Date/Type/Reason Admit Date/Time October 31, 2018 at 21:18 Type of Consult Neurology Reason for Consultation seizures Requesting Provider: GERMAIN VASQUES Date/Time of Note DATE: 11/08/18 TIME: 14:55 24 HR Interval Summary Free Text/Dictation Continues critical care. Exam/Review of Systems Exam Vitals Vital Signs Date Temp Pulse Resp B/P (MAP) Pulse Ox O2 O2 Flow FiO2 Time Delivery Rate 11/08/18 61 12:00 11/08/18 10 135/43 100 11:30 (73) 11/08/18 Mechanical 08:00 Ventilator 11/08/18 96.7 08:00 11/08/18 30 05:10 11/06/18 6.0 09:00 Intake and Output 11/07/18 11/07/18 11/08/18 1515:00 23:00 07:00 IntakeIntake Total 315 ml 914.0 ml 329.5 ml OutputOutput Total 20 ml 2660 ml 125 ml BalanceBalance 295 ml -1746.0 ml 204.5 ml Exam PE: Gen Appearance: No Apparent Distress HEENT: Normocephalic Cardiovascular: Regular rate Abdomen: Soft Extremities: Dry NE: The patient was awake, though nonverbal. Able to track. Unable to follow any commands. Cranial nerve examination was limited by mental status. Pupils were slightly unequal (L > R) though reactive to light. There was no afferent pupillary defect. Funduscopic examination was limited. Face was grossly symmetric, w/ present corneal and cough reflexes. Tone was normal. Muscle bulk was normal. I did not see fasciculations. The patient had spontaneous movement of all extremities. Coordination and gait testing was limited by mental status. Arm and leg reflexes were within normal limits and symmetric. Santana's sign was absent. Plantar responses were flexor. Results Result Diagram: 11/08/18 0420 11/08/18 0420 Results 24hrs Laboratory Tests Test 11/07/18 17:38 11/07/18 20:41 11/08/18 01:43 11/08/18 04:20 Bedside Glucose 158 148 195 White Blood Count 9.3 # Red Blood Count 3.34 L Hemoglobin 8.8 L Hematocrit 28.8 L Mean Corpuscular Volume 86.2 Mean Corpuscular 26.3 L Hemoglobin Mean Corpuscular 30.6 L Hemoglobin Concent Red Cell Distribution 17.6 H Width Platelet Count 152 Mean Platelet Volume 9.8 Immature Granulocytes % 0.400 Neutrophils % 82.3 H Lymphocytes % 3.2 L Monocytes % 13.9 H Eosinophils % 0.1 Basophils % 0.1 Nucleated Red Blood 0.0 Cells % Immature Granulocytes # 0.040 H Neutrophils # 7.6 H Lymphocytes # 0.3 L Monocytes # 1.3 H Eosinophils # 0.0 Basophils # 0.0 Nucleated Red Blood 0.0 Cells # Sodium Level 140 Potassium Level 3.9 Chloride Level 103 Carbon Dioxide Level 28 Anion Gap 9 # Blood Urea Nitrogen 53 #H Creatinine 4.44 #H Est Glomerular Filtrat Rate mL/min Glucose Level 161 Calcium Level 9.3 Procalcitonin 0.54 H Test 11/08/18 05:16 11/08/18 09:48 11/08/18 12:56 Bedside Glucose 176 238 H 173 Medications Medication Current Medications Ondansetron HCl (Zofran Inj) 4 mg Q6H PRN IV NAUSEA AND/OR VOMITING; Start 10/31/18 at 21:30 Albuterol (Proventil 0.083% (Neb)) 2.5 mg Q2H RESP THERAPY PRN NEB SHORTNESS OF BREATH Last administered on 11/04/18at 00:44; Admin Dose 2.5 MG; Start 10/31/18 at 21:30 Acetaminophen (Tylenol Liquid) 650 mg Q6H PRN PO PAIN LEVEL 1-3 OR FEVER Last administered on 11/07/18at 15:40; Admin Dose 650 MG; Start 10/31/18 at 21:30 Hydralazine HCl (Apresoline) 10 mg Q4H PRN IV ELEVATED BLOOD PRESSURE Last administered on 11/03/18 01:04; Admin Dose 10 MG; Start 10/31/18 at 22:00 Amlodipine Besylate (Norvasc) 5 mg BID PO Last administered on 11/08/18 08:58; Admin Dose 5 MG; Start 10/31/18 at 22:00 Benazepril HCl (Lotensin) 40 mg DAILY PO Last administered on 11/08/18 09:50; Admin Dose 40 MG; Start 11/01/18 at 09:00 Calcium Acetate (Phoslo) 667 mg WITH MEALS PO Last administered on 11/08/18 12:52; Admin Dose 667 MG; Start 11/01/18 at 08:00 Multivit/Ca Carb/ B Cmplx/FA/Prenat (Sharron-Ashley) 1 tab DAILY PO Last administered on 11/08/18 08:56; Admin Dose 1 TAB; Start 11/01/18 at 09:00 Diagnostic Test (Pha) (Accu-Chek) 1 ea 02 XX Last administered on 11/08/18 01:47; Admin Dose 1 EA; Start 11/02/18 at 02:00 Insulin Aspart (Novolog Insulin Pen) NOVOLOG *MILD* ALGORI... Q4 SC Last administered on 11/08/18 13:04; Admin Dose 1 UNIT; Start 11/01/18 at 13:00 Sevelamer Carbonate (Renvela) 0.8 gm WITH MEALS PO Last administered on 11/08/18 12:52; Admin Dose 0.8 GM; Start 11/01/18 at 18:00 Famotidine (Pepcid Iv) 20 mg DAILY IV Last administered on 11/08/18 10:23; A dmin Dose 20 MG; Start 11/03/18 at 09:00 Miscellaneous Information 1 ea NOTE XX ; Start 11/02/18 at 17:00 Glucose (Glutose) 15 gm Q15M PRN PO DECREASED GLUCOSE; Start 11/02/18 at 17:00 Glucose (Glutose) 22.5 gm Q15M PRN PO DECREASED GLUCOSE; Start 11/02/18 at 17:00 Dextrose (D50w Syringe) 25 ml Q15M PRN IV DECREASED GLUCOSE; Start 11/02/18 at 17:00 Dextrose (D50w Syringe) 50 ml Q15M PRN IV DECREASED GLUCOSE; Start 11/02/18 at 17:00 Glucagon (Glucagen) 1 mg Q15M PRN IM DECREASED GLUCOSE; Start 11/02/18 at 17:00 Glucose (Glutose) 15 gm Q15M PRN BUCCAL DECREASED GLUCOSE; Start 11/02/18 at 1 7:00 Albumin Human 100 ml @ 100 mls/hr WITH DIALYSIS PRN IV SBP <90 DURING DIALYSIS; Start 11/03/18 at 08:30 Epoetin Virgil-epbx (Retacrit (Esrd)) 6,000 unit TuThSa@1700 SC Last administered on 11/07/18at 20:43; Admin Dose 6,000 UNIT; Start 11/04/18 at 17:00 Levetiracetam 100 ml @ 400 mls/hr Q12 IVPB Last administered on 11/08/18 09:01; Admin Dose 400 MLS/HR; Start 11/04/18 at 01:30 Piperacillin Sod/ Tazobactam Sod 50 ml @ 200 mls/hr Q8 IVPB Last administered on 11/08/18 06:07; Admin Dose 200 MLS/HR; Start 11/04/18 at 17:45; Stop 11/10/18 at 23:59 Lorazepam (Ativan) 1 mg Q5M PRN IV SEIZURES; Start 11/04/18 at 20:19 Morphine Sulfate (morphine) 2 mg Q4H PRN IV SEVERE PAIN LEVEL 7-10 Last admin istered on 11/07/18at 16:31; Admin Dose 2 MG; Start 11/06/18 at 13:30 Hydralazine HCl (Apresoline) 10 mg Q6H PRN IV For SBP >160 Last administered on 11/06/18at 15:48; Admin Dose 10 MG; Start 11/06/18 at 13:30 Ferric Sodium Gluconate Complex 125 mg/Sodium Chloride 110 ml @ 110 mls/hr DAILY@1300 IVPB Last administered on 11/07/18at 12:05; Admin Dose 110 MLS/HR; Start 11/07/18 at 13:00; Stop 11/11/18 at 13:59 Midazolam HCl 50 ml @ 1 mls/hr TITRATE IV Last administered on 11/07/18at 18:20; Admin Dose 1 MLS/HR; Start 11/07/18 at 18:00 Fentanyl 100 ml @ 2.5 mls/hr TITRATE IV Last administered on 11/07/18at 18:21; Admin Dose 2.5 MLS/HR; Start 11/07/18 at 18:00 Carvedilol (Coreg) 12.5 mg BID PO Last administered on 11/08/18at 09:00; Admin Dose 12.5 MG; Start 11/07/18 at 21:00 Clonidine (Catapres) 0.1 mg BID PO Last administered on 11/08/18at 09:49; Admin Dose 0.1 MG; Start 11/07/18 at 21:00 FLORENTIN COLUNGA NP Nov 08, 2018 14:55
--- NOTE | 2018-11-08 16:27 | OPR ---
DATE OF OPERATION: 11/08/2018 PREOPERATIVE DIAGNOSIS: Subdural hematoma on the right. POSTOPERATIVE DIAGNOSIS: Subdural hematoma on the right. OPERATION PERFORMED: Right craniotomy for evacuation of subdural hematoma, placement of subdural concetta in. SURGEON: Nicholas Obrien MD PLANT OPERATOR CONTROL ROOM OPERATOR: Dr. Dave Summers, assisted during duration of procedure. ANESTHESIOLOGIST: Dr. Valle. ANESTHESIA TYPE: General endotracheal anesthesia. INDICATIONS: The patient is a 78-year-old male status post multiple falls with mental status changes . A CT of the head without contrast was obtained which demonstrates a 1.3 cm mixed density subdural hematoma with mass effect. The patient subsequently had seizures and he was on Eliquis, so surgery w as deferred until such time as Eliquis was felt to have been fully metabolized. The risks, benefits and alternatives to craniotomy were explained to the patient's and family in detail. Informed c onsent was obtained, the patient was brought to the operating room. OPERATION IN DETAIL: The patient positioned supine on the operative table after induction of anesthe lilli, his head was turned to the left exposing the right hemicalvarium. The hair was clipped appropri ately. A linear incision was marked over the scalp which was infiltrated with local anesthetic after pre-prepping the patient. The patient was then prepped and draped in usual sterile fashion. A comp lete formal timeout was performed. A linear incision was made with a 10 blade. A bur hole was place d with an acorn cuong and a craniotome was used to turn a small craniotomy flap approximately 4 x 3 cm . The dura was coagulated, opened in a cruciate fashion with a #11 blade. The dural leaflets were t acked up with 4-0 Nurolon suture. There was copious amounts of mixed density both acute and very chr onic appearing subdural hematoma fluid that expressed itself under great pressure. Once the dura was opened. The subdural space was irrigated with copious amounts of irrigation. A red rubber ca theter was used to irrigate the more distal portions of the hemicalvarium. A large amount of acute c lot was also released this way. Attention was then turned to closing the dura, reapproximated with 4 -0 nylon suture. A subdural drain consisting of ventriculostomy catheter with several extra holes fa shioned into it was placed in subdural space and tunneled underneath the skin. The bone flap was rep laced with mini plates and the skin was closed in layers with 2-0 interrupted inverted Vicryl used to close the galea and myrna on skin. The patient tolerated the procedure well. There were no compl ications. All needle and sponge counts were reported correct x2. Dictated By: NICHOLAS PIERSON/HERRERA Conf#: [id number] DID#: [id number] CC: THIEN LUCIO MD;*EndCC*
[2018-11-08] MEDS: SOD FERRIC GLUC COMPLX 125 MG in SOD CHLORIDE 0.9% 100 ML IVPB SCH (17:32)
--- NOTE | 2018-11-08 18:06 | CONS ---
Assessment/Plan Assessment/Plan Hospital Course (Demo Recall) Traumatic SDH: in setting of Eliquis. Now s/p cuong hole evacuation 11/06. 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 Now both resolved and normal EF Paroxysmal atrial flutter/fibrillation: CHADSVASC 5 and was on Eliquis outpt but now s/p fall with ICH as above so on hold Aspiration PNA Pleural effusion: s/p thora 11/07 Thrombocytopenia Anemia: ?from ICH. s/p 2 units ESRD on HD HTN -hold anticoagulation/antiplatelets -coreg 12.5 mg BID -amlodipine 5mg BID -benazepril 40mg -clonidine 0.1mg BID -antibiotics Consultation Date/Type/Reason Admit Date/Time October 31, 2018 at 21:18 Initial Consult Date 11/06/18 Type of Consult Cardiology Requesting Provider: GERMAIN VASQUES Date/Time of Note DATE: 11/08/18 TIME: 18:04 24 HR Interval Summary Free Text/Dictation Less responsive today so he had a CT and MRI. Neurosurgery has been notified of the results. Daughter at bedside Exam/Review of Systems Vital Signs Vitals Vital Signs Date Temp Pulse Resp B/P (MAP) Pulse Ox O2 O2 Flow FiO2 Time Delivery Rate 11/08/18 63 10 100 30 17:35 11/08/18 160/52 14:00 (88) 11/08/18 97.8 Mechanical 12:00 Ventilator 11/06/18 6.0 09:00 Intake and Output 11/07/18 11/07/18 11/08/18 1515:00 23:00 07:00 IntakeIntake Total 315 ml 914.0 ml 329.5 ml OutputOutput Total 20 ml 2660 ml 125 ml BalanceBalance 295 ml -1746.0 ml 204.5 ml Exam Constitutional: No alert ENMT: intubated Neck: supple; No jvd Respiratory: diminished breath sounds; No clear to auscultation Cardiovascular: regular rate and rhythm; No edema Gastrointestinal: soft; No distended Neurological: No nl mental status, No nl speech Labs Result Diagram: 11/08/1841911/08/18 0420 Results 24hrs Laboratory Tests Test 11/07/18 20:41 11/08/18 01:43 11/08/18 04:20 11/08/18 05:16 Bedside Glucose 148 195 176 White Blood Count 9.3 # Red Blood Count 3.34 L Hemoglobin 8.8 L Hematocrit 28.8 L Mean Corpuscular Volume 86.2 Mean Corpuscular 26.3 L Hemoglobin Mean Corpuscular 30.6 L Hemoglobin Concent Red Cell Distribution 17.6 H Width Platelet Count 152 Mean Platelet Volume 9.8 Immature Granulocytes % 0.400 Neutrophils % 82.3 H Lymphocytes % 3.2 L Monocytes % 13.9 H Eosinophils % 0.1 Basophils % 0.1 Nucleated Red Blood 0.0 Cells % Immature Granulocytes # 0.040 H Neutrophils # 7.6 H Lymphocytes # 0.3 L Monocytes # 1.3 H Eosinophils # 0.0 Basophils # 0.0 Nucleated Red Blood 0.0 Cells # Sodium Level 140 Potassium Level 3.9 Chloride Level 103 Carbon Dioxide Level 28 Anion Gap 9 # Blood Urea Nitrogen 53 #H Creatinine 4.44 #H Est Glomerular Filtrat Rate mL/min Glucose Level 161 Calcium Level 9.3 Procalcitonin 0.54 H Test 11/08/18 09:48 11/08/18 12:56 11/08/18 17:33 Bedside Glucose 238 H 173 163 Medications Medications Current Medications Ondansetron HCl (Zofran Inj) 4 mg Q6H PRN IV NAUSEA AND/OR VOMITING; Start 10/31/18 at 21:30 Albuterol (Proventil 0.083% (Neb)) 2.5 mg Q2H RESP THERAPY PRN NEB SHORTNESS OF BREATH Last administered on 11/04/18at 00:44; Admin Dose 2.5 MG; Start 10/31/18 at 21:30 Acetaminophen (Tylenol Liquid) 650 mg Q6H PRN PO PAIN LEVEL 1-3 OR FEVER Last administered on 11/07/18at 15:40; Admin Dose 650 MG; Start 10/31/18 at 21:30 Hydralazine HCl (Apresoline) 10 mg Q4H PRN IV ELEVATED BLOOD PRESSURE Last administered on 11/03/18at 01:04; Admin Dose 10 MG; Start 10/31/18 at 22:00 Amlodipine Besylate (Norvasc) 5 mg BID PO Last administered on 11/08/18at 08:58; Admin Dose 5 MG; Start 10/31/18 at 22:00 Benazepril HCl (Lotensin) 40 mg DAILY PO Last administered on 11/08/18 09:50; Admin Dose 40 MG; Start 11/01/18 at 09:00 Calcium Acetate (Phoslo) 667 mg WITH MEALS PO Last administered on 11/08/18 12:52; Admin Dose 667 MG; Start 11/01/18 at 08:00 Multivit/Ca Carb/ B Cmplx/FA/Prenat (Sharron-Ashley) 1 tab DAILY PO Last administered on 11/08/18 08:56; Admin Dose 1 TAB; Start 11/01/18 at 09:00 Diagnostic Test (Pha) (Accu-Chek) 1 ea 02 XX Last administered on 11/08/18 01:47; Admin Dose 1 EA; Start 11/02/18 at 02:00 Insulin Aspart (Novolog Insulin Pen) NOVOLOG *MILD* ALGORI... Q4 SC Last administered on 11/08/18 17:36; Admin Dose 1 UNIT; Start 11/01/18 at 13:00 Sevelamer Carbonate (Renvela) 0.8 gm WITH MEALS PO Last administered on 11/08/18 12:52; Admin Dose 0.8 GM; Start 11/01/18 at 18:00 Famotidine (Pepcid Iv) 20 mg DAILY IV Last administered on 11/08/18 10:23; Admin Dose 20 MG; Start 11/03/18 at 09:00 Miscellaneous Information 1 ea NOTE XX ; Start 11/02/18 at 17:00 Glucose (Glutose) 15 gm Q15M PRN PO DECREASED GLUCOSE; Start 11/02/18 at 17:00 Glucose (Glutose) 22.5 gm Q15M PRN PO DECREASED GLUCOSE; Start 11/02/18 at 17:00 Dextrose (D50w Syringe) 25 ml Q15M PRN IV DECREASED GLUCOSE; Start 11/02/18 at 17:00 Dextrose (D50w Syringe) 50 ml Q15M PRN IV DECREASED GLUCOSE; Start 11/02/18 at 17:00 Glucagon (Glucagen) 1 mg Q15M PRN IM DECREASED GLUCOSE; Start 11/02/18 at 17:00 Glucose (Glutose) 15 gm Q15M PRN BUCCAL DECREASED GLUCOSE; Start 11/02/18 at 17:00 Albumin Human 100 ml @ 100 mls/hr WITH DIALYSIS PRN IV SBP <90 DURING DIALYSIS; Start 11/03/18 at 08:30 Epoetin Virgil-epbx (Retacrit (Esrd)) 6,000 unit TuThSa@1700 SC Last administered on 11/07/18 20:43; Admin Dose 6,000 UNIT; Start 11/04/18 at 17:00 Levetiracetam 100 ml @ 400 mls/hr Q12 IVPB Last administered on 11/08/18 09:01; Admin Dose 400 MLS/HR; Start 11/04/18 at 01:30 Piperacillin Sod/ Tazobactam Sod 50 ml @ 200 mls/hr Q8 IVPB Last administered on 11/08/18 17:33; Admin Dose 200 MLS/HR; Start 11/04/18 at 17:45; Stop 11/10/18 at 23:59 Lorazepam (Ativan) 1 mg Q5M PRN IV SEIZURES; Start 11/04/18 at 20:19 Morphine Sulfate (morphine) 2 mg Q4H PRN IV SEVERE PAIN LEVEL 7-10 Last administered on 11/07/18 16:31; Admin Dose 2 MG; Start 11/06/18 at 13:30 Hydralazine HCl (Apresoline) 10 mg Q6H PRN IV For SBP >160 Last administered on 11/06/18 15:48; Admin Dose 10 MG; Start 11/06/18 at 13:30 Ferric Sodium Gluconate Complex 125 mg/Sodium Chloride 110 ml @ 110 mls/hr DAILY@1300 IVPB Last administered on 11/08/18 17:32; Admin Dose 110 MLS/HR; Start 11/07/18 at 13:00; Stop 11/11/18 at 13:59 Midazolam HCl 50 ml @ 1 mls/hr TITRATE IV Last administered on 11/07/18 18:20; Admin Dose 1 MLS/HR; Start 11/07/18 at 18:00 Fentanyl 100 ml @ 2.5 mls/hr TITRATE IV Last administered on 11/07/18 18:21; Admin Dose 2.5 MLS/HR; Start 11/07/18 at 18:00 Carvedilol (Coreg) 12.5 mg BID PO Last administered on 11/08/18at 09:00; Admin Dose 12.5 MG; Start 11/07/18 at 21:00 Clonidine (Catapres) 0.1 mg BID PO Last administered on 11/08/18at 09:49; Admin Dose 0.1 MG; Start 11/07/18 at 21:00 WAYNE CARUSO Nov 08, 2018 18:06
[2018-11-08] MEDS: hydrALAzine 20 MG INJ IV PRN (21:36)
--- NOTE | 2018-11-08 22:05 | PN ---
Date/Time of Note Date/Time of Note DATE: 11/08/18 TIME: 09:38 Assessment/Plan VTE Prophylaxis Risk score (from Ns)>0 risk: 12 SCD applied (from Ns): Yes Pharmacological prophylaxis: NA/contraindicated Pharm contraindication: hemorrhagic infarct Lines/Catheters IV Catheter Type (from [facility]): A Line Urinary Cath still in place: No Assessment/Plan Hospital Course 78 yo M with a history of fall a few days prior to presentation who was brought in for confusion and is currently managed as follows: 1. Acute right subdural hematoma -Status post craniotomy and bur hole placement 11/06/18 -ventriculostomy drain still with good output overnight 2. Severe anemia, likely acute on chronic, exacerbated by acute blood loss from #1 -Patient received 2 units of packed red cells upon arrival, hemoglobin has been stable since off anticoagulation and antiplatelet 3. Altered mentation/acute encephalopathy secondary to #1 4. End-stage renal disease on hemodialysis Tuesday, , Tuesday 5. Diabetes mellitus 6. Paroxysmal atrial fibrillation 7. Hypertension 8. Resp failure now vent dependent -CXR also showing R sided effusion s/p thoracentesis 11/07/18 with drainage of 900 cc of fluid c/b small R ptx 9. Aspiration pneumonitis 10. New-onset seizure secondary to #1 10. Chronic thrombocytopenia rule out iron deficiency, rule out thrombocytopenia associated with end-stage renal disease -Status post 1 unit of platelet transfusion upon arrival - 12. Recurrent falls status post recent fall 2 days ago Plan: -thoracentesis yesterday c/b small R ptx, fu CXR ordered by pulm -Neurosurgery recommending weaning of all sedation and vent weaning, this was communicated to nursing -continued on tube feeds -Continue abx -Continue to hold all anticoagulation -Further interventions per clinical course -Critical care time greater than half an hour Result Diagram: 11/08/18 0420 11/08/18 0420 Results 24hrs Laboratory Tests Test 11/08/18 01:43 11/08/18 04:20 11/08/18 05:16 11/08/18 09:48 Bedside Glucose 195 176 238 H White Blood Count 9.3 # Red Blood Count 3.34 L Hemoglobin 8.8 L Hematocrit 28.8 L Mean Corpuscular Volume 86.2 Mean Corpuscular 26.3 L Hemoglobin Mean Corpuscular 30.6 L Hemoglobin Concent Red Cell Distribution 17.6 H Width Platelet Count 152 Mean Platelet Volume 9.8 Immature Granulocytes % 0.400 Neutrophils % 82.3 H Lymphocytes % 3.2 L Monocytes % 13.9 H Eosinophils % 0.1 Basophils % 0.1 Nucleated Red Blood 0.0 Cells % Immature Granulocytes # 0.040 H Neutrophils # 7.6 H Lymphocytes # 0.3 L Monocytes # 1.3 H Eosinophils # 0.0 Basophils # 0.0 Nucleated Red Blood 0.0 Cells # Sodium Level 140 Potassium Level 3.9 Chloride Level 103 Carbon Dioxide Level 28 Anion Gap 9 # Blood Urea Nitrogen 53 #H Creatinine 4.44 #H Est Glomerular Filtrat Rate mL/min Glucose Level 161 Calcium Level 9.3 Procalcitonin 0.54 H Test 11/08/18 12:56 11/08/18 17:33 11/08/18 20:32 Bedside Glucose 173 163 122 Subjective 24 Hr Interval Summary Subjective hx not possible: pt critical Exam/Review of Systems Exam Vitals Vital Signs Date Temp Pulse Resp B/P (MAP) Pulse Ox O2 O2 Flow FiO2 Time Delivery Rate 11/08/18 70 13 100 30 19:58 11/08/18 148/40 18:45 (78) 11/08/18 96.9 Mechanical 16:00 Ventilator 11/06/18 6.0 09:00 Intake and Output 11/07/18 11/07/18 11/08/18 1515:00 23:00 07:00 IntakeIntake Total 315 ml 914.0 ml 368.0 ml OutputOutput Total 20 ml 2660 ml 125 ml BalanceBalance 295 ml -1746.0 ml 243.0 ml Constitutional: non-verbal, other (comfortable on vent) Eyes: No EOMI, No PERRL ENMT: intubated Respiratory: diminished breath sounds, other (chest tube) Cardiovascular: regular rate and rhythm Gastrointestinal: soft, other Neurological: other Results Results 24hrs Laboratory Tests Test 11/08/18 01:43 11/08/18 04:20 11/08/18 05:16 11/08/18 09:48 Bedside Glucose 195 176 238 H White Blood Count 9.3 # Red Blood Count 3.34 L Hemoglobin 8.8 L Hematocrit 28.8 L Mean Corpuscular Volume 86.2 Mean Corpuscular 26.3 L Hemoglobin Mean Corpuscular 30.6 L Hemoglobin Concent Red Cell Distribution 17.6 H Width Platelet Count 152 Mean Platelet Volume 9.8 Immature Granulocytes % 0.400 Neutrophils % 82.3 H Lymphocytes % 3.2 L Monocytes % 13.9 H Eosinophils % 0.1 Basophils % 0.1 Nucleated Red Blood 0.0 Cells % Immature Granulocytes # 0.040 H Neutrophils # 7.6 H Lymphocytes # 0.3 L Monocytes # 1.3 H Eosinophils # 0.0 Basophils # 0.0 Nucleated Red Blood 0.0 Cells # Sodium Level 140 Potassium Level 3.9 Chloride Level 103 Carbon Dioxide Level 28 Anion Gap 9 # Blood Urea Nitrogen 53 #H Creatinine 4.44 #H Est Glomerular Filtrat Rate mL/min Glucose Level 161 Calcium Level 9.3 Procalcitonin 0.54 H Test 11/08/18 12:56 11/08/18 17:33 11/08/18 20:32 Bedside Glucose 173 163 122 Medications Medication Current Medications Ondansetron HCl (Zofran Inj) 4 mg Q6H PRN IV NAUSEA AND/OR VOMITING; Start 10/31/18 at 21:30 Albuterol (Proventil 0.083% (Neb)) 2.5 mg Q2H RESP THERAPY PRN NEB SHORTNESS OF BREATH Last administered on 11/04/18 00:44; Admin Dose 2.5 MG; Start 10/31/18 at 21:30 Acetaminophen (Tylenol Liquid) 650 mg Q6H PRN PO PAIN LEVEL 1-3 OR FEVER Last administered on 11/07/18 15:40; Admin Dose 650 MG; Start 10/31/18 at 21:30 Hydralazine HCl (Apresoline) 10 mg Q4H PRN IV ELEVATED BLOOD PRESSURE Last administered on 11/08/18 21:36; Admin Dose 10 MG; Start 10/31/18 at 22:00 Amlodipine Besylate (Norvasc) 5 mg BID PO Last administered on 11/08/18 20:37; Admin Dose 5 MG; Start 10/31/18 at 22:00 Benazepril HCl (Lotensin) 40 mg DAILY PO Last administered on 11/08/18 09:50; Admin Dose 40 MG; Start 11/01/18 at 09:00 Calcium Acetate (Phoslo) 667 mg WITH MEALS PO Last administered on 6/5/19at 12:52; Admin Dose 667 MG; Start 11/01/18 at 08:00 Multivit/Ca Carb/ B Cmplx/FA/Prenat (Sharron-Ashley) 1 tab DAILY PO Last administered on 11/08/18at 08:56; Admin Dose 1 TAB; Start 11/01/18 at 09:00 Diagnostic Test (Pha) (Accu-Chek) 1 ea 02 XX Last administered on 11/08/18at 01:47; Admin Dose 1 EA; Start 11/02/18 at 02:00 Insulin Aspart (Novolog Insulin Pen) NOVOLOG *MILD* ALGORI... Q4 SC Last administered on 11/08/18at 17:36; Admin Dose 1 UNIT; Start 11/01/18 at 13:00 Sevelamer Carbonate (Renvela) 0.8 gm WITH MEALS PO Last administered on 11/08/18at 12:52; Admin Dose 0.8 GM; Start 11/01/18 at 18:00 Miscellaneous Information 1 ea NOTE XX ; Start 11/02/18 at 17:00 Glucose (Glutose) 15 gm Q15M PRN PO DECREASED GLUCOSE; Start 11/02/18 at 17:00 Glucose (Glutose) 22.5 gm Q15M PRN PO DECREASED GLUCOSE; Start 11/02/18 at 17:00 Dextrose (D50w Syringe) 25 ml Q15M PRN IV DECREASED GLUCOSE; Start 11/02/18 at 17:00 Dextrose (D50w Syringe) 50 ml Q15M PRN IV DECREASED GLUCOSE; Start 11/02/18 at 17:00 Glucagon (Glucagen) 1 mg Q15M PRN IM DECREASED GLUCOSE; Start 11/02/18 at 17:00 Glucose (Glutose) 15 gm Q15M PRN BUCCAL DECREASED GLUCOSE; Start 11/02/18 at 17:00 Albumin Human 100 ml @ 100 mls/hr WITH DIALYSIS PRN IV SBP <90 DURING DIALYSIS; Start 11/03/18 at 08:30 Epoetin Virgil-epbx (Retacrit (Esrd)) 6,000 unit TuThSa@1700 SC Last administered on 11/07/18at 20:43; Admin Dose 6,000 UNIT; Start 11/04/18 at 17:00 Levetiracetam 100 ml @ 400 mls/hr Q12 IVPB Last administered on 11/08/18 20:38; Admin Dose 400 MLS/HR; Start 11/04/18 at 01:30 Piperacillin Sod/ Tazobactam Sod 50 ml @ 200 mls/hr Q8 IVPB Last administered on 11/08/18 17:33; Admin Dose 200 MLS/HR; Start 11/04/18 at 17:45; Stop 11/10/18 at 23:59 Lorazepam (Ativan) 1 mg Q5M PRN IV SEIZURES; Start 11/04/18 at 20:19 Morphine Sulfate (morphine) 2 mg Q4H PRN IV SEVERE PAIN LEVEL 7-10 Last administered on 11/07/18 16:31; Admin Dose 2 MG; Start 11/06/18 at 13:30 Hydralazine HCl (Apresoline) 10 mg Q6H PRN IV For SBP >160 Last administered on 11/06/18 15:48; Admin Dose 10 MG; Start 11/06/18 at 13:30 Ferric Sodium Gluconate Complex 125 mg/Sodium Chloride 110 ml @ 110 mls/hr DAILY@1300 IVPB Last administered on 11/08/18 17:32; Admin Dose 110 MLS/HR; Start 11/07/18 at 13:00; Stop 11/11/18 at 13:59 Midazolam HCl 50 ml @ 1 mls/hr TITRATE IV Last administered on 11/07/18 18:20; Admin Dose 1 MLS/HR; Start 11/07/18 at 18:00 Fentanyl 100 ml @ 2.5 mls/hr TITRATE IV Last administered on 11/07/18 18:21; Admin Dose 2.5 MLS/HR; Start 11/07/18 at 18:00 Carvedilol (Coreg) 12.5 mg BID PO Last administered on 11/08/18 20:38; Admin Dose 12.5 MG; Start 11/07/18 at 21:00 Clonidine (Catapres) 0.1 mg BID PO Last administered on 11/08/18 20:38; Admin Dose 0.1 MG; Start 11/07/18 at 21:00 Famotidine (Pepcid) 20 mg DAILY PO ; Start 11/09/18 at 09:00 GERMAIN VASQUES Nov 08, 2018 22:05
[2018-11-09] VITALS (96 sets, daily range): BP systolic 78–172; BP diastolic 30–94; PULSE 54–75; RESP 9–17
[2018-11-09] MEDS: INSULIN ASPART [NOVOLOG] 3 ML PEN SC SCH ×6 (01:00→21:00)
[2018-11-09] MEDS: ACCU-CHEK XX SCH (02:10)
[2018-11-09] MEDS: PIPER-TAZO 2.25 GM (PMX) 50 ML IVPB SCH ×3 (05:18→22:08)
[2018-11-09] MEDS: CALCIUM ACETATE 667 MG CAP PO SCH ×3 (07:35→17:35)
[2018-11-09] MEDS: SEVELAMER CARBONATE 0.8 GM PKT PO SCH ×3 (07:35→17:35)
[2018-11-09] MEDS: LEVETIRACETAM 500 MG (PMX) 100 ML IVPB SCH ×2 (09:00→22:07)
--- NOTE | 2018-11-09 09:03 | CONS ---
Assessment/Plan Assessment/Plan Assessment/Plan (Daily) Ventilator setting; AC of 8, tidal volume 500, PEEP of 5, 30% FiO2. Chest x-ray showing 30% right pneumothorax. Assessment recommendations; next 1. Patient admitted with subdural hematoma status post right parietal craniotomy with extremely poor mental status. 2. End-stage renal disease on hemodialysis. 3. Anemia and mild thrombocytopenia. 4. History of hypertension. 5. 30% right pneumothorax. Continue current supportive care. Patient will need to have a chest tube placed on the right side. Overall prognosis remains very poor. Consultation Date/Type/Reason Admit Date/Time October 31, 2018 at 21:18 Initial Consult Date 11/06/18 Type of Consult Pulmonary/critical care Patient condition is critical. Remains profoundly unresponsive. Patient however has remained hemodynamically stable. No untoward events reported. General exam; elderly male, orally intubated, unresponsive, currently in no distress. Reason for Consultation H EENT exam; supple neck, no JVD. No lymphadenopathy. Midline trachea. No thyromegaly. Right parietal scar is healing well. [place] are in place. Patient has bilateral intraocular lens implants. Patient has fair dentition. Orally intubated. Chest exam; diminished breath sounds right lung. Left lung is clear. S1-S2 audible, no murmurs. Regular rhythm. Abdomen exam; soft, no organomegaly. Bowel sounds audible. Extremity exam; peripheral edema clubbing. TOBACCO CURER exam; patient remains profoundly unresponsive. Requesting Provider: GERMAIN VASQUES Date/Time of Note DATE: 11/09/18 TIME: 09:00 Exam/Review of Systems Exam Vitals Vital Signs Date Temp Pulse Resp B/P (MAP) Pulse Ox O2 O2 Flow FiO2 Time Delivery Rate 11/09/18 64 12 113/39 100 06:00 (63) 11/09/18 30 05:08 11/09/18 98.1 Mechanical 04:00 Ventilator 11/06/18 6.0 09:00 Intake and Output 11/08/18 11/08/18 11/09/18 1515:00 23:00 07:00 IntakeIntake Total 170.0 ml 80 ml 150 ml OutputOutput Total 50 ml 108 ml 60 ml BalanceBalance 120.0 ml -28 ml 90 ml Results Result Diagram: 11/09/18 0430 11/09/18 0430 Results 24hrs Laboratory Tests Test 11/08/18 09:48 11/08/18 12:56 11/08/18 17:33 11/08/18 20:32 Bedside Glucose 238 H 173 163 122 Test 11/09/18 02:00 11/09/18 04:30 11/09/18 04:32 11/09/18 07:00 Bedside Glucose 149 128 White Blood Count 9.1 Red Blood Count 3.64 L Hemoglobin 9.5 L Hematocrit 31.6 L Mean Corpuscular 86.8 Volume Mean Corpuscular 26.1 L Hemoglobin Mean Corpuscular 30.1 L Hemoglobin Concent Red Cell 17.6 H Distribution Width Platelet Count 149 Mean Platelet 9.6 Volume Immature 0.700 H Granulocytes % Neutrophils % 78.3 H Lymphocytes % 4.1 L Monocytes % 15.5 H Eosinophils % 1.3 Basophils % 0.1 Nucleated Red 0.0 Blood Cells % Immature 0.060 H Granulocytes # Neutrophils # 7.1 Lymphocytes # 0.4 L Monocytes # 1.4 H Eosinophils # 0.1 Basophils # 0.0 Nucleated Red 0.0 Blood Cells # Sodium Level 140 Potassium Level 4.2 Chloride Level 103 Carbon Dioxide 26 Level Anion Gap 11 Blood Urea 69 H Nitrogen Creatinine 5.57 H Est Glomerular Filtrat Rate mL/min Glucose Level 127 Calcium Level 9.5 Blood Gas Specimen Blood arterial Source Arterial Blood 11/09/2018 7:30:03 Date Drawn AM Arterial Blood pH 7.424 (Temp corrected) Arterial Blood 39.0 pCO2 (Temp correct) Arterial Blood pO2 125.4 H (Temp corrected) Arterial Blood 25.0 HCO3 Arterial Blood 0.6 Base Excess Arterial Blood 98.4 Oxygen Saturation Rogerio Test N/A Arterial Blood Gas A-Line Puncture Site Arterial 0.5 Blood Carboxyhemog lobin Arterial Blood 0.3 Methemoglobin Blood Gas A-a O2 42.7 H Differential Oxyhemoglobin 97.6 Percent Blood Gas 37.0 Temperature Blood Gas 8.0 Respiration Rate Blood Gas Actual 11 Respiration Rate Blood Gas Modality VENT - AC FiO2 30.0 Blood Gas Tidal 500.0 Volume Blood Gas Low PEEP 5.0 Setting Blood Gas Notified TM Whom Blood Gas Notified 11/09/2018 7:50:57 Time AM Medications Medication Current Medications Ondansetron HCl (Zofran Inj) 4 mg Q6H PRN IV NAUSEA AND/OR VOMITING; Start 10/31/18 at 21:30 Albuterol (Proventil 0.083% (Neb)) 2.5 mg Q2H RESP THERAPY PRN NEB SHORTNESS OF BREATH Last administered on 11/04/18 00:44; Admin Dose 2.5 MG; Start 10/31/18 at 21:30 Acetaminophen (Tylenol Liquid) 650 mg Q6H PRN PO PAIN LEVEL 1-3 OR FEVER Last administered on 11/07/18 15:40; Admin Dose 650 MG; Start 10/31/18 at 21:30 Hydralazine HCl (Apresoline) 10 mg Q4H PRN IV ELEVATED BLOOD PRESSURE Last administered on 11/08/18 21:36; Admin Dose 10 MG; Start 10/31/18 at 22:00 Amlodipine Besylate (Norvasc) 5 mg BID PO Last administered on 11/08/18 20:37; Admin Dose 5 MG; Start 10/31/18 at 22:00 Benazepril HCl (Lotensin) 40 mg DAILY PO Last administered on 11/08/18 09:50; Admin Dose 40 MG; Start 11/01/18 at 09:00 Calcium Acetate (Phoslo) 667 mg WITH MEALS PO Last administered on 11/08/18 12:52; Admin Dose 667 MG; Start 11/01/18 at 08:00 Multivit/Ca Carb/ B Cmplx/FA/Prenat (Sharron-Ashley) 1 tab DAILY PO Last administered on 11/08/18 08:56; Admin Dose 1 TAB; Start 11/01/18 at 09:00 Diagnostic Test (Pha) (Accu-Chek) 1 ea 02 XX Last administered on 11/09/18 02:10; Admin Dose 1 EA; Start 11/02/18 at 02:00 Insulin Aspart (Novolog Insulin Pen) NOVOLOG *MILD* ALGORI... Q4 SC Last admini stered on 11/08/18 17:36; Admin Dose 1 UNIT; Start 11/01/18 at 13:00 Sevelamer Carbonate (Renvela) 0.8 gm WITH MEALS PO Last administered on 11/08/18 12:52; Admin Dose 0.8 GM; Start 11/01/18 at 18:00 Miscellaneous Information 1 ea NOTE XX ; Start 11/02/18 at 17:00 Glucose (Glutose) 15 gm Q15M PRN PO DECREASED GLUCOSE; Start 11/02/18 at 17:00 Glucose (Glutose) 22.5 gm Q15M PRN PO DECREASED GLUCOSE; Start 11/02/18 at 17:00 Dextrose (D50w Syringe) 25 ml Q15M PRN IV DECREASED GLUCOSE; Start 11/02/18 at 17:00 Dextrose (D50w Syringe) 50 ml Q15M PRN IV DECREASED GLUCOSE; Start 11/02/18 at 17:00 Glucagon (Glucagen) 1 mg Q15M PRN IM DECREASED GLUCOSE; Start 11/02/18 at 17:00 Glucose (Glutose) 15 gm Q15M PRN BUCCAL DECREASED GLUCOSE; Start 11/02/18 at 17:00 Albumin Human 100 ml @ 100 mls/hr WITH DIALYSIS PRN IV SBP <90 DURING DIALYSIS; Start 11/03/18 at 08:30 Epoetin Virgil-epbx (Retacrit (Esrd)) 6,000 unit TuThSa@1700 SC Last administered on 11/07/18at 20:43; Admin Dose 6,000 UNIT; Start 11/04/18 at 17:00 Levetiracetam 100 ml @ 400 mls/hr Q12 IVPB Last administered on 11/08/18at 20:38; Admin Dose 400 MLS/HR; Start 11/04/18 at 01:30 Piperacillin Sod/ Tazobactam Sod 50 ml @ 200 mls/hr Q8 IVPB Last administered on 11/09/18at 05:18; Admin Dose 200 MLS/HR; Start 11/04/18 at 17:45; Stop 11/10/18 at 23:59 Lorazepam (Ativan) 1 mg Q5M PRN IV SEIZURES; Start 11/04/18 at 20:19 Morphine Sulfate (morphine) 2 mg Q4H PRN IV SEVERE PAIN LEVEL 7-10 Last administered on 11/07/18at 16:31; Admin Dose 2 MG; Start 11/06/18 at 13:30 Hydralazine HCl (Apresoline) 10 mg Q6H PRN IV For SBP >160 Last administered on 11/06/18at 15:48; Admin Dose 10 MG; Start 11/06/18 at 13:30 Ferric Sodium Gluconate Complex 125 mg/Sodium Chloride 110 ml @ 110 mls/hr DAILY@1300 IVPB Last administered on 11/08/18 17:32; Admin Dose 110 MLS/HR; Start 11/07/18 at 13:00; Stop 11/11/18 at 13:59 Midazolam HCl 50 ml @ 1 mls/hr TITRATE IV Last administered on 11/07/18 18:20; Admin Dose 1 MLS/HR; Start 11/07/18 at 18:00 Fentanyl 100 ml @ 2.5 mls/hr TITRATE IV Last administered on 11/07/18at 18:21; Admin Dose 2.5 MLS/HR; Start 11/07/18 at 18:00 Carvedilol (Coreg) 12.5 mg BID PO Last administered on 11/08/18 20:38; Admin Dose 12.5 MG; Start 11/07/18 at 21:00 Clonidine (Catapres) 0.1 mg BID PO Last administered on 11/08/18 20:38; Admin Dose 0.1 MG; Start 11/07/18 at 21:00 Famotidine (Pepcid) 20 mg DAILY PO ; Start 11/09/18 at 09:00 Dexmedetomidine HCl 200 mcg/ Sodium Chloride 50 ml @ 3.16 mls/hr TITRATE IV ; Start 11/09/18 at 09:30 LIDIA ROSALES 6, 2019 09:03
[2018-11-09] MEDS ORDERED: LIDOCAINE 1% (MDV) 20 ML INJ ONE (09:22)
[2018-11-09] MEDS ORDERED: DEXMEDETOMIDINE HCL 200 MCG in SOD CHLORIDE 0.9% 48 ML IV SCH (09:30)
--- NOTE | 2018-11-09 09:41 | OPR ---
Date/Time of Note Date/Time of Note DATE: 11/09/18 TIME: 09:39 Operative Report Procedure Date: Nov 09, 2018 Preoperative Diagnosis 30% right pneumothorax Postoperative Diagnosis Same Operation/Procedure Performed Right side chest tube placement Surgeon see signature line [employer] Platemaker RT and ICU nurse Anesthesia Type: other (Topical) Estimated Blood Loss: 0 - 10 ml's Transfusion none Specimen None Grafts/Implants none Complications none Indications 30% right pneumothorax Procedure Description Informed consent was obtained from patient's daughter over the phone. Chest x- ray done short while ago revealed 30% right pneumothorax. Patient already was on invasive mechanical ventilation. Right lateral chest wall was prepped in the usual sterile fashion. All sterile barrier precautions were also undertaken. 7 mL of 1% lidocaine was injected sub-cutaneously in the right mid axillary line in the fifth intercostal space. Followed by 1 cm incision with #21 scalpel blade followed by placement of 20 Greek chest tube over trocar into the right pleural space which was readily achieved. Serous fluid was immediately withdrawn. There was mild bleeding at incision site. Tube was secured in the usual fashion. Chest x-ray has been ordered. LIDIA ROSALES Nov 09, 2018 09:41
[2018-11-09] MEDS ORDERED: LIDOCAINE 1% (MDV) 20 ML INJ SC ONE (10:00)
[2018-11-09] MEDS: AMLODIPINE 5 MG TAB PO SCH ×2 (11:02→22:09)
[2018-11-09] MEDS: BENAZEPRIL 40 MG TAB PO SCH (11:02)
[2018-11-09] MEDS: MULTIVIT/CA CARB/B CMPLX/FA TAB PO SCH (11:02)
[2018-11-09] MEDS: FAMOTIDINE 20 MG TAB PO SCH (11:03)
--- NOTE | 2018-11-09 11:14 | CONS ---
Assessment/Plan Assessment/Plan Assessment/Plan (Daily) 1. End-stage renal disease on HD - HD today , pt regular schedule for HD is TTS , AVF for HD access . 3. Hypertension. Continue current blood pressure regimen. Continue ultrafiltration with dialysis. 3. subdural hematoma, S/p Craniotomy and burhole placement by dr. Shrestha on 10/06/18- Post op care as per Neurosurgery, Drainage tube in place , MRI brain done 4. Post op pulmonary insufficiency INtubated on ventilator 4. Anemia of ESRD, s/p 2 unit PRBC tansfusion during this admission 5. Mineral bone disorder. Monitor calcium and phosphorus levels. 6. Subdural hematoma. follow up CT scan showed stable hematorma 7. Diabetes. Continue current insulin regimen. 8. Paroxysmal atrial fibrillation. Continue medical management. 9. Gastrointestinal and deep vein thrombosis prophylaxis. Consultation Date/Type/Reason Admit Date/Time October 31, 2018 at 21:18 Initial Consult Date 11/01/18 Requesting Provider: GERMAIN VASQUES Date/Time of Note DATE: 11/09/18 TIME: 11:14 24 HR Interval Summary Free Text/Dictation pt remains intuabted, Paln for Hd today Exam/Review of Systems Exam Vitals Vital Signs Date Temp Pulse Resp B/P (MAP) Pulse Ox O2 O2 Flow FiO2 Time Delivery Rate 11/09/18 66 08:00 11/09/18 12 113/39 100 06:00 (63) 11/09/18 30 05:08 11/09/18 98.1 Mechanical 04:00 Ventilator 11/06/18 6.0 09:00 Intake and Output 11/08/18 11/08/18 11/09/18 1414:59 22:59 06:59 IntakeIntake Total 208.5 ml 80 ml 150 ml OutputOutput Total 57 ml 96 ml 80 ml BalanceBalance 151.5 ml -16 ml 70 ml Results Result Diagram: 11/09/18 0430 11/09/18 0430 Results 24hrs Laboratory Tests Test 11/08/18 12:56 11/08/18 17:33 11/08/18 20:32 11/09/18 02:00 Bedside Glucose 173 163 122 149 Test 11/09/18 04:30 11/09/18 04:32 11/09/18 07:00 11/09/18 11:11 White Blood Count 9.1 Red Blood Count 3.64 L Hemoglobin 9.5 L Hematocrit 31.6 L Mean Corpuscular 86.8 Volume Mean Corpuscular 26.1 L Hemoglobin Mean Corpuscular 30.1 L Hemoglobin Concent Red Cell 17.6 H Distribution Width Platelet Count 149 Mean Platelet 9.6 Volume Immature 0.700 H Granulocytes % Neutrophils % 78.3 H Lymphocytes % 4.1 L Monocytes % 15.5 H Eosinophils % 1.3 Basophils % 0.1 Nucleated Red 0.0 Blood Cells % Immature 0.060 H Granulocytes # Neutrophils # 7.1 Lymphocytes # 0.4 L Monocytes # 1.4 H Eosinophils # 0.1 Basophils # 0.0 Nucleated Red 0.0 Blood Cells # Sodium Level 140 Potassium Level 4.2 Chloride Level 103 Carbon Dioxide 26 Level Anion Gap 11 Blood Urea 69 H Nitrogen Creatinine 5.57 H Est Glomerular Filtrat Rate mL/min Glucose Level 127 Calcium Level 9.5 Bedside Glucose 128 111 Blood Gas Specimen Blood arterial Source Arterial Blood 11/09/2018 7:30:03 Date Drawn AM Arterial Blood pH 7.424 (Temp corrected) Arterial Blood 39.0 pCO2 (Temp correct) Arterial Blood pO2 125.4 H (Temp corrected) Arterial Blood 25.0 HCO3 Arterial Blood 0.6 Base Excess Arterial Blood 98.4 Oxygen Saturation Rogerio Test N/A Arterial Blood Gas A-Line Puncture Site Arterial 0.5 Blood Carboxyhemog lobin Arterial Blood 0.3 Methemoglobin Blood Gas A-a O2 42.7 H Differential Oxyhemoglobin 97.6 Percent Blood Gas 37.0 Temperature Blood Gas 8.0 Respiration Rate Blood Gas Actual 11 Respiration Rate Blood Gas Modality VENT - AC FiO2 30.0 Blood Gas Tidal 500.0 Volume Blood Gas Low PEEP 5.0 Setting Blood Gas Notified TM Whom Blood Gas Notified 11/09/2018 7:50:57 Time AM Medications Medication Current Medications Ondansetron HCl (Zofran Inj) 4 mg Q6H PRN IV NAUSEA AND/OR VOMITING; Start 10/31/18 at 21:30 Albuterol (Proventil 0.083% (Neb)) 2.5 mg Q2H RESP THERAPY PRN NEB SHORTNESS OF BREATH Last administered on 11/04/18at 00:44; Admin Dose 2.5 MG; Start 10/31/18 at 21:30 Acetaminophen (Tylenol Liquid) 650 mg Q6H PRN PO PAIN LEVEL 1-3 OR FEVER Last administered on 11/07/18 15:40; Admin Dose 650 MG; Start 10/31/18 at 21:30 Hydralazine HCl (Apresoline) 10 mg Q4H PRN IV ELEVATED BLOOD PRESSURE Last a dministered on 11/08/18 21:36; Admin Dose 10 MG; Start 10/31/18 at 22:00 Amlodipine Besylate (Norvasc) 5 mg BID PO Last administered on 11/09/18 11:02; Admin Dose 5 MG; Start 10/31/18 at 22:00 Benazepril HCl (Lotensin) 40 mg DAILY PO Last administered on 11/09/18 11:02; Admin Dose 40 MG; Start 11/01/18 at 09:00 Calcium Acetate (Phoslo) 667 mg WITH MEALS PO Last administered on 11/09/18 11:03; Admin Dose 667 MG; Start 11/01/18 at 08:00 Multivit/Ca Carb/ B Cmplx/FA/Prenat (Sharron-Ashley) 1 tab DAILY PO Last administered on 11/09/18 11:02; Admin Dose 1 TAB; Start 11/01/18 at 09:00 Diagnostic Test (Pha) (Accu-Chek) 1 ea 02 XX Last administered on 11/09/18 02:10; Admin Dose 1 EA; Start 11/02/18 at 02:00 Insulin Aspart (Novolog Insulin Pen) NOVOLOG *MILD* ALGORI... Q4 SC Last administered on 11/08/18 17:36; Admin Dose 1 UNIT; Start 11/01/18 at 13:00 Sevelamer Carbonate (Renvela) 0.8 gm WITH MEALS PO Last administered on 11/09/18 11:01; Admin Dose 0.8 GM; Start 11/01/18 at 18:00 Miscellaneous Information 1 ea NOTE XX ; Start 11/02/18 at 17:00 Glucose (Glutose) 15 gm Q15M PRN PO DECREASED GLUCOSE; Start 11/02/18 at 17:00 Glucose (Glutose) 22.5 gm Q15M PRN PO DECREASED GLUCOSE; Start 11/02/18 at 17:00 Dextrose (D50w Syringe) 25 ml Q15M PRN IV DECREASED GLUCOSE; Start 11/02/18 at 17:00 Dextrose (D50w Syringe) 50 ml Q15M PRN IV DECREASED GLUCOSE; Start 11/02/18 at 17:00 Glucagon (Glucagen) 1 mg Q15M PRN IM DECREASED GLUCOSE; Start 11/02/18 at 17:00 Glucose (Glutose) 15 gm Q15M PRN BUCCAL DECREASED GLUCOSE; Start 11/02/18 at 17:00 Albumin Human 100 ml @ 100 mls/hr WITH DIALYSIS PRN IV SBP <90 DURING DIALYSIS; Start 11/03/18 at 08:30 Epoetin Virgil-epbx (Retacrit (Esrd)) 6,000 unit TuThSa@1700 SC Last administered on 11/07/18at 20:43; Admin Dose 6,000 UNIT; Start 11/04/18 at 17:00 Levetiracetam 100 ml @ 400 mls/hr Q12 IVPB Last administered on 11/09/18at 09:00; Admin Dose 400 MLS/HR; Start 11/04/18 at 01:30 Piperacillin Sod/ Tazobactam Sod 50 ml @ 200 mls/hr Q8 IVPB Last administered on 11/09/18 05:18; Admin Dose 200 MLS/HR; Start 11/04/18 at 17:45; Stop 11/10/18 at 23:59 Lorazepam (Ativan) 1 mg Q5M PRN IV SEIZURES; Start 11/04/18 at 20:19 Morphine Sulfate (morphine) 2 mg Q4H PRN IV SEVERE PAIN LEVEL 7-10 Last administered on 11/07/18at 16:31; Admin Dose 2 MG; Start 11/06/18 at 13:30 Hydralazine HCl (Apresoline) 10 mg Q6H PRN IV For SBP >160 Last administered on 11/06/18at 15:48; Admin Dose 10 MG; Start 11/06/18 at 13:30 Ferric Sodium Gluconate Complex 125 mg/Sodium Chloride 110 ml @ 110 mls/hr DAILY@1300 IVPB Last administered on 11/08/18 17:32; Admin Dose 110 MLS/HR; Start 11/07/18 at 13:00; Stop 11/11/18 at 13:59 Midazolam HCl 50 ml @ 1 mls/hr TITRATE IV Last administered on 11/07/18 18:20; Admin Dose 1 MLS/HR; Start 11/07/18 at 18:00 Fentanyl 100 ml @ 2.5 mls/hr TITRATE IV Last administered on 11/07/18 18:21; Admin Dose 2.5 MLS/HR; Start 11/07/18 at 18:00 Carvedilol (Coreg) 12.5 mg BID PO Last administered on 11/09/18 11:07; Admin Dose 12.5 MG; Start 11/07/18 at 21:00 Clonidine (Catapres) 0.1 mg BID PO Last administered on 11/09/18 11:04; Admin Dose 0.1 MG; Start 11/07/18 at 21:00 Famotidine (Pepcid) 20 mg DAILY PO Last administered on 11/09/18 11:03; Admin Dose 20 MG; Start 11/09/18 at 09:00 Dexmedetomidine HCl 200 mcg/ Sodium Chloride 50 ml @ 3.16 mls/hr TITRATE IV Last administered on 11/09/18 10:03; Admin Dose 3.16 MLS/HR; Start 11/09/18 at 09:30 SAUD CHANDLER MD Nov 09, 2018 11:14
--- NOTE | 2018-11-09 11:58 | PN ---
Date/Time of Note Date/Time of Note DATE: 11/09/18 TIME: 11:57 Assessment/Plan VTE Prophylaxis Risk score (from Ns)>0 risk: 12 SCD applied (from Ns): Yes Pharmacological prophylaxis: NA/contraindicated Pharm contraindication: hemorrhagic infarct Lines/Catheters IV Catheter Type [facility]from [facility] A Line Urinary Cath still in place: No Assessment/Plan Hospital Course 78 yo M with a history of fall a few days prior to presentation who was brought in for confusion and is currently managed as follows: 1. Acute right subdural hematoma -Status post craniotomy and bur hole placement 11/06/18 and ventriculostomy drain -CT and MRI concerning for new left-sided subdural collection of fluid as well as residual hemorrhage. -There was concern for new infarcts in basal ganglia on CT, but this was not reported on MRI -Patient is not significantly improved clinically, will discuss with neurosurgery if any further intervention is required 2. Ventilator dependent respiratory failure -This is likely multifactorial from aspiration pneumonitis as well as pleural effusion as well as neurologic injury -Patient remains ventilator dependent 3. Moderate to large right-sided pleural effusion -status post thoracentesis November 07, 2018 with drainage of 900 cc of fluid 4. Right-sided pneumothorax complicating thoracentesis -which has worsened and now patient is status post right-sided chest tube placement November 09/2019 5. Severe anemia, likely acute on chronic, exacerbated by acute blood loss from #1 with iron deficiency -Patient received 2 units of packed red cells upon arrival, hemoglobin has been stable since off anticoagulation and antiplatelet -ongoing IV iron replacement X 5 days 6. Altered mentation/acute encephalopathy / confusion secondary to #1 -requiring sedation at this time 7. End-stage renal disease on hemodialysis Tuesday, , Tuesday 8. Diabetes mellitus -excellent control on current regimen 9. Paroxysmal atrial fibrillation -off all anticoagulation for now -slightly bradycardic, cardio managing 10. Hypertension -controlled 11. Aspiration pneumonitis -Maintained on empiric abx -Blood cultures remain negative to date. Respiratory cultures? 10. New-onset seizure secondary to #1 -Patient maintained on seizure prophylaxis with no further episodes so far -EEG done and reviewed 11. Chronic thrombocytopenia -likely related to iron deficiency -Status post 1 unit of platelet transfusion upon arrival, improving levels since - 12. Recurrent falls status post recent fall 2 days ago -Patient will likely be quite debilitated by the end of this hosp italization and will probably require nursing facility placement for rehab 13. Tube feeds on hold for high stomach residuals -reglan q6h scheduled -no BM in about 2 days, will give miralax -monitor G-tube output, once reduced, resume tube feeds at slow rate Plan: -f/u Neurosurgery plan and recommendations in terms of nursing home prognosis, family meeting to update status -Continue abx -Continue to hold all anticoagulation -Daily CXR and weaning of vent and Chest tube -Appreciate all consults -Further interventions per clinical course -Critical care time greater than 40mins Result Diagram: 11/09/18 0430 11/09/18 0430 Results 24hrs Laboratory Tests Test 11/08/18 12:56 11/08/18 17:33 11/08/18 20:32 11/09/18 02:00 Bedside Glucose 173 163 122 149 Test 11/09/18 04:30 11/09/18 04:32 11/09/18 07:00 11/09/18 11:11 White Blood Count 9.1 Red Blood Count 3.64 L Hemoglobin 9.5 L Hematocrit 31.6 L Mean Corpuscular 86.8 Volume Mean Corpuscular 26.1 L Hemoglobin Mean Corpuscular 30.1 L Hemoglobin Concent Red Cell 17.6 H Distribution Width Platelet Count 149 Mean Platelet 9.6 Volume Immature 0.700 H Granulocytes % Neutrophils % 78.3 H Lymphocytes % 4.1 L Monocytes % 15.5 H Eosinophils % 1.3 Basophils % 0.1 Nucleated Red 0.0 Blood Cells % Immature 0.060 H Granulocytes # Neutrophils # 7.1 Lymphocytes # 0.4 L Monocytes # 1.4 H Eosinophils # 0.1 Basophils # 0.0 Nucleated Red 0.0 Blood Cells # Sodium Level 140 Potassium Level 4.2 Chloride Level 103 Carbon Dioxide 26 Level Anion Gap 11 Blood Urea 69 H Nitrogen Creatinine 5.57 H Est Glomerular Filtrat Rate mL/min Glucose Level 127 Calcium Level 9.5 Bedside Glucose 128 111 Blood Gas Specimen Blood arterial Source Arterial Blood 11/09/2018 7:30:03 Date Drawn AM Arterial Blood pH 7.424 (Temp corrected) Arterial Blood 39.0 pCO2 (Temp correct) Arterial Blood pO2 125.4 H (Temp corrected) Arterial Blood 25.0 HCO3 Arterial Blood 0.6 Base Excess Arterial Blood 98.4 Oxygen Saturation Rogerio Test N/A Arterial Blood Gas A-Line Puncture Site Arterial 0.5 Blood Carboxyhemog lobin Arterial Blood 0.3 Methemoglobin Blood Gas A-a O2 42.7 H Differential Oxyhemoglobin 97.6 Percent Blood Gas 37.0 Temperature Blood Gas 8.0 Respiration Rate Blood Gas Actual 11 Respiration Rate Blood Gas Modality VENT - AC FiO2 30.0 Blood Gas Tidal 500.0 Volume Blood Gas Low PEEP 5.0 Setting Blood Gas Notified TM Whom Blood Gas Notified 11/09/2018 7:50:57 Time AM Subjective 24 Hr Interval Summary Free Text/Dictation Intubated and sedated for comfort, but no pressor support. Developed post thoracentesis pneumothorax on the right yesterday and had to get chest tube placed today because it was worsening Subjective hx not possible: pt non-verbal, pt critical status Exam/Review of Systems Exam Vitals Vital Signs Date Temp Pulse Resp B/P (MAP) Pulse Ox O2 O2 Flow FiO2 Time Delivery Rate 11/09/18 66 08:00 11/09/18 12 113/39 100 06:00 (63) 11/09/18 30 05:08 11/09/18 98.1 Mechanical 04:00 Ventilator 11/06/18 6.0 09:00 Intake and Output 11/08/18 11/08/18 11/09/18 1414:59 22:59 06:59 IntakeIntake Total 208.5 ml 80 ml 150 ml OutputOutput Total 57 ml 96 ml 80 ml BalanceBalance 151.5 ml -16 ml 70 ml Exam GENERAL: Intubated and sedated on precedex, will grimace to deep sternal rub HEENT: L pupil remains slighly larger than R, sluggish, Intubated, Vent settings noted LUNGS: diffusely diminished, clear HEART: S1, S2. No murmur, gallops or rubs. ABDOMEN: Soft, non distended, Normoactive bowel sounds. GENITOURINARY: Normal male external genitalia, Ott to bedside drainage EXTREMITIES: Mild 1+ nonpitting edema bilaterally, also some hand edema bilaterally NEUROLOGIC: The patient is currently sedated. Results Results 24hrs Laboratory Tests Test 11/08/18 12:56 11/08/18 17:33 11/08/18 20:32 11/09/18 02:00 Bedside Glucose 173 163 122 149 Test 11/09/18 04:30 11/09/18 04:32 11/09/18 07:00 11/09/18 11:11 White Blood Count 9.1 Red Blood Count 3.64 L Hemoglobin 9.5 L Hematocrit 31.6 L Mean Corpuscular 86.8 Volume Mean Corpuscular 26.1 L Hemoglobin Mean Corpuscular 30.1 L Hemoglobin Concent Red Cell 17.6 H Distribution Width Platelet Count 149 Mean Platelet 9.6 Volume Immature 0.700 H Granulocytes % Neutrophils % 78.3 H Lymphocytes % 4.1 L Monocytes % 15.5 H Eosinophils % 1.3 Basophils % 0.1 Nucleated Red 0.0 Blood Cells % Immature 0.060 H Granulocytes # Neutrophils # 7.1 Lymphocytes # 0.4 L Monocytes # 1.4 H Eosinophils # 0.1 Basophils # 0.0 Nucleated Red 0.0 Blood Cells # Sodium Level 140 Potassium Level 4.2 Chloride Level 103 Carbon Dioxide 26 Level Anion Gap 11 Blood Urea 69 H Nitrogen Creatinine 5.57 H Est Glomerular Filtrat Rate mL/min Glucose Level 127 Calcium Level 9.5 Bedside Glucose 128 111 Blood Gas Specimen Blood arterial Source Arterial Blood 11/09/2018 7:30:03 Date Drawn AM Arterial Blood pH 7.424 (Temp corrected) Arterial Blood 39.0 pCO2 (Temp correct) Arterial Blood pO2 125.4 H (Temp corrected) Arterial Blood 25.0 HCO3 Arterial Blood 0.6 Base Excess Arterial Blood 98.4 Oxygen Saturation Rogerio Test N/A Arterial Blood Gas A-Line Puncture Site Arterial 0.5 Blood Carboxyhemog lobin Arterial Blood 0.3 Methemoglobin Blood Gas A-a O2 42.7 H Differential Oxyhemoglobin 97.6 Percent Blood Gas 37.0 Temperature Blood Gas 8.0 Respiration Rate Blood Gas Actual 11 Respiration Rate Blood Gas Modality VENT - AC FiO2 30.0 Blood Gas Tidal 500.0 Volume Blood Gas Low PEEP 5.0 Setting Blood Gas Notified TM Whom Blood Gas Notified 11/09/2018 7:50:57 Time AM Imaging Imaging PROCEDURE: MR Brain without contrast. CLINICAL INDICATION: History of subdural hematoma status post subdural drainage, follow-up TECHNIQUE: An MRI of the brain was performed on a [employer] short bore high- definition 3 riya scanner utilizing the following sequences: Sagittal and axial T1 weighted, axial T2 weighted, coronal GRE, axial diffusion weighted with ADC mapping, and axial FLAIR. COMPARISON: CT brain same day, earlier FINDINGS: No diffusion weighted abnormalities are seen to suggest the presence of acute ischemia or recent infarct. images the brain again demonstrate a large left subdural fluid collection which is T1 hypointense to hyperintense with a small p osterior layering T1 ISO and T2 hypointense collection consistent with a acute on mostly chronic subdural hematoma, measuring up to 2.4 cm, grossly stable given change in technique. No there is crowding of the left cerebral sulci with subfalcine herniation measuring up to 1.4 cm, stable when compared to the previous exam measuring 1.5 cm. A more complex mixed signal T1 and hypointense T2 subdural fluid hematoma is seen along the right frontal temporal convexity measuring up to 1.5 cm, stable . Focal pneumocephalus is seen along the right middle cranial fossa, stable. The right frontal and temporal subdural drain is again visualize, better visualized on CT. Focal foci of subarachnoid hemorrhage are seen along the left cerebral hemisphere along the frontal convexity, parasagittal frontal parietal lobes as well as along the left lateral parietal lobe, stable. Subarachnoid hemorrhage is also seen scattered along the right frontal and parietal convexities, stable. Mild T2 and FLAIR hyperintense signal seen within the frontal lobe consistent with edema/contusion, stable from CT. Grain susceptibility artifact is seen along the subdural fluid collections consistent with hematomas as well as scattered along the gyri and as well as along the cerebellar folia consistent with old hemorrhages. Delete Normal flow voids are visible in the proximal intracranial arteries and dural sinuses, indicating patency. Patchy paranasal sinus disease is seen involving bilateral ethmoid maxillary and sphenoid sinuses. IMPRESSION: MRI of the brain is stable in appearance when compared to the previously performed CT. There is a large acute on mostly chronic subdural left hematoma with pneumocephalus which is stable in appearance. There is mostly an acute right frontal convexity subdural hematoma with drain in place. There is presence of left to right subfalcine herniation which is stable in appearance measuring up to 1.5 cm. Mild patchy vasogenic and gyral edema is seen along the right f rontal convexity which may be associated to intraparenchymal peripheral contusions of the right frontal lobe. Patchy subarachnoid hemorrhage is seen along the bifrontal and parietal convexities, not significantly changed. Subarachnoid hemorrhage extends into the fourth ventricle and long the cerebellar folia, stable. RPTAT: [facility] Cherelle Jacome, Physician Date Time Electronically viewed and signed by Cherelle Jacome, Physician on 11/08/2018 16:13 RL/ CC: KELLIE JJ MD [id number] PROCEDURE: CT Brain without contrast. CLINICAL INDICATION: Altered mental status, subdural hematoma TECHNIQUE: Routine CT scan of the brain was performed on a high resolution multi detector scanner without intravenous contrast. One or more of the following dose reduction techniques were used: Automated exposure control; Adjustment of the mA and/or kV according to patient size; Use of iterative reconstruction technique. CTDI = 36 mGy. DLP = 634 mGy-cm. DICOM images are available. COMPARISON: CT BRAIN 11/06/2018 FINDINGS: Hemorrhage: No new areas of hemorrhage. Similar appearance of right-sided subdural hematoma measuring up to 13 mm in maximal thickness in the right frontal region. Small scattered subarachnoid hemorrhages involving both cerebral convexities are unchanged. Small amount of blood products in the quadrigeminal cistern are unchanged. Acute ischemic changes: Degraded visualization of the basal ganglia. Mass effect: Increased midline shift now of 15 mm to the right. Similar appearance of postoperative pneumocephalus. Increased non hemorrhagic subdural fluid overlying the left cerebral convexity measuring up to 21 mm. Parenchymal volume: Mild central parenchymal volume loss is evident. Ventricular system: Majority of the left lateral ventricle is effaced. Slight distension of the right lateral ventricle. Minimal intraventricular blood products again observed. Chronic changes: Mild chronic-appearing microvascular ischemic changes of the supratentorial white matter. Atherosclerotic calcifications of the cavernous portions of both internal carotid arteries are present. Extracranial soft tissues: Unremarkable. Calvarium: No fractures. Paranasal sinuses: Mildly increased secretions Mastoid air cells: Visualized mastoid air cells are clear. IMPRESSION: Degraded visualization of chin-white differentiation involving the basal ganglia concerning for new ischemic changes. Right-sided subdural hematoma, subarachnoid hemorrhages, quadrigeminal cistern, and intraventricular blood products are unchanged. Similar appearance of pneumocephalus with increased left-sided subdural non hemorrhagic fluid collection measuring up to 21 mm. Findings produce increased mass effect now with 15 mm of midline shift to the right. Critical results were discussed with Nurse Ha by telephone at 11/08/2018 1:29:[address] Duane Hopkins RPTAT: AADD .Duane Hopkins MD, MD Date Time Electronically viewed and signed by .Duane Hopkins MD, on 11/08/2018 13:36 .B/ _ PROCEDURE: XR Chest. CLINICAL INDICATION: pna chf TECHNIQUE: Portable AP view of the chest was obtained. COMPARISON: CHEST 11/07/2018; [facility] CHEST 10/28/2015; [facility] CHEST 06/09/2015; FINDINGS: Interval increase in now moderate right hydropneumothorax compared to prior exam. Otherwise stable bibasilar pulmonary opacities. No sign of significant mediastinal shift. Heart size is stable. Lines and tubes appear stable. IMPRESSION: Interval increase in size of now moderate right hydropneumothorax. Findings were discussed with the patient's RN Aishwarya at approximately 08:15 a.m. 11/08/2018. RPTAT:AAJJ Isabella Lewis, Physician Date Time Electronically viewed and signed by Isabella Lewis, Physician on 11/09/2018 08:17 RF/ CC: REYES ROLON MD, [facility] [id number] PROCEDURE: XR Chest. CLINICAL INDICATION: Shortness of breath, chest tube TECHNIQUE: Single frontal radiograph of the chest. COMPARISON: DR SIGALA 11/09/2018 FINDINGS: Interval placement of right-sided chest tube. Central venous catheter, endotracheal tube, nasogastric tube in satisfactory position. Bibasilar atelectasis is improving. Small pleural effusions are improving. Small right pneumothorax is improving. The cardiomediastinal silhouette is unremarkable. Vascular calcifications of the aorta are present compatible with atherosclerosis. IMPRESSION: Bibasilar atelectasis is improving. Small pleural effusions are improving. Small right pneumothorax is improving. RPTAT: AADD .Duane Hopkins MD, MD Date Time Electronically viewed and signed by .Duane Hopkins MD, on 11/09/2018 10:34 .B/ CC: LIDIA ROSALES [id number] Medications Medication Current Medications Ondansetron HCl (Zofran Inj) 4 mg Q6H PRN IV NAUSEA AND/OR VOMITING; Start 10/31/18 at 21:30 Albuterol (Proventil 0.083% (Neb)) 2.5 mg Q2H RESP THERAPY PRN NEB SHORTNESS OF BREATH Last administered on 11/04/18 00:44; Admin Dose 2.5 MG; Start 10/31/18 at 21:30 Acetaminophen (Tylenol Liquid) 650 mg Q6H PRN PO PAIN LEVEL 1-3 OR FEVER Last administered on 11/07/18 15:40; Admin Dose 650 MG; Start 10/31/18 at 21:30 Hydralazine HCl (Apresoline) 10 mg Q4H PRN IV ELEVATED BLOOD PRESSURE Last administered on 11/08/18 21:36; Admin Dose 10 MG; Start 10/31/18 at 22:00 Amlodipine Besylate (Norvasc) 5 mg BID PO Last administered on 11/09/18 11:02; Admin Dose 5 MG; Start 10/31/18 at 22:00 Benazepril HCl (Lotensin) 40 mg DAILY PO Last administered on 11/09/18 11:02; Admin Dose 40 MG; Start 11/01/18 at 09:00 Calcium Acetate (Phoslo) 667 mg WITH MEALS PO Last administered on 11/09/18 11:03; Admin Dose 667 MG; Start 11/01/18 at 08:00 Multivit/Ca Carb/ B Cmplx/FA/Prenat (Sharron-Ashley) 1 tab DAILY PO Last administered on 11/09/18 11:02; Admin Dose 1 TAB; Start 11/01/18 at 09:00 Diagnostic Test (Pha) (Accu-Chek) 1 ea 02 XX Last administered on 11/09/18 02:10; Admin Dose 1 EA; Start 11/02/18 at 02:00 Insulin Aspart (Novolog Insulin Pen) NOVOLOG *MILD* ALGORI... Q4 SC Last administered on 11/08/18at 17:36; Admin Dose 1 UNIT; Start 11/01/18 at 13:00 Sevelamer Carbonate (Renvela) 0.8 gm WITH MEALS PO Last administered on 11/09/18at 11:01; Admin Dose 0.8 GM; Start 11/01/18 at 18:00 Miscellaneous Information 1 ea NOTE XX ; Start 11/02/18 at 17:00 Glucose (Glutose) 15 gm Q15M PRN PO DECREASED GLUCOSE; Start 11/02/18 at 17:00 Glucose (Glutose) 22.5 gm Q15M PRN PO DECREASED GLUCOSE; Start 11/02/18 at 17:00 Dextrose (D50w Syringe) 25 ml Q15M PRN IV DECREASED GLUCOSE; Start 11/02/18 at 17:00 Dextrose (D50w Syringe) 50 ml Q15M PRN IV DECREASED GLUCOSE; Start 11/02/18 at 17:00 Glucagon (Glucagen) 1 mg Q15M PRN IM DECREASED GLUCOSE; Start 11/02/18 at 17:00 Glucose (Glutose) 15 gm Q15M PRN BUCCAL DECREASED GLUCOSE; Start 11/02/18 at 1 7:00 Albumin Human 100 ml @ 100 mls/hr WITH DIALYSIS PRN IV SBP <90 DURING DIALYSIS; Start 11/03/18 at 08:30 Epoetin Virgil-epbx (Retacrit (Esrd)) 6,000 unit TuThSa@1700 SC Last administered on 11/07/18at 20:43; Admin Dose 6,000 UNIT; Start 11/04/18 at 17:00 Levetiracetam 100 ml @ 400 mls/hr Q12 IVPB Last administered on 11/09/18at 09:00; Admin Dose 400 MLS/HR; Start 11/04/18 at 01:30 Piperacillin Sod/ Tazobactam Sod 50 ml @ 200 mls/hr Q8 IVPB Last administered on 11/09/18at 05:18; Admin Dose 200 MLS/HR; Start 11/04/18 at 17:45; Stop 11/10/18 at 23:59 Lorazepam (Ativan) 1 mg Q5M PRN IV SEIZURES; Start 11/04/18 at 20:19 Morphine Sulfate (morphine) 2 mg Q4H PRN IV SEVERE PAIN LEVEL 7-10 Last admin istered on 11/07/18 16:31; Admin Dose 2 MG; Start 11/06/18 at 13:30 Hydralazine HCl (Apresoline) 10 mg Q6H PRN IV For SBP >160 Last administered on 11/06/18 15:48; Admin Dose 10 MG; Start 11/06/18 at 13:30 Ferric Sodium Gluconate Complex 125 mg/Sodium Chloride 110 ml @ 110 mls/hr DAILY@1300 IVPB Last administered on 11/08/18 17:32; Admin Dose 110 MLS/HR; Start 11/07/18 at 13:00; Stop 11/11/18 at 13:59 Midazolam HCl 50 ml @ 1 mls/hr TITRATE IV Last administered on 11/07/18 18:20; Admin Dose 1 MLS/HR; Start 11/07/18 at 18:00 Fentanyl 100 ml @ 2.5 mls/hr TITRATE IV Last administered on 11/07/18 18:21; Admin Dose 2.5 MLS/HR; Start 11/07/18 at 18:00 Carvedilol (Coreg) 12.5 mg BID PO Last administered on 11/09/18 11:07; Admin Dose 12.5 MG; Start 11/07/18 at 21:00 Clonidine (Catapres) 0.1 mg BID PO Last administered on 11/09/18 11:04; Admin Dose 0.1 MG; Start 11/07/18 at 21:00 Famotidine (Pepcid) 20 mg DAILY PO Last administered on 11/09/18 11:03; Admin Dose 20 MG; Start 11/09/18 at 09:00 Dexmedetomidine HCl 200 mcg/ Sodium Chloride 50 ml @ 3.16 mls/hr TITRATE IV Last administered on 11/09/18 10:03; Admin Dose 3.16 MLS/HR; Start 11/09/18 at 09:30 GERMAIN VASQUES Nov 09, 2018 11:58
--- NOTE | 2018-11-09 12:13 | EEG ---
EEG NOTE Report Details DATE OF TEST: 11/08/18 HISTORY: The patient is a 78-year-old M who presents with seizures following a fall w/ head trauma.. This EEG is requested to rule out nonconvulsive status epilepticus. SEDATION: Opiates CONDITIONS OF RECORDING: This EEG was recorded digitally on the [employer] machine, using the International 10-20 System of electrodes plus anterior temporals and [place]. STATES SAMPLED: Lethargic. FINDINGS: The background is characterized by very low voltage activity. At highest sensitivities, polymorphic delta activity predominates. There is EMG artifact prevalent in the left temporal region. A well-formed posterior dominant rhythm is absent. The normal [id number] frequency-amplitude gradient was absent. Photic stimulation does not elicit any definite driving responses or epileptiform discharges. Hyperventilation was not performed. IMPRESSION: Abnormal electroencephalogram due to: diffuse slowing..and voltage attenuation. COMMENT: The slowing of the background indicates diffuse cortical dysfunction of nonspecific etiology. Voltage attenuation can be attributable to diffuse cortical dysfunction...or alternatively noted in clinical contexts in which the space between electrodes and cortex is enlarged (subdural accumulation, etc.) VALDEMAR VIEIRA Nov 09, 2018 12:13
[2018-11-09] MEDS: POLYETHYLENE GLYCOL 17 GM PACKET PO SCH (13:00)
[2018-11-09] MEDS: METOCLOPRAMIDE 10 MG INJ IV SCH ×2 (13:54→22:08)
[2018-11-09] MEDS: SOD FERRIC GLUC COMPLX 125 MG in SOD CHLORIDE 0.9% 100 ML IVPB SCH (14:00)
--- NOTE | 2018-11-09 14:50 | CONS ---
Assessment/Plan Assessment/Plan Assessment/Plan (Recall) 78 yo M w/ afib on eliquis, and other comorbidities...who presented with progressive following repeated falls. Head CT revealed a R convexity SDH (and scattered SAH and IVH), for which he is under the care of neurosurgery. He was noted to have several clinical spells concerning for seizure in the days following admission, for which neurology is now consulted.. Repeat neuroimaging is notable for continued presence of R SDH and a L subdural fluid collection with L to R MLS. R SD drain is still in place. EEG is most notable for diffuse slowing. P: Agree w/ Keppra as ordered for seizure ppx for now Ativan iv prn prolonged seizure (> 5 min) or cluster Hemorrhage management per neurosurgery Limit sedating medications where possible Other management and supportive care per primary Will follow clinically Consultation Date/Type/Reason Admit Date/Time October 31, 2018 at 21:18 Type of Consult Neurology Reason for Consultation seizures Requesting Provider: GERMAIN VASQUES Date/Time of Note DATE: 11/09/18 TIME: 14:50 24 HR Interval Summary Free Text/Dictation Continues critical care. Noted to be obtunded today. S/p EEG, HCT, MRI. On pre cedex gtt. Subjective hx not possible: pt non-verbal, pt critical Exam/Review of Systems Exam Vitals Vital Signs Date Temp Pulse Resp B/P (MAP) Pulse Ox O2 O2 Flow FiO2 Time Delivery Rate 11/09/18 58 14 123/41 100 12:15 (68) 11/09/18 98.5 Mechanical 12:00 Ventilator 11/09/18 30 05:08 11/06/18 6.0 09:00 Intake and Output 11/08/18 11/08/18 11/09/18 1515:00 23:00 07:00 IntakeIntake Total 170.0 ml 80 ml 150 ml OutputOutput Total 50 ml 108 ml 60 ml BalanceBalance 120.0 ml -28 ml 90 ml Exam PE: Gen Appearance: No Apparent Distress HEENT: Intubated, R subdural drain Cardiovascular: Regular rate Abdomen: Soft Extremities: Dry NE: The patient was obtunded and nonverbal Cranial nerve examination was limited by mental status. Pupils were slightly unequal (L > R) though reactive to light. There was no afferent pupillary defect. Funduscopic examination was limited. Face was grossly symmetric, w/ present corneal and cough reflexes. Tone was normal. Muscle bulk was normal. I did not see fasciculations. The patient grimaced to noxious stimuli in the UE, withdrew the lower extremities. Coordination and gait testing was limited by mental status. Arm and leg reflexes were within normal limits and symmetric. Santana's sign was absent. Plantar responses were flexor. Results Result Diagram: 11/09/18 0430 11/09/18 0430 Results 24hrs Laboratory Tests Test 11/08/18 17:33 11/08/18 20:32 11/09/18 02:00 11/09/18 04:30 Bedside Glucose 163 122 149 White Blood Count 9.1 Red Blood Count 3.64 L Hemoglobin 9.5 L Hematocrit 31.6 L Mean Corpuscular 86.8 Volume Mean Corpuscular 26.1 L Hemoglobin Mean Corpuscular 30.1 L Hemoglobin Concent Red Cell 17.6 H Distribution Width Platelet Count 149 Mean Platelet 9.6 Volume Immature 0.700 H Granulocytes % Neutrophils % 78.3 H Lymphocytes % 4.1 L Monocytes % 15.5 H Eosinophils % 1.3 Basophils % 0.1 Nucleated Red 0.0 Blood Cells % Immature 0.060 H Granulocytes # Neutrophils # 7.1 Lymphocytes # 0.4 L Monocytes # 1.4 H Eosinophils # 0.1 Basophils # 0.0 Nucleated Red 0.0 Blood Cells # Sodium Level 140 Potassium Level 4.2 Chloride Level 103 Carbon Dioxide 26 Level Anion Gap 11 Blood Urea 69 H Nitrogen Creatinine 5.57 H Est Glomerular Filtrat Rate mL/min Glucose Level 127 Calcium Level 9.5 Test 11/09/18 04:32 11/09/18 07:00 11/09/18 11:11 11/09/18 14:04 Bedside Glucose 128 111 138 Blood Gas Specimen Blood arterial Source Arterial Blood 11/09/2018 7:30:03 Date Drawn AM Arterial Blood pH 7.424 (Temp corrected) Arterial Blood 39.0 pCO2 (Temp correct) Arterial Blood pO2 125.4 H (Temp corrected) Arterial Blood 25.0 HCO3 Arterial Blood 0.6 Base Excess Arterial Blood 98.4 Oxygen Saturation Rogerio Test N/A Arterial Blood Gas A-Line Puncture Site Arterial 0.5 Blood Carboxyhemog lobin Arterial Blood 0.3 Methemoglobin Blood Gas A-a O2 42.7 H Differential Oxyhemoglobin 97.6 Percent Blood Gas 37.0 Temperature Blood Gas 8.0 Respiration Rate Blood Gas Actual 11 Respiration Rate Blood Gas Modality VENT - AC FiO2 30.0 Blood Gas Tidal 500.0 Volume Blood Gas Low PEEP 5.0 Setting Blood Gas Notified TM Whom Blood Gas Notified 11/09/2018 7:50:57 Time AM Medications Medication Current Medications Ondansetron HCl (Zofran Inj) 4 mg Q6H PRN IV NAUSEA AND/OR VOMITING; Start 10/31/18 at 21:30 Albuterol (Proventil 0.083% (Neb)) 2.5 mg Q2H RESP THERAPY PRN NEB SHORTNESS OF BREATH Last administered on 11/04/18 00:44; Admin Dose 2.5 MG; Start 10/31/18 at 21:30 Acetaminophen (Tylenol Liquid) 650 mg Q6H PRN PO PAIN LEVEL 1-3 OR FEVER Last administered on 11/07/18 15:40; Admin Dose 650 MG; Start 10/31/18 at 21:30 Amlodipine Besylate (Norvasc) 5 mg BID PO Last administered on 11/09/18 11:02; Admin Dose 5 MG; Start 10/31/18 at 22:00 Benazepril HCl (Lotensin) 40 mg DAILY PO Last administered on 11/09/18 11:02; Admin Dose 40 MG; Start 11/01/18 at 09:00 Calcium Acetate (Phoslo) 667 mg WITH MEALS PO Last administered on 11/09/18 11:03; Admin Dose 667 MG; Start 11/01/18 at 08:00 Multivit/Ca Carb/ B Cmplx/FA/Prenat (Sharron-Ashley) 1 tab DAILY PO Last administer ed on 11/09/18 11:02; Admin Dose 1 TAB; Start 11/01/18 at 09:00 Diagnostic Test (Pha) (Accu-Chek) 1 ea 02 XX Last administered on 11/09/18 02:10; Admin Dose 1 EA; Start 11/02/18 at 02:00 Insulin Aspart (Novolog Insulin Pen) NOVOLOG *MILD* ALGORI... Q4 SC Last administered on 11/08/18 17:36; Admin Dose 1 UNIT; Start 11/01/18 at 13:00 Sevelamer Carbonate (Renvela) 0.8 gm WITH MEALS PO Last administered on 11/09/18at 11:01; Admin Dose 0.8 GM; Start 11/01/18 at 18:00 Miscellaneous Information 1 ea NOTE XX ; Start 11/02/18 at 17:00 Glucose (Glutose) 15 gm Q15M PRN PO DECREASED GLUCOSE; Start 11/02/18 at 17:00 Glucose (Glutose) 22.5 gm Q15M PRN PO DECREASED GLUCOSE; Start 11/02/18 at 17:00 Dextrose (D50w Syringe) 25 ml Q15M PRN IV DECREASED GLUCOSE; Start 11/02/18 at 17:00 Dextrose (D50w Syringe) 50 ml Q15M PRN IV DECREASED GLUCOSE; Start 11/02/18 at 17:00 Glucagon (Glucagen) 1 mg Q15M PRN IM DECREASED GLUCOSE; Start 11/02/18 at 17:00 Glucose (Glutose) 15 gm Q15M PRN BUCCAL DECREASED GLUCOSE; Start 11/02/18 at 17:00 Albumin Human 100 ml @ 100 mls/hr WITH DIALYSIS PRN IV SBP <90 DURING DIALYSIS; Start 11/03/18 at 08:30 Epoetin Virgil-epbx (Retacrit (Esrd)) 6,000 unit TuThSa@1700 SC Last administered on 11/07/18at 20:43; Admin Dose 6,000 UNIT; Start 11/04/18 at 17:00 Levetiracetam 100 ml @ 400 mls/hr Q12 IVPB Last administered on 11/09/18at 09:00; Admin Dose 400 MLS/HR; Start 11/04/18 at 01:30 Piperacillin Sod/ Tazobactam Sod 50 ml @ 200 mls/hr Q8 IVPB Last administered on 11/09/18at 13:53; Admin Dose 200 MLS/HR; Start 11/04/18 at 17:45; Stop 11/10/18 at 23:59 Lorazepam (Ativan) 1 mg Q5M PRN IV SEIZURES; Start 11/04/18 at 20:19 Morphine Sulfate (morphine) 2 mg Q4H PRN IV SEVERE PAIN LEVEL 7-10 Last administered on 11/07/18at 16:31; Admin Dose 2 MG; Start 11/06/18 at 13:30 Hydralazine HCl (Apresoline) 10 mg Q6H PRN IV For SBP >160 Last administered on 11/06/18 15:48; Admin Dose 10 MG; Start 11/06/18 at 13:30 Ferric Sodium Gluconate Complex 125 mg/Sodium Chloride 110 ml @ 110 mls/hr DAILY@1300 IVPB Last administered on 11/09/18 14:00; Admin Dose 110 MLS/HR; Start 11/07/18 at 13:00; Stop 11/11/18 at 13:59 Midazolam HCl 50 ml @ 1 mls/hr TITRATE IV Last administered on 11/07/18 18:20; Admin Dose 1 MLS/HR; Start 11/07/18 at 18:00 Fentanyl 100 ml @ 2.5 mls/hr TITRATE IV Last administered on 11/07/18 18:21; Admin Dose 2.5 MLS/HR; Start 11/07/18 at 18:00 Carvedilol (Coreg) 12.5 mg BID PO Last administered on 11/09/18 11:07; Admin Dose 12.5 MG; Start 11/07/18 at 21:00 Clonidine (Catapres) 0.1 mg BID PO Last administered on 11/09/18 11:04; Admin Dose 0.1 MG; Start 11/07/18 at 21:00 Famotidine (Pepcid) 20 mg DAILY PO Last administered on 11/09/18 11:03; Admin Dose 20 MG; Start 11/09/18 at 09:00 Dexmedetomidine HCl 200 mcg/ Sodium Chloride 50 ml @ 3.16 mls/hr TITRATE IV Last administered on 11/09/18 10:03; Admin Dose 3.16 MLS/HR; Start 11/09/18 at 09:30 Metoclopramide HCl (Reglan) 10 mg Q6 IV Last administered on 11/09/18 13:54; Admin Dose 10 MG; Start 11/09/18 at 13:00; Stop 11/11/18 at 12:59 Polyethylene Glycol (Miralax) 17 gm DAILY PO ; Start 11/09/18 at 13:00 FLORENTIN COLUNGA NP Nov 09, 2018 14:50
[2018-11-09] MEDS: morphine 2 MG INJ IV PRN (16:40)
--- NOTE | 2018-11-09 17:12 | OPR ---
Date/Time of Note Date/Time of Note DATE: 11/09/18 TIME: 17:04 Operative Report Procedure Date: Nov 09, 2018 Preoperative Diagnosis Left subdural hematoma, chronic Postoperative Diagnosis Left subdural hematoma, chronic Operation/Procedure Performed Left frontal twist drill hole for placement of subdural drain Surgeon [employer] None Anesthesia Type: general, moderate sedation Estimated Blood Loss: minimal Transfusion none Specimen none Grafts/Implants none Tubes/Drains Left frontal subdural drain placement Complications none Pt Condition Post Procedure: stable Disposition: other Indications Mr. Orlando is a 78 year old male with a history of bilateral chronic subdurals with an acute right sided hemorrhage that was evacuated on Tuesday (11/06). He has been getting worse since surgery and recent CT/MRI imaging revealed blossoming of his left sided subdural collection. I explained the risks and benefits of bedside subdural drainage and the family elected to proceed. Procedure Description Mr. Orlando was sedated using precedex and morphine. The area of left Nehemias's point was prepped and draped in the usual sterile fashion. 3cc of local anesthetic were infiltrated into the wound. The incision was carried down using a #15 blade. The twist drill was then used to make a cuong hole. The trochar was used to puncture the dura and clear, serous fluid expelled under moderate pressure. The ventricular catheter was soft-passed into the subdural space to a depth of 8cm. This was tunnelled and secured to the skin using a 2-0 nylon suture. The scalp was closed with myrna and a sterile dressing was applied. The drain was leveled at 0cm water. DAVE CRUZ MD Nov 09, 2018 17:12
--- NOTE | 2018-11-09 18:19 | CONS ---
Assessment/Plan Assessment/Plan Hospital Course (Demo Recall) Traumatic SDH: in setting of Eliquis. Now s/p cuong hole evacuation 11/06. 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 N ow both resolved and normal EF Paroxysmal atrial flutter/fibrillation: CHADSVASC 5 and was on Eliquis outpt but now s/p fall with ICH as above so on hold Aspiration PNA Pleural effusion: s/p thora 11/07 c/b pneumothorax s/p chest tube 11/09 Thrombocytopenia Anemia: ?from ICH. s/p 2 units ESRD on HD HTN -hold anticoagulation/antiplatelets -coreg 12.5 mg BID -amlodipine 5mg BID -benazepril 40mg -clonidine 0.1mg BID -antibiotics Consultation Date/Type/Reason Admit Date/Time October 31, 2018 at 21:18 Initial Consult Date 11/06/18 Type of Consult Cardiology Requesting Provider: GERMAIN VASQUES Date/Time of Note DATE: 11/09/18 TIME: 18:18 24 HR Interval Summary Free Text/Dictation Right chest tube placed for pneumothorax and left subdural drain placed. Otherwise hemodynamically stable Exam/Review of Systems Vital Signs Vitals Vital Signs Date Temp Pulse Resp B/P (MAP) Pulse Ox O2 O2 Flow FiO2 Time Delivery Rate 11/09/18 58 14 100 30 17:45 11/09/18 123/41 12:15 (68) 11/09/18 98.5 Mechanical 12:00 Ventilator 11/06/18 6.0 09:00 Intake and Output 11/08/18 11/08/18 11/09/18 1515:00 23:00 07:00 IntakeIntake Total 170.0 ml 80 ml 150 ml OutputOutput Total 50 ml 108 ml 60 ml BalanceBalance 120.0 ml -28 ml 90 ml Exam Constitutional: No alert, No oriented ENMT: intubated Neck: No jvd Respiratory: diminished breath sounds; No clear to auscultation Cardiovascular: regular rate and rhythm; No edema Gastrointestinal: soft; No distended Neurological: No nl mental status, No nl speech Labs Result Diagram: 11/09/1842911/09/18 0430 Results 24hrs Laboratory Tests Test 11/08/18 20:32 11/09/18 02:00 11/09/18 04:30 11/09/18 04:32 Bedside Glucose 122 149 128 White Blood Count 9.1 Red Blood Count 3.64 L Hemoglobin 9.5 L Hematocrit 31.6 L Mean Corpuscular 86.8 Volume Mean Corpuscular 26.1 L Hemoglobin Mean Corpuscular 30.1 L Hemoglobin Concent Red Cell 17.6 H Distribution Width Platelet Count 149 Mean Platelet 9.6 Volume Immature 0.700 H Granulocytes % Neutrophils % 78.3 H Lymphocytes % 4.1 L Monocytes % 15.5 H Eosinophils % 1.3 Basophils % 0.1 Nucleated Red 0.0 Blood Cells % Immature 0.060 H Granulocytes # Neutrophils # 7.1 Lymphocytes # 0.4 L Monocytes # 1.4 H Eosinophils # 0.1 Basophils # 0.0 Nucleated Red 0.0 Blood Cells # Sodium Level 140 Potassium Level 4.2 Chloride Level 103 Carbon Dioxide 26 Level Anion Gap 11 Blood Urea 69 H Nitrogen Creatinine 5.57 H Est Glomerular Filtrat Rate mL/min Glucose Level 127 Calcium Level 9.5 Test 11/09/18 07:00 11/09/18 11:11 11/09/18 14:04 Blood Gas Specimen Blood arterial Source Arterial Blood 11/09/2018 7:30:03 Date Drawn AM Arterial Blood pH 7.424 (Temp corrected) Arterial Blood 39.0 pCO2 (Temp correct) Arterial Blood pO2 125.4 H (Temp corrected) Arterial Blood 25.0 HCO3 Arterial Blood 0.6 Base Excess Arterial Blood 98.4 Oxygen Saturation Rogerio Test N/A Arterial Blood Gas A-Line Puncture Site Arterial 0.5 Blood Carboxyhemog lobin Arterial Blood 0.3 Methemoglobin Blood Gas A-a O2 42.7 H Differential Oxyhemoglobin 97.6 Percent Blood Gas 37.0 Temperature Blood Gas 8.0 Respiration Rate Blood Gas Actual 11 Respiration Rate Blood Gas Modality VENT - AC FiO2 30.0 Blood Gas Tidal 500.0 Volume Blood Gas Low PEEP 5.0 Setting Blood Gas Notified TM Whom Blood Gas Notified 11/09/2018 7:50:57 Time AM Bedside Glucose 111 138 Medications Medications Current Medications Ondansetron HCl (Zofran Inj) 4 mg Q6H PRN IV NAUSEA AND/OR VOMITING; Start 10/31/18 at 21:30 Albuterol (Proventil 0.083% (Neb)) 2.5 mg Q2H RESP THERAPY PRN NEB SHORTNESS OF BREATH Last administered on 11/04/18 00:44; Admin Dose 2.5 MG; Start 10/31/18 at 21:30 Acetaminophen (Tylenol Liquid) 650 mg Q6H PRN PO PAIN LEVEL 1-3 OR FEVER Last administered on 11/07/18 15:40; Admin Dose 650 MG; Start 10/31/18 at 21:30 Amlodipine Besylate (Norvasc) 5 mg BID PO Last administered on 11/09/18 11:02; Admin Dose 5 MG; Start 10/31/18 at 22:00 Benazepril HCl (Lotensin) 40 mg DAILY PO Last administered on 11/09/18 11:02; Admin Dose 40 MG; Start 11/01/18 at 09:00 Calcium Acetate (Phoslo) 667 mg WITH MEALS PO Last administered on 11/09/18 11:03; Admin Dose 667 MG; Start 11/01/18 at 08:00 Multivit/Ca Carb/ B Cmplx/FA/Prenat (Sharron-Ashley) 1 tab DAILY PO Last administered on 11/09/18 11:02; Admin Dose 1 TAB; Start 11/01/18 at 09:00 Diagnostic Test (Pha) (Accu-Chek) 1 ea 02 XX Last administered on 11/09/18 02: 10; Admin Dose 1 EA; Start 11/02/18 at 02:00 Insulin Aspart (Novolog Insulin Pen) NOVOLOG *MILD* ALGORI... Q4 SC Last administered on 11/08/18 17:36; Admin Dose 1 UNIT; Start 11/01/18 at 13:00 Sevelamer Carbonate (Renvela) 0.8 gm WITH MEALS PO Last administered on 11/09/18 11:01; Admin Dose 0.8 GM; Start 11/01/18 at 18:00 Miscellaneous Information 1 ea NOTE XX ; Start 11/02/18 at 17:00 Glucose (Glutose) 15 gm Q15M PRN PO DECREASED GLUCOSE; Start 11/02/18 at 17:00 Glucose (Glutose) 22.5 gm Q15M PRN PO DECREASED GLUCOSE; Start 11/02/18 at 17:00 Dextrose (D50w Syringe) 25 ml Q15M PRN IV DECREASED GLUCOSE; Start 11/02/18 at 17:00 Dextrose (D50w Syringe) 50 ml Q15M PRN IV DECREASED GLUCOSE; Start 11/02/18 at 17:00 Glucagon (Glucagen) 1 mg Q15M PRN IM DECREASED GLUCOSE; Start 11/02/18 at 17:00 Glucose (Glutose) 15 gm Q15M PRN BUCCAL DECREASED GLUCOSE; Start 11/02/18 at 17:00 Albumin Human 100 ml @ 100 mls/hr WITH DIALYSIS PRN IV SBP <90 DURING DIALYSIS; Start 11/03/18 at 08:30 Epoetin Virgil-epbx (Retacrit (Esrd)) 6,000 unit TuThSa@1700 SC Last administered on 11/07/18at 20:43; Admin Dose 6,000 UNIT; Start 11/04/18 at 17:00 Levetiracetam 100 ml @ 400 mls/hr Q12 IVPB Last administered on 11/09/18at 09:00; Admin Dose 400 MLS/HR; Start 11/04/18 at 01:30 Piperacillin Sod/ Tazobactam Sod 50 ml @ 200 mls/hr Q8 IVPB Last administered on 11/09/18at 13:53; Admin Dose 200 MLS/HR; Start 11/04/18 at 17:45; Stop 11/10/18 at 23:59 Lorazepam (Ativan) 1 mg Q5M PRN IV SEIZURES; Start 11/04/18 at 20:19 Morphine Sulfate (morphine) 2 mg Q4H PRN IV SEVERE PAIN LEVEL 7-10 Last administered on 11/09/18at 16:40; Admin Dose 2 MG; Start 11/06/18 at 13:30 Hydralazine HCl (Apresoline) 10 mg Q6H PRN IV For SBP >160 Last administered on 11/06/18at 15:48; Admin Dose 10 MG; Start 11/06/18 at 13:30 Ferric Sodium Gluconate Complex 125 mg/Sodium Chloride 110 ml @ 110 mls/hr DAILY@1300 IVPB Last administered on 11/09/18at 14:00; Admin Dose 110 MLS/HR; Start 11/07/18 at 13:00; Stop 11/11/18 at 13:59 Midazolam HCl 50 ml @ 1 mls/hr TITRATE IV Last administered on 11/07/18 18:20; Admin Dose 1 MLS/HR; Start 11/07/18 at 18:00 Fentanyl 100 ml @ 2.5 mls/hr TITRATE IV Last administered on 11/07/18 18:21; Admin Dose 2.5 MLS/HR; Start 11/07/18 at 18:00 Carvedilol (Coreg) 12.5 mg BID PO Last administered on 11/09/18 11:07; Admin Dose 12.5 MG; Start 11/07/18 at 21:00 Clonidine (Catapres) 0.1 mg BID PO Last administered on 11/09/18 11:04; Admin Dose 0.1 MG; Start 11/07/18 at 21:00 Famotidine (Pepcid) 20 mg DAILY PO Last administered on 11/09/18 11:03; Admin Dose 20 MG; Start 11/09/18 at 09:00 Dexmedetomidine HCl 200 mcg/ Sodium Chloride 50 ml @ 3.16 mls/hr TITRATE IV Last administered on 11/09/18 10:03; Admin Dose 3.16 MLS/HR; Start 11/09/18 at 09:30 Metoclopramide HCl (Reglan) 10 mg Q6 IV Last administered on 11/09/18 13:54; Admin Dose 10 MG; Start 11/09/18 at 13:00; Stop 11/11/18 at 12:59 Polyethylene Glycol (Miralax) 17 gm DAILY PO ; Start 11/09/18 at 13:00 WAYNE CARUSO Nov 09, 2018 18:19
[2018-11-09] MEDS: EPOETIN ALFA-EPBX (ESRD) 3,000 UNIT/ML VIAL SC SCH (21:20)
[2018-11-10] VITALS (50 sets, daily range): BP systolic 95–162; BP diastolic 39–116; PULSE 60–150; RESP 12–22
[2018-11-10] MEDS: ACCU-CHEK XX SCH (00:56)
[2018-11-10] MEDS: INSULIN ASPART [NOVOLOG] 3 ML PEN SC SCH ×6 (00:56→20:45)
[2018-11-10] MEDS: METOCLOPRAMIDE 10 MG INJ IV SCH ×4 (00:59→18:37)
[2018-11-10] MEDS: PIPER-TAZO 2.25 GM (PMX) 50 ML IVPB SCH ×3 (05:55→22:14)
[2018-11-10] MEDS: AMLODIPINE 5 MG TAB PO SCH ×2 (09:00→20:59)
[2018-11-10] MEDS: BENAZEPRIL 40 MG TAB PO SCH (09:00)
[2018-11-10] MEDS: SEVELAMER CARBONATE 0.8 GM PKT PO SCH ×3 (09:30→17:35)
[2018-11-10] MEDS: LEVETIRACETAM 500 MG (PMX) 100 ML IVPB SCH ×2 (09:30→20:46)
[2018-11-10] MEDS: MULTIVIT/CA CARB/B CMPLX/FA TAB PO SCH (09:30)
[2018-11-10] MEDS: CALCIUM ACETATE 667 MG CAP PO SCH ×3 (09:31→17:35)
[2018-11-10] MEDS: POLYETHYLENE GLYCOL 17 GM PACKET PO SCH (09:31)
[2018-11-10] MEDS: FAMOTIDINE 20 MG TAB PO SCH (09:32)
--- NOTE | 2018-11-10 10:56 | CONS ---
Assessment/Plan Assessment/Plan Assessment/Plan (Daily) 1. End-stage renal disease on HD - s/p HD yesterday 300 cc removed, will plan for HD tomorrow, pt regular schedule for HD is TTS , AVF for HD access . 3. Hypertension. Continue current blood pressure regimen. Continue ultrafiltration with dialysis. 3. Subdural hematoma, S/p Craniotomy and burhole placement by on 10/06/18- Post op care as per Neurosurgery, Drainage tube in place , MRI brain done 4. Post op pulmonary insufficiency INtubated on ventilator - plan for CPAP trial today 4. Anemia of ESRD, s/p 2 unit PRBC tansfusion during this admission 5. Mineral bone disorder. Monitor calcium and phosphorus levels. 7. Diabetes. Continue current insulin regimen. 8. Paroxysmal atrial fibrillation. Continue medical management. 9. Gastrointestinal and deep vein thrombosis prophylaxis. Consultation Date/Type/Reason Admit Date/Time October 31, 2018 at 21:18 Initial Consult Date 11/01/18 Requesting Provider: GERMAIN VASQUES Date/Time of Note DATE: 11/10/18 TIME: 10:56 Exam/Review of Systems Exam Vitals Vital Signs Date Temp Pulse Resp B/P (MAP) Pulse Ox O2 O2 Flow FiO2 Time Delivery Rate 11/10/18 74 12 100 30 08:47 11/10/18 119/43 Mechanical 06:00 (68) Ventilator 11/10/18 98.3 04:00 11/06/18 6.0 09:00 Intake and Output 11/09/18 11/09/18 11/10/18 1515:00 23:00 07:00 IntakeIntake Total 320 ml 180 ml 50 ml OutputOutput Total 754 ml 1241 ml 223 ml BalanceBalance -434 ml -1061 ml -173 ml Exam GENERAL: orally intubated with ventriculostomy in place. NECK: Supple. no JVD HEART: S1 S2 RRR , no murmur CHEST: Diminished air entry right base greater than left ABDOMEN: Soft, nontender. No guarding or rebound. EXTREMITIES: No cyanosis, clubbing or edema. NEUROLOGIC: unable to assess due to clinical condition Results Result Diagram: 11/10/18 0430 11/10/18 0430 Results 24hrs Laboratory Tests Test 11/09/18 11:11 11/09/18 14:04 11/09/18 21:42 11/09/18 22:24 Bedside Glucose 111 138 109 Total Bilirubin 0.6 Direct Bilirubin 0.00 Indirect Bilirubin 0.6 Aspartate Amino 12 L Transf (AST/SGOT) Alanine 12 L Aminotransferase ( ALT/SGPT) Alkaline 43 Phosphatase Total Protein 5.8 L Albumin 2.7 L Test 11/10/18 00:55 11/10/18 04:30 11/10/18 05:47 11/10/18 08:20 Bedside Glucose 96 104 105 White Blood Count 10.2 Red Blood Count 3.44 L Hemoglobin 9.2 L Hematocrit 30.2 L Mean Corpuscular 87.8 Volume Mean Corpuscular 26.7 L Hemoglobin Mean Corpuscular 30.5 L Hemoglobin Concent Red Cell 17.6 H Distribution Width Platelet Count 135 L Mean Platelet 9.4 Volume Immature 0.500 H Granulocytes % Neutrophils % 82.0 H Lymphocytes % 3.0 L Monocytes % 11.7 H Eosinophils % 2.6 Basophils % 0.2 Nucleated Red 0.0 Blood Cells % Immature 0.050 H Granulocytes # Neutrophils # 8.4 H Lymphocytes # 0.3 L Monocytes # 1.2 H Eosinophils # 0.3 Basophils # 0.0 Nucleated Red 0.0 Blood Cells # Sodium Level 142 Potassium Level 3.6 Chloride Level 102 Carbon Dioxide 29 Level Anion Gap 11 Blood Urea 35 #H Nitrogen Creatinine 3.79 #H Est Glomerular Filtrat Rate mL/min Glucose Level 99 Calcium Level 8.9 Phosphorus Level 4.0 Magnesium Level 2.0 Test 11/10/18 09:30 Blood Gas Specimen Blood arterial Source Arterial Blood 11/10/2018 9:50:54 Date Drawn AM Arterial Blood pH 7.428 (Temp corrected) Arterial Blood 43.6 pCO2 (Temp correct) Arterial Blood pO2 115.0 H (Temp corrected) Arterial Blood 28.2 H HCO3 Arterial Blood 3.4 H Base Excess Arterial Blood 98.2 Oxygen Saturation Rogerio Test N/A Arterial Blood Gas LB Puncture Site Arterial 0.1 Blood Carboxyhemog lobin Arterial Blood 0.5 Methemoglobin Blood Gas A-a O2 47.7 H Differential Oxyhemoglobin 97.6 Percent Blood Gas 37.0 Temperature Blood Gas Actual 12 Respiration Rate Blood Gas Modality VENT - CPAP FiO2 30.0 Blood Gas Low PEEP 5.0 Setting Blood Gas Pressure 10 Support Blood Gas Notified RT Whom Blood Gas Notified 11/10/2018 10:08:24 Time AM Medications Medication Current Medications Ondansetron HCl (Zofran Inj) 4 mg Q6H PRN IV NAUSEA AND/OR VOMITING; Start 10/31/18 at 21:30 Albuterol (Proventil 0.083% (Neb)) 2.5 mg Q2H RESP THERAPY PRN NEB SHORTNESS OF BREATH Last administered on 11/04/18 00:44; Admin Dose 2.5 MG; Start 10/31/18 at 21:30 Acetaminophen (Tylenol Liquid) 650 mg Q6H PRN PO PAIN LEVEL 1-3 OR FEVER Last administered on 11/07/18 15:40; Admin Dose 650 MG; Start 10/31/18 at 21:30 Amlodipine Besylate (Norvasc) 5 mg BID PO Last administered on 11/09/18 22:09; Admin Dose 5 MG; Start 10/31/18 at 22:00 Benazepril HCl (Lotensin) 40 mg DAILY PO Last administered on 11/09/18 11:02; Admin Dose 40 MG; Start 11/01/18 at 09:00 Calcium Acetate (Phoslo) 667 mg WITH MEALS PO Last administered on 11/10/18 09:31; Admin Dose 667 MG; Start 11/01/18 at 08:00 Multivit/Ca Carb/ B Cmplx/FA/Prenat (Sharron-Ashley) 1 tab DAILY PO Last administ ered on 11/10/18 09:30; Admin Dose 1 TAB; Start 11/01/18 at 09:00 Diagnostic Test (Pha) (Accu-Chek) 1 ea 02 XX Last administered on 11/10/18 00:56; Admin Dose 1 EA; Start 11/02/18 at 02:00 Insulin Aspart (Novolog Insulin Pen) NOVOLOG *MILD* ALGORI... Q4 SC Last administered on 11/08/18 17:36; Admin Dose 1 UNIT; Start 11/01/18 at 13:00 Sevelamer Carbonate (Renvela) 0.8 gm WITH MEALS PO Last administered on 11/10/18 09:30; Admin Dose 0.8 GM; Start 11/01/18 at 18:00 Miscellaneous Information 1 ea NOTE XX ; Start 11/02/18 at 17:00 Glucose (Glutose) 15 gm Q15M PRN PO DECREASED GLUCOSE; Start 11/02/18 at 17:00 Glucose (Glutose) 22.5 gm Q15M PRN PO DECREASED GLUCOSE; Start 11/02/18 at 17:00 Dextrose (D50w Syringe) 25 ml Q15M PRN IV DECREASED GLUCOSE; Start 11/02/18 at 17:00 Dextrose (D50w Syringe) 50 ml Q15M PRN IV DECREASED GLUCOSE; Start 11/02/18 at 17:00 Glucagon (Glucagen) 1 mg Q15M PRN IM DECREASED GLUCOSE; Start 11/02/18 at 17:00 Glucose (Glutose) 15 gm Q15M PRN BUCCAL DECREASED GLUCOSE; Start 11/02/18 at 17:00 Albumin Human 100 ml @ 100 mls/hr WITH DIALYSIS PRN IV SBP <90 DURING DIALYSIS; Start 11/03/18 at 08:30 Epoetin Virgil-epbx (Retacrit (Esrd)) 6,000 unit TuThSa@1700 SC Last administered on 11/09/18at 21:20; Admin Dose 6,000 UNIT; Start 11/04/18 at 17:00 Levetiracetam 100 ml @ 400 mls/hr Q12 IVPB Last administered on 11/10/18at 09:30; Admin Dose 400 MLS/HR; Start 11/04/18 at 01:30 Piperacillin Sod/ Tazobactam Sod 50 ml @ 200 mls/hr Q8 IVPB Last administered on 11/10/18at 05:55; Admin Dose 200 MLS/HR; Start 11/04/18 at 17:45; Stop 11/10/18 at 23:59 Lorazepam (Ativan) 1 mg Q5M PRN IV SEIZURES; Start 11/04/18 at 20:19 Morphine Sulfate (morphine) 2 mg Q4H PRN IV SEVERE PAIN LEVEL 7-10 Last administered on 11/09/18at 16:40; Admin Dose 2 MG; Start 11/06/18 at 13:30 Hydralazine HCl (Apresoline) 10 mg Q6H PRN IV For SBP >160 Last administered on 11/06/18at 15:48; Admin Dose 10 MG; Start 11/06/18 at 13:30 Ferric Sodium Gluconate Complex 125 mg/Sodium Chloride 110 ml @ 110 mls/hr DAILY@1300 IVPB Last administered on 11/09/18 14:00; Admin Dose 110 MLS/HR; Start 11/07/18 at 13:00; Stop 11/11/18 at 13:59 Midazolam HCl 50 ml @ 1 mls/hr TITRATE IV Last administered on 11/07/18 18:20; Admin Dose 1 MLS/HR; Start 11/07/18 at 18:00 Fentanyl 100 ml @ 2.5 mls/hr TITRATE IV Last administered on 11/07/18 18:21; Admin Dose 2.5 MLS/HR; Start 11/07/18 at 18:00 Carvedilol (Coreg) 12.5 mg BID PO Last administered on 11/10/18 09:31; Admin Dose 12.5 MG; Start 11/07/18 at 21:00 Clonidine (Catapres) 0.1 mg BID PO Last administered on 11/10/18 09:31; Admin Dose 0.1 MG; Start 11/07/18 at 21:00 Famotidine (Pepcid) 20 mg DAILY PO Last administered on 11/10/18 09:32; Admin Dose 20 MG; Start 11/09/18 at 09:00 Dexmedetomidine HCl 200 mcg/ Sodium Chloride 50 ml @ 3.16 mls/hr TITRATE IV Last administered on 11/09/18 10:03; Admin Dose 3.16 MLS/HR; Start 11/09/18 at 09:30 Metoclopramide HCl (Reglan) 10 mg Q6 IV Last administered on 11/10/18 05:55; Admin Dose 10 MG; Start 11/09/18 at 13:00; Stop 11/11/18 at 12:59 Polyethylene Glycol (Miralax) 17 gm DAILY PO Last administered on 11/10/18 09:31; Admin Dose 17 GM; Start 11/09/18 at 13:00 SAUD CHANDLER MD Nov 10, 2018 10:56
--- NOTE | 2018-11-10 10:59 | CONS ---
Consult Date/Type/Reason Admit Date/Time October 31, 2018 at 21:18 Initial Consult Date 11/04/18 Type of Consult Pulmonary Requesting Provider: GERMAIN VASQUES Date/Time of Note DATE: 11/10/18 TIME: 10:57 Subjective More alert this morning. Opens eyes makes eye contact but not following commands. Tolerating CPAP trial. Objective Vital Signs Date Temp Pulse Resp B/P (MAP) Pulse Ox O2 O2 Flow FiO2 Time Delivery Rate 11/10/18 74 12 100 30 08:47 11/10/18 119/43 Mechanical 06:00 (68) Ventilator 11/10/18 98.3 04:00 11/06/18 6.0 09:00 Intake and Output 11/09/18 11/09/18 11/10/18 1515:00 23:00 07:00 IntakeIntake Total 320 ml 180 ml 50 ml OutputOutput Total 754 ml 1241 ml 223 ml BalanceBalance -434 ml -1061 ml -173 ml Exam PHYSICAL EXAMINATION: GENERAL: Elderly gentleman orally intubated on mechanical ventilation with subdural drains in place. VITAL SIGNS: NECK: Supple. No JVD or lymphadenopathy. CARDIAC: S1, S2, no added sounds or murmurs. CHEST: Clear to auscultation bilaterally ABDOMEN: Soft, nontender. No guarding or rebound. Neuro, generalized weakness. Vent Setting Ventilator Support Mode: CPAP Fraction of Inspired Oxygen pe: 30 Positive End Expiratory Pressu: 5.0 Results/Medications Result Diagram: 11/10/18 0430 11/10/18 0430 Results 24 hrs Laboratory Tests Test 11/09/18 11:11 11/09/18 14:04 11/09/18 21:42 11/09/18 22:24 Bedside Glucose 111 138 109 Total Bilirubin 0.6 Direct Bilirubin 0.00 Indirect Bilirubin 0.6 Aspartate Amino 12 L Transf (AST/SGOT) Alanine 12 L Aminotransferase ( ALT/SGPT) Alkaline 43 Phosphatase Total Protein 5.8 L Albumin 2.7 L Test 11/10/18 00:55 11/10/18 04:30 11/10/18 05:47 11/10/18 08:20 Bedside Glucose 96 104 105 White Blood Count 10.2 Red Blood Count 3.44 L Hemoglobin 9.2 L Hematocrit 30.2 L Mean Corpuscular 87.8 Volume Mean Corpuscular 26.7 L Hemoglobin Mean Corpuscular 30.5 L Hemoglobin Concent Red Cell 17.6 H Distribution Width Platelet Count 135 L Mean Platelet 9.4 Volume Immature 0.500 H Granulocytes % Neutrophils % 82.0 H Lymphocytes % 3.0 L Monocytes % 11.7 H Eosinophils % 2.6 Basophils % 0.2 Nucleated Red 0.0 Blood Cells % Immature 0.050 H Granulocytes # Neutrophils # 8.4 H Lymphocytes # 0.3 L Monocytes # 1.2 H Eosinophils # 0.3 Basophils # 0.0 Nucleated Red 0.0 Blood Cells # Sodium Level 142 Potassium Level 3.6 Chloride Level 102 Carbon Dioxide 29 Level Anion Gap 11 Blood Urea 35 #H Nitrogen Creatinine 3.79 #H Est Glomerular Filtrat Rate mL/min Glucose Level 99 Calcium Level 8.9 Phosphorus Level 4.0 Magnesium Level 2.0 Test 11/10/18 09:30 Blood Gas Specimen Blood arterial Source Arterial Blood 11/10/2018 9:50:54 Date Drawn AM Arterial Blood pH 7.428 (Temp corrected) Arterial Blood 43.6 pCO2 (Temp correct) Arterial Blood pO2 115.0 H (Temp corrected) Arterial Blood 28.2 H HCO3 Arterial Blood 3.4 H Base Excess Arterial Blood 98.2 Oxygen Saturation Rogerio Test N/A Arterial Blood Gas LB Puncture Site Arterial 0.1 Blood Carboxyhemog lobin Arterial Blood 0.5 Methemoglobin Blood Gas A-a O2 47.7 H Differential Oxyhemoglobin 97.6 Percent Blood Gas 37.0 Temperature Blood Gas Actual 12 Respiration Rate Blood Gas Modality VENT - CPAP FiO2 30.0 Blood Gas Low PEEP 5.0 Setting Blood Gas Pressure 10 Support Blood Gas Notified RT Whom Blood Gas Notified 11/10/2018 10:08:24 Time AM Medications Current Medications Ondansetron HCl (Zofran Inj) 4 mg Q6H PRN IV NAUSEA AND/OR VOMITING; Start 10/05 01/22 at 21:30 Albuterol (Proventil 0.083% (Neb)) 2.5 mg Q2H RESP THERAPY PRN NEB SHORTNESS OF BREATH Last administered on 11/04/18at 00:44; Admin Dose 2.5 MG; Start 10/31/18 at 21:30 Acetaminophen (Tylenol Liquid) 650 mg Q6H PRN PO PAIN LEVEL 1-3 OR FEVER Last administered on 11/07/18at 15:40; Admin Dose 650 MG; Start 10/31/18 at 21:30 Amlodipine Besylate (Norvasc) 5 mg BID PO Last administered on 11/09/18 22:09; Admin Dose 5 MG; Start 10/31/18 at 22:00 Benazepril HCl (Lotensin) 40 mg DAILY PO Last administered on 11/09/18 11:02; Admin Dose 40 MG; Start 11/01/18 at 09:00 Calcium Acetate (Phoslo) 667 mg WITH MEALS PO Last administered on 11/10/18 09:31; Admin Dose 667 MG; Start 11/01/18 at 08:00 Multivit/Ca Carb/ B Cmplx/FA/Prenat (Sharron-Ashley) 1 tab DAILY PO Last administered on 11/10/18 09:30; Admin Dose 1 TAB; Start 11/01/18 at 09:00 Diagnostic Test (Pha) (Accu-Chek) 1 ea 02 XX Last administered on 11/10/18 00:56; Admin Dose 1 EA; Start 11/02/18 at 02:00 Insulin Aspart (Novolog Insulin Pen) NOVOLOG *MILD* ALGORI... Q4 SC Last administered on 11/08/18 17:36; Admin Dose 1 UNIT; Start 11/01/18 at 13:00 Sevelamer Carbonate (Renvela) 0.8 gm WITH MEALS PO Last administered on 09:30; Admin Dose 0.8 GM; Start 11/01/18 at 18:00 Miscellaneous Information 1 ea NOTE XX ; Start 11/02/18 at 17:00 Glucose (Glutose) 15 gm Q15M PRN PO DECREASED GLUCOSE; Start 11/02/18 at 17:00 Glucose (Glutose) 22.5 gm Q15M PRN PO DECREASED GLUCOSE; Start 11/02/18 at 17:00 Dextrose (D50w Syringe) 25 ml Q15M PRN IV DECREASED GLUCOSE; Start 11/02/18 at 17:00 Dextrose (D50w Syringe) 50 ml Q15M PRN IV DECREASED GLUCOSE; Start 11/02/18 at 17:00 Glucagon (Glucagen) 1 mg Q15M PRN IM DECREASED GLUCOSE; Start 11/02/18 at 17:00 Glucose (Glutose) 15 gm Q15M PRN BUCCAL DECREASED GLUCOSE; Start 11/02/18 at 17:00 Albumin Human 100 ml @ 100 mls/hr WITH DIALYSIS PRN IV SBP <90 DURING DIALYSIS; Start 11/03/18 at 08:30 Epoetin Virgil-epbx (Retacrit (Esrd)) 6,000 unit TuThSa@1700 SC Last administered on 11/09/18 21:20; Admin Dose 6,000 UNIT; Start 11/04/18 at 17:00 Levetiracetam 100 ml @ 400 mls/hr Q12 IVPB Last administered on 11/10/18 09:30; Admin Dose 400 MLS/HR; Start 11/04/18 at 01:30 Piperacillin Sod/ Tazobactam Sod 50 ml @ 200 mls/hr Q8 IVPB Last administered on 11/10/18 05:55; Admin Dose 200 MLS/HR; Start 11/04/18 at 17:45; Stop 11/10/18 at 23:59 Lorazepam (Ativan) 1 mg Q5M PRN IV SEIZURES; Start 11/04/18 at 20:19 Morphine Sulfate (morphine) 2 mg Q4H PRN IV SEVERE PAIN LEVEL 7-10 Last administered on 11/09/18 16:40; Admin Dose 2 MG; Start 11/06/18 at 13:30 Hydralazine HCl (Apresoline) 10 mg Q6H PRN IV For SBP >160 Last administered on 11/06/18 15:48; Admin Dose 10 MG; Start 11/06/18 at 13:30 Ferric Sodium Gluconate Complex 125 mg/Sodium Chloride 110 ml @ 110 mls/hr DAILY@1300 IVPB Last administered on 11/09/18 14:00; Admin Dose 110 MLS/HR; Start 11/07/18 at 13:00; Stop 11/11/18 at 13:59 Midazolam HCl 50 ml @ 1 mls/hr TITRATE IV Last administered on 11/07/18 18:20; Admin Dose 1 MLS/HR; Start 11/07/18 at 18:00 Fentanyl 100 ml @ 2.5 mls/hr TITRATE IV Last administered on 11/07/18 18:21; Admin Dose 2.5 MLS/HR; Start 11/07/18 at 18:00 Carvedilol (Coreg) 12.5 mg BID PO Last administered on 11/10/18 09:31; Admin Dose 12.5 MG; Start 11/07/18 at 21:00 Clonidine (Catapres) 0.1 mg BID PO Last administered on 11/10/18 09:31; Admin Dose 0.1 MG; Start 11/07/18 at 21:00 Famotidine (Pepcid) 20 mg DAILY PO Last administered on 11/10/18 09:32; Admin Dose 20 MG; Start 11/09/18 at 09:00 Dexmedetomidine HCl 200 mcg/ Sodium Chloride 50 ml @ 3.16 mls/hr TITRATE IV Last administered on 11/09/18 10:03; Admin Dose 3.16 MLS/HR; Start 11/09/18 at 09:30 Metoclopramide HCl (Reglan) 10 mg Q6 IV Last administered on 11/10/18 05:55; Admin Dose 10 MG; Start 11/09/18 at 13:00; Stop 11/11/18 at 12:59 Polyethylene Glycol (Miralax) 17 gm DAILY PO Last administered on 11/10/18 09:31; Admin Dose 17 GM; Start 11/09/18 at 13:00 Assessment/Plan Hospital Course (Demo Recall) MP: 1. Hypoxemic Resp Failure--in a patient with a SDH status post evacuation with drainage in place 2. ESRD on HD 3. SDH, with now seizures and change in mentation, status post evacuation and ventriculostomy placement 4. P-Afib, previously on anticoagulation 5. Encephalopathy likely secondary to above appears to be slowly improving RECS: 1. Continue mechanical ventilation tolerating CPAP weaning trial this morning. We will discussed reintubation status with family as patient's mentation is a concern of that he may not be able to protect his airway. 2. Status post thoracentesis right pleural effusion chest x-ray shows residual pleural effusion. Iatrogenic pneumothorax status post chest tube placement with reexpansion of lung 3. Continue neurosurgical recommendations with ventriculostomy drainage 4. De-escalation of antibiotics soon. 5. Continue hemodialysis as tolerated Critical care time 40 minutes. REYES ROLON MD, [facility] Nov 10, 2018 10:59
--- NOTE | 2018-11-10 12:18 | CONS ---
Assessment/Plan Assessment/Plan Assessment/Plan (Daily) POD4 R crani for subdural evacuation, PPD1 L twist drill for catheter subdural drainage - Improved - CT head - Keep drains open at 0cm - HOB 0 degrees Consultation Date/Type/Reason Admit Date/Time October 31, 2018 at 21:18 Initial Consult Date 11/06/18 Type of Consult Neurosurgery Requesting Provider: GERMAIN VASQUES Date/Time of Note DATE: 11/10/18 TIME: 12:16 Exam/Review of Systems Exam Vitals Vital Signs Date Temp Pulse Resp B/P (MAP) Pulse Ox O2 O2 Flow FiO2 Time Delivery Rate 11/10/18 74 12 100 30 08:47 11/10/18 119/43 Mechanical 06:00 (68) Ventilator 11/10/18 98.3 04:00 11/06/18 6.0 09:00 Intake and Output 11/09/18 11/09/18 11/10/18 1515:00 23:00 07:00 IntakeIntake Total 320 ml 180 ml 50 ml OutputOutput Total 754 ml 1241 ml 223 ml BalanceBalance -434 ml -1061 ml -173 ml Exam Opens eyes, tracks PARRY Does not follow commands Results Result Diagram: 11/10/18 0430 11/10/18 0430 Results 24hrs Laboratory Tests Test 11/09/18 14:04 11/09/18 21:42 11/09/18 22:24 11/10/18 00:55 Bedside Glucose 138 109 96 Total Bilirubin 0.6 Direct Bilirubin 0.00 Indirect Bilirubin 0.6 Aspartate Amino 12 L Transf (AST/SGOT) Alanine 12 L Aminotransferase ( ALT/SGPT) Alkaline 43 Phosphatase Total Protein 5.8 L Albumin 2.7 L Test 11/10/18 04:30 11/10/18 05:47 11/10/18 08:20 11/10/18 09:30 White Blood Count 10.2 Red Blood Count 3.44 L Hemoglobin 9.2 L Hematocrit 30.2 L Mean Corpuscular 87.8 Volume Mean Corpuscular 26.7 L Hemoglobin Mean Corpuscular 30.5 L Hemoglobin Concent Red Cell 17.6 H Distribution Width Platelet Count 135 L Mean Platelet 9.4 Volume Immature 0.500 H Granulocytes % Neutrophils % 82.0 H Lymphocytes % 3.0 L Monocytes % 11.7 H Eosinophils % 2.6 Basophils % 0.2 Nucleated Red 0.0 Blood Cells % Immature 0.050 H Granulocytes # Neutrophils # 8.4 H Lymphocytes # 0.3 L Monocytes # 1.2 H Eosinophils # 0.3 Basophils # 0.0 Nucleated Red 0.0 Blood Cells # Sodium Level 142 Potassium Level 3.6 Chloride Level 102 Carbon Dioxide 29 Level Anion Gap 11 Blood Urea 35 #H Nitrogen Creatinine 3.79 #H Est Glomerular Filtrat Rate mL/min Glucose Level 99 Calcium Level 8.9 Phosphorus Level 4.0 Magnesium Level 2.0 Bedside Glucose 104 105 Blood Gas Specimen Blood arterial Source Arterial Blood 11/10/2018 9:50:54 Date Drawn AM Arterial Blood pH 7.428 (Temp corrected) Arterial Blood 43.6 pCO2 (Temp correct) Arterial Blood pO2 115.0 H (Temp corrected) Arterial Blood 28.2 H HCO3 Arterial Blood 3.4 H Base Excess Arterial Blood 98.2 Oxygen Saturation Rogerio Test N/A Arterial Blood Gas LB Puncture Site Arterial 0.1 Blood Carboxyhemog lobin Arterial Blood 0.5 Methemoglobin Blood Gas A-a O2 47.7 H Differential Oxyhemoglobin 97.6 Percent Blood Gas 37.0 Temperature Blood Gas Actual 12 Respiration Rate Blood Gas Modality VENT - CPAP FiO2 30.0 Blood Gas Low PEEP 5.0 Setting Blood Gas Pressure 10 Support Blood Gas Notified RT Whom Blood Gas Notified 11/10/2018 10:08:24 Time AM Medications Medication Current Medications Ondansetron HCl (Zofran Inj) 4 mg Q6H PRN IV NAUSEA AND/OR VOMITING; Start 10/31/18 at 21:30 Albuterol (Proventil 0.083% (Neb)) 2.5 mg Q2H RESP THERAPY PRN NEB SHORTNESS OF BREATH Last administered on 11/04/18at 00:44; Admin Dose 2.5 MG; Start 10/31/18 at 21:30 Acetaminophen (Tylenol Liquid) 650 mg Q6H PRN PO PAIN LEVEL 1-3 OR FEVER Last administered on 11/07/18at 15:40; Admin Dose 650 MG; Start 10/31/18 at 21:30 Amlodipine Besylate (Norvasc) 5 mg BID PO Last administered on 11/09/18at 22:09; Admin Dose 5 MG; Start 10/31/18 at 22:00 Benazepril HCl (Lotensin) 40 mg DAILY PO Last administered on 11/09/18 11:02; Admin Dose 40 MG; Start 11/01/18 at 09:00 Calcium Acetate (Phoslo) 667 mg WITH MEALS PO Last administered on 11/10/18 11:30; Admin Dose 667 MG; Start 11/01/18 at 08:00 Multivit/Ca Carb/ B Cmplx/FA/Prenat (Sharron-Ashley) 1 tab DAILY PO Last administered on 11/10/18 09:30; Admin Dose 1 TAB; Start 11/01/18 at 09:00 Diagnostic Test (Pha) (Accu-Chek) 1 ea 02 XX Last administered on 11/10/18 00:56; Admin Dose 1 EA; Start 11/02/18 at 02:00 Insulin Aspart (Novolog Insulin Pen) NOVOLOG *MILD* ALGORI... Q4 SC Last administered on 11/08/18 17:36; Admin Dose 1 UNIT; Start 11/01/18 at 13:00 Sevelamer Carbonate (Renvela) 0.8 gm WITH MEALS PO Last administered on 11/10/18 11:30; Admin Dose 0.8 GM; Start 11/01/18 at 18:00 Miscellaneous Information 1 ea NOTE XX ; Start 11/02/18 at 17:00 Glucose (Glutose) 15 gm Q15M PRN PO DECREASED GLUCOSE; Start 11/02/18 at 17:00 Glucose (Glutose) 22.5 gm Q15M PRN PO DECREASED GLUCOSE; Start 11/02/18 at 17:00 Dextrose (D50w Syringe) 25 ml Q15M PRN IV DECREASED GLUCOSE; Start 11/02/18 at 17:00 Dextrose (D50w Syringe) 50 ml Q15M PRN IV DECREASED GLUCOSE; Start 11/02/18 at 17:00 Glucagon (Glucagen) 1 mg Q15M PRN IM DECREASED GLUCOSE; Start 11/02/18 at 17:00 Glucose (Glutose) 15 gm Q15M PRN BUCCAL DECREASED GLUCOSE; Start 11/02/18 at 17:00 Albumin Human 100 ml @ 100 mls/hr WITH DIALYSIS PRN IV SBP <90 DURING DIALYSIS; Start 11/03/18 at 08:30 Epoetin Virgil-epbx (Retacrit (Esrd)) 6,000 unit TuThSa@1700 SC Last administered on 11/09/18 21:20; Admin Dose 6,000 UNIT; Start 11/04/18 at 17:00 Levetiracetam 100 ml @ 400 mls/hr Q12 IVPB Last administered on 11/10/18 09:30; Admin Dose 400 MLS/HR; Start 11/04/18 at 01:30 Piperacillin Sod/ Tazobactam Sod 50 ml @ 200 mls/hr Q8 IVPB Last administered on 11/10/18 05:55; Admin Dose 200 MLS/HR; Start 11/04/18 at 17:45; Stop 11/10/18 at 23:59 Lorazepam (Ativan) 1 mg Q5M PRN IV SEIZURES; Start 11/04/18 at 20:19 Morphine Sulfate (morphine) 2 mg Q4H PRN IV SEVERE PAIN LEVEL 7-10 Last administered on 11/09/18 16:40; Admin Dose 2 MG; Start 11/06/18 at 13:30 Hydralazine HCl (Apresoline) 10 mg Q6H PRN IV For SBP >160 Last administered on 11/06/18 15:48; Admin Dose 10 MG; Start 11/06/18 at 13:30 Ferric Sodium Gluconate Complex 125 mg/Sodium Chloride 110 ml @ 110 mls/hr DAILY@1300 IVPB Last administered on 11/09/18 14:00; Admin Dose 110 MLS/HR; Start 11/07/18 at 13:00; Stop 11/11/18 at 13:59 Midazolam HCl 50 ml @ 1 mls/hr TITRATE IV Last administered on 11/07/18 18:20; Admin Dose 1 MLS/HR; Start 11/07/18 at 18:00 Fentanyl 100 ml @ 2.5 mls/hr TITRATE IV Last administered on 11/07/18 18:21; Admin Dose 2.5 MLS/HR; Start 11/07/18 at 18:00 Carvedilol (Coreg) 12.5 mg BID PO Last administered on 11/10/18 09:31; Admin D ose 12.5 MG; Start 11/07/18 at 21:00 Clonidine (Catapres) 0.1 mg BID PO Last administered on 11/10/18 09:31; Admin Dose 0.1 MG; Start 11/07/18 at 21:00 Famotidine (Pepcid) 20 mg DAILY PO Last administered on 11/10/18at 09:32; Admin Dose 20 MG; Start 11/09/18 at 09:00 Dexmedetomidine HCl 200 mcg/ Sodium Chloride 50 ml @ 3.16 mls/hr TITRATE IV Last administered on 11/09/18at 10:03; Admin Dose 3.16 MLS/HR; Start 11/09/18 at 09:30 Metoclopramide HCl (Reglan) 10 mg Q6 IV Last administered on 11/10/18at 11:30; Admin Dose 10 MG; Start 11/09/18 at 13:00; Stop 11/11/18 at 12:59 Polyethylene Glycol (Miralax) 17 gm DAILY PO Last administered on 11/10/18at 09:31; Admin Dose 17 GM; Start 11/09/18 at 13:00 JAMES CRUZ MD Nov 10, 2018 12:18
--- NOTE | 2018-11-10 12:24 | CONS ---
Assessment/Plan Assessment/Plan Hospital Course (Demo Recall) Traumatic SDH: in setting of Eliquis. Now s/p cuong hole evacuation 11/06. s/p left subdural drain 11/09. 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 Now both resolved and normal EF Paroxysmal atrial flutter/fibrillation: CHADSVASC 5 and was on Eliquis outpt but now s/p fall with ICH as above so on hold Aspiration PNA Pleural effusion: s/p thora 11/07 c/b pneumothorax s/p chest tube 11/09 Thrombocytopenia Anemia: ?from ICH. s/p 2 units ESRD on HD HTN -hold anticoagulation/antiplatelets -coreg 12.5 mg BID -amlodipine 5mg BID -benazepril 40mg -clonidine 0.1mg BID -antibiotics Consultation Date/Type/Reason Admit Date/Time October 31, 2018 at 21:18 Initial Consult Date 11/06/18 Type of Consult Cardiology Requesting Provider: GERMAIN VASQUES Date/Time of Note DATE: 11/10/18 TIME: 12:22 24 HR Interval Summary Free Text/Dictation No events. More awake today. Exam/Review of Systems Vital Signs Vitals Vital Signs Date Temp Pulse Resp B/P (MAP) Pulse Ox O2 O2 Flow FiO2 Time Delivery Rate 11/10/18 76 15 99 30 11:15 11/10/18 119/43 Mechanical 06:00 (68) Ventilator 11/10/18 98.3 04:00 11/06/18 6.0 09:00 Intake and Output 11/09/18 11/09/18 11/10/18 1515:00 23:00 07:00 IntakeIntake Total 320 ml 180 ml 50 ml OutputOutput Total 754 ml 1241 ml 223 ml BalanceBalance -434 ml -1061 ml -173 ml Exam Constitutional: No alert Head: No normocephalic ENMT: intubated Cardiovascular: regular rate and rhythm; No edema Gastrointestinal: soft; No distended Neurological: No nl mental status, No nl speech Labs Result Diagram: 11/10/18 0430 11/10/18 0430 Results 24hrs Laboratory Tests Test 11/09/18 14:04 11/09/18 21:42 11/09/18 22:24 11/10/18 00:55 Bedside Glucose 138 109 96 Total Bilirubin 0.6 Direct Bilirubin 0.00 Indirect Bilirubin 0.6 Aspartate Amino 12 L Transf (AST/SGOT) Alanine 12 L Aminotransferase ( ALT/SGPT) Alkaline 43 Phosphatase Total Protein 5.8 L Albumin 2.7 L Test 11/10/18 04:30 11/10/18 05:47 11/10/18 08:20 11/10/18 09:30 White Blood Count 10.2 Red Blood Count 3.44 L Hemoglobin 9.2 L Hematocrit 30.2 L Mean Corpuscular 87.8 Volume Mean Corpuscular 26.7 L Hemoglobin Mean Corpuscular 30.5 L Hemoglobin Concent Red Cell 17.6 H Distribution Width Platelet Count 135 L Mean Platelet 9.4 Volume Immature 0.500 H Granulocytes % Neutrophils % 82.0 H Lymphocytes % 3.0 L Monocytes % 11.7 H Eosinophils % 2.6 Basophils % 0.2 Nucleated Red 0.0 Blood Cells % Immature 0.050 H Granulocytes # Neutrophils # 8.4 H Lymphocytes # 0.3 L Monocytes # 1.2 H Eosinophils # 0.3 Basophils # 0.0 Nucleated Red 0.0 Blood Cells # Sodium Level 142 Potassium Level 3.6 Chloride Level 102 Carbon Dioxide 29 Level Anion Gap 11 Blood Urea 35 #H Nitrogen Creatinine 3.79 #H Est Glomerular Filtrat Rate mL/min Glucose Level 99 Calcium Level 8.9 Phosphorus Level 4.0 Magnesium Level 2.0 Bedside Glucose 104 105 Blood Gas Specimen Blood arterial Source Arterial Blood 11/10/2018 9:50:54 Date Drawn AM Arterial Blood pH 7.428 (Temp corrected) Arterial Blood 43.6 pCO2 (Temp correct) Arterial Blood pO2 115.0 H (Temp corrected) Arterial Blood 28.2 H HCO3 Arterial Blood 3.4 H Base Excess Arterial Blood 98.2 Oxygen Saturation Rogerio Test N/A Arterial Blood Gas LB Puncture Site Arterial 0.1 Blood Carboxyhemog lobin Arterial Blood 0.5 Methemoglobin Blood Gas A-a O2 47.7 H Differential Oxyhemoglobin 97.6 Percent Blood Gas 37.0 Temperature Blood Gas Actual 12 Respiration Rate Blood Gas Modality VENT - CPAP FiO2 30.0 Blood Gas Low PEEP 5.0 Setting Blood Gas Pressure 10 Support Blood Gas Notified RT Whom Blood Gas Notified 11/10/2018 10:08:24 Time AM Medications Medications Current Medications Ondansetron HCl (Zofran Inj) 4 mg Q6H PRN IV NAUSEA AND/OR VOMITING; Start 10/31/18 at 21:30 Albuterol (Proventil 0.083% (Neb)) 2.5 mg Q2H RESP THERAPY PRN NEB SHORTNESS OF BREATH Last administered on 11/04/18 00:44; Admin Dose 2.5 MG; Start 10/31/18 at 21:30 Acetaminophen (Tylenol Liquid) 650 mg Q6H PRN PO PAIN LEVEL 1-3 OR FEVER Last administered on 11/07/18 15:40; Admin Dose 650 MG; Start 10/31/18 at 21:30 Amlodipine Besylate (Norvasc) 5 mg BID PO Last administered on 11/09/18 22:09; Admin Dose 5 MG; Start 10/31/18 at 22:00 Benazepril HCl (Lotensin) 40 mg DAILY PO Last administered on 11/09/18 11:02; Admin Dose 40 MG; Start 11/01/18 at 09:00 Calcium Acetate (Phoslo) 667 mg WITH MEALS PO Last administered on 11/10/18 11:30; Admin Dose 667 MG; Start 11/01/18 at 08:00 Multivit/Ca Carb/ B Cmplx/FA/Prenat (Sharron-Ashley) 1 tab DAILY PO Last administer ed on 11/10/18 09:30; Admin Dose 1 TAB; Start 11/01/18 at 09:00 Diagnostic Test (Pha) (Accu-Chek) 1 ea 02 XX Last administered on 11/10/18 00:56; Admin Dose 1 EA; Start 11/02/18 at 02:00 Insulin Aspart (Novolog Insulin Pen) NOVOLOG *MILD* ALGORI... Q4 SC Last administered on 11/08/18 17:36; Admin Dose 1 UNIT; Start 11/01/18 at 13:00 Sevelamer Carbonate (Renvela) 0.8 gm WITH MEALS PO Last administered on 11/10/18 11:30; Admin Dose 0.8 GM; Start 11/01/18 at 18:00 Miscellaneous Information 1 ea NOTE XX ; Start 11/02/18 at 17:00 Glucose (Glutose) 15 gm Q15M PRN PO DECREASED GLUCOSE; Start 11/02/18 at 17:00 Glucose (Glutose) 22.5 gm Q15M PRN PO DECREASED GLUCOSE; Start 11/02/18 at 17:00 Dextrose (D50w Syringe) 25 ml Q15M PRN IV DECREASED GLUCOSE; Start 11/02/18 at 17:00 Dextrose (D50w Syringe) 50 ml Q15M PRN IV DECREASED GLUCOSE; Start 11/02/18 at 17:00 Glucagon (Glucagen) 1 mg Q15M PRN IM DECREASED GLUCOSE; Start 11/02/18 at 17:00 Glucose (Glutose) 15 gm Q15M PRN BUCCAL DECREASED GLUCOSE; Start 11/02/18 at 17:00 Albumin Human 100 ml @ 100 mls/hr WITH DIALYSIS PRN IV SBP <90 DURING DIALYSIS; Start 11/03/18 at 08:30 Epoetin Virgil-epbx (Retacrit (Esrd)) 6,000 unit TuThSa@1700 SC Last administered on 11/09/18at 21:20; Admin Dose 6,000 UNIT; Start 11/04/18 at 17:00 Levetiracetam 100 ml @ 400 mls/hr Q12 IVPB Last administered on 11/10/18at 09:30; Admin Dose 400 MLS/HR; Start 11/04/18 at 01:30 Piperacillin Sod/ Tazobactam Sod 50 ml @ 200 mls/hr Q8 IVPB Last administered on 11/10/18at 05:55; Admin Dose 200 MLS/HR; Start 11/04/18 at 17:45; Stop 11/10/18 at 23:59 Lorazepam (Ativan) 1 mg Q5M PRN IV SEIZURES; Start 11/04/18 at 20:19 Morphine Sulfate (morphine) 2 mg Q4H PRN IV SEVERE PAIN LEVEL 7-10 Last administered on 11/09/18at 16:40; Admin Dose 2 MG; Start 11/06/18 at 13:30 Hydralazine HCl (Apresoline) 10 mg Q6H PRN IV For SBP >160 Last administered on 11/06/18at 15:48; Admin Dose 10 MG; Start 11/06/18 at 13:30 Ferric Sodium Gluconate Complex 125 mg/Sodium Chloride 110 ml @ 110 mls/hr DAILY@1300 IVPB Last administered on 11/09/18 14:00; Admin Dose 110 MLS/HR; Start 11/07/18 at 13:00; Stop 11/11/18 at 13:59 Midazolam HCl 50 ml @ 1 mls/hr TITRATE IV Last administered on 11/07/18 18:20; Admin Dose 1 MLS/HR; Start 11/07/18 at 18:00 Fentanyl 100 ml @ 2.5 mls/hr TITRATE IV Last administered on 11/07/18 18:21; Admin Dose 2.5 MLS/HR; Start 11/07/18 at 18:00 Carvedilol (Coreg) 12.5 mg BID PO Last administered on 11/10/18 09:31; Admin Dose 12.5 MG; Start 11/07/18 at 21:00 Clonidine (Catapres) 0.1 mg BID PO Last administered on 11/10/18 09:31; Admin Dose 0.1 MG; Start 11/07/18 at 21:00 Famotidine (Pepcid) 20 mg DAILY PO Last administered on 11/10/18 09:32; Admin Dose 20 MG; Start 11/09/18 at 09:00 Dexmedetomidine HCl 200 mcg/ Sodium Chloride 50 ml @ 3.16 mls/hr TITRATE IV Last administered on 11/09/18 10:03; Admin Dose 3.16 MLS/HR; Start 11/09/18 at 09:30 Metoclopramide HCl (Reglan) 10 mg Q6 IV Last administered on 11/10/18 11:30; Admin Dose 10 MG; Start 11/09/18 at 13:00; Stop 11/11/18 at 12:59 Polyethylene Glycol (Miralax) 17 gm DAILY PO Last administered on 11/10/18 09:31; Admin Dose 17 GM; Start 11/09/18 at 13:00 WAYNE CARUSO Nov 10, 2018 12:23
--- NOTE | 2018-11-10 12:34 | CONSI ---
Assessment/Plan Assessment/Plan Assessment/Plan (Recall) 78 yo M w/ afib on eliquis, and other comorbidities...who presented with progressive following repeated falls. Head CT revealed a R convexity SDH (and scattered SAH and IVH), for which he is under the care of neurosurgery. He was noted to have several clinical spells concerning for seizure in the days following admission, for which neurology is now consulted.. Repeat neuroimaging is notable for continued presence of R SDH and a L subdural fluid collection with L to R MLS. R SD drain is still in place. EEG is most notable for diffuse slowing. P: Agree w/ Keppra as ordered for seizure ppx for now Ativan iv prn prolonged seizure (> 5 min) or cluster Hemorrhage management per neurosurgery Limit sedating medications where possible Other management and supportive care per primary Will follow clinically Consultation Date/Type/Reason Admit Date/Time October 31, 2018 at 21:18 Type of Consult Neurology Reason for Consultation seizures Requesting Provider: GERMAIN VASQUES Date/Time of Note DATE: 11/10/18 TIME: 12:33 Objective Exam Vitals Vital Signs Date Temp Pulse Resp B/P (MAP) Pulse Ox O2 O2 Flow FiO2 Time Delivery Rate 11/10/18 76 15 99 30 11:15 11/10/18 119/43 Mechanical 06:00 (68) Ventilator 11/10/18 98.3 04:00 11/06/18 6.0 09:00 Intake and Output 11/09/18 11/09/18 11/10/18 1515:00 23:00 07:00 IntakeIntake Total 320 ml 180 ml 50 ml OutputOutput Total 754 ml 1241 ml 223 ml BalanceBalance -434 ml -1061 ml -173 ml Results Result Diagram: 11/10/18 0430 11/10/18 0430 Results 24hrs Laboratory Tests Test 11/09/18 14:04 11/09/18 21:42 11/09/18 22:24 11/10/18 00:55 Bedside Glucose 138 109 96 Total Bilirubin 0.6 Direct Bilirubin 0.00 Indirect Bilirubin 0.6 Aspartate Amino 12 L Transf (AST/SGOT) Alanine 12 L Aminotransferase ( ALT/SGPT) Alkaline 43 Phosphatase Total Protein 5.8 L Albumin 2.7 L Test 11/10/18 04:30 11/10/18 05:47 11/10/18 08:20 11/10/18 09:30 White Blood Count 10.2 Red Blood Count 3.44 L Hemoglobin 9.2 L Hematocrit 30.2 L Mean Corpuscular 87.8 Volume Mean Corpuscular 26.7 L Hemoglobin Mean Corpuscular 30.5 L Hemoglobin Concent Red Cell 17.6 H Distribution Width Platelet Count 135 L Mean Platelet 9.4 Volume Immature 0.500 H Granulocytes % Neutrophils % 82.0 H Lymphocytes % 3.0 L Monocytes % 11.7 H Eosinophils % 2.6 Basophils % 0.2 Nucleated Red 0.0 Blood Cells % Immature 0.050 H Granulocytes # Neutrophils # 8.4 H Lymphocytes # 0.3 L Monocytes # 1.2 H Eosinophils # 0.3 Basophils # 0.0 Nucleated Red 0.0 Blood Cells # Sodium Level 142 Potassium Level 3.6 Chloride Level 102 Carbon Dioxide 29 Level Anion Gap 11 Blood Urea 35 #H Nitrogen Creatinine 3.79 #H Est Glomerular Filtrat Rate mL/min Glucose Level 99 Calcium Level 8.9 Phosphorus Level 4.0 Magnesium Level 2.0 Bedside Glucose 104 105 Blood Gas Specimen Blood arterial Source Arterial Blood 11/10/2018 9:50:54 Date Drawn AM Arterial Blood pH 7.428 (Temp corrected) Arterial Blood 43.6 pCO2 (Temp correct) Arterial Blood pO2 115.0 H (Temp corrected) Arterial Blood 28.2 H HCO3 Arterial Blood 3.4 H Base Excess Arterial Blood 98.2 Oxygen Saturation Rogerio Test N/A Arterial Blood Gas LB Puncture Site Arterial 0.1 Blood Carboxyhemog lobin Arterial Blood 0.5 Methemoglobin Blood Gas A-a O2 47.7 H Differential Oxyhemoglobin 97.6 Percent Blood Gas 37.0 Temperature Blood Gas Actual 12 Respiration Rate Blood Gas Modality VENT - CPAP FiO2 30.0 Blood Gas Low PEEP 5.0 Setting Blood Gas Pressure 10 Support Blood Gas Notified RT Whom Blood Gas Notified 11/10/2018 10:08:24 Time AM Past Medical History Home Meds Active Scripts Carvedilol* (Carvedilol*) 12.5 Mg Tablet, 12.5 MG PO BID for 30 Days, TAB Prov:KADI GONZALEZ MD 06/20/18 Apixaban* (Eliquis*) 5 Mg Tablet, 2.5 MG PO BID for 30 Days, TAB Prov:KADI GONZALEZ MD 06/20/18 Reported Medications Folic Acid/Vitamin B Comp W-C (Renal Multivitamin Tablet) 0.8 Mg Tablet, 0.8 MG PO DAILY, TAB 06/15/18 Clonidine Hcl* (Clonidine Hcl*) 0.1 Mg Tab, 0.1 MG PO BID, TAB 06/15/18 Risperidone* (Risperidone*) 0.25 Mg Tablet, 0.25 MG PO DAILY, TAB 06/15/18 Sevelamer Hcl* (Renagel*) 800 Mg Tablet, 800 MG PO WITH MEALS, TAB 06/15/18 Calcitriol* (Calcitriol*) 0.5 Mcg Capsule, 0.5 MCG PO DAILY, CAP 06/15/18 Calcium Acetate* (Calcium Acetate*) 667 Mg Capsule, 667 MG PO WITH MEALS, #30 CAP 12/13/17 Terazosin Hcl* (Terazosin Hcl*) 5 Mg Capsule, 5 MG PO HS, CAP 12/13/17 Benazepril Hcl* (Benazepril Hcl*) 40 Mg Tablet, 40 MG PO DAILY, #30 TAB 12/13/17 Amlodipine Besylate* (Norvasc*) 5 Mg Tablet, 5 MG PO BID, TAB 12/13/17 Medications Current Medications Ondansetron HCl (Zofran Inj) 4 mg Q6H PRN IV NAUSEA AND/OR VOMITING; Start 10/31/18 at 21:30 Albuterol (Proventil 0.083% (Neb)) 2.5 mg Q2H RESP THERAPY PRN NEB SHORTNESS OF BREATH Last administered on 11/04/18at 00:44; Admin Dose 2.5 MG; Start 10/31/18 at 21:30 Acetaminophen (Tylenol Liquid) 650 mg Q6H PRN PO PAIN LEVEL 1-3 OR FEVER Last administered on 11/07/18at 15:40; Admin Dose 650 MG; Start 10/31/18 at 21:30 Amlodipine Besylate (Norvasc) 5 mg BID PO Last administered on 11/09/18at 22:09; Admin Dose 5 MG; Start 10/31/18 at 22:00 Benazepril HCl (Lotensin) 40 mg DAILY PO Last administered on 11/09/18at 11:02; Admin Dose 40 MG; Start 11/01/18 at 09:00 Calcium Acetate (Phoslo) 667 mg WITH MEALS PO Last administered on 11/10/18 11:30; Admin Dose 667 MG; Start 11/01/18 at 08:00 Multivit/Ca Carb/ B Cmplx/FA/Prenat (Sharron-Ashley) 1 tab DAILY PO Last administered on 11/10/18 09:30; Admin Dose 1 TAB; Start 11/01/18 at 09:00 Diagnostic Test (Pha) (Accu-Chek) 1 ea 02 XX Last administered on 11/10/18at 00:56; Admin Dose 1 EA; Start 11/02/18 at 02:00 Insulin Aspart (Novolog Insulin Pen) NOVOLOG *MILD* ALGORI... Q4 SC Last administered on 11/08/18 17:36; Admin Dose 1 UNIT; Start 11/01/18 at 13:00 Sevelamer Carbonate (Renvela) 0.8 gm WITH MEALS PO Last administered on 11/10/18 11:30; Admin Dose 0.8 GM; Start 11/01/18 at 18:00 Miscellaneous Information 1 ea NOTE XX ; Start 11/02/18 at 17:00 Glucose (Glutose) 15 gm Q15M PRN PO DECREASED GLUCOSE; Start 11/02/18 at 17:00 Glucose (Glutose) 22.5 gm Q15M PRN PO DECREASED GLUCOSE; Start 11/02/18 at 17:00 Dextrose (D50w Syringe) 25 ml Q15M PRN IV DECREASED GLUCOSE; Start 11/02/18 at 17:00 Dextrose (D50w Syringe) 50 ml Q15M PRN IV DECREASED GLUCOSE; Start 11/02/18 at 17:00 Glucagon (Glucagen) 1 mg Q15M PRN IM DECREASED GLUCOSE; Start 11/02/18 at 17:00 Glucose (Glutose) 15 gm Q15M PRN BUCCAL DECREASED GLUCOSE; Start 11/02/18 at 17:00 Albumin Human 100 ml @ 100 mls/hr WITH DIALYSIS PRN IV SBP <90 DURING DIALYSIS; Start 11/03/18 at 08:30 Epoetin Virgil-epbx (Retacrit (Esrd)) 6,000 unit TuThSa@1700 SC Last administered on 11/09/18at 21:20; Admin Dose 6,000 UNIT; Start 11/04/18 at 17:00 Levetiracetam 100 ml @ 400 mls/hr Q12 IVPB Last administered on 11/10/18 09:30; Admin Dose 400 MLS/HR; Start 11/04/18 at 01:30 Piperacillin Sod/ Tazobactam Sod 50 ml @ 200 mls/hr Q8 IVPB Last administered on 11/10/18 05:55; Admin Dose 200 MLS/HR; Start 11/04/18 at 17:45; Stop 11/10/18 at 23:59 Lorazepam (Ativan) 1 mg Q5M PRN IV SEIZURES; Start 11/04/18 at 20:19 Morphine Sulfate (morphine) 2 mg Q4H PRN IV SEVERE PAIN LEVEL 7-10 Last administered on 11/09/18 16:40; Admin Dose 2 MG; Start 11/06/18 at 13:30 Hydralazine HCl (Apresoline) 10 mg Q6H PRN IV For SBP >160 Last administered on 11/06/18 15:48; Admin Dose 10 MG; Start 11/06/18 at 13:30 Ferric Sodium Gluconate Complex 125 mg/Sodium Chloride 110 ml @ 110 mls/hr DAILY@1300 IVPB Last administered on 11/09/18 14:00; Admin Dose 110 MLS/HR; Start 11/07/18 at 13:00; Stop 11/11/18 at 13:59 Midazolam HCl 50 ml @ 1 mls/hr TITRATE IV Last administered on 11/07/18 18:20; Admin Dose 1 MLS/HR; Start 11/07/18 at 18:00 Fentanyl 100 ml @ 2.5 mls/hr TITRATE IV Last administered on 11/07/18 18:21; Admin Dose 2.5 MLS/HR; Start 11/07/18 at 18:00 Carvedilol (Coreg) 12.5 mg BID PO Last administered on 11/10/18 09:31; Admin Dose 12.5 MG; Start 11/07/18 at 21:00 Clonidine (Catapres) 0.1 mg BID PO Last administered on 11/10/18 09:31; Admin Dose 0.1 MG; Start 11/07/18 at 21:00 Famotidine (Pepcid) 20 mg DAILY PO Last administered on 11/10/18 09:32; Admin Dose 20 MG; Start 11/09/18 at 09:00 Dexmedetomidine HCl 200 mcg/ Sodium Chloride 50 ml @ 3.16 mls/hr TITRATE IV Last administered on 11/09/18at 10:03; Admin Dose 3.16 MLS/HR; Start 11/09/18 at 09:30 Metoclopramide HCl (Reglan) 10 mg Q6 IV Last administered on 11/10/18at 11:30; Admin Dose 10 MG; Start 11/09/18 at 13:00; Stop 11/11/18 at 12:59 Polyethylene Glycol (Miralax) 17 gm DAILY PO Last administered on 11/10/18at 09:31; Admin Dose 17 GM; Start 11/09/18 at 13:00 Allergies: Coded Allergies: No Known Drug Allergy (Verified Allergy, Unknown, 06/15/18) Past Surgical History Past Surgical Hx: other Social History Alcohol Use: none Smoking Status: Never smoker Drug Use: none FLORENTIN COLUNGA NP Nov 10, 2018 12:34
[2018-11-10] MEDS: SOD FERRIC GLUC COMPLX 125 MG in SOD CHLORIDE 0.9% 100 ML IVPB SCH (12:47)
--- NOTE | 2018-11-10 14:07 | CONS ---
Assessment/Plan Assessment/Plan Assessment/Plan (Recall) 78 yo M w/ afib on eliquis, and other comorbidities...who presented with progressive following repeated falls. Head CT revealed a R convexity SDH (and scattered SAH and IVH), for which he is under the care of neurosurgery. He was noted to have several clinical spells concerning for seizure in the days following admission, for which neurology is now consulted.. Repeat neuroimaging is notable for continued presence of R SDH and a L subdural fluid collection with L to R MLS. R SD drain is still in place. EEG is most notable for diffuse slowing. Now s/p L subdural drain placement on 11/09. P: Agree w/ Keppra as ordered for seizure ppx for now Ativan iv prn prolonged seizure (> 5 min) or cluster Hemorrhage management per neurosurgery Limit sedating medications where possible Other management and supportive care per primary Will follow clinically Consultation Date/Type/Reason Admit Date/Time October 31, 2018 at 21:18 Type of Consult Neurology Reason for Consultation seizures Requesting Provider: GERMAIN VASQUES Date/Time of Note DATE: 11/10/18 TIME: 14:04 24 HR Interval Summary Free Text/Dictation Continues critical care. S/p L subdural drain placement. Pt is now off sedation and reportedly tolerated CPAP trial well. Subjective hx not possible: pt non-verbal, pt critical Exam/Review of Systems Exam Vitals Vital Signs Date Temp Pulse Resp B/P (MAP) Pulse Ox O2 O2 Flow FiO2 Time Delivery Rate 11/10/18 60 12:00 11/10/18 15 99 30 11:15 11/10/18 119/43 Mechanical 06:00 (68) Ventilator 11/10/18 98.3 04:00 11/06/18 6.0 09:00 Intake and Output 11/09/18 11/09/18 11/10/18 1515:00 23:00 07:00 IntakeIntake Total 320 ml 180 ml 50 ml OutputOutput Total 754 ml 1241 ml 223 ml BalanceBalance -434 ml -1061 ml -173 ml Exam PE: Gen Appearance: No Apparent Distress HEENT: Normocephalic Cardiovascular: Regular rate Abdomen: Soft Extremities: Dry NE: The patient was awake, though nonverbal. Unable to track or follow any commands. Cranial nerve examination was limited by mental status. Pupils were slightly unequal (L > R) though reactive to light. There was no afferent pupillary defect. Funduscopic examination was limited. Face was grossly symmetric, w/ present corneal and cough reflexes. Tone was normal. Muscle bulk was normal. I did not see fasciculations. The patient had spontaneous movement of his upper extremities; withdrew his lowers to noxious stimuli. Coordination and gait testing was limited by mental status. Arm and leg reflexes were within normal limits and symmetric. Santana's sign was absent. Plantar responses were flexor. Results Result Diagram: 11/10/18 0430 11/10/18 043 Results 24hrs Laboratory Tests Test 11/09/18 21:42 11/09/18 22:24 11/10/18 00:55 11/10/18 04:30 Bedside Glucose 109 96 Total Bilirubin 0.6 Direct Bilirubin 0.00 Indirect Bilirubin 0.6 Aspartate Amino 12 L Transf (AST/SGOT) Alanine 12 L Aminotransferase ( ALT/SGPT) Alkaline 43 Phosphatase Total Protein 5.8 L Albumin 2.7 L White Blood Count 10.2 Red Blood Count 3.44 L Hemoglobin 9.2 L Hematocrit 30.2 L Mean Corpuscular 87.8 Volume Mean Corpuscular 26.7 L Hemoglobin Mean Corpuscular 30.5 L Hemoglobin Concent Red Cell 17.6 H Distribution Width Platelet Count 135 L Mean Platelet 9.4 Volume Immature 0.500 H Granulocytes % Neutrophils % 82.0 H Lymphocytes % 3.0 L Monocytes % 11.7 H Eosinophils % 2.6 Basophils % 0.2 Nucleated Red 0.0 Blood Cells % Immature 0.050 H Granulocytes # Neutrophils # 8.4 H Lymphocytes # 0.3 L Monocytes # 1.2 H Eosinophils # 0.3 Basophils # 0.0 Nucleated Red 0.0 Blood Cells # Sodium Level 142 Potassium Level 3.6 Chloride Level 102 Carbon Dioxide 29 Level Anion Gap 11 Blood Urea 35 #H Nitrogen Creatinine 3.79 #H Est Glomerular Filtrat Rate mL/min Glucose Level 99 Calcium Level 8.9 Phosphorus Level 4.0 Magnesium Level 2.0 Test 11/10/18 05:47 11/10/18 08:20 11/10/18 09:30 11/10/18 12:38 Bedside Glucose 104 105 89 Blood Gas Specimen Blood arterial Source Arterial Blood 11/10/2018 9:50:54 Date Drawn AM Arterial Blood pH 7.428 (Temp corrected) Arterial Blood 43.6 pCO2 (Temp correct) Arterial Blood pO2 115.0 H (Temp corrected) Arterial Blood 28.2 H HCO3 Arterial Blood 3.4 H Base Excess Arterial Blood 98.2 Oxygen Saturation Rogerio Test N/A Arterial Blood Gas LB Puncture Site Arterial 0.1 Blood Carboxyhemog lobin Arterial Blood 0.5 Methemoglobin Blood Gas A-a O2 47.7 H Differential Oxyhemoglobin 97.6 Percent Blood Gas 37.0 Temperature Blood Gas Actual 12 Respiration Rate Blood Gas Modality VENT - CPAP FiO2 30.0 Blood Gas Low PEEP 5.0 Setting Blood Gas Pressure 10 Support Blood Gas Notified RT Whom Blood Gas Notified 11/10/2018 10:08:24 Time AM Medications Medication Current Medications Ondansetron HCl (Zofran Inj) 4 mg Q6H PRN IV NAUSEA AND/OR VOMITING; Start 10/31/18 at 21:30 Albuterol (Proventil 0.083% (Neb)) 2.5 mg Q2H RESP THERAPY PRN NEB SHORTNESS OF BREATH Last administered on 11/04/18 00:44; Admin Dose 2.5 MG; Start 10/31/18 at 21:30 Acetaminophen (Tylenol Liquid) 650 mg Q6H PRN PO PAIN LEVEL 1-3 OR FEVER Last administered on 11/07/18 15:40; Admin Dose 650 MG; Start 10/31/18 at 21:30 Amlodipine Besylate (Norvasc) 5 mg BID PO Last administered on 11/09/18 22:09; Admin Dose 5 MG; Start 10/31/18 at 22:00 Benazepril HCl (Lotensin) 40 mg DAILY PO Last administered on 11/09/18 11:02; Admin Dose 40 MG; Start 11/01/18 at 09:00 Calcium Acetate (Phoslo) 667 mg WITH MEALS PO Last administered on 11/10/18 11:30; Admin Dose 667 MG; Start 11/01/18 at 08:00 Multivit/Ca Carb/ B Cmplx/FA/Prenat (Sharron-Ashley) 1 tab DAILY PO Last administered on 11/10/18 09:30; Admin Dose 1 TAB; Start 11/01/18 at 09:00 Diagnostic Test (Pha) (Accu-Chek) 1 ea 02 XX Last administered on 11/10/18at 00:56; Admin Dose 1 EA; Start 11/02/18 at 02:00 Insulin Aspart (Novolog Insulin Pen) NOVOLOG *MILD* ALGORI... Q4 SC Last administered on 11/08/18at 17:36; Admin Dose 1 UNIT; Start 11/01/18 at 13:00 Sevelamer Carbonate (Renvela) 0.8 gm WITH MEALS PO Last administered on 11/10/18at 11:30; Admin Dose 0.8 GM; Start 11/01/18 at 18:00 Miscellaneous Information 1 ea NOTE XX ; Start 11/02/18 at 17:00 Glucose (Glutose) 15 gm Q15M PRN PO DECREASED GLUCOSE; Start 11/02/18 at 17:00 Glucose (Glutose) 22.5 gm Q15M PRN PO DECREASED GLUCOSE; Start 11/02/18 at 17:00 Dextrose (D50w Syringe) 25 ml Q15M PRN IV DECREASED GLUCOSE; Start 11/02/18 at 17:00 Dextrose (D50w Syringe) 50 ml Q15M PRN IV DECREASED GLUCOSE; Start 11/02/18 at 17:00 Glucagon (Glucagen) 1 mg Q15M PRN IM DECREASED GLUCOSE; Start 11/02/18 at 17:00 Glucose (Glutose) 15 gm Q15M PRN BUCCAL DECREASED GLUCOSE; Start 11/02/18 at 17:00 Albumin Human 100 ml @ 100 mls/hr WITH DIALYSIS PRN IV SBP <90 DURING DIALYSIS; Start 11/03/18 at 08:30 Epoetin Virgil-epbx (Retacrit (Esrd)) 6,000 unit TuThSa@1700 SC Last administered on 11/09/18at 21:20; Admin Dose 6,000 UNIT; Start 11/04/18 at 17:00 Levetiracetam 100 ml @ 400 mls/hr Q12 IVPB Last administered on 11/10/18at 09:30; Admin Dose 400 MLS/HR; Start 11/04/18 at 01:30 Piperacillin Sod/ Tazobactam Sod 50 ml @ 200 mls/hr Q8 IVPB Last administered on 11/10/18at 05:55; Admin Dose 200 MLS/HR; Start 11/04/18 at 17:45; Stop 11/10/18 at 23:59 Lorazepam (Ativan) 1 mg Q5M PRN IV SEIZURES; Start 11/04/18 at 20:19 Morphine Sulfate (morphine) 2 mg Q4H PRN IV SEVERE PAIN LEVEL 7-10 Last administered on 11/09/18 16:40; Admin Dose 2 MG; Start 11/06/18 at 13:30 Hydralazine HCl (Apresoline) 10 mg Q6H PRN IV For SBP >160 Last administered on 11/06/18 15:48; Admin Dose 10 MG; Start 11/06/18 at 13:30 Ferric Sodium Gluconate Complex 125 mg/Sodium Chloride 110 ml @ 110 mls/hr DAILY@1300 IVPB Last administered on 11/10/18 12:47; Admin Dose 110 MLS/HR; Start 11/07/18 at 13:00; Stop 11/11/18 at 13:59 Midazolam HCl 50 ml @ 1 mls/hr TITRATE IV Last administered on 11/07/18 18:20; Admin Dose 1 MLS/HR; Start 11/07/18 at 18:00 Fentanyl 100 ml @ 2.5 mls/hr TITRATE IV Last administered on 11/07/18 18:21; Admin Dose 2.5 MLS/HR; Start 11/07/18 at 18:00 Carvedilol (Coreg) 12.5 mg BID PO Last administered on 11/10/18 09:31; Admin Dose 12.5 MG; Start 11/07/18 at 21:00 Clonidine (Catapres) 0.1 mg BID PO Last administered on 11/10/18 09:31; Admin Dose 0.1 MG; Start 11/07/18 at 21:00 Famotidine (Pepcid) 20 mg DAILY PO Last administered on 11/10/18 09:32; Admin Dose 20 MG; Start 11/09/18 at 09:00 Dexmedetomidine HCl 200 mcg/ Sodium Chloride 50 ml @ 3.16 mls/hr TITRATE IV Last administered on 11/09/18 10:03; Admin Dose 3.16 MLS/HR; Start 11/09/18 at 09:30 Metoclopramide HCl (Reglan) 10 mg Q6 IV Last administered on 11/10/18 11:30; Admin Dose 10 MG; Start 11/09/18 at 13:00; Stop 11/11/18 at 12:59 Polyethylene Glycol (Miralax) 17 gm DAILY PO Last administered on 11/10/18at 09:31; Admin Dose 17 GM; Start 11/09/18 at 13:00 FLORENTIN COLUNGA NP Nov 10, 2018 14:07 VALDEMAR VIEIRA Nov 10, 2018 17:10
--- NOTE | 2018-11-10 16:37 | PN ---
Date/Time of Note Date/Time of Note DATE: 11/10/18 TIME: 16:31 Assessment/Plan VTE Prophylaxis Risk score (from Ns)>0 risk: 13 SCD applied (from Ns): Yes Pharmacological prophylaxis: NA/contraindicated Pharm contraindication: hemorrhagic infarct Lines/Catheters [facility] Central Line Central line still needed: Yes Urinary Cath still in place: No Assessment/Plan Hospital Course 78 yo M with a history of fall a few days prior to presentation who was brought in for confusion and is currently managed as follows: 1. Acute right subdural hematoma -Status post craniotomy and bur hole placement 11/06/18 and R v entriculostomy drain -CT and MRI concerning for new left-sided subdural collection of fluid as well as residual hemorrhage. -s/p L sided drain placement 11/09/18 with f/u CT 11/10/18 showing improvement -further disposition per [facility]. drains remain in place 2. Ventilator dependent respiratory failure -on CPAP trial -This is likely multifactorial from aspiration pneumonitis as well as ple ural effusion as well as neurologic injury -Patient remains ventilator dependent 3. Moderate to large right-sided pleural effusion -status post thoracentesis November 07, 2018 with drainage of 900 cc of fluid 4. Right-sided pneumothorax complicating thoracentesis -which has worsened and now patient is status post right-sided chest tube placement November 09/2019 -CXR today showing improvement 5. Severe anemia, likely acute on chronic, exacerbated by acute blood loss from #1 with iron deficiency -Patient received 2 units of packed red cells upon arrival, hemoglobin has been stable since off anticoagulation and antiplatelet -ongoing IV iron replacement X 5 days 6. Altered mentation/acute encephalopathy / confusion secondary to #1 -requiring sedation at this time 7. End-stage renal disease on hemodialysis Tuesday, , Tuesday 8. Diabetes mellitus -excellent control on current regimen 9. Paroxysmal atrial fibrillation -off all anticoagulation for now -slightly bradycardic, cardio managing 10. Hypertension -controlled 11. Aspiration pneumonitis -Maintained on empiric abx -Blood cultures remain negative to date. Respiratory cultures? 10. New-onset seizure secondary to #1 -Patient maintained on seizure prophylaxis with no further episodes so far -EEG done and reviewed 11. Chronic thrombocytopenia -likely related to iron deficiency -Status post 1 unit of platelet transfusion upon arrival, improving levels since - 12. Recurrent falls status post recent fall 2 days ago -Patient will likely be quite debilitated by the end of this hospitalization and will probably require nursing facility placement for rehab 13. Tube feeds on hold for high stomach residuals -reglan q6h scheduled -no BM in about 2 days, will give miralax -monitor G-tube output, once reduced, resume tube feeds at slow rate Plan: -CPAP trials ongoing, pulm to meet with family to discuss about Re-intubation prior to xtubating patient -drains and chest tube remain in place for now -Continue abx -Continue to hold all anticoagulation -Daily CXR and weaning of vent and Chest tube -Appreciate all consults -Further interventions per clinical course -Critical care time greater than 40mins Result Diagram: 11/10/18 0430 11/10/18 0430 Results 24hrs Laboratory Tests Test 11/09/18 21:42 11/09/18 22:24 11/10/18 00:55 11/10/18 04:30 Bedside Glucose 109 96 Total Bilirubin 0.6 Direct Bilirubin 0.00 Indirect Bilirubin 0.6 Aspartate Amino 12 L Transf (AST/SGOT) Alanine 12 L Aminotransferase ( ALT/SGPT) Alkaline 43 Phosphatase Total Protein 5.8 L Albumin 2.7 L White Blood Count 10.2 Red Blood Count 3.44 L Hemoglobin 9.2 L Hematocrit 30.2 L Mean Corpuscular 87.8 Volume Mean Corpuscular 26.7 L Hemoglobin Mean Corpuscular 30.5 L Hemoglobin Concent Red Cell 17.6 H Distribution Width Platelet Count 135 L Mean Platelet 9.4 Volume Immature 0.500 H Granulocytes % Neutrophils % 82.0 H Lymphocytes % 3.0 L Monocytes % 11.7 H Eosinophils % 2.6 Basophils % 0.2 Nucleated Red 0.0 Blood Cells % Immature 0.050 H Granulocytes # Neutrophils # 8.4 H Lymphocytes # 0.3 L Monocytes # 1.2 H Eosinophils # 0.3 Basophils # 0.0 Nucleated Red 0.0 Blood Cells # Sodium Level 142 Potassium Level 3.6 Chloride Level 102 Carbon Dioxide 29 Level Anion Gap 11 Blood Urea 35 #H Nitrogen Creatinine 3.79 #H Est Glomerular Filtrat Rate mL/min Glucose Level 99 Calcium Level 8.9 Phosphorus Level 4.0 Magnesium Level 2.0 Test 11/10/18 05:47 11/10/18 08:20 11/10/18 09:30 11/10/18 12:38 Bedside Glucose 104 105 89 Blood Gas Specimen Blood arterial Source Arterial Blood 11/10/2018 9:50:54 Date Drawn AM Arterial Blood pH 7.428 (Temp corrected) Arterial Blood 43.6 pCO2 (Temp correct) Arterial Blood pO2 115.0 H (Temp corrected) Arterial Blood 28.2 H HCO3 Arterial Blood 3.4 H Base Excess Arterial Blood 98.2 Oxygen Saturation Rogerio Test N/A Arterial Blood Gas LB Puncture Site Arterial 0.1 Blood Carboxyhemog lobin Arterial Blood 0.5 Methemoglobin Blood Gas A-a O2 47.7 H Differential Oxyhemoglobin 97.6 Percent Blood Gas 37.0 Temperature Blood Gas Actual 12 Respiration Rate Blood Gas Modality VENT - CPAP FiO2 30.0 Blood Gas Low PEEP 5.0 Setting Blood Gas Pressure 10 Support Blood Gas Notified RT Whom Blood Gas Notified 11/10/2018 10:08:24 Time AM Subjective 24 Hr Interval Summary Free Text/Dictation off sedation Subjective hx not possible: pt non-verbal, pt critical status Exam/Review of Systems Exam Vitals Vital Signs Date Temp Pulse Resp B/P (MAP) Pulse Ox O2 O2 Flow FiO2 Time Delivery Rate 11/10/18 76 18 96 30 15:00 11/10/18 130/42 Mechanical 14:00 (71) Ventilator 11/10/18 98.0 12:00 11/06/18 6.0 09:00 Intake and Output 11/09/18 11/09/18 11/10/18 1515:00 23:00 07:00 IntakeIntake Total 320 ml 180 ml 50 ml OutputOutput Total 754 ml 1241 ml 223 ml BalanceBalance -434 ml -1061 ml -173 ml Exam GENERAL: opens eyes but doesn't track or follow commands HEENT: Pupils remain unequal, Intubated, long incision and leanne drains LUNGS: diffusely diminished HEART: S1, S2. ABDOMEN: Soft,mildly distended, hypoactive bowel sounds. GENITOURINARY: Normal male external genitalia, Ott to bedside drainage EXTREMITIES: Mild 1+ nonpitting edema bilaterally, also some hand edema bilaterally NEUROLOGIC: can withdraw leanne LE from painful stimuli, no real movement noted of either UE Results Results 24hrs Laboratory Tests Test 11/09/18 21:42 11/09/18 22:24 11/10/18 00:55 11/10/18 04:30 Bedside Glucose 109 96 Total Bilirubin 0.6 Direct Bilirubin 0.00 Indirect Bilirubin 0.6 Aspartate Amino 12 L Transf (AST/SGOT) Alanine 12 L Aminotransferase ( ALT/SGPT) Alkaline 43 Phosphatase Total Protein 5.8 L Albumin 2.7 L White Blood Count 10.2 Red Blood Count 3.44 L Hemoglobin 9.2 L Hematocrit 30.2 L Mean Corpuscular 87.8 Volume Mean Corpuscular 26.7 L Hemoglobin Mean Corpuscular 30.5 L Hemoglobin Concent Red Cell 17.6 H Distribution Width Platelet Count 135 L Mean Platelet 9.4 Volume Immature 0.500 H Granulocytes % Neutrophils % 82.0 H Lymphocytes % 3.0 L Monocytes % 11.7 H Eosinophils % 2.6 Basophils % 0.2 Nucleated Red 0.0 Blood Cells % Immature 0.050 H Granulocytes # Neutrophils # 8.4 H Lymphocytes # 0.3 L Monocytes # 1.2 H Eosinophils # 0.3 Basophils # 0.0 Nucleated Red 0.0 Blood Cells # Sodium Level 142 Potassium Level 3.6 Chloride Level 102 Carbon Dioxide 29 Level Anion Gap 11 Blood Urea 35 #H Nitrogen Creatinine 3.79 #H Est Glomerular Filtrat Rate mL/min Glucose Level 99 Calcium Level 8.9 Phosphorus Level 4.0 Magnesium Level 2.0 Test 11/10/18 05:47 11/10/18 08:20 11/10/18 09:30 11/10/18 12:38 Bedside Glucose 104 105 89 Blood Gas Specimen Blood arterial Source Arterial Blood 11/10/2018 9:50:54 Date Drawn AM Arterial Blood pH 7.428 (Temp corrected) Arterial Blood 43.6 pCO2 (Temp correct) Arterial Blood pO2 115.0 H (Temp corrected) Arterial Blood 28.2 H HCO3 Arterial Blood 3.4 H Base Excess Arterial Blood 98.2 Oxygen Saturation Rogerio Test N/A Arterial Blood Gas LB Puncture Site Arterial 0.1 Blood Carboxyhemog lobin Arterial Blood 0.5 Methemoglobin Blood Gas A-a O2 47.7 H Differential Oxyhemoglobin 97.6 Percent Blood Gas 37.0 Temperature Blood Gas Actual 12 Respiration Rate Blood Gas Modality VENT - CPAP FiO2 30.0 Blood Gas Low PEEP 5.0 Setting Blood Gas Pressure 10 Support Blood Gas Notified RT Whom Blood Gas Notified 11/10/2018 10:08:24 Time AM Imaging Imaging PROCEDURE: CT Brain without contrast. CLINICAL INDICATION: Status post drainage of a left subdural collection TECHNIQUE: A CT of the brain was performed on a GE REM [employer]TER[employer]peed 64-slice CT scanner utilizing axial imaging from the skull base through the vertex without IV contrast. Multiplanar reformatted images were made. Images were reviewed on a PACS workstation. The CTDIvol is 40.25 mGy and the DLP is 946.97 mGycm. One or more the following dose reduction techniques were utilized: Automated exposure control, adjustment of mA/ or kV according to patient's size, or use of iterative reconstruction technique. DICOM images are available for review. COMPARISON: CT BRAIN 11/08/2018 FINDINGS: Images the brain again demonstrate presence of a right subdural drain in place with a predominately right frontal convexity subdural hematoma which measures up to 1.5 cm, minimally smaller when compared to the previous exam at which time measured 1.7 cm. There is continued right convexity pneumocephalus, stable. There is a new left subdural drain placed with interval decrease in size of the left subdural [id number] hematoma now measuring 1.4 cm when compared to 0.5 cm. There is a left-sided pneumocephalus. There is significantly improved mass effect with decreased midline shift now measuring 5 mm when compared to 15 mm. Scattered subarachnoid hemorrhage is seen along the frontal and parietal convexities, improved within the right frontal convexity. There is also subarachnoid hemorrhage along the quadrigeminal plate extending into the cerebellar folia, also mildly improved. There is good chin-white matter differentiation throughout the cerebral hemispheres. The visualized brainstem and cerebellum are unremarkable. Patchy paranasal sinus disease is again seen, stable. The patient is intubated. IMPRESSION: Interval placement of a left subdural drain with significant decrease size of chronic component as subdural hematoma now measuring 1.4 cm when compared to 0.5 cm with significantly decreased mass effect or midline shift measuring 5 mm when compared to 15 mm. Slightly improved bilateral frontal parietal convexity subarachnoid hemorrhage with a subtly smaller right frontal subdural hematoma. The right subdural drain continues in place. No new bleeding is seen. RPTAT: [facility] Physician Connor Date Time Electronically viewed and signed by Cherelle Jacome Physician on 11/10/2018 15:21 RL/ CC: JAMES CRUZ MD [id number] PROCEDURE: XR Chest. CLINICAL INDICATION: Shortness of breath, pneumothorax TECHNIQUE: Single frontal radiograph of the chest. COMPARISON: CHEST 11/09/2018; [facility] CHEST 10/28/2015; [facility] PORT CHEST 06/09/2015; FINDINGS: Central venous catheter, endotracheal tube, nasogastric tube in satisfactory position. Right-sided chest tube unchanged. Basilar atelectasis has improved. No pleural effusion. Minimal right pneumothorax of less than 1% is improving. The cardiomediastinal silhouette is unremarkable. Vascular calcifications of the aorta are present compatible with atherosclerosis. IMPRESSION: Basilar atelectasis has improved. No pleural effusion. Minimal right pneumothorax of less than 1% is improving. RPTAT: [facility]ADD .uDane Hopkins MD, MD Date Time Electronically viewed and signed by .Duane Hopkins MD, on 11/10/2018 08:30 .B/ CC: GERMAIN VASQUES [id number] Medications Medication Current Medications Ondansetron HCl (Zofran Inj) 4 mg Q6H PRN IV NAUSEA AND/OR VOMITING; Start 10/31/18 at 21:30 Albuterol (Proventil 0.083% (Neb)) 2.5 mg Q2H RESP THERAPY PRN NEB SHORTNESS OF BREATH Last administered on 11/04/18 00:44; Admin Dose 2.5 MG; Start 10/31/18 at 21:30 Acetaminophen (Tylenol Liquid) 650 mg Q6H PRN PO PAIN LEVEL 1-3 OR FEVER Last administered on 11/07/18 15:40; Admin Dose 650 MG; Start 10/31/18 at 21:30 Amlodipine Besylate (Norvasc) 5 mg BID PO Last administered on 11/09/18 22:09; Admin Dose 5 MG; Start 10/31/18 at 22:00 Benazepril HCl (Lotensin) 40 mg DAILY PO Last administered on 11/09/18 11:02; Admin Dose 40 MG; Start 11/01/18 at 09:00 Calcium Acetate (Phoslo) 667 mg WITH MEALS PO Last administered on 11/10/18 11:30; Admin Dose 667 MG; Start 11/01/18 at 08:00 Multivit/Ca Carb/ B Cmplx/FA/Prenat (Sharron-Ashley) 1 tab DAILY PO Last administered on 11/10/18 09:30; Admin Dose 1 TAB; Start 11/01/18 at 09:00 Diagnostic Test (Pha) (Accu-Chek) 1 ea 02 XX Last administered on 11/10/18 00:56; Admin Dose 1 EA; Start 11/02/18 at 02:00 Insulin Aspart (Novolog Insulin Pen) NOVOLOG *MILD* ALGORI... Q4 SC Last administered on 11/08/18 17:36; Admin Dose 1 UNIT; Start 11/01/18 at 13:00 Sevelamer Carbonate (Renvela) 0.8 gm WITH MEALS PO Last administered on 11/10/18 11:30; Admin Dose 0.8 GM; Start 11/01/18 at 18:00 Miscellaneous Information 1 ea NOTE XX ; Start 11/02/18 at 17:00 Glucose (Glutose) 15 gm Q15M PRN PO DECREASED GLUCOSE; Start 11/02/18 at 17:00 Glucose (Glutose) 22.5 gm Q15M PRN PO DECREASED GLUCOSE; Start 11/02/18 at 17:00 Dextrose (D50w Syringe) 25 ml Q15M PRN IV DECREASED GLUCOSE; Start 11/02/18 at 17:00 Dextrose (D50w Syringe) 50 ml Q15M PRN IV DECREASED GLUCOSE; Start 11/02/18 at 17:00 Glucagon (Glucagen) 1 mg Q15M PRN IM DECREASED GLUCOSE; Start 11/02/18 at 17:00 Glucose (Glutose) 15 gm Q15M PRN BUCCAL DECREASED GLUCOSE; Start 11/02/18 at 17:00 Albumin Human 100 ml @ 100 mls/hr WITH DIALYSIS PRN IV SBP <90 DURING DIALYSIS; Start 11/03/18 at 08:30 Epoetin Virgil-epbx (Retacrit (Esrd)) 6,000 unit TuThSa@1700 SC Last administered on 11/09/18at 21:20; Admin Dose 6,000 UNIT; Start 11/04/18 at 17:00 Levetiracetam 100 ml @ 400 mls/hr Q12 IVPB Last administered on 11/10/18at 09:30; Admin Dose 400 MLS/HR; Start 11/04/18 at 01:30 Piperacillin Sod/ Tazobactam Sod 50 ml @ 200 mls/hr Q8 IVPB Last administered on 11/10/18at 14:12; Admin Dose 200 MLS/HR; Start 11/04/18 at 17:45; Stop 11/10/18 at 23:59 Lorazepam (Ativan) 1 mg Q5M PRN IV SEIZURES; Start 11/04/18 at 20:19 Morphine Sulfate (morphine) 2 mg Q4H PRN IV SEVERE PAIN LEVEL 7-10 Last adminis tered on 11/09/18at 16:40; Admin Dose 2 MG; Start 11/06/18 at 13:30 Hydralazine HCl (Apresoline) 10 mg Q6H PRN IV For SBP >160 Last administered on 11/06/18at 15:48; Admin Dose 10 MG; Start 11/06/18 at 13:30 Ferric Sodium Gluconate Complex 125 mg/Sodium Chloride 110 ml @ 110 mls/hr DAILY@1300 IVPB Last administered on 11/10/18at 12:47; Admin Dose 110 MLS/HR; Start 11/07/18 at 13:00; Stop 11/11/18 at 13:59 Midazolam HCl 50 ml @ 1 mls/hr TITRATE IV Last administered on 11/07/18 18:20; Admin Dose 1 MLS/HR; Start 11/07/18 at 18:00 Fentanyl 100 ml @ 2.5 mls/hr TITRATE IV Last administered on 11/07/18 18:21; Admin Dose 2.5 MLS/HR; Start 11/07/18 at 18:00 Carvedilol (Coreg) 12.5 mg BID PO Last administered on 11/10/18 09:31; Admin Dose 12.5 MG; Start 11/07/18 at 21:00 Clonidine (Catapres) 0.1 mg BID PO Last administered on 11/10/18 09:31; Admin Dose 0.1 MG; Start 11/07/18 at 21:00 Famotidine (Pepcid) 20 mg DAILY PO Last administered on 11/10/18 09:32; Admin Dose 20 MG; Start 11/09/18 at 09:00 Dexmedetomidine HCl 200 mcg/ Sodium Chloride 50 ml @ 3.16 mls/hr TITRATE IV Last administered on 11/09/18 10:03; Admin Dose 3.16 MLS/HR; Start 11/09/18 at 09:30 Metoclopramide HCl (Reglan) 10 mg Q6 IV Last administered on 11/10/18 11:30; Admin Dose 10 MG; Start 11/09/18 at 13:00; Stop 11/11/18 at 12:59 Polyethylene Glycol (Miralax) 17 gm DAILY PO Last administered on 11/10/18 09:31; Admin Dose 17 GM; Start 11/09/18 at 13:00 GERMAIN VASQUES Nov 10, 2018 16:37
[2018-11-11] VITALS (54 sets, daily range): BP systolic 94–138; BP diastolic 35–89; PULSE 67–85; RESP 14–18
[2018-11-11] MEDS: METOCLOPRAMIDE 10 MG INJ IV SCH ×3 (00:36→12:35)
[2018-11-11] MEDS: INSULIN ASPART [NOVOLOG] 3 ML PEN SC SCH ×6 (01:00→21:00)
[2018-11-11] MEDS: ACCU-CHEK XX SCH (01:08)
[2018-11-11] MEDS: MULTIVIT/CA CARB/B CMPLX/FA TAB PO SCH (08:30)
[2018-11-11] MEDS: FAMOTIDINE 20 MG TAB PO SCH (08:31)
[2018-11-11] MEDS: CALCIUM ACETATE 667 MG CAP PO SCH ×3 (08:31→18:03)
[2018-11-11] MEDS: POLYETHYLENE GLYCOL 17 GM PACKET PO SCH (08:34)
[2018-11-11] MEDS: SEVELAMER CARBONATE 0.8 GM PKT PO SCH ×3 (08:34→18:03)
--- NOTE | 2018-11-11 08:38 | CONS ---
Assessment/Plan Assessment/Plan Assessment/Plan (Daily) 1. End-stage renal disease on HD - s/p HD yesterday 300 cc removed, will plan for HD tomorrow, pt regular schedule for HD is TTS , AVF for HD access . 3. Hypertension. Continue current blood pressure regimen. Continue ultrafiltration with dialysis. 3. Subdural hematoma, S/p Craniotomy and burhole placement by on 10/06/18- Post op care as per Neurosurgery, Drainage tube in place , MRI brain done 4. Post op pulmonary insufficiency INtubated on ventilator - plan for CPAP trial today 4. Anemia of ESRD, s/p 2 unit PRBC tansfusion during this admission 5. Mineral bone disorder. Monitor calcium and phosphorus levels. 7. Diabetes. Continue current insulin regimen. 8. Paroxysmal atrial fibrillation. Continue medical management. 9. Gastrointestinal and deep vein thrombosis prophylaxis Consultation Date/Type/Reason Admit Date/Time October 31, 2018 at 21:18 Initial Consult Date 11/01/18 Requesting Provider: GERMAIN VASQUES Date/Time of Note DATE: 11/11/18 TIME: 08:38 Exam/Review of Systems Exam Vitals Vital Signs Date Temp Pulse Resp B/P (MAP) Pulse Ox O2 O2 Flow FiO2 Time Delivery Rate 11/11/18 84 14 134/47 98 Mechanical 06:00 (76) Ventilator 11/11/18 30 05:10 11/11/18 98.4 04:00 Intake and Output 11/10/18 11/10/18 11/11/18 1515:00 23:00 07:00 IntakeIntake Total 310 ml 250 ml 0 ml OutputOutput Total 318 ml 89 ml 52 ml BalanceBalance -8 ml 161 ml -52 ml Results Result Diagram: 11/11/18 0454 11/11/18 0426 Results 24hrs Laboratory Tests Test 11/10/18 09:30 11/10/18 12:38 11/10/18 17:23 11/10/18 20:45 Blood Gas Specimen Blood arterial Source Arterial Blood 11/10/2018 9:50:54 Date Drawn AM Arterial Blood pH 7.428 (Temp corrected) Arterial Blood 43.6 pCO2 (Temp correct) Arterial Blood pO2 115.0 H (Temp corrected) Arterial Blood 28.2 H HCO3 Arterial Blood 3.4 H Base Excess Arterial Blood 98.2 Oxygen Saturation Rogerio Test N/A Arterial Blood Gas LB Puncture Site Arterial 0.1 Blood Carboxyhemog lobin Arterial Blood 0.5 Methemoglobin Blood Gas A-a O2 47.7 H Differential Oxyhemoglobin 97.6 Percent Blood Gas 37.0 Temperature Blood Gas Actual 12 Respiration Rate Blood Gas Modality VENT - CPAP FiO2 30.0 Blood Gas Low PEEP 5.0 Setting Blood Gas Pressure 10 Support Blood Gas Notified RT Whom Blood Gas Notified 11/10/2018 10:08:24 Time AM Bedside Glucose 89 89 106 Test 11/11/18 00:40 11/11/18 04:26 11/11/18 04:54 11/11/18 05:33 Bedside Glucose 101 106 Sodium Level 144 Potassium Level 3.9 Chloride Level 103 Carbon Dioxide 28 Level Anion Gap 13 Blood Urea 47 #H Nitrogen Creatinine 4.85 #H Est Glomerular Filtrat Rate mL/min Glucose Level 109 Calcium Level 9.5 White Blood Count 13.3 #H Red Blood Count 3.28 L Hemoglobin 8.7 L Hematocrit 29.2 L Mean Corpuscular 89.0 Volume Mean Corpuscular 26.5 L Hemoglobin Mean Corpuscular 29.8 L Hemoglobin Concent Red Cell 17.5 H Distribution Width Platelet Count 140 Mean Platelet 10.1 Volume Immature 0.700 H Granulocytes % Neutrophils % 84.5 H Lymphocytes % 2.0 L Monocytes % 10.0 Eosinophils % 2.6 Basophils % 0.2 Nucleated Red 0.0 Blood Cells % Immature 0.090 H Granulocytes # Neutrophils # 11.2 H Lymphocytes # 0.3 L Monocytes # 1.3 H Eosinophils # 0.4 Basophils # 0.0 Nucleated Red 0.0 Blood Cells # Medications Medication Current Medications Ondansetron HCl (Zofran Inj) 4 mg Q6H PRN IV NAUSEA AND/OR VOMITING; Start 10/31/18 at 21:30 Albuterol (Proventil 0.083% (Neb)) 2.5 mg Q2H RESP THERAPY PRN NEB SHORTNESS OF BREATH Last administered on 11/04/18at 00:44; Admin Dose 2.5 MG; Start 10/31/18 at 21:30 Acetaminophen (Tylenol Liquid) 650 mg Q6H PRN PO PAIN LEVEL 1-3 OR FEVER Last administered on 11/07/18at 15:40; Admin Dose 650 MG; Start 10/31/18 at 21:30 Amlodipine Besylate (Norvasc) 5 mg BID PO Last administered on 11/09/18 22:09; Admin Dose 5 MG; Start 10/31/18 at 22:00 Benazepril HCl (Lotensin) 40 mg DAILY PO Last administered on 11/09/18 11:02; Admin Dose 40 MG; Start 11/01/18 at 09:00 Calcium Acetate (Phoslo) 667 mg WITH MEALS PO Last administered on 11/10/18 17:35; Admin Dose 667 MG; Start 11/01/18 at 08:00 Multivit/Ca Carb/ B Cmplx/FA/Prenat (Sharron-Ashley) 1 tab DAILY PO Last administered on 11/10/18 09:30; Admin Dose 1 TAB; Start 11/01/18 at 09:00 Diagnostic Test (Pha) (Accu-Chek) 1 ea 02 XX Last administered on 11/10/18 00:56; Admin Dose 1 EA; Start 11/02/18 at 02:00 Insulin Aspart (Novolog Insulin Pen) NOVOLOG *MILD* ALGORI... Q4 SC Last administered on 11/08/18 17:36; Admin Dose 1 UNIT; Start 11/01/18 at 13:00 Sevelamer Carbonate (Renvela) 0.8 gm WITH MEALS PO Last administered on 11/10/18 17:35; Admin Dose 0.8 GM; Start 11/01/18 at 18:00 Miscellaneous Information 1 ea NOTE XX ; Start 11/02/18 at 17:00 Glucose (Glutose) 15 gm Q15M PRN PO DECREASED GLUCOSE; Start 11/02/18 at 17:00 Glucose (Glutose) 22.5 gm Q15M PRN PO DECREASED GLUCOSE; Start 11/02/18 at 17:00 Dextrose (D50w Syringe) 25 ml Q15M PRN IV DECREASED GLUCOSE; Start 11/02/18 at 17:00 Dextrose (D50w Syringe) 50 ml Q15M PRN IV DECREASED GLUCOSE; Start 11/02/18 at 17:00 Glucagon (Glucagen) 1 mg Q15M PRN IM DECREASED GLUCOSE; Start 11/02/18 at 17:00 Glucose (Glutose) 15 gm Q15M PRN BUCCAL DECREASED GLUCOSE; Start 11/02/18 at 17 :00 Albumin Human 100 ml @ 100 mls/hr WITH DIALYSIS PRN IV SBP <90 DURING DIALYSIS; Start 11/03/18 at 08:30 Epoetin Virgil-epbx (Retacrit (Esrd)) 6,000 unit TuThSa@1700 SC Last administered on 11/09/18 21:20; Admin Dose 6,000 UNIT; Start 11/04/18 at 17:00 Levetiracetam 100 ml @ 400 mls/hr Q12 IVPB Last administered on 11/10/18 20:46; Admin Dose 400 MLS/HR; Start 11/04/18 at 01:30 Lorazepam (Ativan) 1 mg Q5M PRN IV SEIZURES; Start 11/04/18 at 20:19 Morphine Sulfate (morphine) 2 mg Q4H PRN IV SEVERE PAIN LEVEL 7-10 Last administered on 11/09/18 16:40; Admin Dose 2 MG; Start 11/06/18 at 13:30 Hydralazine HCl (Apresoline) 10 mg Q6H PRN IV For SBP >160 Last administered on 11/06/18 15:48; Admin Dose 10 MG; Start 11/06/18 at 13:30 Ferric Sodium Gluconate Complex 125 mg/Sodium Chloride 110 ml @ 110 mls/hr DAILY@1300 IVPB Last administered on 11/10/18 12:47; Admin Dose 110 MLS/HR; Start 11/07/18 at 13:00; Stop 11/11/18 at 13:59 Midazolam HCl 50 ml @ 1 mls/hr TITRATE IV Last administered on 11/07/18 18:20; Admin Dose 1 MLS/HR; Start 11/07/18 at 18:00 Fentanyl 100 ml @ 2.5 mls/hr TITRATE IV Last administered on 11/07/18 18:21; Admin Dose 2.5 MLS/HR; Start 11/07/18 at 18:00 Carvedilol (Coreg) 12.5 mg BID PO Last administered on 11/10/18 20:59; Admin Dose 12.5 MG; Start 11/07/18 at 21:00 Clonidine (Catapres) 0.1 mg BID PO Last administered on 11/10/18 20:58; Admin Dose 0.1 MG; Start 6/4/19 at 21:00 Famotidine (Pepcid) 20 mg DAILY PO Last administered on 11/10/18 09:32; Admin Dose 20 MG; Start 11/09/18 at 09:00 Dexmedetomidine HCl 200 mcg/ Sodium Chloride 50 ml @ 3.16 mls/hr TITRATE IV Last administered on 11/09/18 10:03; Admin Dose 3.16 MLS/HR; Start 11/09/18 at 09:30 Metoclopramide HCl (Reglan) 10 mg Q6 IV Last administered on 11/11/18at 05:35; Admin Dose 10 MG; Start 11/09/18 at 13:00; Stop 11/11/18 at 12:59 Polyethylene Glycol (Miralax) 17 gm DAILY PO Last administered on 11/10/18at 09:31; Admin Dose 17 GM; Start 11/09/18 at 13:00 SAUD CHANDLER MD Nov 11, 2018 08:38
[2018-11-11] MEDS: LEVETIRACETAM 500 MG (PMX) 100 ML IVPB SCH ×2 (08:39→21:55)
--- NOTE | 2018-11-11 09:02 | CONS ---
Assessment/Plan Assessment/Plan Assessment/Plan (Daily) Ventilator setting; AC of 14, tidal volume 500, PEEP of 5, 30% FiO2. Assessment recommendations; 1. Patient admitted with intracranial bleed due to subdural hemorrhage status post right parietal craniotomy. 2. End-stage renal disease, hemodialysis. 3. Status post right thoracentesis with iatrogenic pneumothorax requiring chest tube placement with full right lung reexpansion. 4. Anemia and thrombocytopenia. 5. Encephalopathy with interval improvement. 6. History of hypertension. 7. Currently there is no indication to suggest any ongoing infective process, patient now off antibiotics. Continue current supportive care. Because of poor mental status, I would not recommend extubation as the patient would not be able to protect his airway. Will wait for weaning trial until mental status improves. 35 minutes of critical care time was spent evaluating the patient. Consultation Date/Type/Reason Admit Date/Time October 31, 2018 at 21:18 Initial Consult Date 11/06/18 Type of Consult Pulmonary/critical care Patient condition is critical. Remains profoundly unresponsive. Patient however has remained hemodynamically stable. No untoward events reported. General exam; elderly male, orally intubated, unresponsive, currently in no distress. Requesting Provider: GERMAIN VASQUES Date/Time of Note DATE: 11/11/18 TIME: 08:59 24 HR Interval Summary Free Text/Dictation Patient's condition remains critical. Patient however neurologically is improving. Remains awake but still not communicative. Patient has remained hemodynamically stable. General exam; elderly male, awake, but noncommunicative. Currently no distress. Orally intubated. Exam/Review of Systems Exam Vitals Vital Signs Date Temp Pulse Resp B/P (MAP) Pulse Ox O2 O2 Flow FiO2 Time Delivery Rate 11/11/18 84 14 134/47 98 Mechanical 06:00 (76) Ventilator 11/11/18 30 05:10 11/11/18 98.4 04:00 Intake and Output 11/10/18 11/10/18 11/11/18 1515:00 23:00 07:00 IntakeIntake Total 310 ml 250 ml 0 ml OutputOutput Total 318 ml 89 ml 52 ml BalanceBalance -8 ml 161 ml -52 ml Exam H EENT exam; supple neck, no JVD. No lymphadenopathy. Midline trachea. No thyromegaly. Orally intubated. Patient has fair dentition. Right parietal ventricular drain in place. Chest exam; diminished but clear breath sounds. S1-S2 audible, no murmurs. Irregular rhythm. Right-sided chest tube in place. Abdomen exam; soft, nontender. No organomegaly. Nondistended. Bowel sounds audible. Extremity exam; no peripheral edema clubbing. VFX ARTIST exam; is awake but remains noncommunicative. Results Result Diagram: 11/11/18 0454 11/11/18 0426 Results 24hrs Laboratory Tests Test 11/10/18 09:30 11/10/18 12:38 11/10/18 17:23 11/10/18 20:45 Blood Gas Specimen Blood arterial Source Arterial Blood 11/10/2018 9:50:54 Date Drawn AM Arterial Blood pH 7.428 (Temp corrected) Arterial Blood 43.6 pCO2 (Temp correct) Arterial Blood pO2 115.0 H (Temp corrected) Arterial Blood 28.2 H HCO3 Arterial Blood 3.4 H Base Excess Arterial Blood 98.2 Oxygen Saturation Rogerio Test N/A Arterial Blood Gas LB Puncture Site Arterial 0.1 Blood Carboxyhemog lobin Arterial Blood 0.5 Methemoglobin Blood Gas A-a O2 47.7 H Differential Oxyhemoglobin 97.6 Percent Blood Gas 37.0 Temperature Blood Gas Actual 12 Respiration Rate Blood Gas Modality VENT - CPAP FiO2 30.0 Blood Gas Low PEEP 5.0 Setting Blood Gas Pressure 10 Support Blood Gas Notified RT Whom Blood Gas Notified 11/10/2018 10:08:24 Time AM Bedside Glucose 89 89 106 Test 11/11/18 00:40 11/11/18 04:26 11/11/18 04:54 11/11/18 05:33 Bedside Glucose 101 106 Sodium Level 144 Potassium Level 3.9 Chloride Level 103 Carbon Dioxide 28 Level Anion Gap 13 Blood Urea 47 #H Nitrogen Creatinine 4.85 #H Est Glomerular Filtrat Rate mL/min Glucose Level 109 Calcium Level 9.5 White Blood Count 13.3 #H Red Blood Count 3.28 L Hemoglobin 8.7 L Hematocrit 29.2 L Mean Corpuscular 89.0 Volume Mean Corpuscular 26.5 L Hemoglobin Mean Corpuscular 29.8 L Hemoglobin Concent Red Cell 17.5 H Distribution Width Platelet Count 140 Mean Platelet 10.1 Volume Immature 0.700 H Granulocytes % Neutrophils % 84.5 H Lymphocytes % 2.0 L Monocytes % 10.0 Eosinophils % 2.6 Basophils % 0.2 Nucleated Red 0.0 Blood Cells % Immature 0.090 H Granulocytes # Neutrophils # 11.2 H Lymphocytes # 0.3 L Monocytes # 1.3 H Eosinophils # 0.4 Basophils # 0.0 Nucleated Red 0.0 Blood Cells # Medications Medication Current Medications Ondansetron HCl (Zofran Inj) 4 mg Q6H PRN IV NAUSEA AND/OR VOMITING; Start 10/31/18 at 21:30 Albuterol (Proventil 0.083% (Neb)) 2.5 mg Q2H RESP THERAPY PRN NEB SHORTNESS OF BREATH Last administered on 11/04/18 00:44; Admin Dose 2.5 MG; Start 10/31/18 at 21:30 Acetaminophen (Tylenol Liquid) 650 mg Q6H PRN PO PAIN LEVEL 1-3 OR FEVER Last administered on 11/07/18 15:40; Admin Dose 650 MG; Start 10/31/18 at 21:30 Amlodipine Besylate (Norvasc) 5 mg BID PO Last administered on 11/09/18 22:09; Admin Dose 5 MG; Start 10/31/18 at 22:00 Benazepril HCl (Lotensin) 40 mg DAILY PO Last administered on 11/09/18 11:02; Admin Dose 40 MG; Start 11/01/18 at 09:00 Calcium Acetate (Phoslo) 667 mg WITH MEALS PO Last administered on 11/11/18 08:31; Admin Dose 667 MG; Start 11/01/18 at 08:00 Multivit/Ca Carb/ B Cmplx/FA/Prenat (Sharron-Ashley) 1 tab DAILY PO Last administered on 11/11/18 08:30; Admin Dose 1 TAB; Start 11/01/18 at 09:00 Diagnostic Test (Pha) (Accu-Chek) 1 ea 02 XX Last administered on 11/10/18 00 :56; Admin Dose 1 EA; Start 11/02/18 at 02:00 Insulin Aspart (Novolog Insulin Pen) NOVOLOG *MILD* ALGORI... Q4 SC Last administered on 11/08/18 17:36; Admin Dose 1 UNIT; Start 11/01/18 at 13:00 Sevelamer Carbonate (Renvela) 0.8 gm WITH MEALS PO Last administered on 11/11/18 08:34; Admin Dose 0.8 GM; Start 11/01/18 at 18:00 Miscellaneous Information 1 ea NOTE XX ; Start 11/02/18 at 17:00 Glucose (Glutose) 15 gm Q15M PRN PO DECREASED GLUCOSE; Start 11/02/18 at 17:00 Glucose (Glutose) 22.5 gm Q15M PRN PO DECREASED GLUCOSE; Start 11/02/18 at 17:00 Dextrose (D50w Syringe) 25 ml Q15M PRN IV DECREASED GLUCOSE; Start 11/02/18 at 17:00 Dextrose (D50w Syringe) 50 ml Q15M PRN IV DECREASED GLUCOSE; Start 11/02/18 at 17:00 Glucagon (Glucagen) 1 mg Q15M PRN IM DECREASED GLUCOSE; Start 11/02/18 at 17:00 Glucose (Glutose) 15 gm Q15M PRN BUCCAL DECREASED GLUCOSE; Start 11/02/18 at 17:00 Albumin Human 100 ml @ 100 mls/hr WITH DIALYSIS PRN IV SBP <90 DURING DIALYSIS; Start 11/03/18 at 08:30 Epoetin Virgil-epbx (Retacrit (Esrd)) 6,000 unit TuThSa@1700 SC Last administered on 11/09/18 21:20; Admin Dose 6,000 UNIT; Start 11/04/18 at 17:00 Levetiracetam 100 ml @ 400 mls/hr Q12 IVPB Last administered on 11/11/18 08:39; Admin Dose 400 MLS/HR; Start 11/04/18 at 01:30 Lorazepam (Ativan) 1 mg Q5M PRN IV SEIZURES; Start 11/04/18 at 20:19 Morphine Sulfate (morphine) 2 mg Q4H PRN IV SEVERE PAIN LEVEL 7-10 Last administered on 11/09/18 16:40; Admin Dose 2 MG; Start 11/06/18 at 13:30 Hydralazine HCl (Apresoline) 10 mg Q6H PRN IV For SBP >160 Last administered on 11/06/18at 15:48; Admin Dose 10 MG; Start 11/06/18 at 13:30 Ferric Sodium Gluconate Complex 125 mg/Sodium Chloride 110 ml @ 110 mls/hr DAILY@1300 IVPB Last administered on 11/10/18 12:47; Admin Dose 110 MLS/HR; Start 11/07/18 at 13:00; Stop 11/11/18 at 13:59 Midazolam HCl 50 ml @ 1 mls/hr TITRATE IV Last administered on 11/07/18 18:20; Admin Dose 1 MLS/HR; Start 11/07/18 at 18:00 Fentanyl 100 ml @ 2.5 mls/hr TITRATE IV Last administered on 11/07/18 18:21; Admin Dose 2.5 MLS/HR; Start 11/07/18 at 18:00 Carvedilol (Coreg) 12.5 mg BID PO Last administered on 11/11/18 08:33; Admin Dose 12.5 MG; Start 11/07/18 at 21:00 Clonidine (Catapres) 0.1 mg BID PO Last administered on 11/11/18 08:32; Admin Dose 0.1 MG; Start 11/07/18 at 21:00 Famotidine (Pepcid) 20 mg DAILY PO Last administered on 11/11/18 08:31; Admin Dose 20 MG; Start 11/09/18 at 09:00 Dexmedetomidine HCl 200 mcg/ Sodium Chloride 50 ml @ 3.16 mls/hr TITRATE IV Last administered on 11/09/18 10:03; Admin Dose 3.16 MLS/HR; Start 11/09/18 at 09:30 Metoclopramide HCl (Reglan) 10 mg Q6 IV Last administered on 11/11/18 05:35; Admin Dose 10 MG; Start 11/09/18 at 13:00; Stop 11/11/18 at 12:59 Polyethylene Glycol (Miralax) 17 gm DAILY PO Last administered on 11/11/18 08:3 4; Admin Dose 17 GM; Start 11/09/18 at 13:00 LIDIA ROSALES 8, 2019 09:02
--- NOTE | 2018-11-11 10:05 | CONS ---
Assessment/Plan Assessment/Plan Assessment/Plan (Daily) Continue L sided drainage CT tomorrow AM Will plan to remove drain after if satisfactory Will add ancef for drain ppx given prolonged catheter placement Consultation Date/Type/Reason Admit Date/Time October 31, 2018 at 21:18 Initial Consult Date 11/06/18 Type of Consult Neurosurgery Requesting Provider: GERMAIN VASQUES Date/Time of Note DATE: 11/11/18 TIME: 10:03 24 HR Interval Summary Free Text/Dictation POD5 R crani aSDH, POD2 L twist drill for cSDH More awake CT showed interval improvement, but still large L collection, small R collection Exam/Review of Systems Exam Vitals Vital Signs Date Temp Pulse Resp B/P (MAP) Pulse Ox O2 O2 Flow FiO2 Time Delivery Rate 11/11/18 81 08:00 11/11/18 14 134/47 98 Mechanical 06:00 (76) Ventilator 11/11/18 30 05:10 11/11/18 98.4 04:00 Intake and Output 11/10/18 11/10/18 11/11/18 1515:00 23:00 07:00 IntakeIntake Total 310 ml 250 ml 0 ml OutputOutput Total 318 ml 89 ml 52 ml BalanceBalance -8 ml 161 ml -52 ml Exam Awake, alert PARRY Drains, both with output with HOB 0 deg Results Result Diagram: 11/11/18 0454 11/11/18 0426 Results 24hrs Laboratory Tests Test 11/10/18 12:38 11/10/18 17:23 11/10/18 20:45 11/11/18 00:40 Bedside Glucose 89 89 106 101 Test 11/11/18 04:26 11/11/18 04:54 11/11/18 05:33 11/11/18 08:50 Sodium Level 144 Potassium Level 3.9 Chloride Level 103 Carbon Dioxide Level 28 Anion Gap 13 Blood Urea Nitrogen 47 #H Creatinine 4.85 #H Est Glomerular Filtrat Rate mL/min Glucose Level 109 Calcium Level 9.5 White Blood Count 13.3 #H Red Blood Count 3.28 L Hemoglobin 8.7 L Hematocrit 29.2 L Mean Corpuscular Volume 89.0 Mean Corpuscular 26.5 L Hemoglobin Mean Corpuscular 29.8 L Hemoglobin Concent Red Cell Distribution 17.5 H Width Platelet Count 140 Mean Platelet Volume 10.1 Immature Granulocytes % 0.700 H Neutrophils % 84.5 H Lymphocytes % 2.0 L Monocytes % 10.0 Eosinophils % 2.6 Basophils % 0.2 Nucleated Red Blood 0.0 Cells % Immature Granulocytes # 0.090 H Neutrophils # 11.2 H Lymphocytes # 0.3 L Monocytes # 1.3 H Eosinophils # 0.4 Basophils # 0.0 Nucleated Red Blood 0.0 Cells # Bedside Glucose 106 107 Medications Medication Current Medications Ondansetron HCl (Zofran Inj) 4 mg Q6H PRN IV NAUSEA AND/OR VOMITING; Start 10/31/18 at 21:30 Albuterol (Proventil 0.083% (Neb)) 2.5 mg Q2H RESP THERAPY PRN NEB SHORTNESS OF BREATH Last administered on 11/04/18 00:44; Admin Dose 2.5 MG; Start 10/31/18 at 21:30 Acetaminophen (Tylenol Liquid) 650 mg Q6H PRN PO PAIN LEVEL 1-3 OR FEVER Last a dministered on 11/07/18 15:40; Admin Dose 650 MG; Start 10/31/18 at 21:30 Amlodipine Besylate (Norvasc) 5 mg BID PO Last administered on 11/09/18 22:09; Admin Dose 5 MG; Start 10/31/18 at 22:00 Benazepril HCl (Lotensin) 40 mg DAILY PO Last administered on 11/09/18 11:02; Admin Dose 40 MG; Start 11/01/18 at 09:00 Calcium Acetate (Phoslo) 667 mg WITH MEALS PO Last administered on 11/11/18 08:31; Admin Dose 667 MG; Start 11/01/18 at 08:00 Multivit/Ca Carb/ B Cmplx/FA/Prenat (Sharron-Ashley) 1 tab DAILY PO Last administered on 11/11/18 08:30; Admin Dose 1 TAB; Start 11/01/18 at 09:00 Diagnostic Test (Pha) (Accu-Chek) 1 ea 02 XX Last administered on 11/10/18 00:56; Admin Dose 1 EA; Start 11/02/18 at 02:00 Insulin Aspart (Novolog Insulin Pen) NOVOLOG *MILD* ALGORI... Q4 SC Last administered on 6/5/19at 17:36; Admin Dose 1 UNIT; Start 11/01/18 at 13:00 Sevelamer Carbonate (Renvela) 0.8 gm WITH MEALS PO Last administered on 11/11/18at 08:34; Admin Dose 0.8 GM; Start 11/01/18 at 18:00 Miscellaneous Information 1 ea NOTE XX ; Start 11/02/18 at 17:00 Glucose (Glutose) 15 gm Q15M PRN PO DECREASED GLUCOSE; Start 11/02/18 at 17:00 Glucose (Glutose) 22.5 gm Q15M PRN PO DECREASED GLUCOSE; Start 11/02/18 at 17:00 Dextrose (D50w Syringe) 25 ml Q15M PRN IV DECREASED GLUCOSE; Start 11/02/18 at 17:00 Dextrose (D50w Syringe) 50 ml Q15M PRN IV DECREASED GLUCOSE; Start 11/02/18 at 17:00 Glucagon (Glucagen) 1 mg Q15M PRN IM DECREASED GLUCOSE; Start 11/02/18 at 17:00 Glucose (Glutose) 15 gm Q15M PRN BUCCAL DECREASED GLUCOSE; Start 11/02/18 at 17:00 Albumin Human 100 ml @ 100 mls/hr WITH DIALYSIS PRN IV SBP <90 DURING DIALYSIS; Start 11/03/18 at 08:30 Epoetin Virgil-epbx (Retacrit (Esrd)) 6,000 unit TuThSa@1700 SC Last administered on 11/09/18at 21:20; Admin Dose 6,000 UNIT; Start 11/04/18 at 17:00 Levetiracetam 100 ml @ 400 mls/hr Q12 IVPB Last administered on 11/11/18at 08:39; Admin Dose 400 MLS/HR; Start 11/04/18 at 01:30 Lorazepam (Ativan) 1 mg Q5M PRN IV SEIZURES; Start 11/04/18 at 20:19 Morphine Sulfate (morphine) 2 mg Q4H PRN IV SEVERE PAIN LEVEL 7-10 Last administered on 11/09/18at 16:40; Admin Dose 2 MG; Start 11/06/18 at 13:30 Hydralazine HCl (Apresoline) 10 mg Q6H PRN IV For SBP >160 Last administered on 11/06/18at 15:48; Admin Dose 10 MG; Start 11/06/18 at 13:30 Ferric Sodium Gluconate Complex 125 mg/Sodium Chloride 110 ml @ 110 mls/hr DAILY@1300 IVPB Last administered on 11/10/18 12:47; Admin Dose 110 MLS/HR; Start 11/07/18 at 13:00; Stop 11/11/18 at 13:59 Midazolam HCl 50 ml @ 1 mls/hr TITRATE IV Last administered on 11/07/18 18:20; Admin Dose 1 MLS/HR; Start 11/07/18 at 18:00 Fentanyl 100 ml @ 2.5 mls/hr TITRATE IV Last administered on 11/07/18 18:21; Admin Dose 2.5 MLS/HR; Start 11/07/18 at 18:00 Carvedilol (Coreg) 12.5 mg BID PO Last administered on 11/11/18 08:33; Admin Dose 12.5 MG; Start 11/07/18 at 21:00 Clonidine (Catapres) 0.1 mg BID PO Last administered on 11/11/18 08:32; Admin Dose 0.1 MG; Start 11/07/18 at 21:00 Famotidine (Pepcid) 20 mg DAILY PO Last administered on 11/11/18 08:31; Admin Dose 20 MG; Start 11/09/18 at 09:00 Dexmedetomidine HCl 200 mcg/ Sodium Chloride 50 ml @ 3.16 mls/hr TITRATE IV Last administered on 11/09/18 10:03; Admin Dose 3.16 MLS/HR; Start 11/09/18 at 09:30 Metoclopramide HCl (Reglan) 10 mg Q6 IV Last administered on 11/11/18 05:35; Admin Dose 10 MG; Start 11/09/18 at 13:00; Stop 11/11/18 at 12:59 Polyethylene Glycol (Miralax) 17 gm DAILY PO Last administered on 11/11/18 08:34; Admin Dose 17 GM; Start 11/09/18 at 13:00 JAMES CRUZ MD Nov 11, 2018 10:05
[2018-11-11] MEDS: CEFAZOLIN 1 GM/50 ML (PMX) 50 ML IVPB SCH (12:35)
--- NOTE | 2018-11-11 13:01 | CONS ---
Assessment/Plan Assessment/Plan Assessment/Plan (Recall) 78 yo M w/ afib on eliquis, and other comorbidities...who presented with progressive following repeated falls. Head CT revealed a R convexity SDH (and scattered SAH and IVH), for which he is under the care of neurosurgery. He was noted to have several clinical spells concerning for seizure in the days following admission, for which neurology is now consulted.. Repeat neuroimaging is notable for continued presence of R SDH and a L subdural fluid collection with L to R MLS. R SD drain is still in place. EEG is most notable for diffuse slowing. Now s/p L subdural drain placement on 11/09. P: Agree w/ Keppra as ordered for seizure ppx for now Ativan iv prn prolonged seizure (> 5 min) or cluster Hemorrhage management per neurosurgery Limit sedating medications where possible Other management and supportive care per primary Will follow clinically Consultation Date/Type/Reason Admit Date/Time October 31, 2018 at 21:18 Type of Consult Neurology Reason for Consultation seizures Requesting Provider: GERMAIN VASQUES Date/Time of Note DATE: 11/11/18 TIME: 13:00 24 HR Interval Summary Free Text/Dictation Continues icu care Exam/Review of Systems Exam Vitals Vital Signs Date Temp Pulse Resp B/P (MAP) Pulse Ox O2 O2 Flow FiO2 Time Delivery Rate 11/11/18 76 12:00 11/11/18 14 100 30 11:20 11/11/18 124/42 Mechanical 10:45 (69) Ventilator 11/11/18 98.8 08:00 Intake and Output 11/10/18 11/10/18 11/11/18 1515:00 23:00 07:00 IntakeIntake Total 310 ml 250 ml 0 ml OutputOutput Total 318 ml 89 ml 52 ml BalanceBalance -8 ml 161 ml -52 ml Exam PE: Gen Appearance: No Apparent Distress HEENT: Intubated Cardiovascular: Regular rate Abdomen: Soft Extremities: Dry NE: The patient was awake, does not fix or follow... Cranial nerve examination was limited by mental status. Pupils were equal and reactive to light. There was no afferent pupillary defect. Funduscopic examination was limited. Face was grossly symmetric, w/ present corneal and cough reflexes. Tone was normal. Muscle bulk was normal. I did not see fasciculations. The patient withdrew to noxious stimulation x 4. Coordination and gait testing was limited by mental status. Arm and leg reflexes were within normal limits and symmetric. Santana's sign was absent. Plantar responses were flexor. Results Result Diagram: 11/11/18 0454 11/11/18 0426 Results 24hrs Laboratory Tests Test 11/10/18 17:23 11/10/18 20:45 11/11/18 00:40 11/11/18 04:26 Bedside Glucose 89 106 101 Sodium Level 144 Potassium Level 3.9 Chloride Level 103 Carbon Dioxide Level 28 Anion Gap 13 Blood Urea Nitrogen 47 #H Creatinine 4.85 #H Est Glomerular Filtrat Rate mL/min Glucose Level 109 Calcium Level 9.5 Test 11/11/18 04:54 11/11/18 05:33 11/11/18 08:50 11/11/18 12:33 White Blood Count 13.3 #H Red Blood Count 3.28 L Hemoglobin 8.7 L Hematocrit 29.2 L Mean Corpuscular Volume 89.0 Mean Corpuscular 26.5 L Hemoglobin Mean Corpuscular 29.8 L Hemoglobin Concent Red Cell Distribution 17.5 H Width Platelet Count 140 Mean Platelet Volume 10.1 Immature Granulocytes % 0.700 H Neutrophils % 84.5 H Lymphocytes % 2.0 L Monocytes % 10.0 Eosinophils % 2.6 Basophils % 0.2 Nucleated Red Blood 0.0 Cells % Immature Granulocytes # 0.090 H Neutrophils # 11.2 H Lymphocytes # 0.3 L Monocytes # 1.3 H Eosinophils # 0.4 Basophils # 0.0 Nucleated Red Blood 0.0 Cells # Bedside Glucose 106 107 88 Medications Medication Current Medications Ondansetron HCl (Zofran Inj) 4 mg Q6H PRN IV NAUSEA AND/OR VOMITING; Start 10/31/18 at 21:30 Albuterol (Proventil 0.083% (Neb)) 2.5 mg Q2H RESP THERAPY PRN NEB SHORTNESS OF BREATH Last administered on 11/04/18at 00:44; Admin Dose 2.5 MG; Start 10/31/18 at 21:30 Acetaminophen (Tylenol Liquid) 650 mg Q6H PRN PO PAIN LEVEL 1-3 OR FEVER Last administered on 11/07/18at 15:40; Admin Dose 650 MG; Start 10/31/18 at 21:30 Amlodipine Besylate (Norvasc) 5 mg BID PO Last administered on 11/09/18 22:09; Admin Dose 5 MG; Start 10/31/18 at 22:00 Benazepril HCl (Lotensin) 40 mg DAILY PO Last administered on 11/09/18 11:02; Admin Dose 40 MG; Start 11/01/18 at 09:00 Calcium Acetate (Phoslo) 667 mg WITH MEALS PO Last administered on 11/11/18 12:35; Admin Dose 667 MG; Start 11/01/18 at 08:00 Multivit/Ca Carb/ B Cmplx/FA/Prenat (Sharron-Ashley) 1 tab DAILY PO Last administered on 11/11/18 08:30; Admin Dose 1 TAB; Start 11/01/18 at 09:00 Diagnostic Test (Pha) (Accu-Chek) 1 ea 02 XX Last administered on 11/10/18 00:56; Admin Dose 1 EA; Start 11/02/18 at 02:00 Insulin Aspart (Novolog Insulin Pen) NOVOLOG *MILD* ALGORI... Q4 SC Last administered on 11/08/18 17:36; Admin Dose 1 UNIT; Start 11/01/18 at 13:00 Sevelamer Carbonate (Renvela) 0.8 gm WITH MEALS PO Last administered on 11/11/18 12:34; Admin Dose 0.8 GM; Start 11/01/18 at 18:00 Miscellaneous Information 1 ea NOTE XX ; Start 11/02/18 at 17:00 Glucose (Glutose) 15 gm Q15M PRN PO DECREASED GLUCOSE; Start 11/02/18 at 17:00 Glucose (Glutose) 22.5 gm Q15M PRN PO DECREASED GLUCOSE; Start 11/02/18 at 17:00 Dextrose (D50w Syringe) 25 ml Q15M PRN IV DECREASED GLUCOSE; Start 11/02/18 at 17:00 Dextrose (D50w Syringe) 50 ml Q15M PRN IV DECREASED GLUCOSE; Start 11/02/18 at 17:00 Glucagon (Glucagen) 1 mg Q15M PRN IM DECREASED GLUCOSE; Start 11/02/18 at 17:00 Glucose (Glutose) 15 gm Q15M PRN BUCCAL DECREASED GLUCOSE; Start 11/02/18 at 17:00 Albumin Human 100 ml @ 100 mls/hr WITH DIALYSIS PRN IV SBP <90 DURING DIALYSIS; Start 11/03/18 at 08:30 Epoetin Virgil-epbx (Retacrit (Esrd)) 6,000 unit TuThSa@1700 SC Last administered on 11/09/18 21:20; Admin Dose 6,000 UNIT; Start 11/04/18 at 17:00 Levetiracetam 100 ml @ 400 mls/hr Q12 IVPB Last administered on 11/11/18 08:39; Admin Dose 400 MLS/HR; Start 11/04/18 at 01:30 Lorazepam (Ativan) 1 mg Q5M PRN IV SEIZURES; Start 11/04/18 at 20:19 Morphine Sulfate (morphine) 2 mg Q4H PRN IV SEVERE PAIN LEVEL 7-10 Last administered on 11/09/18 16:40; Admin Dose 2 MG; Start 11/06/18 at 13:30 Hydralazine HCl (Apresoline) 10 mg Q6H PRN IV For SBP >160 Last administered on 11/06/18 15:48; Admin Dose 10 MG; Start 11/06/18 at 13:30 Ferric Sodium Gluconate Complex 125 mg/Sodium Chloride 110 ml @ 110 mls/hr DAILY@1300 IVPB Last administered on 11/10/18 12:47; Admin Dose 110 MLS/HR; Start 11/07/18 at 13:00; Stop 11/11/18 at 13:59 Midazolam HCl 50 ml @ 1 mls/hr TITRATE IV Last administered on 11/07/18 18:20; Admin Dose 1 MLS/HR; Start 11/07/18 at 18:00 Fentanyl 100 ml @ 2.5 mls/hr TITRATE IV Last administered on 11/07/18 18:21; Admin Dose 2.5 MLS/HR; Start 11/07/18 at 18:00 Carvedilol (Coreg) 12.5 mg BID PO Last administered on 11/11/18 08:33; Admin Dose 12.5 MG; Start 11/07/18 at 21:00 Clonidine (Catapres) 0.1 mg BID PO Last administered on 11/11/18 08:32; Admin Dose 0.1 MG; Start 11/07/18 at 21:00 Famotidine (Pepcid) 20 mg DAILY PO Last administered on 11/11/18 08:31; Admin Dose 20 MG; Start 11/09/18 at 09:00 Dexmedetomidine HCl 200 mcg/ Sodium Chloride 50 ml @ 3.16 mls/hr TITRATE IV Last administered on 11/09/18 10:03; Admin Dose 3.16 MLS/HR; Start 11/09/18 at 09:30 Polyethylene Glycol (Miralax) 17 gm DAILY PO Last administered on 11/11/18 08:34; Admin Dose 17 GM; Start 11/09/18 at 13:00 Cefazolin Sodium 50 ml @ 100 mls/hr Q24H IVPB Last administered on 11/11/18 12:35; Admin Dose 100 MLS/HR; Start 11/11/18 at 12:00; Stop 11/13/18 at 11:59 VALDEMAR VIEIRA Nov 11, 2018 13:01
[2018-11-11] MEDS: SOD FERRIC GLUC COMPLX 125 MG in SOD CHLORIDE 0.9% 100 ML IVPB SCH (13:38)
[2018-11-11] MEDS: AMLODIPINE 5 MG TAB PO SCH ×2 (16:16→21:54)
[2018-11-11] MEDS: BENAZEPRIL 40 MG TAB PO SCH (16:27)
[2018-11-11] MEDS: EPOETIN ALFA-EPBX (ESRD) 3,000 UNIT/ML VIAL SC SCH (18:04)
--- NOTE | 2018-11-11 18:11 | PN ---
Date/Time of Note Date/Time of Note DATE: 11/11/18 TIME: 18:08 Assessment/Plan VTE Prophylaxis Risk score (from [facility] [place])>0 risk: 11 SCD applied (from [facility] [place]): Yes Pharmacological prophylaxis: NA/contraindicated Pharm contraindication: bleeding Lines/Catheters Urinary Cath still in place: No Assessment/Plan Hospital Course 78 yo M with a history of fall a few days prior to presentation who was brought in for confusion and is currently managed as follows: 1. Acute right subdural hematoma -Status post craniotomy and bur hole placement 11/06/18 and R ventriculostomy drain -CT and MRI concerning for new left-sided subdural collection of fluid as well as residual hemorrhage. -s/p L sided drain placement 11/09/18 with f/u CT 11/10/18 showing improvement -further management per neurosurgery, drains remain in place 2. Ventilator dependent respiratory failure -on CPAP trial -This is likely multifactorial from aspiration pneumonitis as well as pleural effusion as well as neurologic injury -Patient remains ventilator dependent 3. Moderate to large right-sided pleural effusion -status post thoracentesis November 07, 2018 with drainage of 900 cc of fluid 4. Right-sided pneumothorax complicating thoracentesis -which has worsened and now patient is status post right-sided chest tube placement November 09/2019 -CXR today showing improvement 5. Severe anemia, likely acute on chronic, exacerbated by acute blood loss from #1 with iron deficiency -Patient received 2 units of packed red cells upon arrival, hemoglobin has been stable since off anticoagulation and antiplatelet -ongoing IV iron replacement X 5 days 6. Altered mentation/acute encephalopathy / confusion secondary to #1 -requiring sedation at this time 7. End-stage renal disease on hemodialysis Tuesday, , Tuesday 8. Diabetes mellitus -excellent control on current regimen 9. Paroxysmal atrial fibrillation -off all anticoagulation for now -slightly bradycardic, cardio managing 10. Hypertension -controlled 11. Aspiration pneumonitis -Maintained on empiric abx -Blood cultures remain negative to date 10. New-onset seizure secondary to #1 -Patient maintained on seizure prophylaxis with no further episodes so far -EEG done and reviewed 11. Chronic thrombocytopenia -likely related to iron deficiency -Status post 1 unit of platelet transfusion upon arrival, improving levels since - 12. Recurrent falls status post recent fall 2 days ago -Patient will likely be quite debilitated by the end of this hospitalization and will probably require nursing facility placement for rehab 13. Tube feeds on hold for high stomach residuals -reglan q6h scheduled -no BM in about 2 days, will give miralax -monitor G-tube output, once reduced, resume tube feeds at slow rate Prophylaxis: No anticoagulation secondary to bleed Result Diagram: 11/11/18 0454 11/11/18 0426 Results 24hrs Laboratory Tests Test 11/10/18 20:45 11/11/18 00:40 11/11/18 04:26 11/11/18 04:54 Bedside Glucose 106 101 Sodium Level 144 Potassium Level 3.9 Chloride Level 103 Carbon Dioxide Level 28 Anion Gap 13 Blood Urea Nitrogen 47 #H Creatinine 4.85 #H Est Glomerular Filtrat Rate mL/min Glucose Level 109 Calcium Level 9.5 White Blood Count 13.3 #H Red Blood Count 3.28 L Hemoglobin 8.7 L Hematocrit 29.2 L Mean Corpuscular Volume 89.0 Mean Corpuscular 26.5 L Hemoglobin Mean Corpuscular 29.8 L Hemoglobin Concent Red Cell Distribution 17.5 H Width Platelet Count 140 Mean Platelet Volume 10.1 Immature Granulocytes % 0.700 H Neutrophils % 84.5 H Lymphocytes % 2.0 L Monocytes % 10.0 Eosinophils % 2.6 Basophils % 0.2 Nucleated Red Blood 0.0 Cells % Immature Granulocytes # 0.090 H Neutrophils # 11.2 H Lymphocytes # 0.3 L Monocytes # 1.3 H Eosinophils # 0.4 Basophils # 0.0 Nucleated Red Blood 0.0 Cells # Test 11/11/18 05:33 11/11/18 08:50 11/11/18 12:33 11/11/18 17:33 Bedside Glucose 106 107 88 88 Subjective 24 Hr Interval Summary Subjective hx not possible: pt non-verbal Exam/Review of Systems Exam Vitals Vital Signs Date Temp Pulse Resp B/P (MAP) Pulse Ox O2 O2 Flow FiO2 Time Delivery Rate 11/11/18 74 14 97 30 17:24 11/11/18 99.1 128/43 Mechanical 16:00 (71) Ventilator Intake and Output 11/10/18 11/10/18 11/11/18 1515:00 23:00 07:00 IntakeIntake Total 310 ml 250 ml 0 ml OutputOutput Total 318 ml 89 ml 52 ml BalanceBalance -8 ml 161 ml -52 ml Constitutional: non-verbal ENMT: intubated Respiratory: clear to auscultation Gastrointestinal: soft; No distended Musculoskeletal: nl extremities to inspection Results Results 24hrs Laboratory Tests Test 11/10/18 20:45 11/11/18 00:40 11/11/18 04:26 11/11/18 04:54 Bedside Glucose 106 101 Sodium Level 144 Potassium Level 3.9 Chloride Level 103 Carbon Dioxide Level 28 Anion Gap 13 Blood Urea Nitrogen 47 #H Creatinine 4.85 #H Est Glomerular Filtrat Rate mL/min Glucose Level 109 Calcium Level 9.5 White Blood Count 13.3 #H Red Blood Count 3.28 L Hemoglobin 8.7 L Hematocrit 29.2 L Mean Corpuscular Volume 89.0 Mean Corpuscular 26.5 L Hemoglobin Mean Corpuscular 29.8 L Hemoglobin Concent Red Cell Distribution 17.5 H Width Platelet Count 140 Mean Platelet Volume 10.1 Immature Granulocytes % 0.700 H Neutrophils % 84.5 H Lymphocytes % 2.0 L Monocytes % 10.0 Eosinophils % 2.6 Basophils % 0.2 Nucleated Red Blood 0.0 Cells % Immature Granulocytes # 0.090 H Neutrophils # 11.2 H Lymphocytes # 0.3 L Monocytes # 1.3 H Eosinophils # 0.4 Basophils # 0.0 Nucleated Red Blood 0.0 Cells # Test 11/11/18 05:33 11/11/18 08:50 11/11/18 12:33 11/11/18 17:33 Bedside Glucose 106 107 88 88 Medications Medication Current Medications Ondansetron HCl (Zofran Inj) 4 mg Q6H PRN IV NAUSEA AND/OR VOMITING; Start 10/31/18 at 21:30 Albuterol (Proventil 0.083% (Neb)) 2.5 mg Q2H RESP THERAPY PRN NEB SHORTNESS OF BREATH Last administered on 11/04/18at 00:44; Admin Dose 2.5 MG; Start 10/31/18 at 21:30 Acetaminophen (Tylenol Liquid) 650 mg Q6H PRN PO PAIN LEVEL 1-3 OR FEVER Last administered on 11/07/18at 15:40; Admin Dose 650 MG; Start 10/31/18 at 21:30 Amlodipine Besylate (Norvasc) 5 mg BID PO Last administered on 11/11/18at 16:16; Admin Dose 5 MG; Start 10/31/18 at 22:00 Benazepril HCl (Lotensin) 40 mg DAILY PO Last administered on 11/11/18 16:27; Admin Dose 40 MG; Start 11/01/18 at 09:00 Calcium Acetate (Phoslo) 667 mg WITH MEALS PO Last administered on 11/11/18 18:03; Admin Dose 667 MG; Start 11/01/18 at 08:00 Multivit/Ca Carb/ B Cmplx/FA/Prenat (Sharron-Ashley) 1 tab DAILY PO Last administered on 11/11/18 08:30; Admin Dose 1 TAB; Start 11/01/18 at 09:00 Diagnostic Test (Pha) (Accu-Chek) 1 ea 02 XX Last administered on 11/10/18 00:56; Admin Dose 1 EA; Start 11/02/18 at 02:00 Insulin Aspart (Novolog Insulin Pen) NOVOLOG *MILD* ALGORI... Q4 SC Last administered on 11/08/18 17:36; Admin Dose 1 UNIT; Start 11/01/18 at 13:00 Sevelamer Carbonate (Renvela) 0.8 gm WITH MEALS PO Last administered on 11/11/18 18:03; Admin Dose 0.8 GM; Start 11/01/18 at 18:00 Miscellaneous Information 1 ea NOTE XX ; Start 11/02/18 at 17:00 Glucose (Glutose) 15 gm Q15M PRN PO DECREASED GLUCOSE; Start 11/02/18 at 17:00 Glucose (Glutose) 22.5 gm Q15M PRN PO DECREASED GLUCOSE; Start 11/02/18 at 17:00 Dextrose (D50w Syringe) 25 ml Q15M PRN IV DECREASED GLUCOSE; Start 11/02/18 at 17:00 Dextrose (D50w Syringe) 50 ml Q15M PRN IV DECREASED GLUCOSE; Start 11/02/18 at 17:00 Glucagon (Glucagen) 1 mg Q15M PRN IM DECREASED GLUCOSE; Start 11/02/18 at 17:00 Glucose (Glutose) 15 gm Q15M PRN BUCCAL DECREASED GLUCOSE; Start 11/02/18 at 17:00 Albumin Human 100 ml @ 100 mls/hr WITH DIALYSIS PRN IV SBP <90 DURING TRACIE LYSIS; Start 11/03/18 at 08:30 Epoetin Virgil-epbx (Retacrit (Esrd)) 6,000 unit TuThSa@1700 SC Last administered on 11/11/18 18:04; Admin Dose 6,000 UNIT; Start 11/04/18 at 17:00 Levetiracetam 100 ml @ 400 mls/hr Q12 IVPB Last administered on 11/11/18 08:39; Admin Dose 400 MLS/HR; Start 11/04/18 at 01:30 Lorazepam (Ativan) 1 mg Q5M PRN IV SEIZURES; Start 11/04/18 at 20:19 Morphine Sulfate (morphine) 2 mg Q4H PRN IV SEVERE PAIN LEVEL 7-10 Last administered on 11/09/18 16:40; Admin Dose 2 MG; Start 11/06/18 at 13:30 Hydralazine HCl (Apresoline) 10 mg Q6H PRN IV For SBP >160 Last administered on 11/06/18 15:48; Admin Dose 10 MG; Start 11/06/18 at 13:30 Midazolam HCl 50 ml @ 1 mls/hr TITRATE IV Last administered on 11/07/18 18:20; Admin Dose 1 MLS/HR; Start 11/07/18 at 18:00 Fentanyl 100 ml @ 2.5 mls/hr TITRATE IV Last administered on 11/07/18 18:21; Admin Dose 2.5 MLS/HR; Start 11/07/18 at 18:00 Carvedilol (Coreg) 12.5 mg BID PO Last administered on 11/11/18 08:33; Admin Dose 12.5 MG; Start 11/07/18 at 21:00 Clonidine (Catapres) 0.1 mg BID PO Last administered on 11/11/18 08:32; Admin Dose 0.1 MG; Start 11/07/18 at 21:00 Famotidine (Pepcid) 20 mg DAILY PO Last administered on 11/11/18 08:31; Admin Dose 20 MG; Start 11/09/18 at 09:00 Dexmedetomidine HCl 200 mcg/ Sodium Chloride 50 ml @ 3.16 mls/hr TITRATE IV Last administered on 11/09/18 10:03; Admin Dose 3.16 MLS/HR; Start 11/09/18 at 09:30 Polyethylene Glycol (Miralax) 17 gm DAILY PO Last administered on 11/11/18at 08:34; Admin Dose 17 GM; Start 11/09/18 at 13:00 Cefazolin Sodium 50 ml @ 100 mls/hr Q24H IVPB Last administered on 11/11/18at 12:35; Admin Dose 100 MLS/HR; Start 11/11/18 at 12:00; Stop 11/13/18 at 11:59 ZAK MARTÍNEZ Nov 11, 2018 18:11
[2018-11-12] VITALS (36 sets, daily range): BP systolic 83–149; BP diastolic 34–61; PULSE 68–89; RESP 14–23
[2018-11-12] MEDS: INSULIN ASPART [NOVOLOG] 3 ML PEN SC SCH ×6 (01:00→21:00)
[2018-11-12] MEDS: ACCU-CHEK XX SCH (01:32)
[2018-11-12] MEDS: CALCIUM ACETATE 667 MG CAP PO SCH ×3 (08:12→17:27)
[2018-11-12] MEDS: SEVELAMER CARBONATE 0.8 GM PKT PO SCH ×3 (08:12→17:27)
[2018-11-12] MEDS: FAMOTIDINE 20 MG TAB PO SCH (09:10)
[2018-11-12] MEDS: BENAZEPRIL 40 MG TAB PO SCH (09:10)
[2018-11-12] MEDS: MULTIVIT/CA CARB/B CMPLX/FA TAB PO SCH (09:10)
[2018-11-12] MEDS: POLYETHYLENE GLYCOL 17 GM PACKET PO SCH (09:11)
[2018-11-12] MEDS: LEVETIRACETAM 500 MG (PMX) 100 ML IVPB SCH ×2 (09:11→21:58)
[2018-11-12] MEDS: AMLODIPINE 5 MG TAB PO SCH ×2 (09:11→21:59)
[2018-11-12] MEDS: morphine 2 MG INJ IV PRN (10:09)
--- NOTE | 2018-11-12 10:14 | CONS ---
Assessment/Plan Assessment/Plan Assessment/Plan (Daily) Ventilator setting; AC of 14, tidal volume 500, PEEP of 0, 30% FiO2. Assessment and recommendations; 1. Patient status post right subdural hematoma evacuation with persistent encephalopathy. 2. Chronic renal failure, on hemodialysis. 3. Anemia and thrombocytopenia. 4. No seizure activity reported. 5. History of hypertension. Continue current supportive care. Patient has poor spontaneous minute ventilation and is therefore not a candidate for any weaning trials from ventilator at this point. May possibly require a tracheostomy. This is significantly compounded by persistently poor mental status. 35 minutes of critical care time was spent evaluating patient. Consultation Date/Type/Reason Admit Date/Time October 31, 2018 at 21:18 Initial Consult Date 11/06/18 Type of Consult Pulmonary/critical care Patient condition is critical. Remains profoundly unresponsive. Patient however has remained hemodynamically stable. No untoward events reported. General exam; elderly male, orally intubated, unresponsive, currently in no distress. Requesting Provider: GERMAIN VASQUES Date/Time of Note DATE: 11/12/18 TIME: 10:10 24 HR Interval Summary Free Text/Dictation Patient's condition remains critical. Remains awake but noncommunicative. Has remained hemodynamically stable. General exam; elderly male, orally intubated, awake, noncommunicative. Currently in no distress. Exam/Review of Systems Exam Vitals Vital Signs Date Temp Pulse Resp B/P (MAP) Pulse Ox O2 O2 Flow FiO2 Time Delivery Rate 11/12/18 78 14 128/51 100 Mechanical 09:00 (76) Ventilator 11/12/18 30 08:00 11/12/18 99.8 08:00 Intake and Output 11/11/18 11/11/18 11/12/18 1414:59 22:59 06:59 IntakeIntake Total 230 ml 195 ml 80 ml OutputOutput Total 2779 ml 141 ml 371 ml BalanceBalance -2549 ml 54 ml -291 ml Exam H EENT exam; supple neck, no JVD. No lymphadenopathy. Midline trachea. No thyromegaly. Left parietal drain in place. Right drain has been removed. Scalp incisions are healing well. Chest exam; diminished but clear breath sounds. S1-S2 audible, no murmurs. Regular rhythm. Right side chest tube in place. No air leak in Pleur-evac chamber seen. Abdomen exam; soft, no organomegaly. Scaphoid. Bowel sounds audible. Extremity exam; peripheral edema clubbing. PEARL PELLER exam; patient awake but noncommunicative. Results Result Diagram: 11/12/18 0420 11/12/18 0420 Results 24hrs Laboratory Tests Test 11/11/18 12:33 11/11/18 17:33 11/11/18 21:51 11/12/18 01:26 Bedside Glucose 88 88 94 95 Test 11/12/18 04:20 11/12/18 05:17 11/12/18 09:14 White Blood Count 10.5 # Red Blood Count 3.04 L Hemoglobin 8.0 L Hematocrit 27.0 L Mean Corpuscular Volume 88.8 Mean Corpuscular 26.3 L Hemoglobin Mean Corpuscular 29.6 L Hemoglobin Concent Red Cell Distribution 17.9 H Width Platelet Count 168 Mean Platelet Volume 9.8 Immature Granulocytes % 1.100 H Neutrophils % 79.3 H Lymphocytes % 3.8 L Monocytes % 12.9 H Eosinophils % 2.7 Basophils % 0.2 Nucleated Red Blood 0.0 Cells % Immature Granulocytes # 0.120 H Neutrophils # 8.4 H Lymphocytes # 0.4 L Monocytes # 1.4 H Eosinophils # 0.3 Basophils # 0.0 Nucleated Red Blood 0.0 Cells # Sodium Level 141 Potassium Level 3.7 Chloride Level 103 Carbon Dioxide Level 29 Anion Gap 9 Blood Urea Nitrogen 24 #H Creatinine 3.67 #H Est Glomerular Filtrat Rate mL/min Glucose Level 92 Calcium Level 9.5 Bedside Glucose 96 106 Medications Medication Current Medications Ondansetron HCl (Zofran Inj) 4 mg Q6H PRN IV NAUSEA AND/OR VOMITING; Start 10/31/18 at 21:30 Albuterol (Proventil 0.083% (Neb)) 2.5 mg Q2H RESP THERAPY PRN NEB SHORTNESS OF BREATH Last administered on 11/04/18at 00:44; Admin Dose 2.5 MG; Start 10/31/18 at 21:30 Acetaminophen (Tylenol Liquid) 650 mg Q6H PRN PO PAIN LEVEL 1-3 OR FEVER Last administered on 11/07/18at 15:40; Admin Dose 650 MG; Start 10/31/18 at 21:30 Amlodipine Besylate (Norvasc) 5 mg BID PO Last administered on 11/12/18 09:11; Admin Dose 5 MG; Start 10/31/18 at 22:00 Benazepril HCl (Lotensin) 40 mg DAILY PO Last administered on 11/12/18 09:10; Admin Dose 40 MG; Start 11/01/18 at 09:00 Calcium Acetate (Phoslo) 667 mg WITH MEALS PO Last administered on 11/12/18 08:12; Admin Dose 667 MG; Start 11/01/18 at 08:00 Multivit/Ca Carb/ B Cmplx/FA/Prenat (Sharron-Ashley) 1 tab DAILY PO Last administered on 11/12/18 09:10; Admin Dose 1 TAB; Start 11/01/18 at 09:00 Diagnostic Test (Pha) (Accu-Chek) 1 ea 02 XX Last administered on 11/12/18 01:32; Admin Dose 1 EA; Start 11/02/18 at 02:00 Insulin Aspart (Novolog Insulin Pen) NOVOLOG *MILD* ALGORI... Q4 SC Last administered on 11/08/18 17:36; Admin Dose 1 UNIT; Start 11/01/18 at 13:00 Sevelamer Carbonate (Renvela) 0.8 gm WITH MEALS PO Last administered on 11/12/18 08:12; Admin Dose 0.8 GM; Start 11/01/18 at 18:00 Miscellaneous Information 1 ea NOTE XX ; Start 11/02/18 at 17:00 Glucose (Glutose) 15 gm Q15M PRN PO DECREASED GLUCOSE; Start 11/02/18 at 17:00 Glucose (Glutose) 22.5 gm Q15M PRN PO DECREASED GLUCOSE; Start 11/02/18 at 17:00 Dextrose (D50w Syringe) 25 ml Q15M PRN IV DECREASED GLUCOSE; Start 11/02/18 at 17:00 Dextrose (D50w Syringe) 50 ml Q15M PRN IV DECREASED GLUCOSE; Start 11/02/18 at 17:00 Glucagon (Glucagen) 1 mg Q15M PRN IM DECREASED GLUCOSE; Start 11/02/18 at 17:00 Glucose (Glutose) 15 gm Q15M PRN BUCCAL DECREASED GLUCOSE; Start 11/02/18 at 17:00 Albumin Human 100 ml @ 100 mls/hr WITH DIALYSIS PRN IV SBP <90 DURING DIALY SIS; Start 11/03/18 at 08:30 Epoetin Virgil-epbx (Retacrit (Esrd)) 6,000 unit TuThSa@1700 SC Last administered on 11/11/18 18:04; Admin Dose 6,000 UNIT; Start 11/04/18 at 17:00 Levetiracetam 100 ml @ 400 mls/hr Q12 IVPB Last administered on 11/12/18 09:11; Admin Dose 400 MLS/HR; Start 11/04/18 at 01:30 Lorazepam (Ativan) 1 mg Q5M PRN IV SEIZURES; Start 11/04/18 at 20:19 Morphine Sulfate (morphine) 2 mg Q4H PRN IV SEVERE PAIN LEVEL 7-10 Last administered on 11/12/18 10:09; Admin Dose 2 MG; Start 11/06/18 at 13:30 Hydralazine HCl (Apresoline) 10 mg Q6H PRN IV For SBP >160 Last administered on 11/06/18 15:48; Admin Dose 10 MG; Start 11/06/18 at 13:30 Midazolam HCl 50 ml @ 1 mls/hr TITRATE IV Last administered on 11/07/18 18:20; Admin Dose 1 MLS/HR; Start 11/07/18 at 18:00 Fentanyl 100 ml @ 2.5 mls/hr TITRATE IV Last administered on 11/07/18 18:21; Admin Dose 2.5 MLS/HR; Start 11/07/18 at 18:00 Carvedilol (Coreg) 12.5 mg BID PO Last administered on 11/12/18 09:10; Admin Dose 12.5 MG; Start 11/07/18 at 21:00 Clonidine (Catapres) 0.1 mg BID PO Last administered on 11/12/18 09:10; Admin Dose 0.1 MG; Start 11/07/18 at 21:00 Famotidine (Pepcid) 20 mg DAILY PO Last administered on 11/12/18 09:10; Admin Dose 20 MG; Start 11/09/18 at 09:00 Dexmedetomidine HCl 200 mcg/ Sodium Chloride 50 ml @ 3.16 mls/hr TITRATE IV Last administered on 11/09/18 10:03; Admin Dose 3.16 MLS/HR; Start 11/09/18 at 09:30 Polyethylene Glycol (Miralax) 17 gm DAILY PO Last administered on 11/12/18at 09:11; Admin Dose 17 GM; Start 11/09/18 at 13:00 Cefazolin Sodium 50 ml @ 100 mls/hr Q24H IVPB Last administered on 11/11/18at 12:35; Admin Dose 100 MLS/HR; Start 11/11/18 at 12:00; Stop 11/13/18 at 11:59 LIDIA ROSALES Nov 12, 2018 10:14
--- NOTE | 2018-11-12 11:03 | CONS ---
Assessment/Plan Assessment/Plan Assessment/Plan (Daily) Much improved clinically - CT significant resolution of L cSDH - remove L drain - keep HOB flat for now - CPAP trial tomorrow Consultation Date/Type/Reason Admit Date/Time October 31, 2018 at 21:18 Initial Consult Date 11/06/18 Type of Consult Neurosurgery Requesting Provider: GERMAIN VASQUES Date/Time of Note DATE: 11/12/18 TIME: 11:00 24 HR Interval Summary Free Text/Dictation POD6 R crani aSDH, PPD3 L twist drill for cSDH Removed R drain yesterday Exam/Review of Systems Exam Vitals Vital Signs Date Temp Pulse Resp B/P (MAP) Pulse Ox O2 O2 Flow FiO2 Time Delivery Rate 11/12/18 78 14 128/51 100 Mechanical 09:00 (76) Ventilator 11/12/18 30 08:00 11/12/18 99.8 08:00 Intake and Output 11/11/18 11/11/18 11/12/18 1515:00 23:00 07:00 IntakeIntake Total 340 ml 95 ml 180 ml OutputOutput Total 2789 ml 132 ml 378 ml BalanceBalance -2449 ml -37 ml -198 ml Exam EO spont, tracks PARRY Results Result Diagram: 11/12/18 0420 11/12/18 0420 Results 24hrs Laboratory Tests Test 11/11/18 12:33 11/11/18 17:33 11/11/18 21:51 11/12/18 01:26 Bedside Glucose 88 88 94 95 Test 11/12/18 04:20 11/12/18 05:17 11/12/18 09:14 White Blood Count 10.5 # Red Blood Count 3.04 L Hemoglobin 8.0 L Hematocrit 27.0 L Mean Corpuscular Volume 88.8 Mean Corpuscular 26.3 L Hemoglobin Mean Corpuscular 29.6 L Hemoglobin Concent Red Cell Distribution 17.9 H Width Platelet Count 168 Mean Platelet Volume 9.8 Immature Granulocytes % 1.100 H Neutrophils % 79.3 H Lymphocytes % 3.8 L Monocytes % 12.9 H Eosinophils % 2.7 Basophils % 0.2 Nucleated Red Blood 0.0 Cells % Immature Granulocytes # 0.120 H Neutrophils # 8.4 H Lymphocytes # 0.4 L Monocytes # 1.4 H Eosinophils # 0.3 Basophils # 0.0 Nucleated Red Blood 0.0 Cells # Sodium Level 141 Potassium Level 3.7 Chloride Level 103 Carbon Dioxide Level 29 Anion Gap 9 Blood Urea Nitrogen 24 #H Creatinine 3.67 #H Est Glomerular Filtrat Rate mL/min Glucose Level 92 Calcium Level 9.5 Bedside Glucose 96 106 Medications Medication Current Medications Ondansetron HCl (Zofran Inj) 4 mg Q6H PRN IV NAUSEA AND/OR VOMITING; Start 10/31/18 at 21:30 Albuterol (Proventil 0.083% (Neb)) 2.5 mg Q2H RESP THERAPY PRN NEB SHORTNESS OF BREATH Last administered on 11/04/18 00:44; Admin Dose 2.5 MG; Start 10/31/18 at 21:30 Acetaminophen (Tylenol Liquid) 650 mg Q6H PRN PO PAIN LEVEL 1-3 OR FEVER Last administered on 11/07/18 15:40; Admin Dose 650 MG; Start 10/31/18 at 21:30 Amlodipine Besylate (Norvasc) 5 mg BID PO Last administered on 11/12/18 09:11; Admin Dose 5 MG; Start 10/31/18 at 22:00 Benazepril HCl (Lotensin) 40 mg DAILY PO Last administered on 11/12/18 09:10; Admin Dose 40 MG; Start 11/01/18 at 09:00 Calcium Acetate (Phoslo) 667 mg WITH MEALS PO Last administered on 11/12/18 08:12; Admin Dose 667 MG; Start 11/01/18 at 08:00 Multivit/Ca Carb/ B Cmplx/FA/Prenat (Sharron-Ashley) 1 tab DAILY PO Last administered on 11/12/18 09:10; Admin Dose 1 TAB; Start 11/01/18 at 09:00 Diagnostic Test (Pha) (Accu-Chek) 1 ea 02 XX Last administered on 11/12/18 01:32; Admin Dose 1 EA; Start 11/02/18 at 02:00 Insulin Aspart (Novolog Insulin Pen) NOVOLOG *MILD* ALGORI... Q4 SC Last administered on 11/08/18 17:36; Admin Dose 1 UNIT; Start 11/01/18 at 13:00 Sevelamer Carbonate (Renvela) 0.8 gm WITH MEALS PO Last administered on 6/9/19at 08:12; Admin Dose 0.8 GM; Start 11/01/18 at 18:00 Miscellaneous Information 1 ea NOTE XX ; Start 11/02/18 at 17:00 Glucose (Glutose) 15 gm Q15M PRN PO DECREASED GLUCOSE; Start 11/02/18 at 17:00 Glucose (Glutose) 22.5 gm Q15M PRN PO DECREASED GLUCOSE; Start 11/02/18 at 17:00 Dextrose (D50w Syringe) 25 ml Q15M PRN IV DECREASED GLUCOSE; Start 11/02/18 at 17:00 Dextrose (D50w Syringe) 50 ml Q15M PRN IV DECREASED GLUCOSE; Start 11/02/18 at 17:00 Glucagon (Glucagen) 1 mg Q15M PRN IM DECREASED GLUCOSE; Start 11/02/18 at 17:00 Glucose (Glutose) 15 gm Q15M PRN BUCCAL DECREASED GLUCOSE; Start 11/02/18 at 17:00 Albumin Human 100 ml @ 100 mls/hr WITH DIALYSIS PRN IV SBP <90 DURING DIALYSIS; Start 11/03/18 at 08:30 Epoetin Virgil-epbx (Retacrit (Esrd)) 6,000 unit TuThSa@1700 SC Last administered on 11/11/18at 18:04; Admin Dose 6,000 UNIT; Start 11/04/18 at 17:00 Levetiracetam 100 ml @ 400 mls/hr Q12 IVPB Last administered on 11/12/18at 09:11; Admin Dose 400 MLS/HR; Start 11/04/18 at 01:30 Lorazepam (Ativan) 1 mg Q5M PRN IV SEIZURES; Start 11/04/18 at 20:19 Morphine Sulfate (morphine) 2 mg Q4H PRN IV SEVERE PAIN LEVEL 7-10 Last administered on 11/12/18at 10:09; Admin Dose 2 MG; Start 11/06/18 at 13:30 Hydralazine HCl (Apresoline) 10 mg Q6H PRN IV For SBP >160 Last administered on 11/06/18at 15:48; Admin Dose 10 MG; Start 11/06/18 at 13:30 Midazolam HCl 50 ml @ 1 mls/hr TITRATE IV Last administered on 11/07/18at 18:20; Admin Dose 1 MLS/HR; Start 11/07/18 at 18:00 Fentanyl 100 ml @ 2.5 mls/hr TITRATE IV Last administered on 11/07/18 18:21; Admin Dose 2.5 MLS/HR; Start 11/07/18 at 18:00 Carvedilol (Coreg) 12.5 mg BID PO Last administered on 11/12/18 09:10; Admin Dose 12.5 MG; Start 11/07/18 at 21:00 Clonidine (Catapres) 0.1 mg BID PO Last administered on 11/12/18 09:10; Admin Dose 0.1 MG; Start 11/07/18 at 21:00 Famotidine (Pepcid) 20 mg DAILY PO Last administered on 11/12/18 09:10; Admin Dose 20 MG; Start 11/09/18 at 09:00 Dexmedetomidine HCl 200 mcg/ Sodium Chloride 50 ml @ 3.16 mls/hr TITRATE IV Last administered on 11/09/18 10:03; Admin Dose 3.16 MLS/HR; Start 11/09/18 at 09:30 Polyethylene Glycol (Miralax) 17 gm DAILY PO Last administered on 11/12/18 09:11; Admin Dose 17 GM; Start 11/09/18 at 13:00 Cefazolin Sodium 50 ml @ 100 mls/hr Q24H IVPB Last administered on 11/11/18 12:35; Admin Dose 100 MLS/HR; Start 11/11/18 at 12:00; Stop 11/13/18 at 11:59 JAMES CRUZ MD Nov 12, 2018 11:03
[2018-11-12] MEDS: CEFAZOLIN 1 GM/50 ML (PMX) 50 ML IVPB SCH (12:25)
--- NOTE | 2018-11-12 12:46 | PN ---
Date/Time of Note Date/Time of Note DATE: 11/12/18 TIME: 12:45 Assessment/Plan VTE Prophylaxis Risk score (from [facility] [place])>0 risk: 12 SCD applied (from [facility] [place]): Yes Pharmacological prophylaxis: NA/contraindicated Pharm contraindication: bleeding Lines/Catheters Urinary Cath still in place: No Assessment/Plan Hospital Course 78 yo M with a history of fall a few days prior to presentation who was brought in for confusion and is currently managed as follows: 1. Acute right subdural hematoma -Status post craniotomy and bur hole placement 11/06/18 and R ventriculostomy drain -CT and MRI concerning for new left-sided subdural collection of fluid as well as residual hemorrhage. -s/p L sided drain placement 11/09/18 with f/u CT 11/10/18 showing improvement -further management per neurosurgery, drains remain in place 2. Ventilator dependent respiratory failure -on CPAP trial -This is likely multifactorial from aspiration pneumonitis as well as pleural effusion as well as neurologic injury -Patient remains ventilator dependent 3. Moderate to large right-sided pleural effusion -status post thoracentesis November 07, 2018 with drainage of 900 cc of fluid 4. Right-sided pneumothorax complicating thoracentesis -which has worsened and now patient is status post right-sided chest tube placement November 09/2019 -CXR today showing improvement 5. Severe anemia, likely acute on chronic, exacerbated by acute blood loss from #1 with iron deficiency -Patient received 2 units of packed red cells upon arrival, hemoglobin has been stable since off anticoagulation and antiplatelet -ongoing IV iron replacement X 5 days 6. Altered mentation/acute encephalopathy / confusion secondary to #1 -requiring sedation at this time 7. End-stage renal disease on hemodialysis Tuesday, , Tuesday 8. Diabetes mellitus -excellent control on current regimen 9. Paroxysmal atrial fibrillation -off all anticoagulation for now -slightly bradycardic, cardio managing 10. Hypertension -controlled 11. Aspiration pneumonitis -Maintained on empiric abx -Blood cultures remain negative to date 10. New-onset seizure secondary to #1 -Patient maintained on seizure prophylaxis with no further episodes so far -EEG done and reviewed 11. Chronic thrombocytopenia -likely related to iron deficiency -Status post 1 unit of platelet transfusion upon arrival, improving levels since - 12. Recurrent falls status post recent fall 2 days ago -Patient will likely be quite debilitated by the end of this hospitalization and will probably require nursing facility placement for rehab 13. Tube feeds on hold for high stomach residuals -reglan q6h scheduled -no BM in about 2 days, will give miralax -monitor G-tube output, once reduced, resume tube feeds at slow rate Prophylaxis: No anticoagulation secondary to bleed Result Diagram: 11/12/18 0420 11/12/18 0420 Results 24hrs Laboratory Tests Test 11/11/18 17:33 11/11/18 21:51 11/12/18 01:26 11/12/18 04:20 Bedside Glucose 88 94 95 White Blood Count 10.5 # Red Blood Count 3.04 L Hemoglobin 8.0 L Hematocrit 27.0 L Mean Corpuscular Volume 88.8 Mean Corpuscular 26.3 L Hemoglobin Mean Corpuscular 29.6 L Hemoglobin Concent Red Cell Distribution 17.9 H Width Platelet Count 168 Mean Platelet Volume 9.8 Immature Granulocytes % 1.100 H Neutrophils % 79.3 H Lymphocytes % 3.8 L Monocytes % 12.9 H Eosinophils % 2.7 Basophils % 0.2 Nucleated Red Blood 0.0 Cells % Immature Granulocytes # 0.120 H Neutrophils # 8.4 H Lymphocytes # 0.4 L Monocytes # 1.4 H Eosinophils # 0.3 Basophils # 0.0 Nucleated Red Blood 0.0 Cells # Sodium Level 141 Potassium Level 3.7 Chloride Level 103 Carbon Dioxide Level 29 Anion Gap 9 Blood Urea Nitrogen 24 #H Creatinine 3.67 #H Est Glomerular Filtrat Rate mL/min Glucose Level 92 Calcium Level 9.5 Test 11/12/18 05:17 11/12/18 09:14 11/12/18 12:32 Bedside Glucose 96 106 104 Subjective 24 Hr Interval Summary Subjective hx not possible: pt non-verbal Exam/Review of Systems Exam Vitals Vital Signs Date Temp Pulse Resp B/P (MAP) Pulse Ox O2 O2 Flow FiO2 Time Delivery Rate 11/12/18 99.0 71 14 137/41 100 Mechanical 12:00 (73) Ventilator 11/12/18 30 11:30 Intake and Output 11/11/18 11/11/18 11/12/18 1515:00 23:00 07:00 IntakeIntake Total 340 ml 95 ml 180 ml OutputOutput Total 2789 ml 132 ml 378 ml BalanceBalance -2449 ml -37 ml -198 ml Constitutional: non-verbal Respiratory: clear to auscultation Cardiovascular: regular rate and rhythm Gastrointestinal: soft; No distended Musculoskeletal: nl extremities to inspection Results Results 24hrs Laboratory Tests Test 11/11/18 17:33 11/11/18 21:51 11/12/18 01:26 11/12/18 04:20 Bedside Glucose 88 94 95 White Blood Count 10.5 # Red Blood Count 3.04 L Hemoglobin 8.0 L Hematocrit 27.0 L Mean Corpuscular Volume 88.8 Mean Corpuscular 26.3 L Hemoglobin Mean Corpuscular 29.6 L Hemoglobin Concent Red Cell Distribution 17.9 H Width Platelet Count 168 Mean Platelet Volume 9.8 Immature Granulocytes % 1.100 H Neutrophils % 79.3 H Lymphocytes % 3.8 L Monocytes % 12.9 H Eosinophils % 2.7 Basophils % 0.2 Nucleated Red Blood 0.0 Cells % Immature Granulocytes # 0.120 H Neutrophils # 8.4 H Lymphocytes # 0.4 L Monocytes # 1.4 H Eosinophils # 0.3 Basophils # 0.0 Nucleated Red Blood 0.0 Cells # Sodium Level 141 Potassium Level 3.7 Chloride Level 103 Carbon Dioxide Level 29 Anion Gap 9 Blood Urea Nitrogen 24 #H Creatinine 3.67 #H Est Glomerular Filtrat Rate mL/min Glucose Level 92 Calcium Level 9.5 Test 11/12/18 05:17 11/12/18 09:14 11/12/18 12:32 Bedside Glucose 96 106 104 Medications Medication Current Medications Ondansetron HCl (Zofran Inj) 4 mg Q6H PRN IV NAUSEA AND/OR VOMITING; Start 10/31/18 at 21:30 Albuterol (Proventil 0.083% (Neb)) 2.5 mg Q2H RESP THERAPY PRN NEB SHORTNESS OF BREATH Last administered on 11/04/18at 00:44; Admin Dose 2.5 MG; Start 10/31/18 at 21:30 Acetaminophen (Tylenol Liquid) 650 mg Q6H PRN PO PAIN LEVEL 1-3 OR FEVER Last administered on 11/07/18at 15:40; Admin Dose 650 MG; Start 10/31/18 at 21:30 Amlodipine Besylate (Norvasc) 5 mg BID PO Last administered on 11/12/18at 09:11; Admin Dose 5 MG; Start 10/31/18 at 22:00 Benazepril HCl (Lotensin) 40 mg DAILY PO Last administered on 11/12/18 09:10; Admin Dose 40 MG; Start 11/01/18 at 09:00 Calcium Acetate (Phoslo) 667 mg WITH MEALS PO Last administered on 11/12/18 12:25; Admin Dose 667 MG; Start 11/01/18 at 08:00 Multivit/Ca Carb/ B Cmplx/FA/Prenat (Sharron-Ashley) 1 tab DAILY PO Last administered on 11/12/18 09:10; Admin Dose 1 TAB; Start 11/01/18 at 09:00 Diagnostic Test (Pha) (Accu-Chek) 1 ea 02 XX Last administered on 11/12/18 01:32; Admin Dose 1 EA; Start 11/02/18 at 02:00 Insulin Aspart (Novolog Insulin Pen) NOVOLOG *MILD* ALGORI... Q4 SC Last administered on 11/08/18 17:36; Admin Dose 1 UNIT; Start 11/01/18 at 13:00 Sevelamer Carbonate (Renvela) 0.8 gm WITH MEALS PO Last administered on 11/12/18 12:25; Admin Dose 0.8 GM; Start 11/01/18 at 18:00 Miscellaneous Information 1 ea NOTE XX ; Start 11/02/18 at 17:00 Glucose (Glutose) 15 gm Q15M PRN PO DECREASED GLUCOSE; Start 11/02/18 at 17:00 Glucose (Glutose) 22.5 gm Q15M PRN PO DECREASED GLUCOSE; Start 11/02/18 at 17:00 Dextrose (D50w Syringe) 25 ml Q15M PRN IV DECREASED GLUCOSE; Start 11/02/18 at 17:00 Dextrose (D50w Syringe) 50 ml Q15M PRN IV DECREASED GLUCOSE; Start 11/02/18 at 17:00 Glucagon (Glucagen) 1 mg Q15M PRN IM DECREASED GLUCOSE; Start 11/02/18 at 17:00 Glucose (Glutose) 15 gm Q15M PRN BUCCAL DECREASED GLUCOSE; Start 11/02/18 at 17:00 Albumin Human 100 ml @ 100 mls/hr WITH DIALYSIS PRN IV SBP <90 DURING DIAL YSIS; Start 11/03/18 at 08:30 Epoetin Virgil-epbx (Retacrit (Esrd)) 6,000 unit TuThSa@1700 SC Last administered on 11/11/18 18:04; Admin Dose 6,000 UNIT; Start 11/04/18 at 17:00 Levetiracetam 100 ml @ 400 mls/hr Q12 IVPB Last administered on 11/12/18 09:11; Admin Dose 400 MLS/HR; Start 11/04/18 at 01:30 Lorazepam (Ativan) 1 mg Q5M PRN IV SEIZURES; Start 11/04/18 at 20:19 Morphine Sulfate (morphine) 2 mg Q4H PRN IV SEVERE PAIN LEVEL 7-10 Last administered on 11/12/18 10:09; Admin Dose 2 MG; Start 11/06/18 at 13:30 Hydralazine HCl (Apresoline) 10 mg Q6H PRN IV For SBP >160 Last administered on 11/06/18 15:48; Admin Dose 10 MG; Start 11/06/18 at 13:30 Midazolam HCl 50 ml @ 1 mls/hr TITRATE IV Last administered on 11/07/18 18:20; Admin Dose 1 MLS/HR; Start 11/07/18 at 18:00 Fentanyl 100 ml @ 2.5 mls/hr TITRATE IV Last administered on 11/07/18 18:21; Admin Dose 2.5 MLS/HR; Start 11/07/18 at 18:00 Carvedilol (Coreg) 12.5 mg BID PO Last administered on 11/12/18 09:10; Admin Dose 12.5 MG; Start 11/07/18 at 21:00 Clonidine (Catapres) 0.1 mg BID PO Last administered on 11/12/18 09:10; Admin D ose 0.1 MG; Start 11/07/18 at 21:00 Famotidine (Pepcid) 20 mg DAILY PO Last administered on 11/12/18 09:10; Admin Dose 20 MG; Start 11/09/18 at 09:00 Dexmedetomidine HCl 200 mcg/ Sodium Chloride 50 ml @ 3.16 mls/hr TITRATE IV Last administered on 11/09/18 10:03; Admin Dose 3.16 MLS/HR; Start 11/09/18 at 09:30 Polyethylene Glycol (Miralax) 17 gm DAILY PO Last administered on 11/12/18at 09:11; Admin Dose 17 GM; Start 11/09/18 at 13:00 Cefazolin Sodium 50 ml @ 100 mls/hr Q24H IVPB Last administered on 11/12/18at 12:25; Admin Dose 100 MLS/HR; Start 11/11/18 at 12:00; Stop 11/13/18 at 11:59 ZAK MARTÍNEZ Nov 12, 2018 12:46
--- NOTE | 2018-11-12 16:51 | CONS ---
Assessment/Plan Assessment/Plan Assessment/Plan (Daily) 1. End-stage renal disease on HD - s/p HD yesterday 2 L removed, pt regular schedule for HD is TTS , AVF for HD access . 3. Hypertension. Continue current blood pressure regimen. Continue ultraf iltration with dialysis. 3. Subdural hematoma, S/p Craniotomy and burhole placement by on 10/06/18- Post op care as per Neurosurgery, Drainage tube in place , MRI brain done 4. Post op pulmonary insufficiency INtubated on ventilator - weaning plan as per pulmonary 4. Anemia of ESRD, s/p 2 unit PRBC tansfusion during this admission 5. Mineral bone disorder. Monitor calcium and phosphorus levels. 7. Diabetes. Continue current insulin regimen. 8. Paroxysmal atrial fibrillation. Continue medical management. 9. Gastrointestinal and deep vein thrombosis prophylaxis Consultation Date/Type/Reason Admit Date/Time October 31, 2018 at 21:18 Initial Consult Date 11/01/18 Requesting Provider: GERMAIN VASQUES Date/Time of Note DATE: 11/12/18 TIME: 16:50 24 HR Interval Summary Free Text/Dictation pt remains intubated on FiO2 30%, BP stable, afebrile, Exam/Review of Systems Exam Vitals Vital Signs Date Temp Pulse Resp B/P (MAP) Pulse Ox O2 O2 Flow FiO2 Time Delivery Rate 11/12/18 69 14 100 30 15:25 11/12/18 142/42 Mechanical 15:00 (75) Ventilator 11/12/18 99.0 12:00 Intake and Output 11/11/18 11/11/18 11/12/18 1515:00 23:00 07:00 IntakeIntake Total 340 ml 95 ml 180 ml OutputOutput Total 2789 ml 132 ml 378 ml BalanceBalance -2449 ml -37 ml -198 ml Exam GENERAL: orally intubated with ventriculostomy in place. NECK: Supple. no JVD HEART: S1 S2 RRR , no murmur CHEST: Diminished air entry right base greater than left ABDOMEN: Soft, nontender. No guarding or rebound. EXTREMITIES: No cyanosis, clubbing or edema. NEUROLOGIC: unable to assess due to clinical condition Results Result Diagram: 11/12/18 0420 11/12/18 0420 Results 24hrs Laboratory Tests Test 11/11/18 17:33 11/11/18 21:51 11/12/18 01:26 11/12/18 04:20 Bedside Glucose 88 94 95 White Blood Count 10.5 # Red Blood Count 3.04 L Hemoglobin 8.0 L Hematocrit 27.0 L Mean Corpuscular Volume 88.8 Mean Corpuscular 26.3 L Hemoglobin Mean Corpuscular 29.6 L Hemoglobin Concent Red Cell Distribution 17.9 H Width Platelet Count 168 Mean Platelet Volume 9.8 Immature Granulocytes % 1.100 H Neutrophils % 79.3 H Lymphocytes % 3.8 L Monocytes % 12.9 H Eosinophils % 2.7 Basophils % 0.2 Nucleated Red Blood 0.0 Cells % Immature Granulocytes # 0.120 H Neutrophils # 8.4 H Lymphocytes # 0.4 L Monocytes # 1.4 H Eosinophils # 0.3 Basophils # 0.0 Nucleated Red Blood 0.0 Cells # Sodium Level 141 Potassium Level 3.7 Chloride Level 103 Carbon Dioxide Level 29 Anion Gap 9 Blood Urea Nitrogen 24 #H Creatinine 3.67 #H Est Glomerular Filtrat Rate mL/min Glucose Level 92 Calcium Level 9.5 Test 11/12/18 05:17 11/12/18 09:14 11/12/18 12:32 Bedside Glucose 96 106 104 Medications Medication Current Medications Ondansetron HCl (Zofran Inj) 4 mg Q6H PRN IV NAUSEA AND/OR VOMITING; Start 10/31/18 at 21:30 Albuterol (Proventil 0.083% (Neb)) 2.5 mg Q2H RESP THERAPY PRN NEB SHORTNESS OF BREATH Last administered on 11/04/18at 00:44; Admin Dose 2.5 MG; Start 10/31/18 at 21:30 Acetaminophen (Tylenol Liquid) 650 mg Q6H PRN PO PAIN LEVEL 1-3 OR FEVER Last administered on 11/07/18at 15:40; Admin Dose 650 MG; Start 10/31/18 at 21:30 Amlodipine Besylate (Norvasc) 5 mg BID PO Last administered on 11/12/18at 09:11; Admin Dose 5 MG; Start 10/31/18 at 22:00 Benazepril HCl (Lotensin) 40 mg DAILY PO Last administered on 11/12/18at 09:10; Admin Dose 40 MG; Start 11/01/18 at 09:00 Calcium Acetate (Phoslo) 667 mg WITH MEALS PO Last administered on 11/12/18 12:25; Admin Dose 667 MG; Start 11/01/18 at 08:00 Multivit/Ca Carb/ B Cmplx/FA/Prenat (Sharron-Ashley) 1 tab DAILY PO Last administe red on 11/12/18at 09:10; Admin Dose 1 TAB; Start 11/01/18 at 09:00 Diagnostic Test (Pha) (Accu-Chek) 1 ea 02 XX Last administered on 11/12/18at 01:32; Admin Dose 1 EA; Start 11/02/18 at 02:00 Insulin Aspart (Novolog Insulin Pen) NOVOLOG *MILD* ALGORI... Q4 SC Last administered on 11/08/18 17:36; Admin Dose 1 UNIT; Start 11/01/18 at 13:00 Sevelamer Carbonate (Renvela) 0.8 gm WITH MEALS PO Last administered on 11/12/18 12:25; Admin Dose 0.8 GM; Start 11/01/18 at 18:00 Miscellaneous Information 1 ea NOTE XX ; Start 11/02/18 at 17:00 Glucose (Glutose) 15 gm Q15M PRN PO DECREASED GLUCOSE; Start 11/02/18 at 17:00 Glucose (Glutose) 22.5 gm Q15M PRN PO DECREASED GLUCOSE; Start 11/02/18 at 17:00 Dextrose (D50w Syringe) 25 ml Q15M PRN IV DECREASED GLUCOSE; Start 11/02/18 at 17:00 Dextrose (D50w Syringe) 50 ml Q15M PRN IV DECREASED GLUCOSE; Start 11/02/18 at 17:00 Glucagon (Glucagen) 1 mg Q15M PRN IM DECREASED GLUCOSE; Start 11/02/18 at 17:00 Glucose (Glutose) 15 gm Q15M PRN BUCCAL DECREASED GLUCOSE; Start 11/02/18 at 17:00 Albumin Human 100 ml @ 100 mls/hr WITH DIALYSIS PRN IV SBP <90 DURING DIALYSIS; Start 11/03/18 at 08:30 Epoetin Virgil-epbx (Retacrit (Esrd)) 6,000 unit TuThSa@1700 SC Last administered on 11/11/18 18:04; Admin Dose 6,000 UNIT; Start 11/04/18 at 17:00 Levetiracetam 100 ml @ 400 mls/hr Q12 IVPB Last administered on 11/12/18 09:11; Admin Dose 400 MLS/HR; Start 11/04/18 at 01:30 Lorazepam (Ativan) 1 mg Q5M PRN IV SEIZURES; Start 11/04/18 at 20:19 Morphine Sulfate (morphine) 2 mg Q4H PRN IV SEVERE PAIN LEVEL 7-10 Last administered on 11/12/18 10:09; Admin Dose 2 MG; Start 11/06/18 at 13:30 Hydralazine HCl (Apresoline) 10 mg Q6H PRN IV For SBP >160 Last administered on 11/06/18 15:48; Admin Dose 10 MG; Start 11/06/18 at 13:30 Midazolam HCl 50 ml @ 1 mls/hr TITRATE IV Last administered on 11/07/18 18:20; Admin Dose 1 MLS/HR; Start 11/07/18 at 18:00 Fentanyl 100 ml @ 2.5 mls/hr TITRATE IV Last administered on 11/07/18 18:21; Admin Dose 2.5 MLS/HR; Start 11/07/18 at 18:00 Carvedilol (Coreg) 12.5 mg BID PO Last administered on 11/12/18 09:10; Admin Dose 12.5 MG; Start 11/07/18 at 21:00 Clonidine (Catapres) 0.1 mg BID PO Last administered on 11/12/18 09:10; Admin Dose 0.1 MG; Start 11/07/18 at 21:00 Famotidine (Pepcid) 20 mg DAILY PO Last administered on 11/12/18 09:10; Admin Dose 20 MG; Start 11/09/18 at 09:00 Dexmedetomidine HCl 200 mcg/ Sodium Chloride 50 ml @ 3.16 mls/hr TITRATE IV Last administered on 11/09/18 10:03; Admin Dose 3.16 MLS/HR; Start 11/09/18 at 09:30 Polyethylene Glycol (Miralax) 17 gm DAILY PO Last administered on 11/12/18 09 :11; Admin Dose 17 GM; Start 11/09/18 at 13:00 Cefazolin Sodium 50 ml @ 100 mls/hr Q24H IVPB Last administered on 11/12/18at 12:25; Admin Dose 100 MLS/HR; Start 11/11/18 at 12:00; Stop 11/13/18 at 11:59 ASUD CHANDLER MD Nov 12, 2018 16:51
[2018-11-13] VITALS (35 sets, daily range): BP systolic 114–145; BP diastolic 40–61; PULSE 65–81; RESP 5–23
[2018-11-13] MEDS: INSULIN ASPART [NOVOLOG] 3 ML PEN SC SCH ×6 (01:00→21:00)
[2018-11-13] MEDS: ACCU-CHEK XX SCH (02:00)
--- NOTE | 2018-11-13 09:34 | CONS ---
Assessment/Plan Assessment/Plan Assessment/Plan (Daily) Ventilator setting; AC of 14, tidal volume 500, PEEP of 0, 30% FiO2. Assessment and recommendations; 1. Patient admitted to for respiratory failure due to subdural hematoma status post craniotomy with subsequent removal of bilateral parietal drains. 2. Encephalopathy with persistently poor mental status precluding weaning from ventilator. 3. Right pleural effusion status post thoracentesis with iatrogenic pneumothorax requiring chest tube placement. 4. Anemia and thrombocytopenia. 5. Chronic renal failure, dialysis dependent. 6. Patient is on prophylactic seizure precautions. 7. History of hypertension. Continue current supportive care. Weaning from ventilator will depend upon ad equate mental status recovery. Patient currently has very poor spontaneous minute ventilation. May possibly require tracheostomy. Consultation Date/Type/Reason Admit Date/Time October 31, 2018 at 21:18 Initial Consult Date 11/06/18 Type of Consult Pulmonary/critical care Patient condition is critical. Remains profoundly unresponsive. Patient however has remained hemodynamically stable. No untoward events reported. General exam; elderly male, orally intubated, unresponsive, currently in no distress. Requesting Provider: GERMAIN VASQUES Date/Time of Note DATE: 11/13/18 TIME: 09:31 24 HR Interval Summary Free Text/Dictation Patient's condition is critical. Patient is awake but noncommunicative. General exam; elderly male, orally intubated, awake but noncommunicative. Currently no distress. Exam/Review of Systems Exam Vitals Vital Signs Date Temp Pulse Resp B/P (MAP) Pulse Ox O2 O2 Flow FiO2 Time Delivery Rate 11/13/18 73 14 100 30 07:51 11/13/18 141/49 07:00 (79) 11/13/18 Mechanical 06:00 Ventilator 11/13/18 99.0 00:00 Intake and Output 11/12/18 11/12/18 11/13/18 1515:00 23:00 07:00 IntakeIntake Total 300 ml 150 ml 40 ml OutputOutput Total 137 ml 10 ml 0 ml BalanceBalance 163 ml 140 ml 40 ml Exam H EENT exam; supple neck, no JVD. No lymphadenopathy. Midline trachea. No thyromegaly. Orally intubated. Bilateral parietal drains have been removed. Nasogastric tube in place. Patient has fair dentition. Pupils are small bilaterally. No neck masses. Chest exam; diminished but clear breath sounds. S1-S2 audible, no murmurs. Regular rhythm. Right-sided chest tube in place. Abdomen exam; soft, no organomegaly. Bowel sounds audible. Extremity exam; no peripheral edema. [employer] exam; patient awake but noncommunicative. Results Result Diagram: 11/13/18 0422 11/13/18 0422 Results 24hrs Laboratory Tests Test 11/12/18 12:32 11/12/18 17:28 11/12/18 21:49 11/13/18 04:22 Bedside Glucose 104 97 115 White Blood Count 11.1 H Red Blood Count 3.15 L Hemoglobin 8.5 L Hematocrit 27.7 L Mean Corpuscular Volume 87.9 Mean Corpuscular 27.0 L Hemoglobin Mean Corpuscular 30.7 L Hemoglobin Concent Red Cell Distribution 17.7 H Width Platelet Count 182 Mean Platelet Volume 10.2 Immature Granulocytes % 1.100 H Neutrophils % 82.3 H Lymphocytes % 3.6 L Monocytes % 11.2 H Eosinophils % 1.7 Basophils % 0.1 Nucleated Red Blood 0.3 H Cells % Immature Granulocytes # 0.120 H Neutrophils # 9.1 H Lymphocytes # 0.4 L Monocytes # 1.2 H Eosinophils # 0.2 Basophils # 0.0 Nucleated Red Blood 0.0 Cells # Sodium Level 141 Potassium Level 4.0 Chloride Level 103 Carbon Dioxide Level 29 Anion Gap 9 Blood Urea Nitrogen 38 #H Creatinine 5.38 H Est Glomerular Filtrat Rate mL/min Glucose Level 109 Calcium Level 10.0 Medications Medication Current Medications Ondansetron HCl (Zofran Inj) 4 mg Q6H PRN IV NAUSEA AND/OR VOMITING; Start 10/31/18 at 21:30 Albuterol (Proventil 0.083% (Neb)) 2.5 mg Q2H RESP THERAPY PRN NEB SHORTNESS OF BREATH Last administered on 11/04/18at 00:44; Admin Dose 2.5 MG; Start 10/31/18 at 21:30 Acetaminophen (Tylenol Liquid) 650 mg Q6H PRN PO PAIN LEVEL 1-3 OR FEVER Last administered on 11/07/18at 15:40; Admin Dose 650 MG; Start 10/31/18 at 21:30 Amlodipine Besylate (Norvasc) 5 mg BID PO Last administered on 11/12/18at 21:59; Admin Dose 5 MG; Start 10/31/18 at 22:00 Benazepril HCl (Lotensin) 40 mg DAILY PO Last administered on 11/12/18 09:10; Admin Dose 40 MG; Start 11/01/18 at 09:00 Calcium Acetate (Phoslo) 667 mg WITH MEALS PO Last administered on 11/12/18 17:27; Admin Dose 667 MG; Start 11/01/18 at 08:00 Multivit/Ca Carb/ B Cmplx/FA/Prenat (Sharron-Ashley) 1 tab DAILY PO Last administered on 11/12/18 09:10; Admin Dose 1 TAB; Start 11/01/18 at 09:00 Diagnostic Test (Pha) (Accu-Chek) 1 ea 02 XX Last administered on 11/12/18at 01:32; Admin Dose 1 EA; Start 11/02/18 at 02:00 Insulin Aspart (Novolog Insulin Pen) NOVOLOG *MILD* ALGORI... Q4 SC Last administered on 11/08/18at 17:36; Admin Dose 1 UNIT; Start 11/01/18 at 13:00 Sevelamer Carbonate (Renvela) 0.8 gm WITH MEALS PO Last administered on 11/12/18 17:27; Admin Dose 0.8 GM; Start 11/01/18 at 18:00 Miscellaneous Information 1 ea NOTE XX ; Start 11/02/18 at 17:00 Glucose (Glutose) 15 gm Q15M PRN PO DECREASED GLUCOSE; Start 11/02/18 at 17:00 Glucose (Glutose) 22.5 gm Q15M PRN PO DECREASED GLUCOSE; Start 11/02/18 at 17:00 Dextrose (D50w Syringe) 25 ml Q15M PRN IV DECREASED GLUCOSE; Start 11/02/18 at 17:00 Dextrose (D50w Syringe) 50 ml Q15M PRN IV DECREASED GLUCOSE; Start 11/02/18 at 17:00 Glucagon (Glucagen) 1 mg Q15M PRN IM DECREASED GLUCOSE; Start 11/02/18 at 17:00 Glucose (Glutose) 15 gm Q15M PRN BUCCAL DECREASED GLUCOSE; Start 11/02/18 at 17:00 Albumin Human 100 ml @ 100 mls/hr WITH DIALYSIS PRN IV SBP <90 DURING DIALYSIS; Start 11/03/18 at 08:30 Epoetin Virgil-epbx (Retacrit (Esrd)) 6,000 unit TuThSa@1700 SC Last administered on 11/11/18 18:04; Admin Dose 6,000 UNIT; Start 11/04/18 at 17:00 Levetiracetam 100 ml @ 400 mls/hr Q12 IVPB Last administered on 11/12/18 21:58; Admin Dose 400 MLS/HR; Start 11/04/18 at 01:30 Lorazepam (Ativan) 1 mg Q5M PRN IV SEIZURES; Start 11/04/18 at 20:19 Morphine Sulfate (morphine) 2 mg Q4H PRN IV SEVERE PAIN LEVEL 7-10 Last administered on 11/12/18 10:09; Admin Dose 2 MG; Start 11/06/18 at 13:30 Hydralazine HCl (Apresoline) 10 mg Q6H PRN IV For SBP >160 Last administered on 11/06/18 15:48; Admin Dose 10 MG; Start 11/06/18 at 13:30 Midazolam HCl 50 ml @ 1 mls/hr TITRATE IV Last administered on 11/07/18 18:20; Admin Dose 1 MLS/HR; Start 11/07/18 at 18:00 Fentanyl 100 ml @ 2.5 mls/hr TITRATE IV Last administered on 11/07/18 18:21; Admin Dose 2.5 MLS/HR; Start 11/07/18 at 18:00 Carvedilol (Coreg) 12.5 mg BID PO Last administered on 11/12/18 21:59; Admin Dose 12.5 MG; Start 11/07/18 at 21:00 Clonidine (Catapres) 0.1 mg BID PO Last administered on 11/12/18 22:00; Admin Dose 0.1 MG; Start 11/07/18 at 21:00 Famotidine (Pepcid) 20 mg DAILY PO Last administered on 11/12/18 09:10; Admin Dose 20 MG; Start 11/09/18 at 09:00 Dexmedetomidine HCl 200 mcg/ Sodium Chloride 50 ml @ 3.16 mls/hr TITRATE IV Last administered on 11/09/18 10:03; Admin Dose 3.16 MLS/HR; Start 11/09/18 at 09:30 Polyethylene Glycol (Miralax) 17 gm DAILY PO Last administered on 11/12/18at 09:11; Admin Dose 17 GM; Start 11/09/18 at 13:00 Cefazolin Sodium 50 ml @ 100 mls/hr Q24H IVPB Last administered on 11/12/18at 12:25; Admin Dose 100 MLS/HR; Start 11/11/18 at 12:00; Stop 11/13/18 at 11:59 LIDIA ROSALES Nov 13, 2018 09:34
[2018-11-13] MEDS: LEVETIRACETAM 500 MG (PMX) 100 ML IVPB SCH ×2 (09:46→21:43)
[2018-11-13] MEDS: CALCIUM ACETATE 667 MG CAP PO SCH ×3 (09:48→17:49)
[2018-11-13] MEDS: FAMOTIDINE 20 MG TAB PO SCH (09:49)
[2018-11-13] MEDS: POLYETHYLENE GLYCOL 17 GM PACKET PO SCH (09:49)
[2018-11-13] MEDS: MULTIVIT/CA CARB/B CMPLX/FA TAB PO SCH (09:49)
[2018-11-13] MEDS: SEVELAMER CARBONATE 0.8 GM PKT PO SCH ×3 (09:49→17:49)
[2018-11-13] MEDS: BENAZEPRIL 40 MG TAB PO SCH (09:52)
[2018-11-13] MEDS: AMLODIPINE 5 MG TAB PO SCH ×2 (09:54→21:45)
--- NOTE | 2018-11-13 10:18 | CONS ---
Assessment/Plan Assessment/Plan Hospital Course (Demo Recall) Traumatic SDH: in setting of Eliquis. Now s/p cuong hole evacuation 11/06. s/p left subdural drain 11/09. 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 Now both resolved and normal EF Paroxysmal atrial flutter/fibrillation: CHADSVASC 5 and was on Eliquis outpt but now s/p fall with ICH as above so on hold Aspiration PNA Pleural effusion: s/p thora 11/07 c/b pneumothorax s/p chest tube 11/09 Thrombocytopenia Anemia: ?from ICH. s/p 2 units ESRD on HD HTN -hold anticoagulation/antiplatelets -coreg 12.5 mg BID -amlodipine 5mg BID -benazepril 40mg -clonidine 0.1mg BID -antibiotics -weaning per pulm Consultation Date/Type/Reason Admit Date/Time October 31, 2018 at 21:18 Initial Consult Date 11/06/18 Type of Consult Cardiology Requesting Provider: GERMAIN VASQUES Date/Time of Note DATE: 11/13/18 TIME: 10:17 24 HR Interval Summary Free Text/Dictation Eyes open but does not follow commands. Not a candidate for weaning/extubation per pulm Exam/Review of Systems Vital Signs Vitals Vital Signs Date Temp Pulse Resp B/P (MAP) Pulse Ox O2 O2 Flow FiO2 Time Delivery Rate 11/13/18 71 14 100 30 09:46 11/13/18 141/49 07:00 (79) 11/13/18 Mechanical 06:00 Ventilator 11/13/18 99.0 00:00 Intake and Output 11/12/18 11/12/18 11/13/18 1515:00 23:00 07:00 IntakeIntake Total 300 ml 150 ml 40 ml OutputOutput Total 137 ml 10 ml 0 ml BalanceBalance 163 ml 140 ml 40 ml Exam Constitutional: No alert ENMT: intubated Neck: supple; No jvd Respiratory: diminished breath sounds; No clear to auscultation Cardiovascular: regular rate and rhythm; No edema Gastrointestinal: soft; No distended Neurological: No nl mental status, No nl speech Labs Result Diagram: 6/10/19 0422 6/10/19 0422 Results 24hrs Laboratory Tests Test 11/12/18 12:32 11/12/18 17:28 11/12/18 21:49 11/13/18 04:22 Bedside Glucose 104 97 115 White Blood Count 11.1 H Red Blood Count 3.15 L Hemoglobin 8.5 L Hematocrit 27.7 L Mean Corpuscular 87.9 Volume Mean Corpuscular 27.0 L Hemoglobin Mean Corpuscular 30.7 L Hemoglobin Concent Red Cell Distribution 17.7 H Width Platelet Count 182 Mean Platelet Volume 10.2 Immature Granulocytes 1.100 H % Neutrophils % 82.3 H Lymphocytes % 3.6 L Monocytes % 11.2 H Eosinophils % 1.7 Basophils % 0.1 Nucleated Red Blood 0.3 H Cells % Immature Granulocytes 0.120 H # Neutrophils # 9.1 H Lymphocytes # 0.4 L Monocytes # 1.2 H Eosinophils # 0.2 Basophils # 0.0 Nucleated Red Blood 0.0 Cells # Sodium Level 141 Potassium Level 4.0 Chloride Level 103 Carbon Dioxide Level 29 Anion Gap 9 Blood Urea Nitrogen 38 #H Creatinine 5.38 H Est Glomerular Filtrat Rate mL/min Glucose Level 109 Calcium Level 10.0 Test 11/13/18 10:00 Bedside Glucose 142 Medications Medications Current Medications Ondansetron HCl (Zofran Inj) 4 mg Q6H PRN IV NAUSEA AND/OR VOMITING; Start 10/31/18 at 21:30 Albuterol (Proventil 0.083% (Neb)) 2.5 mg Q2H RESP THERAPY PRN NEB SHORTNESS OF BREATH Last administered on 11/04/18at 00:44; Admin Dose 2.5 MG; Start 10/31/18 at 21:30 Acetaminophen (Tylenol Liquid) 650 mg Q6H PRN PO PAIN LEVEL 1-3 OR FEVER Last administered on 11/07/18at 15:40; Admin Dose 650 MG; Start 10/31/18 at 21:30 Amlodipine Besylate (Norvasc) 5 mg BID PO Last administered on 11/13/18at 09:54; Admin Dose 5 MG; Start 10/31/18 at 22:00 Benazepril HCl (Lotensin) 40 mg DAILY PO Last administered on 11/13/18at 09:52; Admin Dose 40 MG; Start 11/01/18 at 09:00 Calcium Acetate (Phoslo) 667 mg WITH MEALS PO Last administered on 11/13/18at 09:48; Admin Dose 667 MG; Start 11/01/18 at 08:00 Multivit/Ca Carb/ B Cmplx/FA/Prenat (Sharron-Ashley) 1 tab DAILY PO Last administered on 11/13/18 09:49; Admin Dose 1 TAB; Start 11/01/18 at 09:00 Diagnostic Test (Pha) (Accu-Chek) 1 ea 02 XX Last administered on 11/12/18at 01:32; Admin Dose 1 EA; Start 11/02/18 at 02:00 Insulin Aspart (Novolog Insulin Pen) NOVOLOG *MILD* ALGORI... Q4 SC Last administered on 11/13/18 10:06; Admin Dose 1 UNIT; Start 11/01/18 at 13:00 Sevelamer Carbonate (Renvela) 0.8 gm WITH MEALS PO Last administered on 11/13/18 09:49; Admin Dose 0.8 GM; Start 11/01/18 at 18:00 Miscellaneous Information 1 ea NOTE XX ; Start 11/02/18 at 17:00 Glucose (Glutose) 15 gm Q15M PRN PO DECREASED GLUCOSE; Start 11/02/18 at 17:00 Glucose (Glutose) 22.5 gm Q15M PRN PO DECREASED GLUCOSE; Start 11/02/18 at 17:00 Dextrose (D50w Syringe) 25 ml Q15M PRN IV DECREASED GLUCOSE; Start 11/02/18 at 17:00 Dextrose (D50w Syringe) 50 ml Q15M PRN IV DECREASED GLUCOSE; Start 11/02/18 at 17:00 Glucagon (Glucagen) 1 mg Q15M PRN IM DECREASED GLUCOSE; Start 11/02/18 at 17:00 Glucose (Glutose) 15 gm Q15M PRN BUCCAL DECREASED GLUCOSE; Start 11/02/18 at 17:00 Albumin Human 100 ml @ 100 mls/hr WITH DIALYSIS PRN IV SBP <90 DURING DIALYSIS; Start 11/03/18 at 08:30 Epoetin Virgil-epbx (Retacrit (Esrd)) 6,000 unit TuThSa@1700 SC Last administered on 11/11/18 18:04; Admin Dose 6,000 UNIT; Start 11/04/18 at 17:00 Levetiracetam 100 ml @ 400 mls/hr Q12 IVPB Last administered on 11/13/18 09:46; Admin Dose 400 MLS/HR; Start 11/04/18 at 01:30 Lorazepam (Ativan) 1 mg Q5M PRN IV SEIZURES; Start 11/04/18 at 20:19 Morphine Sulfate (morphine) 2 mg Q4H PRN IV SEVERE PAIN LEVEL 7-10 Last administered on 11/12/18 10:09; Admin Dose 2 MG; Start 11/06/18 at 13:30 Hydralazine HCl (Apresoline) 10 mg Q6H PRN IV For SBP >160 Last administered on 11/06/18 15:48; Admin Dose 10 MG; Start 11/06/18 at 13:30 Midazolam HCl 50 ml @ 1 mls/hr TITRATE IV Last administered on 11/07/18 18:20; Admin Dose 1 MLS/HR; Start 11/07/18 at 18:00 Fentanyl 100 ml @ 2.5 mls/hr TITRATE IV Last administered on 11/07/18 18:21; Admin Dose 2.5 MLS/HR; Start 11/07/18 at 18:00 Carvedilol (Coreg) 12.5 mg BID PO Last administered on 11/13/18 09:50; Admin Dose 12.5 MG; Start 11/07/18 at 21:00 Clonidine (Catapres) 0.1 mg BID PO Last administered on 11/13/18 09:50; Admin Dose 0.1 MG; Start 11/07/18 at 21:00 Famotidine (Pepcid) 20 mg DAILY PO Last administered on 11/13/18 09:49; Admin Dose 20 MG; Start 11/09/18 at 09:00 Dexmedetomidine HCl 200 mcg/ Sodium Chloride 50 ml @ 3.16 mls/hr TITRATE IV Last administered on 11/09/18 10:03; Admin Dose 3.16 MLS/HR; Start 11/09/18 at 09:30 Polyethylene Glycol (Miralax) 17 gm DAILY PO Last administered on 11/13/18 09:49; Admin Dose 17 GM; Start 11/09/18 at 13:00 Cefazolin Sodium 50 ml @ 100 mls/hr Q24H IVPB Last administered on 6/9/19at 12:25; Admin Dose 100 MLS/HR; Start 11/11/18 at 12:00; Stop 11/13/18 at 11:59 WAYNE CARUSO Nov 13, 2018 10:18
--- NOTE | 2018-11-13 11:21 | CONS ---
Assessment/Plan Assessment/Plan Assessment/Plan (Daily) 1. End-stage renal disease on HD - HD ordered for Tuesday , regular schedule for HD is TTS , AVF for HD access . 3. Hypertension. Continue current blood pressure regimen. Continue ultrafiltration with dialysis. 3. Subdural hematoma, S/p Craniotomy and burhole placement by on 10/06- Post op care as per Neurosurgery, Drainage tube in place , MRI brain done 4. Post op pulmonary insufficiency INtubated on ventilator - weaning plan as per pulmonary 4. Anemia of ESRD, s/p 2 unit PRBC tansfusion during this admission 5. Mineral bone disorder. Monitor calcium and phosphorus levels. 7. Diabetes. Continue current insulin regimen. 8. Paroxysmal atrial fibrillation. Continue medical management. 9. Gastrointestinal and deep vein thrombosis prophylaxis Consultation Date/Type/Reason Admit Date/Time October 31, 2018 at 21:18 Initial Consult Date 11/01/18 Requesting Provider: GERMAIN VASQUES Date/Time of Note DATE: 11/13/18 TIME: 11:21 Exam/Review of Systems Exam Vitals Vital Signs Date Temp Pulse Resp B/P (MAP) Pulse Ox O2 O2 Flow FiO2 Time Delivery Rate 11/13/18 71 14 100 30 09:46 11/13/18 141/49 07:00 (79) 11/13/18 Mechanical 06:00 Ventilator 11/13/18 99.0 00:00 Intake and Output 11/12/18 11/12/18 11/13/18 1515:00 23:00 07:00 IntakeIntake Total 300 ml 150 ml 40 ml OutputOutput Total 137 ml 10 ml 0 ml BalanceBalance 163 ml 140 ml 40 ml Results Result Diagram: 11/13/18 0422 11/13/18 0422 Results 24hrs Laboratory Tests Test 11/12/18 12:32 11/12/18 17:28 11/12/18 21:49 11/13/18 04:22 Bedside Glucose 104 97 115 White Blood Count 11.1 H Red Blood Count 3.15 L Hemoglobin 8.5 L Hematocrit 27.7 L Mean Corpuscular 87.9 Volume Mean Corpuscular 27.0 L Hemoglobin Mean Corpuscular 30.7 L Hemoglobin Concent Red Cell Distribution 17.7 H Width Platelet Count 182 Mean Platelet Volume 10.2 Immature Granulocytes 1.100 H % Neutrophils % 82.3 H Lymphocytes % 3.6 L Monocytes % 11.2 H Eosinophils % 1.7 Basophils % 0.1 Nucleated Red Blood 0.3 H Cells % Immature Granulocytes 0.120 H # Neutrophils # 9.1 H Lymphocytes # 0.4 L Monocytes # 1.2 H Eosinophils # 0.2 Basophils # 0.0 Nucleated Red Blood 0.0 Cells # Sodium Level 141 Potassium Level 4.0 Chloride Level 103 Carbon Dioxide Level 29 Anion Gap 9 Blood Urea Nitrogen 38 #H Creatinine 5.38 H Est Glomerular Filtrat Rate mL/min Glucose Level 109 Calcium Level 10.0 Test 11/13/18 10:00 Bedside Glucose 142 Medications Medication Current Medications Ondansetron HCl (Zofran Inj) 4 mg Q6H PRN IV NAUSEA AND/OR VOMITING; Start 10/31/18 at 21:30 Albuterol (Proventil 0.083% (Neb)) 2.5 mg Q2H RESP THERAPY PRN NEB SHORTNESS OF BREATH Last administered on 11/04/18 00:44; Admin Dose 2.5 MG; Start 10/31/18 at 21:30 Acetaminophen (Tylenol Liquid) 650 mg Q6H PRN PO PAIN LEVEL 1-3 OR FEVER Last administered on 11/07/18 15:40; Admin Dose 650 MG; Start 10/31/18 at 21:30 Amlodipine Besylate (Norvasc) 5 mg BID PO Last administered on 11/13/18 09:54; Admin Dose 5 MG; Start 10/31/18 at 22:00 Benazepril HCl (Lotensin) 40 mg DAILY PO Last administered on 11/13/18 09:52; Admin Dose 40 MG; Start 11/01/18 at 09:00 Calcium Acetate (Phoslo) 667 mg WITH MEALS PO Last administered on 11/13/18 09:48; Admin Dose 667 MG; Start 11/01/18 at 08:00 Multivit/Ca Carb/ B Cmplx/FA/Prenat (Sharron-Ashley) 1 tab DAILY PO Last administered on 11/13/18 09:49; Admin Dose 1 TAB; Start 11/01/18 at 09:00 Diagnostic Test (Pha) (Accu-Chek) 1 ea 02 XX Last administered on 11/12/18 01:32; Admin Dose 1 EA; Start 11/02/18 at 02:00 Insulin Aspart (Novolog Insulin Pen) NOVOLOG *MILD* ALGORI... Q4 SC Last administered on 11/13/18at 10:06; Admin Dose 1 UNIT; Start 11/01/18 at 13:00 Sevelamer Carbonate (Renvela) 0.8 gm WITH MEALS PO Last administered on 11/13/18at 09:49; Admin Dose 0.8 GM; Start 11/01/18 at 18:00 Miscellaneous Information 1 ea NOTE XX ; Start 11/02/18 at 17:00 Glucose (Glutose) 15 gm Q15M PRN PO DECREASED GLUCOSE; Start 11/02/18 at 17:00 Glucose (Glutose) 22.5 gm Q15M PRN PO DECREASED GLUCOSE; Start 11/02/18 at 17:00 Dextrose (D50w Syringe) 25 ml Q15M PRN IV DECREASED GLUCOSE; Start 11/02/18 at 17:00 Dextrose (D50w Syringe) 50 ml Q15M PRN IV DECREASED GLUCOSE; Start 11/02/18 at 17:00 Glucagon (Glucagen) 1 mg Q15M PRN IM DECREASED GLUCOSE; Start 11/02/18 at 17:00 Glucose (Glutose) 15 gm Q15M PRN BUCCAL DECREASED GLUCOSE; Start 11/02/18 at 17:00 Albumin Human 100 ml @ 100 mls/hr WITH DIALYSIS PRN IV SBP <90 DURING DIALYSIS; Start 11/03/18 at 08:30 Epoetin Virgil-epbx (Retacrit (Esrd)) 6,000 unit TuThSa@1700 SC Last administered on 11/11/18at 18:04; Admin Dose 6,000 UNIT; Start 11/04/18 at 17:00 Levetiracetam 100 ml @ 400 mls/hr Q12 IVPB Last administered on 11/13/18at 09:46; Admin Dose 400 MLS/HR; Start 11/04/18 at 01:30 Lorazepam (Ativan) 1 mg Q5M PRN IV SEIZURES; Start 11/04/18 at 20:19 Morphine Sulfate (morphine) 2 mg Q4H PRN IV SEVERE PAIN LEVEL 7-10 Last administered on 11/12/18at 10:09; Admin Dose 2 MG; Start 11/06/18 at 13:30 Hydralazine HCl (Apresoline) 10 mg Q6H PRN IV For SBP >160 Last administered on 11/06/18 15:48; Admin Dose 10 MG; Start 11/06/18 at 13:30 Midazolam HCl 50 ml @ 1 mls/hr TITRATE IV Last administered on 11/07/18 18:20; Admin Dose 1 MLS/HR; Start 11/07/18 at 18:00 Fentanyl 100 ml @ 2.5 mls/hr TITRATE IV Last administered on 11/07/18 18:21; Admin Dose 2.5 MLS/HR; Start 11/07/18 at 18:00 Carvedilol (Coreg) 12.5 mg BID PO Last administered on 11/13/18 09:50; Admin Dose 12.5 MG; Start 11/07/18 at 21:00 Clonidine (Catapres) 0.1 mg BID PO Last administered on 11/13/18 09:50; Admin Dose 0.1 MG; Start 11/07/18 at 21:00 Famotidine (Pepcid) 20 mg DAILY PO Last administered on 11/13/18 09:49; Admin Dose 20 MG; Start 11/09/18 at 09:00 Dexmedetomidine HCl 200 mcg/ Sodium Chloride 50 ml @ 3.16 mls/hr TITRATE IV Last administered on 11/09/18 10:03; Admin Dose 3.16 MLS/HR; Start 11/09/18 at 09:30 Polyethylene Glycol (Miralax) 17 gm DAILY PO Last administered on 11/13/18 09:49; Admin Dose 17 GM; Start 11/09/18 at 13:00 Cefazolin Sodium 50 ml @ 100 mls/hr Q24H IVPB Last administered on 11/12/18 12:25; Admin Dose 100 MLS/HR; Start 11/11/18 at 12:00; Stop 11/13/18 at 11:59 SAUD CHANDLER MD Nov 13, 2018 11:21
--- NOTE | 2018-11-13 15:26 | PN ---
Date/Time of Note Date/Time of Note DATE: 11/13/18 TIME: 15:23 Assessment/Plan VTE Prophylaxis Risk score (from Ns)>0 risk: 11 SCD applied (from Ns): Yes Pharmacological prophylaxis: NA/contraindicated Pharm contraindication: bleeding Lines/Catheters IV [facility] Type [facility]from [facility] Central Line Central line still needed: Yes Urinary Cath still in place: No Assessment/Plan Assessment/Plan 78 yo M with a history of fall a few days prior to presentation who was brought in for confusion and is currently managed as follows: 1. Acute right subdural hematoma -Status post craniotomy and bur hole placement 11/06/18 and R ventriculost jerri drain -CT and MRI concerning for new left-sided subdural collection of fluid as well as residual hemorrhage. -s/p L sided drain placement 11/09/18 with f/u CT 11/10/18 showing improvement -further management per neurosurgery, drains remain in place 2. Ventilator dependent respiratory failure -on CPAP trial -This is likely multifactorial from aspiration pneumonitis as well as pleural effusion as well as neurologic injury -Patient remains ventilator dependent 3. Moderate to large right-sided pleural effusion -status post thoracentesis November 07, 2018 with drainage of 900 cc of fluid 4. Right-sided pneumothorax complicating thoracentesis -which has worsened and now patient is status post right-sided chest tube placement November 09/2019 -CXR today showing improvement 5. Severe anemia, likely acute on chronic, exacerbated by acute blood loss from #1 with iron deficiency -Patient received 2 units of packed red cells upon arrival, hemoglobin has been stable since off anticoagulation and antiplatelet -ongoing IV iron replacement X 5 days 6. Altered mentation/acute encephalopathy / confusion secondary to #1 -requiring sedation at this time 7. End-stage renal disease on hemodialysis Tuesday, , Tuesday 8. Diabetes mellitus -excellent control on current regimen 9. Paroxysmal atrial fibrillation -off all anticoagulation for now -slightly bradycardic, cardio managing 10. Hypertension -controlled 11. Aspiration pneumonitis -Maintained on empiric abx -Blood cultures remain negative to date 10. New-onset seizure secondary to #1 -Patient maintained on seizure prophylaxis with no further episodes so far -EEG done and reviewed 11. Chronic thrombocytopenia -likely related to iron deficiency -Status post 1 unit of platelet transfusion upon arrival, improving levels since - 12. Recurrent falls status post recent fall 2 days ago -Patient will likely be quite debilitated by the end of this hosp italization and will probably require nursing facility placement for rehab 13. Tube feeds on hold for high stomach residuals -reglan q6h scheduled -no BM in about 2 days, will give miralax -monitor G-tube output, once reduced, resume tube feeds at slow rate Prophylaxis: No anticoagulation secondary to bleed Result Diagram: 11/13/18 0422 11/13/182 Subjective 24 Hr Interval Summary Free Text/Dictation No acute overnight events. Exam/Review of Systems Exam Vitals Vital Signs Date Temp Pulse Resp B/P (MAP) Pulse Ox O2 O2 Flow FiO2 Time Delivery Rate 11/13/18 66 19 137/46 100 Mechanical 14:00 (76) Ventilator 11/13/18 30 13:17 11/13/18 98.7 12:00 Intake and Output 11/12/18 11/12/18 11/13/18 1515:00 23:00 07:00 IntakeIntake Total 300 ml 150 ml 50 ml OutputOutput Total 137 ml 10 ml 0 ml BalanceBalance 163 ml 140 ml 50 ml Exam Constitutional: Frail appearing man supine in bed, minimally responsive HEENT: Healing incisions stapled on scalp. Drains out. Moist mucous membranes Neck: No lymphadenopathy Respiratory: clear to auscultation Chest: R chest tube in place with serous output Cardiovascular: regular rate and rhythm, no murmurs appreciated Gastrointestinal: soft; non distended Musculoskeletal: nl extremities to inspection Neuro: Opens eyes to voice, does not follow commands. Results Results 24hrs Laboratory Tests Test 11/12/18 17:28 11/12/18 21:49 11/13/18 04:22 11/13/18 10:00 Bedside Glucose 97 115 142 White Blood Count 11.1 H Red Blood Count 3.15 L Hemoglobin 8.5 L Hematocrit 27.7 L Mean Corpuscular 87.9 Volume Mean Corpuscular 27.0 L Hemoglobin Mean Corpuscular 30.7 L Hemoglobin Concent Red Cell Distribution 17.7 H Width Platelet Count 182 Mean Platelet Volume 10.2 Immature Granulocytes 1.100 H % Neutrophils % 82.3 H Lymphocytes % 3.6 L Monocytes % 11.2 H Eosinophils % 1.7 Basophils % 0.1 Nucleated Red Blood 0.3 H Cells % Immature Granulocytes 0.120 H # Neutrophils # 9.1 H Lymphocytes # 0.4 L Monocytes # 1.2 H Eosinophils # 0.2 Basophils # 0.0 Nucleated Red Blood 0.0 Cells # Sodium Level 141 Potassium Level 4.0 Chloride Level 103 Carbon Dioxide Level 29 Anion Gap 9 Blood Urea Nitrogen 38 #H Creatinine 5.38 H Est Glomerular Filtrat Rate mL/min Glucose Level 109 Calcium Level 10.0 Test 11/13/18 13:30 Bedside Glucose 120 Medications Medication Current Medications Ondansetron HCl (Zofran Inj) 4 mg Q6H PRN IV NAUSEA AND/OR VOMITING; Start 10/31/18 at 21:30 Albuterol (Proventil 0.083% (Neb)) 2.5 mg Q2H RESP THERAPY PRN NEB SHORTNESS OF BREATH Last administered on 11/04/18 00:44; Admin Dose 2.5 MG; Start 10/31/18 at 21:30 Acetaminophen (Tylenol Liquid) 650 mg Q6H PRN PO PAIN LEVEL 1-3 OR FEVER Last administered on 11/07/18 15:40; Admin Dose 650 MG; Start 10/31/18 at 21:30 Amlodipine Besylate (Norvasc) 5 mg BID PO Last administered on 11/13/18 09:54; Admin Dose 5 MG; Start 10/31/18 at 22:00 Benazepril HCl (Lotensin) 40 mg DAILY PO Last administered on 11/13/18 09:52; Admin Dose 40 MG; Start 11/01/18 at 09:00 Calcium Acetate (Phoslo) 667 mg WITH MEALS PO Last administered on 11/13/18 13:35; Admin Dose 667 MG; Start 11/01/18 at 08:00 Multivit/Ca Carb/ B Cmplx/FA/Prenat (Sharron-Ashley) 1 tab DAILY PO Last administe red on 11/13/18 09:49; Admin Dose 1 TAB; Start 11/01/18 at 09:00 Diagnostic Test (Pha) (Accu-Chek) 1 ea 02 XX Last administered on 11/12/18 01:32; Admin Dose 1 EA; Start 11/02/18 at 02:00 Insulin Aspart (Novolog Insulin Pen) NOVOLOG *MILD* ALGORI... Q4 SC Last administered on 6/10/19at 10:06; Admin Dose 1 UNIT; Start 11/01/18 at 13:00 Sevelamer Carbonate (Renvela) 0.8 gm WITH MEALS PO Last administered on 11/13/18at 13:35; Admin Dose 0.8 GM; Start 11/01/18 at 18:00 Miscellaneous Information 1 ea NOTE XX ; Start 11/02/18 at 17:00 Glucose (Glutose) 15 gm Q15M PRN PO DECREASED GLUCOSE; Start 11/02/18 at 17:00 Glucose (Glutose) 22.5 gm Q15M PRN PO DECREASED GLUCOSE; Start 11/02/18 at 17:00 Dextrose (D50w Syringe) 25 ml Q15M PRN IV DECREASED GLUCOSE; Start 11/02/18 at 17:00 Dextrose (D50w Syringe) 50 ml Q15M PRN IV DECREASED GLUCOSE; Start 11/02/18 at 17:00 Glucagon (Glucagen) 1 mg Q15M PRN IM DECREASED GLUCOSE; Start 11/02/18 at 17:00 Glucose (Glutose) 15 gm Q15M PRN BUCCAL DECREASED GLUCOSE; Start 11/02/18 at 17:00 Albumin Human 100 ml @ 100 mls/hr WITH DIALYSIS PRN IV SBP <90 DURING DIALYSIS; Start 11/03/18 at 08:30 Epoetin Virgil-epbx (Retacrit (Esrd)) 6,000 unit TuThSa@1700 SC Last administered on 11/11/18at 18:04; Admin Dose 6,000 UNIT; Start 11/04/18 at 17:00 Levetiracetam 100 ml @ 400 mls/hr Q12 IVPB Last administered on 11/13/18at 09:46; Admin Dose 400 MLS/HR; Start 11/04/18 at 01:30 Lorazepam (Ativan) 1 mg Q5M PRN IV SEIZURES; Start 11/04/18 at 20:19 Morphine Sulfate (morphine) 2 mg Q4H PRN IV SEVERE PAIN LEVEL 7-10 Last administered on 11/12/18at 10:09; Admin Dose 2 MG; Start 11/06/18 at 13:30 Hydralazine HCl (Apresoline) 10 mg Q6H PRN IV For SBP >160 Last administered on 11/06/18at 15:48; Admin Dose 10 MG; Start 11/06/18 at 13:30 Midazolam HCl 50 ml @ 1 mls/hr TITRATE IV Last administered on 11/07/18 18:20; Admin Dose 1 MLS/HR; Start 11/07/18 at 18:00 Fentanyl 100 ml @ 2.5 mls/hr TITRATE IV Last administered on 11/07/18 18:21; Admin Dose 2.5 MLS/HR; Start 11/07/18 at 18:00 Carvedilol (Coreg) 12.5 mg BID PO Last administered on 11/13/18 09:50; Admin D ose 12.5 MG; Start 11/07/18 at 21:00 Clonidine (Catapres) 0.1 mg BID PO Last administered on 11/13/18 09:50; Admin Dose 0.1 MG; Start 11/07/18 at 21:00 Famotidine (Pepcid) 20 mg DAILY PO Last administered on 11/13/18 09:49; Admin Dose 20 MG; Start 11/09/18 at 09:00 Dexmedetomidine HCl 200 mcg/ Sodium Chloride 50 ml @ 3.16 mls/hr TITRATE IV Last administered on 11/09/18 10:03; Admin Dose 3.16 MLS/HR; Start 11/09/18 at 09:30 Polyethylene Glycol (Miralax) 17 gm DAILY PO Last administered on 11/13/18 09:49; Admin Dose 17 GM; Start 11/09/18 at 13:00 CORBIN TAY MD Nov 13, 2018 15:26
[2018-11-14] VITALS (45 sets, daily range): BP systolic 99–145; BP diastolic 22–85; PULSE 63–74; RESP 9–19
[2018-11-14] MEDS: ACCU-CHEK XX SCH (02:45)
[2018-11-14] MEDS ORDERED: INSULIN ASPART [NOVOLOG] 3 ML PEN SC ONE (03:00)
[2018-11-14] MEDS: AMLODIPINE 5 MG TAB PO SCH ×2 (09:00→20:58)
[2018-11-14] MEDS: MULTIVIT/CA CARB/B CMPLX/FA TAB PO SCH (09:11)
[2018-11-14] MEDS: SEVELAMER CARBONATE 0.8 GM PKT PO SCH ×3 (09:11→18:40)
[2018-11-14] MEDS: FAMOTIDINE 20 MG TAB PO SCH (09:11)
[2018-11-14] MEDS: LEVETIRACETAM 500 MG (PMX) 100 ML IVPB SCH ×2 (09:11→20:57)
[2018-11-14] MEDS: CALCIUM ACETATE 667 MG CAP PO SCH ×3 (09:11→18:40)
[2018-11-14] MEDS: POLYETHYLENE GLYCOL 17 GM PACKET PO SCH (09:11)
--- NOTE | 2018-11-14 09:50 | CONS ---
Assessment/Plan Assessment/Plan Assessment/Plan (Daily) Ventilator setting; AC of 14, tidal volume 500, PEEP of 0, 30% FiO2. Assessment and recommendations; 1. Patient admitted with altered mental status due to bilateral subdural hematomas. Status post bilateral parietal craniotomy with interval removal of drains. 2. Right pleural effusion, status post thoracentesis with iatrogenic pneumothorax requiring chest tube placement on the right side. 3. Anemia and thrombocytopenia. 4. Chronic renal failure, dialysis dependent. 5. History of hypertension. 6. Patient on prophylactic seizure precautions. 7. Extremely poor weaning parameters from ventilator, patient is essentially apneic. Continue current supportive care. Patient will need to have a tracheostomy and PEG tube placement. Obtain follow-up chest x-ray, if there is no pneumothorax on the right side, chest tube can be removed. Prognosis appears poor. 35 minutes of critical care time was spent evaluating the patient. Consultation Date/Type/Reason Admit Date/Time October 31, 2018 at 21:18 Initial Consult Date 11/06/18 Type of Consult Pulmonary/critical care Patient condition is critical. Remains profoundly unresponsive. Patient however has remained hemodynamically stable. No untoward events reported. General exam; elderly male, orally intubated, unresponsive, currently in no distress. Requesting Provider: GERMAIN VASQUES Date/Time of Note DATE: 11/14/18 TIME: 09:47 24 HR Interval Summary Free Text/Dictation Patient's condition remains critical. Remains awake but noncommunicative. Patient however has remained hemodynamically stable. General exam; elderly male, orally intubated, awake but noncommunicative. Getting hemodialysis at bedside. Exam/Review of Systems Exam Vitals Vital Signs Date Temp Pulse Resp B/P (MAP) Pulse Ox O2 O2 Flow FiO2 Time Delivery Rate 11/14/18 67 09:20 11/14/18 17 134/42 100 Mechanical 09:17 (72) Ventilator T Tube 11/14/18 30 08:10 11/14/18 99.0 00:00 Intake and Output 11/13/18 11/13/18 11/14/18 1515:00 23:00 07:00 IntakeIntake Total 250 ml 30 ml 100 ml OutputOutput Total 0 ml 40 ml 80 ml BalanceBalance 250 ml -10 ml 20 ml Exam H EENT exam; supple neck, no JVD. No lymphadenopathy. Midline trachea. No thyromegaly. Orally intubated. Bilateral parietal scars are healing well. Patient has fair dentition. Pupils are small bilaterally. Chest exam; diminished but clear breath sounds. S1-S2 audible, no murmurs. Regular rhythm. Right-sided chest tube in place. No air leak seen in pleural VAC chamber. Abdomen exam; soft, no organomegaly. Scaphoid. Bowel sounds audible. Extremity exam; no edema. 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 Results Result Diagram: 11/14/18 0753 11/14/18 0753 Results 24hrs Laboratory Tests Test 11/13/18 10:00 11/13/18 13:30 11/13/18 17:51 11/13/18 21:42 Bedside Glucose 142 120 125 104 Test 11/14/18 02:47 11/14/18 07:53 Bedside Glucose 105 White Blood Count 9.5 Red Blood Count 3.35 L Hemoglobin 8.9 L Hematocrit 29.4 L Mean Corpuscular 87.8 Volume Mean Corpuscular 26.6 L Hemoglobin Mean Corpuscular 30.3 L Hemoglobin Concent Red Cell 17.2 H Distribution Width Platelet Count 176 Mean Platelet Volume 9.1 Immature 1.000 H Granulocytes % Neutrophils % 82.6 H Lymphocytes % 3.9 L Monocytes % 9.7 Eosinophils % 2.5 Basophils % 0.3 Nucleated Red Blood 0.0 Cells % Immature 0.090 H Granulocytes # Neutrophils # 7.8 H Lymphocytes # 0.4 L Monocytes # 0.9 Eosinophils # 0.2 Basophils # 0.0 Nucleated Red Blood 0.0 Cells # Sodium Level 140 Potassium Level 4.3 Chloride Level 102 Carbon Dioxide Level 29 Anion Gap 9 Blood Urea Nitrogen 54 H Creatinine 6.83 H Est Glomerular Filtrat Rate mL/min Glucose Level 119 Calcium Level 9.8 Phosphorus Level 4.3 Magnesium Level 2.5 Medications Medication Current Medications Ondansetron HCl (Zofran Inj) 4 mg Q6H PRN IV NAUSEA AND/OR VOMITING; Start 10/31/18 at 21:30 Albuterol (Proventil 0.083% (Neb)) 2.5 mg Q2H RESP THERAPY PRN NEB SHORTNESS OF BREATH Last administered on 11/04/18at 00:44; Admin Dose 2.5 MG; Start 10/31/18 at 21:30 Acetaminophen (Tylenol Liquid) 650 mg Q6H PRN PO PAIN LEVEL 1-3 OR FEVER Last administered on 11/07/18 15:40; Admin Dose 650 MG; Start 10/31/18 at 21:30 Amlodipine Besylate (Norvasc) 5 mg BID PO Last administered on 11/13/18 21:45; Admin Dose 5 MG; Start 10/31/18 at 22:00 Benazepril HCl (Lotensin) 40 mg DAILY PO Last administered on 11/13/18 09:52; Admin Dose 40 MG; Start 11/01/18 at 09:00 Calcium Acetate (Phoslo) 667 mg WITH MEALS PO Last administered on 11/14/18 09:11; Admin Dose 667 MG; Start 11/01/18 at 08:00 Multivit/Ca Carb/ B Cmplx/FA/Prenat (Sharron-Ashley) 1 tab DAILY PO Last administered on 11/14/18 09:11; Admin Dose 1 TAB; Start 11/01/18 at 09:00 Diagnostic Test (Pha) (Accu-Chek) 1 ea 02 XX Last administered on 11/14/18at 02:45; Admin Dose 1 EA; Start 11/02/18 at 02:00 Insulin Aspart (Novolog Insulin Pen) NOVOLOG *MILD* ALGORI... Q4 SC Last administered on 11/13/18 10:06; Admin Dose 1 UNIT; Start 11/01/18 at 13:00 Sevelamer Carbonate (Renvela) 0.8 gm WITH MEALS PO Last administered on 11/14/18 09:11; Admin Dose 0.8 GM; Start 11/01/18 at 18:00 Miscellaneous Information 1 ea NOTE XX ; Start 11/02/18 at 17:00 Glucose (Glutose) 15 gm Q15M PRN PO DECREASED GLUCOSE; Start 11/02/18 at 17:00 Glucose (Glutose) 22.5 gm Q15M PRN PO DECREASED GLUCOSE; Start 11/02/18 at 17:00 Dextrose (D50w Syringe) 25 ml Q15M PRN IV DECREASED GLUCOSE; Start 11/02/18 at 17:00 Dextrose (D50w Syringe) 50 ml Q15M PRN IV DECREASED GLUCOSE; Start 11/02/18 at 17:00 Glucagon (Glucagen) 1 mg Q15M PRN IM DECREASED GLUCOSE; Start 11/02/18 at 17:00 Glucose (Glutose) 15 gm Q15M PRN BUCCAL DECREASED GLUCOSE; Start 11/02/18 at 17:00 Albumin Human 100 ml @ 100 mls/hr WITH DIALYSIS PRN IV SBP <90 DURING DIALYSIS; Start 11/03/18 at 08:30 Epoetin Virgil-epbx (Retacrit (Esrd)) 6,000 unit TuThSa@1700 SC Last administered on 11/11/18 18:04; Admin Dose 6,000 UNIT; Start 11/04/18 at 17:00 Levetiracetam 100 ml @ 400 mls/hr Q12 IVPB Last administered on 11/14/18 09:11; Admin Dose 400 MLS/HR; Start 11/04/18 at 01:30 Lorazepam (Ativan) 1 mg Q5M PRN IV SEIZURES; Start 11/04/18 at 20:19 Morphine Sulfate (morphine) 2 mg Q4H PRN IV SEVERE PAIN LEVEL 7-10 Last administered on 11/12/18 10:09; Admin Dose 2 MG; Start 11/06/18 at 13:30 Hydralazine HCl (Apresoline) 10 mg Q6H PRN IV For SBP >160 Last administered on 11/06/18 15:48; Admin Dose 10 MG; Start 11/06/18 at 13:30 Midazolam HCl 50 ml @ 1 mls/hr TITRATE IV Last administered on 11/07/18 18:20; Admin Dose 1 MLS/HR; Start 11/07/18 at 18:00 Fentanyl 100 ml @ 2.5 mls/hr TITRATE IV Last administered on 11/07/18 18:21; Admin Dose 2.5 MLS/HR; Start 11/07/18 at 18:00 Carvedilol (Coreg) 12.5 mg BID PO Last administered on 11/13/18 21:44; Admin Dose 12.5 MG; Start 11/07/18 at 21:00 Clonidine (Catapres) 0.1 mg BID PO Last administered on 11/13/18 21:44; Admin Dose 0.1 MG; Start 11/07/18 at 21:00 Famotidine (Pepcid) 20 mg DAILY PO Last administered on 6/11/19at 09:11; Admin Dose 20 MG; Start 11/09/18 at 09:00 Dexmedetomidine HCl 200 mcg/ Sodium Chloride 50 ml @ 3.16 mls/hr TITRATE IV Last administered on 11/09/18 10:03; Admin Dose 3.16 MLS/HR; Start 11/09/18 at 09 :30 Polyethylene Glycol (Miralax) 17 gm DAILY PO Last administered on 11/14/18 09:11; Admin Dose 17 GM; Start 11/09/18 at 13:00 LIDIA ROSALES 11, 2019 09:50
[2018-11-14] MEDS: INSULIN ASPART [NOVOLOG] 3 ML PEN SC SCH ×4 (10:30→21:00)
--- NOTE | 2018-11-14 11:55 | CONS ---
Assessment/Plan Assessment/Plan Assessment/Plan (Recall) 78 yo M w/ afib on eliquis, and other comorbidities...who presented with progressive following repeated falls. Head CT revealed a R convexity SDH (and scattered SAH and IVH), for which he is under the care of neurosurgery. He was noted to have several clinical spells concerning for seizure in the days following admission, for which neurology is now consulted.. Repeat neuroimaging is notable for continued presence of R SDH and a L subdural fluid collection with L to R MLS. R SD drain is still in place. EEG is most notable for diffuse slowing. Now s/p L subdural drain placement on 11/09. P: Agree w/ Keppra as ordered for seizure ppx for now Ativan iv prn prolonged seizure (> 5 min) or cluster Hemorrhage management per neurosurgery Limit sedating medications where possible Other management and supportive care per primary Will follow clinically Consultation Date/Type/Reason Admit Date/Time October 31, 2018 at 21:18 Type of Consult Neurology Reason for Consultation seizures Requesting Provider: GERMAIN VASQUES Date/Time of Note DATE: 11/14/18 TIME: 11:54 24 HR Interval Summary Free Text/Dictation Continues icu care Exam/Review of Systems Exam Vitals Vital Signs Date Temp Pulse Resp B/P (MAP) Pulse Ox O2 O2 Flow FiO2 Time Delivery Rate 11/14/18 65 11:35 11/14/18 16 113/22 98 Mechanical 10:00 (52) Ventilator 11/14/18 30 09:30 11/14/18 97.9 08:00 Intake and Output 11/13/18 11/13/18 11/14/18 1515:00 23:00 07:00 IntakeIntake Total 250 ml 30 ml 110 ml OutputOutput Total 0 ml 40 ml 80 ml BalanceBalance 250 ml -10 ml 30 ml Exam PE: Gen Appearance: No Apparent Distress HEENT: Intubated Cardiovascular: Regular rate Abdomen: Soft Extremities: Dry, wrist mitts NE: The patient was obtunded and nonverbal. Cranial nerve examination was limited by mental status. Pupils were equal and reactive to light. There was no afferent pupillary defect. Funduscopic examination was limited. Face was grossly symmetric, w/ present corneal and cough reflexes. Tone was normal. Muscle bulk was normal. I did not see fasciculations. The patient moved his left hand spontaneously...and withdrew to noxious stimulation x 4. Coordination and gait testing was limited by mental status. Arm and leg reflexes were within normal limits and symmetric. Santana's sign was absent. Plantar responses were flexor. Results Result Diagram: 11/14/18 0753 11/14/18 0753 Results 24hrs Laboratory Tests Test 11/13/18 13:30 11/13/18 17:51 11/13/18 21:42 11/14/18 02:47 Bedside Glucose 120 125 104 105 Test 11/14/18 07:53 11/14/18 11:11 White Blood Count 9.5 Red Blood Count 3.35 L Hemoglobin 8.9 L Hematocrit 29.4 L Mean Corpuscular 87.8 Volume Mean Corpuscular 26.6 L Hemoglobin Mean Corpuscular 30.3 L Hemoglobin Concent Red Cell 17.2 H Distribution Width Platelet Count 176 Mean Platelet Volume 9.1 Immature 1.000 H Granulocytes % Neutrophils % 82.6 H Lymphocytes % 3.9 L Monocytes % 9.7 Eosinophils % 2.5 Basophils % 0.3 Nucleated Red Blood 0.0 Cells % Immature 0.090 H Granulocytes # Neutrophils # 7.8 H Lymphocytes # 0.4 L Monocytes # 0.9 Eosinophils # 0.2 Basophils # 0.0 Nucleated Red Blood 0.0 Cells # Sodium Level 140 Potassium Level 4.3 Chloride Level 102 Carbon Dioxide Level 29 Anion Gap 9 Blood Urea Nitrogen 54 H Creatinine 6.83 H Est Glomerular Filtrat Rate mL/min Glucose Level 119 Calcium Level 9.8 Phosphorus Level 4.3 Magnesium Level 2.5 Bedside Glucose 114 Medications Medication Current Medications Ondansetron HCl (Zofran Inj) 4 mg Q6H PRN IV NAUSEA AND/OR VOMITING; Start 10/31/18 at 21:30 Albuterol (Proventil 0.083% (Neb)) 2.5 mg Q2H RESP THERAPY PRN NEB SHORTNESS OF BREATH Last administered on 11/04/18at 00:44; Admin Dose 2.5 MG; Start 10/31/18 at 21:30 Acetaminophen (Tylenol Liquid) 650 mg Q6H PRN PO PAIN LEVEL 1-3 OR FEVER Last administered on 11/07/18at 15:40; Admin Dose 650 MG; Start 10/31/18 at 21:30 Amlodipine Besylate (Norvasc) 5 mg BID PO Last administered on 11/13/18 21:45; Admin Dose 5 MG; Start 10/31/18 at 22:00 Benazepril HCl (Lotensin) 40 mg DAILY PO Last administered on 11/13/18 09:52; Admin Dose 40 MG; Start 11/01/18 at 09:00 Calcium Acetate (Phoslo) 667 mg WITH MEALS PO Last administered on 11/14/18 09:11; Admin Dose 667 MG; Start 11/01/18 at 08:00 Multivit/Ca Carb/ B Cmplx/FA/Prenat (Sharron-Ashley) 1 tab DAILY PO Last administered on 11/14/18 09:11; Admin Dose 1 TAB; Start 11/01/18 at 09:00 Diagnostic Test (Pha) (Accu-Chek) 1 ea 02 XX Last administered on 11/14/18at 02 :45; Admin Dose 1 EA; Start 11/02/18 at 02:00 Insulin Aspart (Novolog Insulin Pen) NOVOLOG *MILD* ALGORI... Q4 SC Last administered on 11/13/18at 10:06; Admin Dose 1 UNIT; Start 11/01/18 at 13:00 Sevelamer Carbonate (Renvela) 0.8 gm WITH MEALS PO Last administered on 11/14/18 09:11; Admin Dose 0.8 GM; Start 11/01/18 at 18:00 Miscellaneous Information 1 ea NOTE XX ; Start 11/02/18 at 17:00 Glucose (Glutose) 15 gm Q15M PRN PO DECREASED GLUCOSE; Start 11/02/18 at 17:00 Glucose (Glutose) 22.5 gm Q15M PRN PO DECREASED GLUCOSE; Start 11/02/18 at 17:00 Dextrose (D50w Syringe) 25 ml Q15M PRN IV DECREASED GLUCOSE; Start 11/02/18 at 17:00 Dextrose (D50w Syringe) 50 ml Q15M PRN IV DECREASED GLUCOSE; Start 11/02/18 at 17:00 Glucagon (Glucagen) 1 mg Q15M PRN IM DECREASED GLUCOSE; Start 11/02/18 at 17:00 Glucose (Glutose) 15 gm Q15M PRN BUCCAL DECREASED GLUCOSE; Start 11/02/18 at 17:00 Albumin Human 100 ml @ 100 mls/hr WITH DIALYSIS PRN IV SBP <90 DURING DIALYSIS; Start 11/03/18 at 08:30 Epoetin Virgil-epbx (Retacrit (Esrd)) 6,000 unit TuThSa@1700 SC Last administered on 11/11/18 18:04; Admin Dose 6,000 UNIT; Start 11/04/18 at 17:00 Levetiracetam 100 ml @ 400 mls/hr Q12 IVPB Last administered on 11/14/18 09:11; Admin Dose 400 MLS/HR; Start 11/04/18 at 01:30 Lorazepam (Ativan) 1 mg Q5M PRN IV SEIZURES; Start 11/04/18 at 20:19 Morphine Sulfate (morphine) 2 mg Q4H PRN IV SEVERE PAIN LEVEL 7-10 Last administered on 11/12/18 10:09; Admin Dose 2 MG; Start 11/06/18 at 13:30 Hydralazine HCl (Apresoline) 10 mg Q6H PRN IV For SBP >160 Last administered on 11/06/18 15:48; Admin Dose 10 MG; Start 11/06/18 at 13:30 Midazolam HCl 50 ml @ 1 mls/hr TITRATE IV Last administered on 11/07/18 18:20; Admin Dose 1 MLS/HR; Start 11/07/18 at 18:00 Fentanyl 100 ml @ 2.5 mls/hr TITRATE IV Last administered on 11/07/18 18:21; Admin Dose 2.5 MLS/HR; Start 11/07/18 at 18:00 Carvedilol (Coreg) 12.5 mg BID PO Last administered on 11/13/18 21:44; Admin Dose 12.5 MG; Start 11/07/18 at 21:00 Clonidine (Catapres) 0.1 mg BID PO Last administered on 11/13/18 21:44; Admin Dose 0.1 MG; Start 11/07/18 at 21:00 Famotidine (Pepcid) 20 mg DAILY PO Last administered on 11/14/18 09:11; Admin Dose 20 MG; Start 11/09/18 at 09:00 Dexmedetomidine HCl 200 mcg/ Sodium Chloride 50 ml @ 3.16 mls/hr TITRATE IV Last administered on 6/6/19at 10:03; Admin Dose 3.16 MLS/HR; Start 11/09/18 at 09:30 Polyethylene Glycol (Miralax) 17 gm DAILY PO Last administered on 11/14/18at 09:11; Admin Dose 17 GM; Start 11/09/18 at 13:00 VALDEMAR VIEIRA 11, 2019 11:55
--- NOTE | 2018-11-14 12:40 | PN ---
Date/Time of Note Date/Time of Note DATE: 11/14/18 TIME: 12:34 Assessment/Plan VTE Prophylaxis Risk score (from Ns)>0 risk: 12 SCD applied (from Ns): Yes Pharmacological prophylaxis: NA/contraindicated Pharm contraindication: bleeding Lines/Catheters IV Catheter Type (from [facility] Central Line Central line still needed: Yes Urinary Cath still in place: No Assessment/Plan Assessment/Plan 78 yo M with a history of fall a few days prior to presentation who was brought in for confusion and is currently managed as follows: 1. Acute right subdural hematoma -Status post craniotomy and bur hole placement 11/06/18 and R ventriculost jerri drain -CT and MRI concerning for new left-sided subdural collection of fluid as well as residual hemorrhage. -s/p L sided drain placement 11/09/18 with f/u CT 11/10/18 showing improvement -further management per neurosurgery, drains remain in place -Likely the cause of patient's mental status. He is obtunded. 2. Ventilator dependent respiratory failure - Patient is apneic on CPAP trial. Again this is likely due to subdural hematoma. 3. Moderate to large right-sided pleural effusion -status post thoracentesis November 07, 2018 with drainage of 900 cc of fluid 4. Right-sided pneumothorax complicating thoracentesis -which has worsened and now patient is status post right-sided chest tube placement November 09/2019 -CXR showing improvement 5. Severe anemia, likely acute on chronic, exacerbated by acute blood loss from #1 with iron deficiency -Patient received 2 units of packed red cells upon arrival, hemoglobin has been stable since off anticoagulation and antiplatelet -ongoing IV iron replacement X 5 days 6. End-stage renal disease on hemodialysis Tuesday, , Tuesday 7. Diabetes mellitus -excellent control on current regimen 8. Paroxysmal atrial fibrillation -off all anticoagulation for now -slightly bradycardic, cardio managing 9. Hypertension -controlled 10. Aspiration pneumonitis -Maintained on empiric abx -Blood cultures remain negative to date 11. New-onset seizure secondary to #1 -Patient maintained on seizure prophylaxis with no further episodes so far -EEG no seizure activity 12. Recurrent falls status post recent fall 2 days ago -Patient will likely be quite debilitated by the end of this hospitalization and will probably require nursing facility placement for rehab 13. Tube feeds on hold for high stomach residuals -reglan q6h scheduled -no BM in about 2 days, will give miralax -monitor G-tube output, once reduced, resume tube feeds at slow rate Prophylaxis: No anticoagulation secondary to bleed Dispo: DNR/DNI. Plan for terminal extubation tomorrow and morphine gtt tomorrow when family is at bedside. Result Diagram: 11/14/18 0753 11/14/18 0753 Subjective 24 Hr Interval Summary Free Text/Dictation On CPAP trial, patient does not breathe spontaneously. Occasional eye opening. No following commands. Does not respond to painful stimuli. Spoke at length with two daughters and (albanian-speaking) at bedside. Exp lained that patient's mental status is probably due to brain bleed. It is very unlikely to improve. According to family, patient had previously expressed he does not want to be on prolonged life support. They will plan on terminal extubation. Tentative plan for tomorrow when family is at bedside. Discussed code status change to DNR, family agrees. Exam/Review of Systems Exam Vitals Vital Signs Date Temp Pulse Resp B/P (MAP) Pulse Ox O2 O2 Flow FiO2 Time Delivery Rate 11/14/18 66 11:50 11/14/18 16 113/22 98 Mechanical 10:00 (52) Ventilator 11/14/18 30 09:30 11/14/18 97.9 08:00 Intake and Output 11/13/18 11/13/18 11/14/18 1515:00 23:00 07:00 IntakeIntake Total 250 ml 30 ml 110 ml OutputOutput Total 0 ml 40 ml 80 ml BalanceBalance 250 ml -10 ml 30 ml Exam Constitutional: Frail appearing man supine in bed, unresponsive, intubated. HEENT: Healing incisions stapled on scalp. Drains out. Moist mucous membranes Neck: No lymphadenopathy Respiratory: clear to auscultation Chest: R chest tube in place with serous output Cardiovascular: regular rate and rhythm, no murmurs appreciated Gastrointestinal: soft; non distended Musculoskeletal: nl extremities to inspection Neuro: Nonresponsive to painful stimuli. Results Results 24hrs Laboratory Tests Test 11/13/18 13:30 11/13/18 17:51 11/13/18 21:42 11/14/18 02:47 Bedside Glucose 120 125 104 105 Test 11/14/18 07:53 11/14/18 11:11 White Blood Count 9.5 Red Blood Count 3.35 L Hemoglobin 8.9 L Hematocrit 29.4 L Mean Corpuscular 87.8 Volume Mean Corpuscular 26.6 L Hemoglobin Mean Corpuscular 30.3 L Hemoglobin Concent Red Cell 17.2 H Distribution Width Platelet Count 176 Mean Platelet Volume 9.1 Immature 1.000 H Granulocytes % Neutrophils % 82.6 H Lymphocytes % 3.9 L Monocytes % 9.7 Eosinophils % 2.5 Basophils % 0.3 Nucleated Red Blood 0.0 Cells % Immature 0.090 H Granulocytes # Neutrophils # 7.8 H Lymphocytes # 0.4 L Monocytes # 0.9 Eosinophils # 0.2 Basophils # 0.0 Nucleated Red Blood 0.0 Cells # Sodium Level 140 Potassium Level 4.3 Chloride Level 102 Carbon Dioxide Level 29 Anion Gap 9 Blood Urea Nitrogen 54 H Creatinine 6.83 H Est Glomerular Filtrat Rate mL/min Glucose Level 119 Calcium Level 9.8 Phosphorus Level 4.3 Magnesium Level 2.5 Bedside Glucose 114 Medications Medication Current Medications Ondansetron HCl (Zofran Inj) 4 mg Q6H PRN IV NAUSEA AND/OR VOMITING; Start 10/31/18 at 21:30 Albuterol (Proventil 0.083% (Neb)) 2.5 mg Q2H RESP THERAPY PRN NEB SHORTNESS OF BREATH Last administered on 11/04/18at 00:44; Admin Dose 2.5 MG; Start 10/31/18 at 21:30 Acetaminophen (Tylenol Liquid) 650 mg Q6H PRN PO PAIN LEVEL 1-3 OR FEVER Last administered on 11/07/18at 15:40; Admin Dose 650 MG; Start 10/31/18 at 21:30 Amlodipine Besylate (Norvasc) 5 mg BID PO Last administered on 11/13/18 21:45; Admin Dose 5 MG; Start 10/31/18 at 22:00 Benazepril HCl (Lotensin) 40 mg DAILY PO Last administered on 11/13/18 09:52; Admin Dose 40 MG; Start 11/01/18 at 09:00 Calcium Acetate (Phoslo) 667 mg WITH MEALS PO Last administered on 11/14/18 09:11; Admin Dose 667 MG; Start 11/01/18 at 08:00 Multivit/Ca Carb/ B Cmplx/FA/Prenat (Sharron-Ashley) 1 tab DAILY PO Last administered on 11/14/18 09:11; Admin Dose 1 TAB; Start 11/01/18 at 09:00 Diagnostic Test (Pha) (Accu-Chek) 1 ea 02 XX Last administered on 11/14/18at 02:45; Admin Dose 1 EA; Start 11/02/18 at 02:00 Insulin Aspart (Novolog Insulin Pen) NOVOLOG *MILD* ALGORI... Q4 SC Last administered on 11/13/18at 10:06; Admin Dose 1 UNIT; Start 11/01/18 at 13:00 Sevelamer Carbonate (Renvela) 0.8 gm WITH MEALS PO Last administered on 11/14/18 09:11; Admin Dose 0.8 GM; Start 11/01/18 at 18:00 Miscellaneous Information 1 ea NOTE XX ; Start 11/02/18 at 17:00 Glucose (Glutose) 15 gm Q15M PRN PO DECREASED GLUCOSE; Start 11/02/18 at 17:00 Glucose (Glutose) 22.5 gm Q15M PRN PO DECREASED GLUCOSE; Start 11/02/18 at 17:00 Dextrose (D50w Syringe) 25 ml Q15M PRN IV DECREASED GLUCOSE; Start 11/02/18 at 17:00 Dextrose (D50w Syringe) 50 ml Q15M PRN IV DECREASED GLUCOSE; Start 11/02/18 at 17:00 Glucagon (Glucagen) 1 mg Q15M PRN IM DECREASED GLUCOSE; Start 11/02/18 at 17:00 Glucose (Glutose) 15 gm Q15M PRN BUCCAL DECREASED GLUCOSE; Start 11/02/18 at 17:00 Albumin Human 100 ml @ 100 mls/hr WITH DIALYSIS PRN IV SBP <90 DURING DIALYSIS; Start 11/03/18 at 08:30 Epoetin Virgil-epbx (Retacrit (Esrd)) 6,000 unit TuThSa@1700 SC Last administered on 11/11/18at 18:04; Admin Dose 6,000 UNIT; Start 11/04/18 at 17:00 Levetiracetam 100 ml @ 400 mls/hr Q12 IVPB Last administered on 11/14/18at 09:11; Admin Dose 400 MLS/HR; Start 11/04/18 at 01:30 Lorazepam (Ativan) 1 mg Q5M PRN IV SEIZURES; Start 11/04/18 at 20:19 Morphine Sulfate (morphine) 2 mg Q4H PRN IV SEVERE PAIN LEVEL 7-10 Last administered on 11/12/18 10:09; Admin Dose 2 MG; Start 11/06/18 at 13:30 Hydralazine HCl (Apresoline) 10 mg Q6H PRN IV For SBP >160 Last administered on 11/06/18 15:48; Admin Dose 10 MG; Start 11/06/18 at 13:30 Midazolam HCl 50 ml @ 1 mls/hr TITRATE IV Last administered on 11/07/18 18:20; Admin Dose 1 MLS/HR; Start 11/07/18 at 18:00 Fentanyl 100 ml @ 2.5 mls/hr TITRATE IV Last administered on 11/07/18 18:21; Admin Dose 2.5 MLS/HR; Start 11/07/18 at 18:00 Carvedilol (Coreg) 12.5 mg BID PO Last administered on 11/13/18 21:44; Admin Dose 12.5 MG; Start 11/07/18 at 21:00 Clonidine (Catapres) 0.1 mg BID PO Last administered on 11/13/18 21:44; Admin Dose 0.1 MG; Start 11/07/18 at 21:00 Famotidine (Pepcid) 20 mg DAILY PO Last administered on 11/14/18 09:11; Admin Dose 20 MG; Start 11/09/18 at 09:00 Dexmedetomidine HCl 200 mcg/ Sodium Chloride 50 ml @ 3.16 mls/hr TITRATE IV Last administered on 11/09/18 10:03; Admin Dose 3.16 MLS/HR; Start 11/09/18 at 09:30 Polyethylene Glycol (Miralax) 17 gm DAILY PO Last administered on 11/14/18 09:11; Admin Dose 17 GM; Start 11/09/18 at 13:00 CORBIN TAY MD Nov 14, 2018 12:40
[2018-11-14] MEDS: BENAZEPRIL 40 MG TAB PO SCH (13:34)
--- NOTE | 2018-11-14 13:42 | CONS ---
Assessment/Plan Assessment/Plan Hospital Course (Demo Recall) Traumatic SDH: in setting of Eliquis. Now s/p cuong hole evacuation 11/06. s/p left subdural drain 11/09. 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 Now both resolved and normal EF Paroxysmal atrial flutter/fibrillation: CHADSVASC 5 and was on Eliquis outpt but now s/p fall with ICH as above so on hold Aspiration PNA Pleural effusion: s/p thora 11/07 c/b pneumothorax s/p chest tube 11/09 Thrombocytopenia Anemia: ?from ICH. s/p 2 units ESRD on HD HTN -unfortunately no improvement in mentation and plan is for terminal extubation and comfort care -should his condition change or family change their mind, please dont hesitate to call with questions or concerns Consultation Date/Type/Reason Admit Date/Time October 31, 2018 at 21:18 Initial Consult Date 11/06/18 Type of Consult Cardiology Requesting Provider: GERMAIN VASQUES Date/Time of Note DATE: 11/14/18 TIME: 13:41 24 HR Interval Summary Free Text/Dictation No events. No improvement in mentation. Family plans for terminal extubation and comfort care tomorrow. Exam/Review of Systems Vital Signs Vitals Vital Signs Date Temp Pulse Resp B/P (MAP) Pulse Ox O2 O2 Flow FiO2 Time Delivery Rate 11/14/18 64 12:00 11/14/18 16 113/22 98 Mechanical 10:00 (52) Ventilator 11/14/18 30 09:30 11/14/18 97.9 08:00 Intake and Output 11/13/18 11/13/18 11/14/18 1515:00 23:00 07:00 IntakeIntake Total 250 ml 30 ml 110 ml OutputOutput Total 0 ml 40 ml 80 ml BalanceBalance 250 ml -10 ml 30 ml Exam Constitutional: No alert, No oriented ENMT: intubated Neck: supple; No jvd Respiratory: diminished breath sounds; No clear to auscultation Gastrointestinal: soft; No distended Neurological: No nl mental status, No nl speech Labs Result Diagram: 11/14/18 0753 11/14/18 0753 Results 24hrs Laboratory Tests Test 11/13/18 17:51 11/13/18 21:42 11/14/18 02:47 11/14/18 07:53 Bedside Glucose 125 104 105 White Blood Count 9.5 Red Blood Count 3.35 L Hemoglobin 8.9 L Hematocrit 29.4 L Mean Corpuscular 87.8 Volume Mean Corpuscular 26.6 L Hemoglobin Mean Corpuscular 30.3 L Hemoglobin Concent Red Cell 17.2 H Distribution Width Platelet Count 176 Mean Platelet Volume 9.1 Immature 1.000 H Granulocytes % Neutrophils % 82.6 H Lymphocytes % 3.9 L Monocytes % 9.7 Eosinophils % 2.5 Basophils % 0.3 Nucleated Red Blood 0.0 Cells % Immature 0.090 H Granulocytes # Neutrophils # 7.8 H Lymphocytes # 0.4 L Monocytes # 0.9 Eosinophils # 0.2 Basophils # 0.0 Nucleated Red Blood 0.0 Cells # Sodium Level 140 Potassium Level 4.3 Chloride Level 102 Carbon Dioxide Level 29 Anion Gap 9 Blood Urea Nitrogen 54 H Creatinine 6.83 H Est Glomerular Filtrat Rate mL/min Glucose Level 119 Calcium Level 9.8 Phosphorus Level 4.3 Magnesium Level 2.5 Test 11/14/18 11:11 11/14/18 13:30 Bedside Glucose 114 117 Medications Medications Current Medications Ondansetron HCl (Zofran Inj) 4 mg Q6H PRN IV NAUSEA AND/OR VOMITING; Start 10/31/18 at 21:30 Albuterol (Proventil 0.083% (Neb)) 2.5 mg Q2H RESP THERAPY PRN NEB SHORTNESS OF BREATH Last administered on 11/04/18at 00:44; Admin Dose 2.5 MG; Start 10/31/18 at 21:30 Acetaminophen (Tylenol Liquid) 650 mg Q6H PRN PO PAIN LEVEL 1-3 OR FEVER Last administered on 11/07/18at 15:40; Admin Dose 650 MG; Start 10/31/18 at 21:30 Amlodipine Besylate (Norvasc) 5 mg BID PO Last administered on 11/13/18at 21:45; Admin Dose 5 MG; Start 10/31/18 at 22:00 Benazepril HCl (Lotensin) 40 mg DAILY PO Last administered on 11/14/18at 13:34; Admin Dose 40 MG; Start 11/01/18 at 09:00 Calcium Acetate (Phoslo) 667 mg WITH MEALS PO Last administered on 11/14/18at 13:33; Admin Dose 667 MG; Start 11/01/18 at 08:00 Multivit/Ca Carb/ B Cmplx/FA/Prenat (Sharron-Ashley) 1 tab DAILY PO Last administered on 11/14/18at 09:11; Admin Dose 1 TAB; Start 11/01/18 at 09:00 Diagnostic Test (Pha) (Accu-Chek) 1 ea 02 XX Last administered on 11/14/18at 02:45; Admin Dose 1 EA; Start 11/02/18 at 02:00 Insulin Aspart (Novolog Insulin Pen) NOVOLOG *MILD* ALGORI... Q4 SC Last administered on 11/13/18at 10:06; Admin Dose 1 UNIT; Start 11/01/18 at 13:00 Sevelamer Carbonate (Renvela) 0.8 gm WITH MEALS PO Last administered on 11/14/18at 13:32; Admin Dose 0.8 GM; Start 11/01/18 at 18:00 Miscellaneous Information 1 ea NOTE XX ; Start 11/02/18 at 17:00 Glucose (Glutose) 15 gm Q15M PRN PO DECREASED GLUCOSE; Start 11/02/18 at 17:00 Glucose (Glutose) 22.5 gm Q15M PRN PO DECREASED GLUCOSE; Start 11/02/18 at 17:00 Dextrose (D50w Syringe) 25 ml Q15M PRN IV DECREASED GLUCOSE; Start 11/02/18 at 17:00 Dextrose (D50w Syringe) 50 ml Q15M PRN IV DECREASED GLUCOSE; Start 11/02/18 at 17:00 Glucagon (Glucagen) 1 mg Q15M PRN IM DECREASED GLUCOSE; Start 11/02/18 at 17:00 Glucose (Glutose) 15 gm Q15M PRN BUCCAL DECREASED GLUCOSE; Start 11/02/18 at 17:00 Albumin Human 100 ml @ 100 mls/hr WITH DIALYSIS PRN IV SBP <90 DURING DIALYSIS; Start 11/03/18 at 08:30 Epoetin Virgil-epbx (Retacrit (Esrd)) 6,000 unit TuThSa@1700 SC Last administered on 11/11/18at 18:04; Admin Dose 6,000 UNIT; Start 11/04/18 at 17:00 Levetiracetam 100 ml @ 400 mls/hr Q12 IVPB Last administered on 11/14/18 09:11; Admin Dose 400 MLS/HR; Start 11/04/18 at 01:30 Lorazepam (Ativan) 1 mg Q5M PRN IV SEIZURES; Start 11/04/18 at 20:19 Morphine Sulfate (morphine) 2 mg Q4H PRN IV SEVERE PAIN LEVEL 7-10 Last administered on 11/12/18 10:09; Admin Dose 2 MG; Start 11/06/18 at 13:30 Hydralazine HCl (Apresoline) 10 mg Q6H PRN IV For SBP >160 Last administered on 11/06/18 15:48; Admin Dose 10 MG; Start 11/06/18 at 13:30 Midazolam HCl 50 ml @ 1 mls/hr TITRATE IV Last administered on 11/07/18 18:20; Admin Dose 1 MLS/HR; Start 11/07/18 at 18:00 Fentanyl 100 ml @ 2.5 mls/hr TITRATE IV Last administered on 11/07/18 18:21; Admin Dose 2.5 MLS/HR; Start 11/07/18 at 18:00 Carvedilol (Coreg) 12.5 mg BID PO Last administered on 11/14/18 13:33; Admin Dose 12.5 MG; Start 11/07/18 at 21:00 Clonidine (Catapres) 0.1 mg BID PO Last administered on 11/14/18 13:34; Admin Dose 0.1 MG; Start 11/07/18 at 21:00 Famotidine (Pepcid) 20 mg DAILY PO Last administered on 11/14/18 09:11; Admin Dose 20 MG; Start 11/09/18 at 09:00 Dexmedetomidine HCl 200 mcg/ Sodium Chloride 50 ml @ 3.16 mls/hr TITRATE IV Last administered on 11/09/18 10:03; Admin Dose 3.16 MLS/HR; Start 11/09/18 at 09:30 Polyethylene Glycol (Miralax) 17 gm DAILY PO Last administered on 11/14/18 09:11; Admin Dose 17 GM; Start 11/09/18 at 13:00 WAYNE CARUSO Nov 14, 2018 13:42
--- NOTE | 2018-11-14 18:07 | CONS ---
Assessment/Plan Assessment/Plan Assessment/Plan (Daily) 1. End-stage renal disease on HD - s/p HD today 2.1 L removed, pt regular schedule for HD is TTS , AVF for HD access . 3. Hypertension. Continue current blood pressure regimen. Continue ultrafil tration with dialysis. 3. Subdural hematoma, S/p Craniotomy and burhole placement by on 10/06/18- Post op care as per Neurosurgery, Drainage tube in place , MRI brain done 4. Post op pulmonary insufficiency INtubated on ventilator - weaning plan as per pulmonary 4. Anemia of ESRD, s/p 2 unit PRBC tansfusion during this admission 5. Mineral bone disorder. Monitor calcium and phosphorus levels. 7. Diabetes. Continue current insulin regimen. 8. Paroxysmal atrial fibrillation. Continue medical management. 9. Gastrointestinal and deep vein thrombosis prophylaxis Consultation Date/Type/Reason Admit Date/Time October 31, 2018 at 21:18 Initial Consult Date 11/01/18 Requesting Provider: GERMAIN VASQUES Date/Time of Note DATE: 11/14/18 TIME: 18:07 Exam/Review of Systems Exam Vitals Vital Signs Date Temp Pulse Resp B/P (MAP) Pulse Ox O2 O2 Flow FiO2 Time Delivery Rate 11/14/18 63 16 123/42 100 Mechanical 17:00 (69) Ventilator 11/14/18 97.6 16:00 11/14/18 30 15:23 Intake and Output 11/13/18 11/13/18 11/14/18 1515:00 23:00 07:00 IntakeIntake Total 250 ml 30 ml 110 ml OutputOutput Total 0 ml 40 ml 80 ml BalanceBalance 250 ml -10 ml 30 ml Exam GENERAL: orally intubated with ventriculostomy in place. NECK: Supple. no JVD HEART: S1 S2 RRR , no murmur CHEST: Diminished air entry right base greater than left ABDOMEN: Soft, nontender. No guarding or rebound. EXTREMITIES: No cyanosis, clubbing or edema. NEUROLOGIC: unable to assess due to clinical condition Results Result Diagram: 11/14/18 0753 11/14/18 0753 Results 24hrs Laboratory Tests Test 11/13/18 21:42 11/14/18 02:47 11/14/18 07:53 11/14/18 11:11 Bedside Glucose 104 105 114 White Blood Count 9.5 Red Blood Count 3.35 L Hemoglobin 8.9 L Hematocrit 29.4 L Mean Corpuscular 87.8 Volume Mean Corpuscular 26.6 L Hemoglobin Mean Corpuscular 30.3 L Hemoglobin Concent Red Cell 17.2 H Distribution Width Platelet Count 176 Mean Platelet Volume 9.1 Immature 1.000 H Granulocytes % Neutrophils % 82.6 H Lymphocytes % 3.9 L Monocytes % 9.7 Eosinophils % 2.5 Basophils % 0.3 Nucleated Red Blood 0.0 Cells % Immature 0.090 H Granulocytes # Neutrophils # 7.8 H Lymphocytes # 0.4 L Monocytes # 0.9 Eosinophils # 0.2 Basophils # 0.0 Nucleated Red Blood 0.0 Cells # Sodium Level 140 Potassium Level 4.3 Chloride Level 102 Carbon Dioxide Level 29 Anion Gap 9 Blood Urea Nitrogen 54 H Creatinine 6.83 H Est Glomerular Filtrat Rate mL/min Glucose Level 119 Calcium Level 9.8 Phosphorus Level 4.3 Magnesium Level 2.5 Test 11/14/18 13:30 Bedside Glucose 117 Medications Medication Current Medications Ondansetron HCl (Zofran Inj) 4 mg Q6H PRN IV NAUSEA AND/OR VOMITING; Start 10/31/18 at 21:30 Albuterol (Proventil 0.083% (Neb)) 2.5 mg Q2H RESP THERAPY PRN NEB SHORTNESS OF BREATH Last administered on 11/04/18at 00:44; Admin Dose 2.5 MG; Start 10/31/18 at 21:30 Acetaminophen (Tylenol Liquid) 650 mg Q6H PRN PO PAIN LEVEL 1-3 OR FEVER Last administered on 11/07/18at 15:40; Admin Dose 650 MG; Start 10/31/18 at 21:30 Amlodipine Besylate (Norvasc) 5 mg BID PO Last administered on 11/13/18 21:45; Admin Dose 5 MG; Start 10/31/18 at 22:00 Benazepril HCl (Lotensin) 40 mg DAILY PO Last administered on 11/14/18 13:34; Admin Dose 40 MG; Start 11/01/18 at 09:00 Calcium Acetate (Phoslo) 667 mg WITH MEALS PO Last administered on 11/14/18 13:33; Admin Dose 667 MG; Start 11/01/18 at 08:00 Multivit/Ca Carb/ B Cmplx/FA/Prenat (Sharron-Ashley) 1 tab DAILY PO Last administered on 11/14/18at 09:11; Admin Dose 1 TAB; Start 11/01/18 at 09:00 Diagnostic Test (Pha) (Accu-Chek) 1 ea 02 XX Last administered on 11/14/18at 02:45; Admin Dose 1 EA; Start 11/02/18 at 02:00 Insulin Aspart (Novolog Insulin Pen) NOVOLOG *MILD* ALGORI... Q4 SC Last administered on 11/13/18at 10:06; Admin Dose 1 UNIT; Start 11/01/18 at 13:00 Sevelamer Carbonate (Renvela) 0.8 gm WITH MEALS PO Last administered on 11/14/18at 13:32; Admin Dose 0.8 GM; Start 11/01/18 at 18:00 Miscellaneous Information 1 ea NOTE XX ; Start 11/02/18 at 17:00 Glucose (Glutose) 15 gm Q15M PRN PO DECREASED GLUCOSE; Start 11/02/18 at 17:00 Glucose (Glutose) 22.5 gm Q15M PRN PO DECREASED GLUCOSE; Start 11/02/18 at 17:00 Dextrose (D50w Syringe) 25 ml Q15M PRN IV DECREASED GLUCOSE; Start 11/02/18 at 17:00 Dextrose (D50w Syringe) 50 ml Q15M PRN IV DECREASED GLUCOSE; Start 11/02/18 at 17:00 Glucagon (Glucagen) 1 mg Q15M PRN IM DECREASED GLUCOSE; Start 11/02/18 at 17:00 Glucose (Glutose) 15 gm Q15M PRN BUCCAL DECREASED GLUCOSE; Start 11/02/18 at 17:00 Albumin Human 100 ml @ 100 mls/hr WITH DIALYSIS PRN IV SBP <90 DURING DIALYSIS; Start 11/03/18 at 08:30 Epoetin Virgil-epbx (Retacrit (Esrd)) 6,000 unit TuThSa@1700 SC Last administered on 11/11/18at 18:04; Admin Dose 6,000 UNIT; Start 11/04/18 at 17:00 Levetiracetam 100 ml @ 400 mls/hr Q12 IVPB Last administered on 11/14/18at 09:11; Admin Dose 400 MLS/HR; Start 11/04/18 at 01:30 Lorazepam (Ativan) 1 mg Q5M PRN IV SEIZURES; Start 11/04/18 at 20:19 Morphine Sulfate (morphine) 2 mg Q4H PRN IV SEVERE PAIN LEVEL 7-10 Last administered on 11/12/18 10:09; Admin Dose 2 MG; Start 11/06/18 at 13:30 Hydralazine HCl (Apresoline) 10 mg Q6H PRN IV For SBP >160 Last administered on 11/06/18 15:48; Admin Dose 10 MG; Start 11/06/18 at 13:30 Midazolam HCl 50 ml @ 1 mls/hr TITRATE IV Last administered on 11/07/18 18:20; Admin Dose 1 MLS/HR; Start 11/07/18 at 18:00 Fentanyl 100 ml @ 2.5 mls/hr TITRATE IV Last administered on 11/07/18 18:21; Admin Dose 2.5 MLS/HR; Start 11/07/18 at 18:00 Carvedilol (Coreg) 12.5 mg BID PO Last administered on 11/14/18 13:33; Admin Dose 12.5 MG; Start 11/07/18 at 21:00 Clonidine (Catapres) 0.1 mg BID PO Last administered on 11/14/18 13:34; Admin Dose 0.1 MG; Start 11/07/18 at 21:00 Famotidine (Pepcid) 20 mg DAILY PO Last administered on 11/14/18 09:11; Admin Dose 20 MG; Start 11/09/18 at 09:00 Dexmedetomidine HCl 200 mcg/ Sodium Chloride 50 ml @ 3.16 mls/hr TITRATE IV Last administered on 11/09/18 10:03; Admin Dose 3.16 MLS/HR; Start 11/09/18 at 09:30 Polyethylene Glycol (Miralax) 17 gm DAILY PO Last administered on 11/14/18 09:11; Admin Dose 17 GM; Start 11/09/18 at 13:00 SAUD CHANDLER MD Nov 14, 2018 18:07
[2018-11-14] MEDS: EPOETIN ALFA-EPBX (ESRD) 3,000 UNIT/ML VIAL SC SCH (18:42)
[2018-11-14] MEDS: morphine 2 MG INJ IV PRN (19:36)
[2018-11-15] VITALS (40 sets, daily range): BP systolic 115–147; BP diastolic 42–72; PULSE 0–90; RESP 0–28
[2018-11-15] MEDS: INSULIN ASPART [NOVOLOG] 3 ML PEN SC SCH ×4 (01:00→13:00)
[2018-11-15] MEDS: morphine 2 MG INJ IV PRN ×2 (01:16→13:18)
[2018-11-15] MEDS: ACCU-CHEK XX SCH (01:16)
--- NOTE | 2018-11-15 09:45 | CONS ---
Assessment/Plan Assessment/Plan Assessment/Plan (Daily) Ventilator setting; AC of 14, tidal volume 500, PEEP of 5, 30% FiO2. Assessment and recommendations; 1. Patient admitted with bilateral subdural hemorrhages with extremely poor mental status. 2. Status post bilateral parietal craniotomy with interval removal of drains. 3. Anemia and thrombocytopenia. 4. History of hypertension. 5. Right pleural effusion, status post thoracentesis with resulting pneumothorax requiring chest tube placement. 6. End-stage renal disease, on hemodialysis. Continue current supportive care. Patient's family has decided for terminal extubation this afternoon. Prognosis is extremely poor. Consultation Date/Type/Reason Admit Date/Time October 31, 2018 at 21:18 Initial Consult Date 11/06/18 Type of Consult Pulmonary/critical care Patient condition is critical. Remains profoundly unresponsive. Patient however has remained hemodynamically stable. No untoward events reported. General exam; elderly male, orally intubated, unresponsive, currently in no distress. Requesting Provider: GERMAIN VASQUES Date/Time of Note DATE: 11/15/18 TIME: 09:43 24 HR Interval Summary Free Text/Dictation Patient's condition is critical. Remains essentially noncommunicative. Patient however has remained hemodynamically stable. No overt seizure activity reported. General exam; elderly male, orally intubated, awake but noncommunicative. Currently no distress. Exam/Review of Systems Exam Vitals Vital Signs Date Temp Pulse Resp B/P (MAP) Pulse Ox O2 O2 Flow FiO2 Time Delivery Rate 11/15/18 78 08:00 11/15/18 100.0 14 132/45 100 Mechan[place] 08:00 (74) l Ventilato r 11/15/18 30 08:00 Intake and Output 11/14/18 11/14/18 11/15/18 1515:00 23:00 07:00 IntakeIntake Total 160 ml 0 ml 0 ml OutputOutput Total 2530 ml 35 ml 35 ml BalanceBalance -2370 ml -35 ml -35 ml Exam H ENT exam; supple neck, no JVD. No lymphadenopathy. Midline trachea. No thyromegaly. Nasogastric tube in place. Pupils are small bilaterally. Orally intubated. Bilateral parietal scars are healing well. Chest exam; diminished but clear breath sounds. S1-S2 audible, no murmurs. Regular rhythm. Abdomen exam; soft, no organomegaly. Bowel sounds audible. Extremity exam; trace edema. EDUCATION MANAGER exam; patient opens eyes on sternal rubbing. Results Result Diagram: 11/14/18 0753 11/14/18 0753 Results 24hrs Laboratory Tests Test 11/14/18 11:11 11/14/18 13:30 11/14/18 18:39 11/14/18 20:59 Bedside Glucose 114 117 131 126 Test 11/15/18 01:09 11/15/18 05:23 Bedside Glucose 104 96 Medications Medication Current Medications Ondansetron HCl (Zofran Inj) 4 mg Q6H PRN IV NAUSEA AND/OR VOMITING; Start 10/31/18 at 21:30 Albuterol (Proventil 0.083% (Neb)) 2.5 mg Q2H RESP THERAPY PRN NEB SHORTNESS OF BREATH Last administered on 11/04/18 00:44; Admin Dose 2.5 MG; Start 10/31/18 at 21:30 Acetaminophen (Tylenol Liquid) 650 mg Q6H PRN PO PAIN LEVEL 1-3 OR FEVER Last administered on 11/07/18 15:40; Admin Dose 650 MG; Start 10/31/18 at 21:30 Amlodipine Besylate (Norvasc) 5 mg BID PO Last administered on 11/14/18 20:58; Admin Dose 5 MG; Start 10/31/18 at 22:00 Benazepril HCl (Lotensin) 40 mg DAILY PO Last administered on 11/14/18 13:34; Admin Dose 40 MG; Start 11/01/18 at 09:00 Calcium Acetate (Phoslo) 667 mg WITH MEALS PO Last administered on 11/14/18 18:40; Admin Dose 667 MG; Start 11/01/18 at 08:00 Multivit/Ca Carb/ B Cmplx/FA/Prenat (Sharron-Ashley) 1 tab DAILY PO Last administered on 11/14/18 09:11; Admin Dose 1 TAB; Start 11/01/18 at 09:00 Diagnostic Test (Pha) (Accu-Chek) 1 ea 02 XX Last administered on 11/15/18 01:16; Admin Dose 1 EA; Start 11/02/18 at 02:00 Insulin Aspart (Novolog Insulin Pen) NOVOLOG *MILD* ALGORI... Q4 SC Last administered on 11/13/18at 10:06; Admin Dose 1 UNIT; Start 11/01/18 at 13:00 Sevelamer Carbonate (Renvela) 0.8 gm WITH MEALS PO Last administered on 11/14/18at 18:40; Admin Dose 0.8 GM; Start 11/01/18 at 18:00 Miscellaneous Information 1 ea NOTE XX ; Start 11/02/18 at 17:00 Glucose (Glutose) 15 gm Q15M PRN PO DECREASED GLUCOSE; Start 11/02/18 at 17:00 Glucose (Glutose) 22.5 gm Q15M PRN PO DECREASED GLUCOSE; Start 11/02/18 at 17:00 Dextrose (D50w Syringe) 25 ml Q15M PRN IV DECREASED GLUCOSE; Start 11/02/18 at 17:00 Dextrose (D50w Syringe) 50 ml Q15M PRN IV DECREASED GLUCOSE; Start 11/02/18 at 17:00 Glucagon (Glucagen) 1 mg Q15M PRN IM DECREASED GLUCOSE; Start 11/02/18 at 17:00 Glucose (Glutose) 15 gm Q15M PRN BUCCAL DECREASED GLUCOSE; Start 11/02/18 at 17:00 Albumin Human 100 ml @ 100 mls/hr WITH DIALYSIS PRN IV SBP <90 DURING DIALYSIS; Start 11/03/18 at 08:30 Epoetin Virgil-epbx (Retacrit (Esrd)) 6,000 unit TuThSa@1700 SC Last administered on 11/14/18at 18:42; Admin Dose 6,000 UNIT; Start 11/04/18 at 17:00 Levetiracetam 100 ml @ 400 mls/hr Q12 IVPB Last administered on 11/14/18at 20:57; Admin Dose 400 MLS/HR; Start 11/04/18 at 01:30 Lorazepam (Ativan) 1 mg Q5M PRN IV SEIZURES; Start 11/04/18 at 20:19 Morphine Sulfate (morphine) 2 mg Q4H PRN IV SEVERE PAIN LEVEL 7-10 Last administered on 11/15/18at 01:16; Admin Dose 2 MG; Start 11/06/18 at 13:30 Hydralazine HCl (Apresoline) 10 mg Q6H PRN IV For SBP >160 Last administered on 11/06/18at 15:48; Admin Dose 10 MG; Start 11/06/18 at 13:30 Carvedilol (Coreg) 12.5 mg BID PO Last administered on 11/14/18 20:59; Admin Dose 12.5 MG; Start 11/07/18 at 21:00 Clonidine (Catapres) 0.1 mg BID PO Last administered on 11/14/18 20:58; Admin Dose 0.1 MG; Start 11/07/18 at 21:00 Famotidine (Pepcid) 20 mg DAILY PO Last administered on 11/14/18 09:11; Admin Dose 20 MG; Start 11/09/18 at 09:00 Dexmedetomidine HCl 200 mcg/ Sodium Chloride 50 ml @ 3.16 mls/hr TITRATE IV Last administered on 11/09/18 10:03; Admin Dose 3.16 MLS/HR; Start 11/09/18 at 09:30 Polyethylene Glycol (Miralax) 17 gm DAILY PO Last administered on 11/14/18 09:11; Admin Dose 17 GM; Start 11/09/18 at 13:00 Morphine Sulfate/ Sodium Chloride 100 ml @ 1 mls/hr TITRATE IV ; Start 11/15/18 at 13:00 LIDIA ROSALES 12, 2019 09:45
--- NOTE | 2018-11-15 09:56 | CONS ---
Assessment/Plan Assessment/Plan Assessment/Plan (Daily) 1. End-stage renal disease on HD - s/p HD today 2.1 L removed, pt regular schedule for HD is TTS , AVF for HD access . pt is not doing well, after having discussion with family , pt is made comfort measures, Morphine gtt started 3. Hypertension. Continue current blood pressure regimen. Continue ultrafiltration with dialysis. 3. Subdural hematoma, S/p Craniotomy and burhole placement by on 10/06/18- Post op care as per Neurosurgery, Drainage tube in place , MRI brain done 4. Post op pulmonary insufficiency INtubated on ventilator - weaning plan as per pulmonary 4. Anemia of ESRD, s/p 2 unit PRBC tansfusion during this admission 5. Mineral bone disorder. Monitor calcium and phosphorus levels. 7. Diabetes. Continue current insulin regimen. 8. Paroxysmal atrial fibrillation. Continue medical management. 9. Gastrointestinal and deep vein thrombosis prophylaxis will sign off, call us if any question s Consultation Date/Type/Reason Admit Date/Time October 31, 2018 at 21:18 Initial Consult Date 11/01/18 Requesting Provider: GERMAIN VASQUES Date/Time of Note DATE: 11/15/18 TIME: 09:56 Exam/Review of Systems Exam Vitals Vital Signs Date Temp Pulse Resp B/P (MAP) Pulse Ox O2 O2 Flow FiO2 Time Delivery Rate 11/15/18 78 08:00 11/15/18 100.0 14 132/45 100 [place] 08:00 (74) l Ventilato r 11/15/18 30 08:00 Intake and Output 11/14/18 11/14/18 11/15/18 1515:00 23:00 07:00 IntakeIntake Total 160 ml 0 ml 0 ml OutputOutput Total 2530 ml 35 ml 35 ml BalanceBalance -2370 ml -35 ml -35 ml Results Result Diagram: 11/14/18 0753 11/14/18 0753 Results 24hrs Laboratory Tests Test 11/14/18 11:11 11/14/18 13:30 11/14/18 18:39 11/14/18 20:59 Bedside Glucose 114 117 131 126 Test 11/15/18 01:09 11/15/18 05:23 Bedside Glucose 104 96 Medications Medication Current Medications Ondansetron HCl (Zofran Inj) 4 mg Q6H PRN IV NAUSEA AND/OR VOMITING; Start 10/31/18 at 21:30 Albuterol (Proventil 0.083% (Neb)) 2.5 mg Q2H RESP THERAPY PRN NEB SHORTNESS OF BREATH Last administered on 11/04/18 00:44; Admin Dose 2.5 MG; Start 10/31/18 at 21:30 Acetaminophen (Tylenol Liquid) 650 mg Q6H PRN PO PAIN LEVEL 1-3 OR FEVER Last administered on 11/07/18 15:40; Admin Dose 650 MG; Start 10/31/18 at 21:30 Amlodipine Besylate (Norvasc) 5 mg BID PO Last administered on 11/14/18 20:58; Admin Dose 5 MG; Start 10/31/18 at 22:00 Benazepril HCl (Lotensin) 40 mg DAILY PO Last administered on 11/14/18 13:34; Admin Dose 40 MG; Start 11/01/18 at 09:00 Calcium Acetate (Phoslo) 667 mg WITH MEALS PO Last administered on 11/14/18 18:40; Admin Dose 667 MG; Start 11/01/18 at 08:00 Multivit/Ca Carb/ B Cmplx/FA/Prenat (Sharron-Ashley) 1 tab DAILY PO Last administered on 11/14/18 09:11; Admin Dose 1 TAB; Start 11/01/18 at 09:00 Diagnostic Test (Pha) (Accu-Chek) 1 ea 02 XX Last administered on 11/15/18 01:16; Admin Dose 1 EA; Start 11/02/18 at 02:00 Insulin Aspart (Novolog Insulin Pen) NOVOLOG *MILD* ALGORI... Q4 SC Last administered on 11/13/18 10:06; Admin Dose 1 UNIT; Start 11/01/18 at 13:00 Sevelamer Carbonate (Renvela) 0.8 gm WITH MEALS PO Last administered on 11/14/18 18:40; Admin Dose 0.8 GM; Start 11/01/18 at 18:00 Miscellaneous Information 1 ea NOTE XX ; Start 11/02/18 at 17:00 Glucose (Glutose) 15 gm Q15M PRN PO DECREASED GLUCOSE; Start 11/02/18 at 17:00 Glucose (Glutose) 22.5 gm Q15M PRN PO DECREASED GLUCOSE; Start 11/02/18 at 17:00 Dextrose (D50w Syringe) 25 ml Q15M PRN IV DECREASED GLUCOSE; Start 11/02/18 at 17:00 Dextrose (D50w Syringe) 50 ml Q15M PRN IV DECREASED GLUCOSE; Start 11/02/18 at 17:00 Glucagon (Glucagen) 1 mg Q15M PRN IM DECREASED GLUCOSE; Start 11/02/18 at 17:00 Glucose (Glutose) 15 gm Q15M PRN BUCCAL DECREASED GLUCOSE; Start 11/02/18 at 17:00 Albumin Human 100 ml @ 100 mls/hr WITH DIALYSIS PRN IV SBP <90 DURING DIALYSIS; Start 11/03/18 at 08:30 Epoetin Virgil-epbx (Retacrit (Esrd)) 6,000 unit TuThSa@1700 SC Last administered on 11/14/18at 18:42; Admin Dose 6,000 UNIT; Start 11/04/18 at 17:00 Levetiracetam 100 ml @ 400 mls/hr Q12 IVPB Last administered on 11/14/18 20:57; Admin Dose 400 MLS/HR; Start 11/04/18 at 01:30 Lorazepam (Ativan) 1 mg Q5M PRN IV SEIZURES; Start 11/04/18 at 20:19 Morphine Sulfate (morphine) 2 mg Q4H PRN IV SEVERE PAIN LEVEL 7-10 Last administered on 11/15/18 01:16; Admin Dose 2 MG; Start 11/06/18 at 13:30 Hydralazine HCl (Apresoline) 10 mg Q6H PRN IV For SBP >160 Last administered on 11/06/18at 15:48; Admin Dose 10 MG; Start 11/06/18 at 13:30 Carvedilol (Coreg) 12.5 mg BID PO Last administered on 11/14/18 20:59; Admin Dose 12.5 MG; Start 11/07/18 at 21:00 Clonidine (Catapres) 0.1 mg BID PO Last administered on 11/14/18 20:58; Admin Dose 0.1 MG; Start 11/07/18 at 21:00 Famotidine (Pepcid) 20 mg DAILY PO Last administered on 11/14/18at 09:11; Admin Dose 20 MG; Start 11/09/18 at 09:00 Dexmedetomidine HCl 200 mcg/ Sodium Chloride 50 ml @ 3.16 mls/hr TITRATE IV Last administered on 11/09/18at 10:03; Admin Dose 3.16 MLS/HR; Start 11/09/18 at 09:30 Polyethylene Glycol (Miralax) 17 gm DAILY PO Last administered on 11/14/18at 09:11; Admin Dose 17 GM; Start 11/09/18 at 13:00 Morphine Sulfate/ Sodium Chloride 100 ml @ 1 mls/hr TITRATE IV ; Start 11/15/18 at 13:00 SAUD CHANDLER MD Nov 15, 2018 09:56
[2018-11-15] MEDS: BENAZEPRIL 40 MG TAB PO SCH (11:05)
[2018-11-15] MEDS: CALCIUM ACETATE 667 MG CAP PO SCH ×2 (11:05→15:12)
[2018-11-15] MEDS: MULTIVIT/CA CARB/B CMPLX/FA TAB PO SCH (11:05)
[2018-11-15] MEDS: SEVELAMER CARBONATE 0.8 GM PKT PO SCH ×2 (11:05→15:12)
[2018-11-15] MEDS: FAMOTIDINE 20 MG TAB PO SCH (11:07)
[2018-11-15] MEDS: POLYETHYLENE GLYCOL 17 GM PACKET PO SCH (11:07)
[2018-11-15] MEDS: AMLODIPINE 5 MG TAB PO SCH (11:08)
[2018-11-15] MEDS: LEVETIRACETAM 500 MG (PMX) 100 ML IVPB SCH (11:08)
[2018-11-15] MEDS ORDERED: morphine (DRIP) 100 MG/100 ML 100 ML IV SCH (13:00)
--- NOTE | 2018-11-15 18:29 | PN ---
Date/Time of Note Date/Time of Note DATE: 11/15/18 TIME: 18:27 Assessment/Plan VTE Prophylaxis Risk score (from Ns)>0 risk: 12 SCD applied (from Ns): Yes Pharmacological prophylaxis: NA/contraindicated Pharm contraindication: other (terminal illness) Lines/Catheters IV [facility]from [facility] Central Line Central line still needed: Yes Urinary Cath still in place: No Assessment/Plan Assessment/Plan 78 yo M with a history of fall a few days prior to presentation who was brought in for confusion and is currently managed as follows: 1. Acute right subdural hematoma -Status post craniotomy and bur hole placement 11/06/18 and R ventriculostomy drain -CT and MRI concerning for new left-sided subdural collection of fluid as well as residual hemorrhage. -s/p L sided drain placement 11/09/18 with f/u CT 11/10/18 showing improvement -further management per neurosurgery, drains remain in place -Likely the cause of patient's mental status. He is obtunded. 2. Ventilator dependent respiratory failure - Patient is apneic on CPAP trial. Again this is likely due to subdural hematoma. 3. Moderate to large right-sided pleural effusion -status post thoracentesis November 07, 2018 with drainage of 900 cc of fluid 4. Right-sided pneumothorax complicating thoracentesis -which has worsened and now patient is status post right-sided chest tube placement November 09/2019 -CXR showing improvement 5. Severe anemia, likely acute on chronic, exacerbated by acute blood loss from #1 with iron deficiency -Patient received 2 units of packed red cells upon arrival, hemoglobin has been stable since off anticoagulation and antiplatelet -ongoing IV iron replacement X 5 days 6. End-stage renal disease on hemodialysis Tuesday, , Tuesday 7. Diabetes mellitus -excellent control on current regimen 8. Paroxysmal atrial fibrillation -off all anticoagulation for now -slightly bradycardic, cardio managing 9. Hypertension -controlled 10. Aspiration pneumonitis -Maintained on empiric abx -Blood cultures remain negative to date 11. New-onset seizure secondary to #1 -Patient maintained on seizure prophylaxis with no further episodes so far -EEG no seizure activity 12. Recurrent falls status post recent fall 2 days ago -Patient will likely be quite debilitated by the end of this hospitalization and will probably require nursing facility placement for rehab 13. Tube feeds on hold for high stomach residuals -reglan q6h scheduled -no BM in about 2 days, will give miralax -monitor G-tube output, once reduced, resume tube feeds at slow rate Prophylaxis: No anticoagulation secondary to bleed Dispo: Comfort measures only. s/p terminal extubation on morphine gtt. Result Diagram: 11/14/18 0753 11/14/18 0753 Subjective 24 Hr Interval Summary Free Text/Dictation Terminally extubated on morphine gtt this afternoon. Family at bedside. Patient having shallow respirations. Maintaining pulse and BP. Exam/Review of Systems Exam Vitals Vital Signs Date Temp Pulse Resp B/P (MAP) Pulse Ox O2 O2 Flow FiO2 Time Delivery Rate 11/15/18 76 20 147/67 92 Mechanical 18:00 (93) Ventilator 11/15/18 2.0 17:45 11/15/18 97.9 16:00 11/15/18 30 15:20 Intake and Output 11/14/18 11/14/18 11/15/18 1515:00 23:00 07:00 IntakeIntake Total 160 ml 0 ml 0 ml OutputOutput Total 2530 ml 35 ml 35 ml BalanceBalance -2370 ml -35 ml -35 ml Exam Constitutional: Frail appearing man supine in bed, unresponsive HEENT: Healing incisions stapled on scalp. Drains out. Moist mucous membranes Neck: No lymphadenopathy Respiratory: clear to auscultation Chest: R chest tube in place with serous output Cardiovascular: regular rate and rhythm, no murmurs appreciated Gastrointestinal: soft; non distended Musculoskeletal: nl extremities to inspection Neuro: Opens eyes and moves limbs spontaneously. Not following commands. Results Results 24hrs Laboratory Tests Test 11/14/18 18:39 11/14/18 20:59 11/15/18 01:09 11/15/18 05:23 Bedside Glucose 131 126 104 96 Test 11/15/18 11:15 11/15/18 13:12 Bedside Glucose 96 83 Medications Medication Current Medications Lorazepam (Ativan) 1 mg Q5M PRN IV SEIZURES; Start 11/04/18 at 20:19 Morphine Sulfate (morphine) 2 mg Q4H PRN IV SEVERE PAIN LEVEL 7-10 Last administered on 11/15/18at 13:18; Admin Dose 2 MG; Start 11/06/18 at 13:30 Morphine Sulfate/ Sodium Chloride 100 ml @ 1 mls/hr TITRATE IV Last administered on 11/15/18at 16:50; Admin Dose 1 MLS/HR; Start 11/15/18 at 13:00 CORBIN TAY MD Nov 15, 2018 18:29
--- NOTE | 2018-11-15 21:06 | QN ---
Documentation Comment Pronouncement Note Patient seen and examined at the bedside. Patient unresponsive to verbal commands patient nonresponsive to vigorous pain as well. Fixed and nonreactive to light bilaterally. No heart sounds appreciated on auscultation. No instructional assistant showing asystole. Patient pronounced at approximately 8:58 PM. Family present at the bedside. Primary team aware. THIEN LUCIO Nov 15, 2018 21:06
--- NOTE | 2018-11-16 08:37 | DES ---
Date/Time of Note Date/Time of Note DATE: 11/16/18 TIME: 08:16 Discharge/ Summary Admission/Discharge Info Admit Date/Time October 31, 2018 at 21:18 Date/Time November 15, 2018 at 20:58 Final Diagnosis Subdural hematoma Preliminary Cause of Cardiac arrest (immediate) due to acute respiratory failure (days) due to subdural hematoma (weeks) Admit History Chief complaint: Confused, fall 2 days ago Long history was obtained from the ED physician documentation as well as partially from the patient. The patient is a 78-year-old male, with a past medical history of end-stage mango al disease, atrial fibrillation on Eliquis who presented to the ER because he has been confused for the last 4 days, fell 2 days ago. He was seen in the emergency department approximately 2 days ago and had an CT scan done at that time which was negative. He then fell again yesterday and become more confused today according to the family. He does not have any fever, headache, neck pain, chest pain, dyspnea, abdominal pain, vomiting, dizzy, diarrhea. He sustained superficial bilateral wrist injury when he fell 2 days ago. Allergies: NKDA Medications: See [facility] Hospital Course The patient was admitted to the intensive care unit. He was given 1 unit platelets and DDAVP because of mild thrombocytopenia and he was on Eliquis. Anjel uated by Dr Marroquin who decided to wait on surgery due to coagulopathy. The patient was initially confused but awake and protecting his airway on arrival. Nephrology was consulted for scheduled dialysis. Unfortunately, despite being very cautious with sedating medications the patient's mental status continued to decline. On 11/06 he was taken to the OR for craniotomy and evacuation of subdural hematoma with ventriculostomy drain left in. Postoperatively he was not extubatable. He also developed a R pleural effusion requiring thoracentesis; and a few days afterwards developed a R pneumothorax requiring a chest tube. He did open his eyes and move extremities; but was not following commands or tracking. Mental status did not improve after two weeks on mechanical ventilation. According to his family, the patient had previously expressed that he did not want to be dependent on life support long-term. Given his poor prognosis a decision was made for terminal extubation. He with family at the bedside. Pending Labs/Cultures Laboratory Tests Test 6/12/19 11:15 11/15/18 13:12 Bedside Glucose 96 mg/dL (70-220) 83 mg/dL (70-220) CORBIN TAY MD Nov 16, 2018 08:30
== END 2018-11-15 20:58 | disposition expired | DRG 23 ==
LOC: E/R 17:01 → ICU 21:18
PROVIDERS: ADMIT Family Medicine; ATTEND Internal Medicine
PROC: 30233R1 Transfusion of Nonautologous Platelets into Peripheral Vein, Percutaneous Approach (ICD-10-PCS; 2018-11-01)
PROC: 5A1D70Z Performance of Urinary Filtration, Intermittent, Less than 6 Hours Per Day (ICD-10-PCS; 2018-11-02)
PROC: 30233N1 Transfusion of Nonautologous Red Blood Cells into Peripheral Vein, Percutaneous Approach (ICD-10-PCS; 2018-11-03)
PROC: 0W9930Z Drainage of Right Pleural Cavity with Drainage Device, Percutaneous Approach (ICD-10-PCS; 2018-11-07)
PROC: 00C40ZZ Extirpation of Matter from Intracranial Subdural Space, Open Approach (ICD-10-PCS; principal; 2018-11-08)
PROC: 5A1955Z Respiratory Ventilation, Greater than 96 Consecutive Hours (ICD-10-PCS; 2018-11-09)
PROC: 0W9900Z Drainage of Right Pleural Cavity with Drainage Device, Open Approach (ICD-10-PCS; 2018-11-09)
DX: S06.6X0A Traumatic subarachnoid hemorrhage without loss of consciousness, initial encounter (principal); N18.6 End stage renal disease; J69.0 Pneumonitis due to inhalation of food and vomit; J96.01 Acute respiratory failure with hypoxia; I12.0 Hypertensive chronic kidney disease with stage 5 chronic kidney disease or end stage renal disease; J93.9 Pneumothorax, unspecified; D62 Acute posthemorrhagic anemia; G93.40 Encephalopathy, unspecified; Z99.11 Dependence on respirator [ventilator] status; G81.94 Hemiplegia, unspecified affecting left nondominant side; S06.5X0A Traumatic subdural hemorrhage without loss of consciousness, initial encounter; D69.6 Thrombocytopenia, unspecified; E11.22 Type 2 diabetes mellitus with diabetic chronic kidney disease; Z99.2 Dependence on renal dialysis; Z79.02 Long term (current) use of antithrombotics/antiplatelets; I48.91 Unspecified atrial fibrillation; W19.XXXA Unspecified fall, initial encounter; M54.2 Cervicalgia; R40.2432 Glasgow coma scale score 3-8, at arrival to emergency department; Z91.81 History of falling; D63.1 Anemia in chronic kidney disease; R56.9 Unspecified convulsions
CPT/HCPCS: 36415; 36430; 36600; 70450; 70551; 71045; 72125; 72128; 76942; 80048; 80053; 80076; 82140; 82803; 82962; 83540; 83605; 83690; 83735; 84100; 84145; 84484; 85025; 85610; 85730; 86644; 86850; 86900; 86901; 86920; 86945; 87081; 87340; 90935; 92610; 93005; 93306; 93971; 94002; 94003; 94660; 94664; 94770; 95819; 96374; 97110; 97163; C1713; C9113; J0360; J0690; J1100; J1200; J1815; J1885; J1940; J1953; J2060; J2250; J2270; J2543; J2597; J2724; J2765; J2916; J3010; J7030; J7040; P9016; P9035; P9047; Q5105; Q5106